=== PATIENT | female | born 1955 | race Caucasian/White ===

== ENCOUNTER 2025-02-11 08:23 | Day surgery (SDC) | payer MEDICARE, SELFPAY ==
[2025-02-11] VITALS (10 sets, daily range): BP systolic 92–125; BP diastolic 65–80; PULSE 65–83; RESP 16; TEMP 36.5–36.8; O2SAT 92–98; BMI 53.8
[2025-02-11] MEDS: Lactated Ringers 1,000 ML 15 ML IV (09:06)
--- NOTE | 2025-02-11 09:07 | PCM.PRE.AN2 ---
ASA Classification* ASA Classification ASA Classification: 3 Assessment & Plan Anesthesia* Anesthesia Assessment Anesthesia Assessment: Discussed sedation and/or anesthesia options, risks, benefits, and alternatives with patient/parents/legal guardian/POA. Questions invited. The patient/parents/legal guardian/POA seems to understand and agrees to proceed with anesthesia plan. Reviewed the physical assessment, medical history, allergy history and patient home medications list prior to surgery/procedure/anesthetic and documented any changes. Performed airway and anesthesia risk assessments. Anesthesia Type Anesthesia Type: MAC History Source History Obtained from:: Patient and Chart Anesthesia Focused Assessment* Temperature: 98 F Pulse Rate: 78 Blood Pressure: 92/65 Respiratory Rate: 16 Pulse Ox: 96 Oxygen Delivery Method: Room Air Airway Assessment Mouth opens: >3 cm Mallampati Score: IV Teeth Condition: Missing (Patient is missing several molars. The rest of the teeth are tight.) Neck Range of motion (ROM): Limited ROM (Slight Decrease) Labs Anesthesia Preop lab: CBC CHEMISTRY COAG Pre-Assessment Diagnosis/Proposed Procedure Planned Operative Procedure(s): Hysteroscopy,D&C Symphion, polypectomy Anesthesia History Anesthesia History - delivery professional: Anesthesia History - delivery professional Hx Hospitalization No 01/31/25 09:27 Any Problems With Anesthesia No 01/31/25 09:27 Cholinesterase deficiency No 01/31/25 09:27 You/Your Family Experience No 01/31/25 09:27 fever (hyperthermia) with Relationship Recent Exposure to Contagious No 02/11/25 08:51 Disease Does patient have nerve No 01/31/25 09:27 stimulator Patient instructed to have device shut off --Does patient have Pacemaker No 02/11/25 08:51 or ICD? When Was Last Pacemaker Check QUESTION #4 FULL TEXT: You/Your Family Experience fever (hyperthermia) with Anesthesia Last Oral Intake Last Oral intake: Last Oral Intake NPO since 23:50 02/11/25 08:51 Meds taken in AM with sips of No 02/11/25 08:51 water? Meds patient instructed to take am of surgery PONV PONV - delivery professional: PONV - delivery professional Female Yes 01/31/25 09:27 HX of Motion Sickness Yes 01/31/25 09:27 HX of N/V After Surgery No 01/31/25 09:27 Non-Smoker Yes 01/31/25 09:27 Duration of Surgery greater No 01/31/25 09:27 than 60 minutes Number of Risk Factors 3 01/31/25 09:27 PONV Score Moderate Risk 01/31/25 09:27 Height & Weight Height & Weight: Anesthesia: Height & Weight Height 5 ft 02/11/25 08:51 Weight: 125 kg 02/11/25 08:51 Body Mass Index (BMI) 53.8 02/11/25 08:51 Respiratory Assessment Respiratory Assessment - delivery professional: Respiratory Tract Infection Hx - delivery professional Hx Respiratory Tract Infection No 01/31/25 09:27 STOP Sleep Apnea STOP Sleep Apnea - delivery professional: STOP Sleep Apnea - delivery professional Hx Hypertension No 01/31/25 09:27 Hx Sleep Apnea No 01/31/25 09:27 CPAP BIPAP Do you snore loudly (louder No 01/31/25 09:27 than talking or can be heard Do you often feel tired/ No 01/31/25 09:27 fatigued/ sleepy during daytime? Has anyone observed you stop No 01/31/25 09:27 breathing during sleep? STOP Results Negative 01/31/25 09:27 QUESTION #5 FULL TEXT : Do you snore loudly (louder than talking or can be heard through closed doors)? 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 Specify any problems Hx of Preganancy in last 3 No 01/31/25 09:27 Months Nurse Filling Out Transfusion VCHRISTIN 01/31/25 09:27 & Questions: Date: 01/31/25 01/31/25 09:27 Time: 09:28 01/31/25 09:27 Patient unable to answer at this time (ie. confused, unrespo /Reproduction History /Reproductive History - delivery professional: /Reproductive Hx- delivery professional Hx Now No 01/31/25 09:27 Gestational Age (in weeks): EDC: Hx Hx Para Hx Section SAB No 01/31/25 09:27 Active Medications Active Medications: Current Medications Generic Name Dose Route Start Last Admin Trade Name Freq PRN Reason Stop Dose Admin Lactated Ringer's 1,000 mls @ 15 mls/hr 02/11/25 08:45 02/11/25 09:06 IV 15 mls/hr .Q48H NIYAH Administration PFSH Medical History Wears glasses Post-menopausal Depression Anxiety Alcohol use Thyroid disease Arthritis Back pain Injury of head and neck History of hiatal hernia Non-smoker Asthma Leg cramps History of pain when walking History of edema History of echocardiogram History of ganglion cyst Home Medications ?Medication ?Instructions ?Recorded ?Last Taken ?Type cetirizine 10 mg tablet 10 mg PO DAILY 01/31/25 Unknown History cholecalciferol (vitamin D3) 25 25 mcg PO DAILY 01/31/25 Unknown History mcg (1,000 unit) capsule (Vitamin D3) fluticasone propionate 50 1 spray intranasal DAILY PRN nasal 01/31/25 Unknown History mcg/actuation nasal congestion spray,suspension (24 Hour Allergy Relief) levothyroxine 50 mcg tablet 50 mcg PO DAILY 01/31/25 Unknown History meloxicam 15 mg tablet 15 mg PO DAILY 01/31/25 Unknown History sertraline 50 mg tablet 50 mg PO DAILY 01/31/25 Unknown History Allergy/AdvReac Type Severity Reaction Status Date / Time amoxicillin Allergy Severe Rash Verified 02/11/25 08:49 Surgical History History of cardiac catheterization History of tonsillectomy and adenoidectomy Hx of tubal ligation History of hysteroscopy Hx of section Social History Smoking Status: Never smoker Review of Systems (Anesthesia) ROS Narrative System reviewed and no additional complaints, except as documented. Physical Exam Resp Resp Narrative: Patient has a slight end expiratory wheeze. We will give her a nebulizer breathing treatment prior to OR.
[2025-02-11] MEDS: Lidocaine 1% (20 ml mdv) 20 ML Vial (09:58)
--- NOTE | 2025-02-11 10:14 | PCM.DC ---
Discharge Instructions DC O2, CPAP, BIPAP needs Home O2 Discharge instructions: No Dressing / Incision Discharge Activity: May Not Drive (for 24 hours after surgery) and May Not Shower (for 24 hours after surgery) May resume sexual activity in: 1 week (nothing in the vagina and no soaking in water) Weight Bearing Status: Weight bearing as tolerated Lifting Restrictions: none Dressing / Incision Call your doctor if you observe: Fever of 101 or Higher, Using more than 1 pad per hour, Shortness of breath, Dizziness, Chest pain, Increased palpitations (irregular heartbeat), Calf discomfort and Uncontrolled pain Follow Up Care Please Follow Up With: Ladonna Yuen DO When: 1 week post op Test Results: Test results from this visit will be discussed in further detail at your follow-up appointment, if applicable. Discharge Plan Admission Primary Reason for Your Visit: surgery Attending Provider: Ladonna Yuen Primary Care Provider: Josie Worthy Instructions Patient Instructions: Dilation and Curettage Print Language: Portuguese Discharge Orders/Prescriptions Prescriptions: Continued cholecalciferol (vitamin D3) [Vitamin D3] 25 mcg (1,000 unit) capsule 25 mcg PO DAILY levothyroxine 50 mcg tablet 50 mcg PO DAILY cetirizine 10 mg tablet 10 mg PO DAILY meloxicam 15 mg tablet 15 mg PO DAILY sertraline 50 mg tablet 50 mg PO DAILY fluticasone propionate [24 Hour Allergy Relief] 50 mcg/actuation spray,suspension 1 spray intranasal DAILY PRN (Reason: nasal congestion) Rx Instructions: administer into each nostril Referrals / Follow Up: Josie Worthy MD [Primary Care Provider] - Disposition Disposition (needs filled in before D/C Order can be placed): Home, Self Care
--- NOTE | 2025-02-11 10:24 | PCM.POSTANE2 ---
Anesthesia Postop Eval I Sum Anesthesia Postop Eval I Summary Anesthesia Postop Eval I Summary: Anesthesia Postop Eval I: Assessment Summary Airway patent Spontaneous unlabored respirations Mental status nausea Vomiting Anesthesia Postop Eval I: Fluid Summary Crystalloid volume administer (ml) Colloids volume administered ( ml) Blood Product volume administered (ml) Total IV fluid infused Anesthesia Postop Eval I: Summary Notes Anesthesia Complication Anesthesia Complication Comment: Post-operative progress note Anesthesia: Postop Eval II Evaluation Mental status: Awake and Calm Pain Level: 0 nausea: No Vomiting: No Complications Anesthesia Complication: No
--- NOTE | 2025-02-11 10:26 | OP.PCM_ITS ---
Problems Associated Problem List Diagnoses (1) PMB (postmenopausal bleeding): Operative Report (Standard) Operative Information Date of Procedure: 02/11/25 Pre-Operative Diagnosis: PMB Post-Operative Diagnosis: PMB Surgery/Procedure Performed: Hysteroscopy, D&C, polypectomy health science instructor: No Type of Anesthesia: MAC RN Documented Start/Stop Times: Operation Date: 02/11/25 10:30 Case Time Into Pre-Op 02/11/25 08:39 Out of Pre-Op 02/11/25 09:23 Anesthesia Start 02/11/25 09:26 Into Room 02/11/25 09:26 Procedure Start 02/11/25 09:42 Procedure End 02/11/25 10:10 Anesthesia End 02/11/25 10:16 Out of Room 02/11/25 10:16 Into Recovery 02/11/25 10:20 Procedure Start Time: 09:42 Procedure Stop Time: 10:10 Select all DRAINS/GRAFTS/IMPLANTS that apply: None Special Medications: None Estimated Blood Loss: < 50 mL Fluids Replaced: 500 mL fluid deficit Specimen collected: Yes Description of specimen(s) removed: Endometrial curettings and polyp Description of surgery: The patient was taken to the operating room where MAC anesthesia was induced. She was prepped and draped in the dorsal lithotomy position using yellow fin stirrups. A weighted speculum was placed in the vagina to expose the cervix. The anterior lip of the cervix was grasped with a single tooth tenaculum. Local was infiltrated into the cervix. The cervix was serially dilated to accommodate the Symphion hysteroscopy. The hysteroscope was advanced into the uterus, and the uterine cavity was distended with normal saline as distention media. Bilateral tubal ostia were visualized. There was a large vascular prolapsing polyp that was arising from the anterior surface of the uterus. The Symphion resection device was used to resect the polyp. A very broad base was noted during resection, which compromised about 50% of the anterior surface of the uterus. The hysteroscope was then removed after resection of the polyp. Sharp curettage was performed for moderate tissue. The polyp and endometrial curettings were sent to pathology for review. Bleeding was scant. All instruments were removed from the vagina. A vaginal sweep was performed. Intermittent and sponge counts were correct. The patient was taken to the recovery in stable condition. Surgical Findings: Uterus sounded to 10 cm. Large polyp over anterior surface of the uterus with a broad base. Complications Complications: No Admit VTE Documentation VTE Present on Admission: No VTE Mechan Device Prophylaxis: SCD's
--- NOTE | 2025-02-11 10:30 | EMB_PTH ---
PATIENT: DEEP NICHOLSON [place] [facility] [facility] [id number] AGE/SX: 69/F ROOM: RE02/11/[address]: Dr. Ladonna Yuen DO : 1955 BED: DIS: 02/11/2025 SPEC #: [id number] RECD: 02/11/25 11:52 STATUS: BONNIE REWest #: [id number] BANDAR: 02/11/25 10:[address]: Ladonna Yuen DEPT: SURGICAL PATHOLOGY RECD BY: Anderson Rasheed ENTERED: 02/11/25 13:52 SP TYPE: ENDOM BX/C OT DR: Dr. Josie Worthy MD Tissues: A - Endometrium, NOS Procedures: Surgery Specimen Level IV HEADER OPERATION: Hysteroscopy, polypectomy PRE-OP DIAGNOSIS: Polyp, post menopausal bleeding TISSUE SUBMITTED: A- Endometrial curettings and polyp MICROSCOPIC DIAGNOSIS A. Endometrium, polyp, post menopausal bleeding, dilation and curettage, polypectomy: - Endometrial hyperplasia with focal atypia most probably originating in endometrial polyp - see Comment. COMMENT Selected slides/images were reviewed in intradepartmental consultation by Dr Alexandria Funk ([facility] pathology division, [facility]). MICROSCOPIC DESCRIPTION Slides are reviewed. GROSS DESCRIPTION Received in formalin labeled with the patient's name and date of . Designated as endometrial curettings and polyp is a is a 3.2 x 2.6 x 0.6 cm aggregate of vaca-pink tissue fragments including a 0.7 x 0.4 x 0.4 cm pink-purple apparent polyp. Entirely submitted in 3 cassettes, to include the possible polyp in cassette A1. CT 02/11/2025 CPT:[id number]
== END 2025-02-11 12:09 | disposition home or self-care (01) ==
LOC: SDC 08:30 → AC 08:33
PROVIDERS: PCP Internal Medicine; Referring Provider Obstetrics & Gynecology; Visit Provider Obstetrics & Gynecology
PROC: 0UB98ZZ Excision of Uterus, Via Natural or Artificial Opening Endoscopic (ICD-10-PCS; CPT 58558; principal; 2025-02-11 10:15)
DX: N95.0 Postmenopausal bleeding (principal); N84.0 Polyp of corpus uteri; Z98.51 Tubal ligation status; E03.9 Hypothyroidism, unspecified; F41.1 Generalized anxiety disorder; E55.9 Vitamin D deficiency, unspecified
CPT/HCPCS: 58558; 00952; 88305; 94640; J2405

== ENCOUNTER 2025-02-13 12:42 | Emergency (ER) | payer MEDICARE, SELFPAY ==
[2025-02-13 12:44] VITALS: BP 168/76; PULSE 78; RESP 16; TEMP 36.6; O2SAT 98; BMI 54.7
--- NOTE | 2025-02-13 13:28 | RAD_ITS ---
PROCEDURE: ACUTE ABDOMEN INC CHEST 02/13/2025 REASON FOR EXAM: PAIN TECHNIQUE: ACUTE ABDOMEN INC CHEST COMPARISON: None. FINDINGS: The heart is normal in size. The lungs are clear. No subdiaphragmatic free air. Nonspecific bowel gas pattern. No evidence of obstruction. No acute osseous abnormalities. RAD/Acute Abdomen Inc Chest IMPRESSION: Nonobstructive bowel gas pattern. No acute cardiopulmonary abnormalities. Reading Location: [id number]
--- OUTSIDE RECORDS SUMMARY | 2025-02-13 13:33 | XMS RPT_ITS | CCD ---
Author Organization [facility] Care Team Providers Care Parts Back Counter Man Name Role Phone Kyra Carson MD Primary Care Provider ALL BARTHOLOMEW Attending Unavailable TALAMPAS, KYRA D Referring Unavailable TALAMPAS, KYRA D Primary Care Unavailable Kyra Carson MD Primary Care Provider Kyra Carson MD Primary Care Provider Soriano COMMERCIAL PAINTER.NAVAL AIRCREWMAN HELICOPTER, Dorota Unavailable Jenn COMMERCIAL PAINTER.SECRETARY BOARD OF COMMISSIONERS, Thanh Unavailable Jenn COMMERCIAL PAINTER.SECRETARY BOARD OF COMMISSIONERS, Thanh Unavailable Jenn COMMERCIAL PAINTER.SECRETARY BOARD OF COMMISSIONERS, Thanh Unavailable Soriano COMMERCIAL PAINTER.NAVAL AIRCREWMAN HELICOPTER, Dorota Unavailable Soriano COMMERCIAL PAINTER.NAVAL AIRCREWMAN HELICOPTER, Dorota Unavailable TALAMPAS, KYRA D Attending Unavailable TALAMPAS, KYRA D Primary Care Unavailable TALAMPAS, KYRA D Primary Care Unavailable TALAMPAS, KYRA D Referring Unavailable TALAMPAS, KYRA D Primary Care Unavailable TALAMPAS, KYRA D Referring Unavailable TALAMPAS, KYRA D Primary Care Unavailable WISWELL, THOMAS Attending Unavailable TALAMPAS, KYRA D Primary Care Unavailable JENN THANH Referring Unavailable TALAMPAS, KYRA D Primary Care Unavailable JENNTHANH Attending Unavailable MAX, LIZETH Referring Unavailable WISWELL, THOMAS Attending Unavailable TALAMPAS, KYRA D Primary Care Unavailable TALAMPAS, KYRA D Primary Care Unavailable JENN THANH Attending Unavailable MAX, LIZETH Referring Unavailable TALAMPAS, KYRA D Primary Care Unavailable TALAMPAS, KYRA D Referring Unavailable MAX, LIZETH Attending Unavailable TALAMPAS, KYRA D Primary Care Unavailable TALAMPAS, KYRA D Primary Care Unavailable THANH BARAJAS Attending Unavailable SELF Referring Unavailable KYRA CARSON Referring Unavailable KYRA CARSON Primary Care Unavailable Dr. Thomas Yuen DO Attending Provider Dr. Thomas Yuen DO Referring Provider Dr. Kyra Carson MD Primary Care Provider Kyra Carson Primary Care Unavailable Thomas Yuen Referring Unavailable Thomas Yuen Attending Unavailable Allergies Allergy Classification Reported Allergen(s) Allergy Type Date of Onset Reaction(s) Facility (20 sources) Amoxicillin; Translations: [AMOXICILLIN] Drug Allergy 03-26-2022 [facility] Work Phone: (1 source) Amoxicillin Drug Allergy 02-11-2025 [facility] Repository Medications Current Medications Medication Drug Class(es) Dates Sig (Normalized) Sig (Original) azithromycin 250 mg oral tablet (1 source) Macrolide Antimicrobial Start: 09-28-2024 End: 10-03-2024 take 2 tablets by mouth once daily, then take 1 tablet by mouth once daily azithromycin (ZITHROMAX) 250 mg tablet Indications: Sinobronchitis Take 2 tablets by mouth once daily for 1 day, THEN 1 tablet once daily for 4 days. 6 tablet 09/28/2024 10/03/2024 Active cetirizine hydrochloride 10 mg oral tablet (20 sources) Histamine-1 Receptor Antagonist Start: 01-31-2025 take 1 tablet by mouth once daily Cetirizine 10 mg tablet Active 10 mg PO DAILY January 31, 2025 12:00am Start: 11-16-2024 End: 11-16-2024 take 1 tablet by mouth once daily cetirizine HCl (ZYRTEC) 10 mg chewable tablet Take 1 tablet by mouth once daily. 90 tablet 1 11/16/2024 Active End: 04-28-2023 take 1 tablet by mouth once daily cetirizine (ZYRTEC) 10 mg tablet Take 10 mg by mouth once daily. 0 04/28/2023 Discontinued Comment on above: Take 10 mg by mouth once daily. cholecalciferol 0.025 mg oral capsule (20 sources) Vitamin D Start: 02-01-20 take 1 capsule by mouth once daily Cholecalciferol (Vitamin D3) (Vitamin D3) 25 mcg (1,000 unit) capsule Active 25 ug PO DAILY January 31, 2025 12:00am Cholecalciferol, Vitamin D3, (VITAMIN D) 25 mcg (1,000 unit) cap Take 1,000 Units by mouth once daily. Active Comment on above: Take 1,000 Units by mouth once daily. fluticasone propionate 0.05 mg/actuat metered dose nasal spray (20 sources) Corticosteroid Start: take 50 ug nasal route once daily as needed Fluticasone Propionate (24 Hour Allergy Relief) 50 mcg/actuation spray,suspension Active 1 NMA INTRANASAL DAILY as needed for nasal congestion January 31, 2025 12:00am administer into each nostril Start: 11-04-2023 take 2 spray(s) by m outh once daily fluticasone (FLONASE) 50 mcg/actuation nasal spray Use 2 Sprays in each nostril once daily. Rinse mouth after use. As directed 1 Each 2 11/04/2023 Active Start: 09-10-2022 End: 11-02-2023 take 2 spray(s) by mouth once daily fluticasone (FLONASE) 50 mcg/actuation nasal spray Use 2 Sprays in each nostril once daily. Rinse mouth after use. As directed 1 Each 2 05/06/2023 11/02/2023 Discontinued Comment on above: Use 2 Sprays in each nostril once daily. Rinse mouth after use. As directed levothyroxine sodium 0.05 mg oral tablet (20 sources) l-Thyroxine Start: take 1 tablet by mouth once daily Levothyroxine 50 mcg tablet Active 50 ug PO DAILY January 31, 2025 12:00am Start: 11-04-2023 End: 09-28-2024 take 1.5 tablets by mouth once daily for thyroid dysfunction levothyroxine (LEVOXYL) 50 mcg tablet Indications: Hypothyroidism, unspecified type Take 1.5 tablets by mouth once daily. Take on empty stomach. For Thyroid 45 tablet 11 09/28/2024 Active Start: 05-14-2023 End: 11-02-2023 take 1.5 tablets by mouth once daily for thyroid dysfunction levothyroxine (LEVOXYL) 50 mcg tablet Indications: Hypothyroidism, unspecified type Take 1.5 tablets by mouth once daily. Take on empty stomach. For Thyroid 45 tablet 5 05/14/2023 11/02/2023 Discontinued Start: 04-09-2023 End: 05-14-2023 take 1 tablet by mouth once daily for thyroid dysfunction levothyroxine (LEVOXYL) 50 mcg tablet Indications: Hypothyroidism, unspecified type Take 1 tablet by mouth once daily. Take on empty stomach. For Thyroid 30 tablet 5 04/09/2023 05/14/2023 Discontinued Start: 01-15-2023 End: 04-09-2023 take 1 tablet by mouth once daily for thyroid dysfunction levothyroxine (SYNTHROID) 25 mcg tablet Indications: Hypothyroidism, unspecified type Take 1 tablet by mouth once daily. Take on empty stomach. For thyroid. 30 tablet 2 01/15/2023 04/09/2023 Discontinued Start: 10-15-2022 End: 01-12-2023 take 1 tablet by mouth once daily for thyroid dysfunction levothyroxine (SYNTHROID) 25 mcg tablet Indications: Hypothyroidism, unspecified type Take 1 tablet by mouth once daily. Take on empty stomach. For thyroid. 30 tablet 2 10/15/2022 01/12/2023 Discontinued Comment on above: Take 1 tablet by shadia th once daily. Take on empty stomach. For thyroid. Take 1 tablet by shadia th once daily. Take on empty stomach. For Thyroid Take 1.5 tablets by mouth once daily. Take on empty stomach. For Thyroid meloxicam 15 mg oral tablet (20 sources) Nonsteroidal Anti-inflammatory Drug Start: 04-06-2024 End: 11-11-2025 take 1 tablet by mouth once daily Meloxicam 15 mg tablet Active 15 mg PO DAILY January 31, 2025 12:00am Start: 11-03-2023 End: 03-02-2024 take 1 tablet by mouth once daily meloxicam (MOBIC) 15 mg tablet Take 1 tablet by mouth once daily. 30 tablet 3 11/03/2023 03/02/2024 Active Start: 06-30-2023 End: 10-28-2023 take 1 tablet by mouth once daily meloxicam (MOBIC) 15 mg tablet Take 1 tablet by mouth once daily. 30 tablet 3 06/30/2023 10/28/2023 Active Start: 02-03-2023 End: 06-02-2023 take 1 tablet by mouth once daily meloxicam (MOBIC) 15 mg tablet Take 1 tablet by mouth once daily. 30 tablet 0 06/02/2023 Active Start: 12-31-2022 End: 02-01-2023 take 1 tablet by mouth once daily meloxicam (MOBIC) 15 mg tablet Take 1 tablet by mouth once daily. 30 tablet 0 12/31/2022 02/01/2023 Discontinued Start: 09-30-2022 End: 11-24-2022 take 1 tablet by mouth once daily meloxicam (MOBIC) 15 mg tablet Take 1 tablet by mouth once daily. 30 tablet 0 11/25/2022 Active Start: 04-08-2022 End: 09-28-2022 take 1 tablet by mouth once daily meloxicam (MOBIC) 15 mg tablet Take 1 tablet by mouth once daily. 30 tablet 0 08/28/2022 09/28/2022 Discontinued Comment on above: Take 1 tablet by shadia th once daily. predniSONE 10 mg oral tablet (3 sources) Start: 09-18-2022 End: 09-30-2022 predniSONE (DELTASONE) 10 mg tablet Indications: Acute left-sided low back pain with sciatica, sciatica laterality unspecified Take 4 tabs daily x 3 days, then 3 tabs x 3 days, 2 tabs x 3 days, then 1 tab x3 days with food. 30 tablet 0 09/18/2022 09/30/2022 Active Comment on above: Take 4 tabs daily x 3 days, then 3 tabs x 3 days, 2 tabs x 3 days, then 1 tab x3 days with food. sertraline 50 mg oral tablet (20 sources) Serotonin Reuptake Inhibitor Start: 01-31-2025 take 1 tablet by mouth once daily Sertraline 50 mg tablet Active 50 mg PO DAILY January 31, 2025 12:00am Start: 09-15-2023 End: 09-28-2024 take 1 tablet by mouth once daily sertraline (ZOLOFT) 50 mg tablet Indications: Moderate recurrent major depression (HCC) , Anxiety Take 1 tablet by mouth once daily. 90 tablet 3 09/28/2024 Active Start: 08-11-2023 take 1 tablet by shadia th once daily, then take 0.5 tablet by mouth once daily, then take 1 tablet by mouth once daily sertraline (ZOLOFT) 50 mg tablet Indications: Anxiety Take 1 tablet by mouth once daily. Start with a half of a pill daily for x1 week then increase to a whole pill daily 30 tablet 2 08/11/2023 Active Comment on above: Take 1 tablet by shadia th once daily. Start with a half of a pill daily for x1 week then increase to a whole pill daily Take 1 tablet by shadia th once daily. Completed/Discontinued Medications Medication Drug Class(es) Dates Sig (Normalized) Sig (Original) benzonatate 100 mg oral capsule (11 sources) Non-narcotic Antitussive Start: 09-28-2024 End: 01-27-2025 take 2 capsules by mouth three times daily as needed for cough benzonatate (TESSALON PERLE) 100 mg capsule Indications: Sinobronchitis Take 2 capsules by mouth three times a day as needed for cough. 90 capsule 09/28/2024 01/27/2025 Discontinued cyclobenzaprine hydrochloride 10 mg oral tablet (20 sources) Muscle Relaxant Start: 09-18-2022 take 1 tablet by mouth three times daily as needed for muscle spasms cyclobenzaprine (FLEXERIL) 10 mg tablet Indications: Acute left-sided low back pain with sciatica, sciatica laterality unspecified Take 1 tablet by mouth three times daily as needed for muscle spasm. 15 tablet 0 09/18/2022 Active Comment on above: Take 1 tablet by shadia th three times daily as needed for muscle spasm. hydrOXYzine hydrochloride 25 mg oral tablet (20 sources) Antihistamine Start: 11-04-2023 End: 11-16-2024 take 1 tablet by mouth every six hours as needed for anxiety hydrOXYzine HCl (ATARAX) 25 mg tablet Indications: Moderate recurrent major depression (HCC) , Anxiety Take 1 tablet by mouth every 6 hours as needed for anxiety (or allergies). 30 tablet 1 11/19/2023 11/16/2024 Discontinued Start: 08-25-2023 End: 11-02-2023 take 1 tablet by mouth every six hours as needed hydrOXYzine HCl (ATARAX) 25 mg tablet Take 1 tablet by mouth every 6 hours as needed for anxiety (or allergies). 30 tablet 1 08/25/2023 11/02/2023 Discontinued Start: 06-30-2023 End: 08-23-2023 take 1 tablet by mouth every six hours as needed hydrOXYzine HCl (ATARAX) 25 mg tablet Take 1 tablet by mouth every 6 hours as needed for anxiety (or allergies). 30 tablet 1 06/30/2023 08/23/2023 Discontinued Start: 09-10-2022 End: 06-28-2023 take 1 tablet by mouth every six hours as needed hydrOXYzine HCl (ATARAX) 25 mg tablet Take 1 tablet by mouth every 6 hours as needed for anxiety (or allergies). 30 tablet 1 04/28/2023 06/28/2023 Discontinued Comment on above: Take 1 tablet by shadia th every 6 hours as needed for anxiety (or allergies). Problems Active Problems Problem Classification Problem Date Documented Date Episodic/Chronic Abdominal pain (3 sources) Pain in female pelvis; Translations: [Pelvic and perineal pain] Onset: 11-09-2024 11-05-2024 Episodic Adjustment disorders (1 source) Adjustment disorder with mixed anxiety and depressed mood; Translations: [Adjustment disorder with mixed anxiety and depressed mood] 04-09-2023 Chronic Anxiety disorders (20 sources) Anxiety; Translations: [Anxiety disorder, unspecified] Onset: 10-15-2022 Chronic Cancer; other and unspecified primary (3 sources) History of gynecological disorder; Translations: [Personal history of other benign neoplasm] 05-25-2024 Episodic Conditions associated with dizziness or vertigo (2 sources) Vertigo; Translations: [Dizziness and giddiness] 05-09-2023 Episodic Disorders of lipid metabolism (5 sources) Hypercholesterolemia; Translations: [Pure hypercholesterolemia, unspecified] Onset: 05-25-2024 04-09-2023 Chronic Fluid and electrolyte disorders (1 source) Hyperkalemia; Translations: [Hyperkalemia] Episodic Menopausal disorders (15 sources) Postmenopausal bleeding; Translations: [Postmenopausal bleeding] Onset: 05-25-2024 05-25-2024 Chronic Mood disorders (20 sources) Recurrent depression; Translations: [Major depressive disorder, recurrent, unspecified] Onset: 09-15-2023 09-15-2023 Chronic Nutritional deficiencies (20 sources) Vitamin D deficiency; Translations: [Vitamin D deficiency, unspecified] Onset: 03-26-2022 Chronic Osteoarthritis (1 source) Osteoarthritis of left knee joint; Translations: [Unilateral primary osteoarthritis, left knee] 04-28-2023 Chronic Other aftercare (1 source) Long-term current use of drug therapy; Translations: [Other intermediate accountant (current) drug therapy] 05-25-2024 Episodic Other aftercare (1 source) Encounter for therapeutic drug level monitoring; Translations: [Encounter for therapeutic drug monitoring] Onset: 01-14-2025 Episodic Other connective tissue disease (1 source) Biceps tendinitis; Translations: [Bicipital tendinitis, right shoulder] 11-19-2023 Episodic Other connective tissue disease (1 source) Deltoid tendinitis; Translations: [Other enthesopathies, not elsewhere classified] 05-25-2024 Episodic Other connective tissue disease (1 source) Pain in right arm; Translations: [Pain in right arm] 05-25-2024 Episodic Other ear and sense organ disorders (1 source) Hearing loss of right ear; Translations: [Unspecified hearing loss, right ear] 05-25-2024 Chronic Other ear and sense organ disorders (1 source) Unspecified hearing loss, right ear; Translations: [Decreased hearing, right] Onset: 05-25-2024 Chronic Other female genital disorders (1 source) Polyp of corpus uteri; Translations: [Polyp of corpus uteri] 01-27-2025 Episodic Other nutritional; endocrine; and metabolic disorders (20 sources) Morbid obesity; Translations: [Morbid (severe) obesity due to excess calories] Onset: 03-26-2022 Chronic Other nutritional; endocrine; and metabolic disorders (1 source) Severe obesity; Translations: [Morbid (severe) obesity due to excess calories] Chronic Other nutritional; endocrine; and metabolic disorders (20 sources) Body mass index 40+ - severely obese; Translations: [Morbid (severe) obesity due to excess calories] Onset: 10-15-2022 Chronic Other nutritional; endocrine; and metabolic disorders (1 source) Morbid (severe) obesity due to excess calories; Translations: [Morbid obesity (HCC)] Onset: 03-26-2022 Chronic Other screening for suspected conditions (not mental disorders or infectious disease) (20 sources) Patient encounter status; Translations: [Encounter for screening for lipoid disorders] Onset: 05-14-2023 Episodic Other upper respiratory infections (1 source) Chronic sinusitis; Translations: [Chronic sinusitis, unspecified] 09-28-2024 Chronic Residual codes; unclassified (2 sources) Pain; Translations: [Pain, unspecified] Episodic Residual codes; unclassified (2 sources) Postmenopausal state; Translations: [Asymptomatic menopausal state] Episodic Spondylosis; intervertebral disc disorders; other back problems (1 source) Acute back pain with sciatica; Translations: [Lumbago with sciatica, unspecified side] Episodic Thyroid disorders (20 sources) Hypothyroidism; Translations: [Hypothyroidism, unspecified] Onset: 10-15-2022 Chronic Unclassified (1 source) Patient encounter status 11-05-2024 Unclassified (1 source) Pre-Op Visit Onset: 01-27-2025 Unclassified (1 source) Obesity, Class III, BMI 40-49.9 (morbid obesity) (HCC); Translations: [Obesity, Class III, BMI 40-49.9 (morbid obesity) (HCC)] Onset: 10-15-2022 Past or Other Problems Problem Classification Problem Date Documented Date Episodic/Chronic Abdominal hernia (20 sources) Umbilical hernia; Translations: [Umbilical hernia without obstruction or gangrene] Onset: 03-26-2022 03-26-2022 Episodic Cancer; other and unspecified primary (1 source) Personal history of other benign neoplasm; Translations: [History of uterine fibroid] Onset: 05-25-2024 Episodic Diabetes mellitus without complication (20 sources) Disorder of glucose metabolism; Translations: [Other abnormal glucose] Onset: 10-15-2022 Episodic Immunizations and screening for infectious disease (3 sources) Vaccination needed; Translations: [Encounter for immunization] Onset: 05-25-2024 Episodic Nonspecific chest pain (2 sources) Finding of region of thorax; Translations: [Other chest pain] Onset: 05-25-2024 05-25-2024 Episodic Other aftercare (1 source) Other fdc (current) drug therapy; Translations: [Encounter for long-term current use of medication] Onset: 05-25-2024 Episodic Other connective tissue disease (1 source) Other enthesopathies, not elsewhere classified; Translations: [Deltoid tendinitis of right shoulder] Onset: 05-25-2024 Episodic Other connective tissue disease (1 source) Pain in right arm; Translations: [Right arm pain] Onset: 05-25-2024 Episodic Other non-traumatic joint disorders (20 sources) Pain in left knee; Translations: [Pain in joint, lower leg] Onset: 03-26-2022 Episodic Unclassified (1 source) Preprocedural examination done 01-14-2025 Results Test Name Value Interpretation Reference Range Facility Discharge Instructionon 01-19 Discharge Instruction [facility] Medical Records Department [address] [place] [address] Instructions for Home/Discharge Instructions 02/11/25 1014 MR#: [id number] Acct: [id number] Name: FRANCA NICHOLSON Rep #: [id number] : 1955 69 From: Thomas Yuen DO PCP: Dr. Kyra Carson MD Status:REG TXC Discharge Instructions DC O2, CPAP, BIPAP needs Home O2 Discharge instructions: No Dressing / Incision Discharge Activity: May Not Drive (for 24 hours after surgery) and May Not Shower (for 24 hours after surgery) May resume sexual activity in: 1 week (nothing in the vagina and no soaking in water) Weight Bearing Status: Weight bearing as tolerated Lifting Restrictions: none Dressing / Incision Call your doctor if you observe: Fever of 101 or Higher, Using more than 1 pad per hour, Shortness of breath, Dizziness, Chest pain, Increased palpitations (irregular heartbeat), Calf discomfort and Uncontrolled pain Follow Up Care Please Follow Up With: Thomas Yuen DO When: 1 week post op Test Results: Test results from this visit will be discussed in further detail at your follow-up appointment, if applicable. Discharge Plan Admission Primary Reason for Your Visit: surgery Attending Provider: Thomas Yuen Primary Care Provider: Kyra Carson Instructions Patient Instructions: Dilation and Curettage Print Language: Georgian Discharge Orders/Prescriptions Prescriptions: Continued cholecalciferol (vitamin D3) [Vitamin D3] 25 mcg (1,000 unit) capsule 25 mcg PO DAILY levothyroxine 50 mcg tablet 50 mcg PO DAILY cetirizine 10 mg tablet 10 mg PO DAILY meloxicam 15 mg tablet 15 mg PO DAILY sertraline 50 mg tablet 50 mg PO DAILY fluticasone propionate [24 Hour Allergy Relief] 50 mcg/actuation spray,suspension 1 spray intranasal DAILY PRN (Reason: nasal congestion) Rx Instructions: administer into each nostril Referrals / Follow Up: Kyra Carson MD [Primary Care Provider] - Disposition Disposition (needs filled in before D/C Order can be placed): Home, Self Care 02/11/25 1015 Thomas Wilfrid DO CC: Dr. Kyra Carson MD Signed [facility] [id number] 02-11-2025 MR/POSTOPAN2 [facility] Medical Records Department [address] [place] [address] Anesthesia Postop Eval II 02/11/25 1024 MR#: [id number] Acct: [id number] Name: FRANCA NICHOLSON Rep #: [id number] : 1955 69 From: Braxton Barber CRNA PCP: Dr. Kyra Carson MD Status:[facility] Y Race: C Location: [place] [address] Anesthesia Postop Eval I Sum Anesthesia Postop Eval I Summary Anesthesia Postop Eval I Summary: Anesthesia Postop Eval I: Assessment Summary Airway patent Spontaneous unlabored respirations Mental status nausea Vomiting Anesthesia Postop Eval I: Fluid Summary Crystalloid volume administer (ml) Colloids volume administered ( ml) Blood Product volume administered (ml) Total IV fluid infused Anesthesia Postop Eval I: Summary Notes Anesthesia Complication Anesthesia Complication Comment: Post-operative progress note Anesthesia: Postop Eval II Evaluation Mental status: Awake and Calm Pain Level: 0 nausea: No Vomiting: No Complications Anesthesia Complication: No 02/11/25 1024 Date Braxton Barber DIE DESIGNER APPRENTICE Cosigner Signature: Date CC: Signed [facility] Operative Reporton Operative Report [facility] Medical Records Department [address] [place] [address] Operative Report 02/11/25 1026 MR#: [id number] Acct: [id number] Name: FRANCA NICHOLSON Rep #: [id number] : 1955 69 From: Thomas Yuen DO PCP: Dr. Kyra Carson MD Status:REG [facility] Location: [place] [address] Problems Associated Problem List Diagnoses (1) PMB (postmenopausal bleeding): Operative Report (Standard) Operative Information Date of Procedure: 02/11/25 Pre-Operative Diagnosis: PMB Post-Operative Diagnosis: PMB Surgery/Procedure Performed: Hysteroscopy, D C, polypectomy ocean biologist: No Type of Anesthesia: MAC RN Documented Start/Stop Times: Operation Date: 02/11/25 10:30 Case Time Into Pre-Op 02/11/25 08:39 Out of Pre-Op 02/11/25 09:23 Anesthesia Start 02/11/25 09:26 Into Room 02/11/25 09:26 Procedure Start 02/11/25 09:42 Procedure End 02/11/25 10:10 Anesthesia End 02/11/25 10:16 Out of Room 02/11/25 10:16 Into Recovery 02/11/25 10:20 Procedure Start Time: 09:42 Procedure Stop Time: 10:10 Select all DRAINS/GRAFTS/IMPLANTS that apply: None Special Medications: None Estimated Blood Loss: < 50 mL Fluids Replaced: 500 mL fluid deficit Specimen collected: Yes Description of specimen(s) removed: Endometrial curettings and polyp Description of surgery: The patient was taken to the operating room where MAC anesthesia was induced. She was prepped and draped in the dorsal lithotomy position using yellow fin stirrups. A weighted speculum was placed in the vagina to expose the cervix. The anterior lip of the cervix was grasped with a single tooth tenaculum. Local was infiltrated into the cervix. The cervix was serially dilated to accommodate the Symphion hysteroscopy. The hysteroscope was advanced into the uterus, and the uterine cavity was distended with normal saline as distention media. Bilateral tubal ostia were visualized. There was a large vascular prolapsing polyp that was arising from the anterior surface of the uterus. The Symphion resection device was used to resect the polyp. A very broad base was noted during resection, which compromised about 50% of the anterior surface of the uterus. The hysteroscope was then removed after resection of the polyp. Sharp curettage was performed for moderate tissue. The polyp and endometrial curettings were sent to pathology for review. Bleeding was scant. All instruments were removed from the vagina. A vaginal sweep was performed. Intermittent and sponge counts were correct. The patient was taken to the recovery in stable condition. Surgical Findings: Uterus sounded to 10 cm. Large polyp over anterior surface of the uterus with a broad base. Complications Complications: No Admit VTE Documentation VTE Present on Admission: No VTE Mechan Device Prophylaxis: SCD's 02/11/25 1048 Cosigner Signature (if applicable): CC: Dr. Kyra Carson MD; Dr. Thomas Yuen DO Signed Normal [facility] CNOVon 01-27-2025 CNOV Office Visit (OBGYWM ) FRANCA NICHOLSON ([id number]) 1955 F Date Time Provider Department 01/27/25 10:20 AM THOMAS YUEN [facility] During your visit today, we recorded the following information about you: Pulse Respiration Blood pressure Weight 75/minute 16/minute 124/69 125.3 kg Height 1.524 m Thomas Yuen MD 01/27/2025 11:00 AM Signed DATE OF SERVICE: January 27, 2025 PROBLEM: polyp, PMB DIAGNOSIS: as above PAST SURGICAL HISTORY: PAST SURGICAL HISTORY Procedure Laterality Date - SECTION MULTI>2 3 C-sections - HYSTEROSCOPY, DIAGNOSTIC (SEPARATE 2014, 2018 for fibroids and bleeding - LIGATE FALLOPIAN TUBE 1990 - PAST SURGICAL HISTORY OF Right 1982 Ganglion cyst excision, wrist - TONSILLECTOMY AND ADENOIDECTOMY 12 years old PAST MEDICAL HISTORY: PAST MEDICAL HISTORY Diagnosis Date - Chronic pain of left knee - Generalized anxiety disorder - Hypothyroidism - Obesity - Umbilical hernia - Vitamin D deficiency SUBJECTIVE: Doing well and offers no complaints. Had pre op clearance with PCP SOCIAL HISTORY: Social History Tobacco Use - Smoking status: Never - Smokeless tobacco: Never Vaping Use - Vaping status: Never Used Substance Use Topics - Alcohol use: Yes Comment: occasionally - Drug use: Never ALLERGIES Allergen Reactions - Amoxicillin Rash Red fine rash Current Outpatient Medications on File Prior to Visit Medication Sig - meloxicam (MOBIC) 15 mg tablet Take 1 tablet by mouth once daily. - cetirizine HCl (ZYRTEC) 10 mg chewable tablet Take 1 tablet by mouth once daily. - levothyroxine (LEVOXYL) 50 mcg tablet Take 1.5 tablets by mouth once daily. Take on empty stomach. For Thyroid - sertraline (ZOLOFT) 50 mg tablet Take 1 tablet by mouth once daily. - fluticasone (FLONASE) 50 mcg/actuation nasal spray Use 2 Sprays in each nostril once daily. Rinse mouth after use. As directed - Cholecalciferol, Vitamin D3, (VITAMIN D) 25 mcg (1,000 unit) cap Take 1,000 Units by mouth once daily. No current facility-administered medications on file prior to visit. OBJECTIVE: VITALS: BP 124/69 Pulse 75 Resp 16 Ht 152.4 cm (5') Wt 125.3 kg (276 lb 3.2 oz) LMP 2014 SpO2 93% BMI 53.94 kg/m? HEENT: Normocephalic, atraumatic, Mucus membranes moist without lesions. NECK: Soft and Supple. SKIN: No lesions. CHEST: Clear to auscultation. No wheezes or rales. Good air exchange. HEART: Regular rate and rhythm No S3 or S4. No gallops or rubs. BACK: Nontender. ABDOMEN: Non-distended, no masses. LOWER EXTREMITIES: There was no pitting edema. ASSESSMENT: pre op, polyp, PMB PLAN: 1) Discussed r/b/a hysteroscopy, DANDC, polypectomy in detail. The rationale for the proposed surgery was discussed in addition to risks, benefits, and alternatives. General pre- and post-operative care was reviewed. Questions were answered. After discussion, the patient indicated a desire to proceed with the planned surgery. Thomas Yuen DO Medical Decision Making: Problems: Moderate: New problem with uncertain prognosis Risk: Moderate: Decision on minor surgery w/ risk factors Medical Decision Making Level: 4 - Moderate Allergies As of Date: 01/27/2025 Noted Allergy Reaction AMOXICILLIN 03/26/2022 2 - Rash Comments: Red fine rash Date Reviewed: 01/27/2025 Reviewed by: Delisa Marin MA - Fully Assessed Reason for Visit: Pre-Op Visit [1235] Primary Visit Diagnosis:Endometrial polyp [N84.0] Other Visit Diagnoses:Visit for pre-operative examination [Z01.818] PMB (postmenopausal bleeding) [N95.0] Prescriptions as of 01/27/2025 - meloxicam (MOBIC) 15 mg tablet Take 1 tablet by mouth once daily. - cetirizine HCl (ZYRTEC) 10 mg chewable tablet Take 1 tablet by mouth once daily. - levothyroxine (LEVOXYL) 50 mcg tablet Take 1.5 tablets by mouth once daily. Take on empty stomach. For Thyroid - sertraline (ZOLOFT) 50 mg tablet Take 1 tablet by mouth once daily. - fluticasone (FLONASE) 50 mcg/actuation nasal spray Use 2 Sprays in each nostril once daily. Rinse mouth after use. As directed - Cholecalciferol, Vitamin D3, (VITAMIN D) 25 mcg (1,000 unit) cap Take 1,000 Units by mouth once daily. Problem List As Of Date 01/27/2025 Noted Resolved Umbilical hernia [K42.9] 03/26/2022 Vitamin D deficiency [E55.9] 03/26/2022 Morbid obesity (HCC) [E66.01] 03/26/2022 Chronic pain of left knee [M25.562, G89.29] 03/26/2022 Obesity, Class III, BMI >= 40 [E66.813] 10/15/2022 Anxiety [F41.9] 10/15/2022 Hypothyroidism [E03.9] 10/15/2022 Impaired glucose regulation [R73.09] 10/15/2022 Special screening for malignant neoplasms, colo*05/14/2023 Depression, recurrent (HCC) [F33.9] 09/15/2023 Moderate recurrent major depression (HCC) [F33.*11/19/2023 Medications Discontinued During This Encounter Prescriptions - benzonatate (TESSALON PERLE) 100 mg ca (more content not included)... Normal [facility] HISTORY PHYSICALon HISTORY PHYSICAL HNO ID: [id number] Author: THOMAS YUEN MD Service: ? Author Type: Physician Type: H&P Filed: 01/27/2025 11:00 Note Text: DATE OF SERVICE: January 27, 2025 PROBLEM: polyp, PMB DIAGNOSIS: as above PAST SURGICAL HISTORY: PAST SURGICAL HISTORY Procedure Laterality Date - SECTION MULTI>2 3 C-sections - HYSTEROSCOPY, DIAGNOSTIC (SEPARATE 2014, 2018 for fibroids and bleeding - LIGATE FALLOPIAN TUBE 1990 - PAST SURGICAL HISTORY OF Right 1982 Ganglion cyst excision, wrist - TONSILLECTOMY AND ADENOIDECTOMY 12 years old PAST MEDICAL HISTORY: PAST MEDICAL HISTORY Diagnosis Date - Chronic pain of left knee - Generalized anxiety disorder - Hypothyroidism - Obesity - Umbilical hernia - Vitamin D deficiency SUBJECTIVE: Doing well and offers no complaints. Had pre op clearance with PCP SOCIAL HISTORY: Social History Tobacco Use - Smoking status: Never - Smokeless tobacco: Never Vaping Use - Vaping status: Never Used Substance Use Topics - Alcohol use: Yes Comment: occasionally - Drug use: Never ALLERGIES Allergen Reactions - Amoxicillin Rash Red fine rash Current Outpatient Medications on File Prior to Visit Medication Sig - meloxicam (MOBIC) 15 mg tablet Take 1 tablet by mouth once daily. - cetirizine HCl (ZYRTEC) 10 mg chewable tablet Take 1 tablet by mouth once daily. - levothyroxine (LEVOXYL) 50 mcg tablet Take 1.5 tablets by mouth once daily. Take on empty stomach. For Thyroid - sertraline (ZOLOFT) 50 mg tablet Take 1 tablet by mouth once daily. - fluticasone (FLONASE) 50 mcg/actuation nasal spray Use 2 Sprays in each nostril once daily. Rinse mouth after use. As directed - Cholecalciferol, Vitamin D3, (VITAMIN D) 25 mcg (1,000 unit) cap Take 1,000 Units by mouth once daily. No current facility-administered medications on file prior to visit. OBJECTIVE: VITALS: BP 124/69 Pulse 75 Resp 16 Ht 152.4 cm (5') Wt 125.3 kg (276 lb 3.2 oz) LMP 2014 SpO2 93% BMI 53.94 kg/m? HEENT: Normocephalic, atraumatic, Mucus membranes moist without lesions. NECK: Soft and Supple. SKIN: No lesions. CHEST: Clear to auscultation. No wheezes or rales. Good air exchange. HEART: Regular rate and rhythm No S3 or S4. No gallops or rubs. BACK: Nontender. ABDOMEN: Non-distended, no masses. LOWER EXTREMITIES: There was no pitting edema. ASSESSMENT: pre op, polyp, PMB PLAN: 1) Discussed r/b/a hysteroscopy, DANDC, polypectomy in detail. The rationale for the proposed surgery was discussed in addition to risks, benefits, and alternatives. General pre- and post-operative care was reviewed. Questions were answered. After discussion, the patient indicated a desire to proceed with the planned surgery. Thomas Yuen, Medical Decision Making: Problems: Moderate: New problem with uncertain prognosis Risk: Moderate: Decision on minor surgery w/ risk factors Medical Decision Making Level: 4 - Moderate Normal [facility] CBC W Auto Differential pane l (Bld)on 01-14-2025 Basophils (Bld) [#/Vol] 0.03 10*3/uL [facility] Basophils/100 WBC (Bld) 0.6 % [facility] Differential cell count method Nom (Bld) Auto [facility] Eosinophils (Bld) [#/Vol] 0.24 10*3/uL [facility] Eosinophils/100 WBC (Bld) 4.8 % [facility] Erythrocyte distribution width (RBC) [Ratio] 12.6 % 11.5 - 15.0 % [facility] Hematocrit (Bld) [Volume fraction] 44.1 % 36.0 - 46.0 % [facility] Hemoglobin (Bld) [Mass/Vol] 14.7 g/dL 11.5 - 15.5 g/dL [facility] Immature granulocytes (Bld) [#/Vol] NINF [facility] Immature granulocytes/100 WBC (Bld) 0.2 % [facility] Lymphocytes (Bld) [#/Vol] 1.24 10*3/uL [facility] Lymphocytes/100 WBC (Bld) 24.7 % [facility] MCH (RBC) [Entitic mass] 30.7 pg 26.0 - 34.0 pg [facility] MCHC (RBC) [Mass/Vol] 33.3 g/dL 30.5 - 36.0 g/dL [facility] MCV (RBC) [Entitic vol] 92.1 fL 80.0 - 100.0 fL [facility] Monocytes (Bld) [#/Vol] 0.5 10*3/uL NINF [facility] Monocytes/100 WBC (Bld) 10 % [facility] Neutrophils (Bld) [#/Vol] 3 10*3/uL [facility] Neutrophils/100 WBC (Bld) 59.7 % [facility] Nucleated RBC (Bld) [#/Vol] NINF [facility] Nucleated RBC/100 WBC (Bld) [Ratio] 0 % /100 WBC [facility] Platelet mean volume (Bld) [Entitic vol] 10.6 fL 9.0 - 12.7 fL [facility] Platelets (Bld) [#/Vol] 261 10*3/uL [facility] RBC (Bld) [#/Vol] 4.79 10*6/uL 3.90 - 5.2 0 m/uL [facility] WBC (Bld) [#/Vol] 5.02 10*3/uL [facility] Basophils (Bld) [#/Vol] 0.03 10*3/uL Normal <0.11 [facility] Comment on above: Order Comment: Speci men Type: BLOOD SPECIMEN Ordering Facility: [facility] Address: [address] [place] [address] Performed By: #### 3 024-7, 3050-0, 3015-3 #### [facility] CLIA [id number] [address] [place] [address] [place] Basophils/100 WBC (Bld) 0.6 % Normal [facility] Comment on above: Order Comment: Speci men Type: BLOOD SPECIMEN Ordering Facility: [facility] Address: [address] [place] [address] Performed By: #### 3 024-7, 305-0, 3016-3 #### [facility] CLIA [id number] [address] [place] [address] [place] Differential cell count method Nom (Bld) Auto Normal [facility] Comment on above: Order Comment: Speci men Type: BLOOD SPECIMEN Ordering Facility: [facility] Address: [address] [place] [address] Performed By: #### 3 024-7, 0, 3 #### [facility] CLIA [id number] [address] [place] [address] [place] Eosinophils (Bld) [#/Vol] 0.24 10*3/uL Normal <0.46 [facility] Comment on above: Order Comment: Speci men Type: BLOOD SPECIMEN Ordering Facility: [facility] Address: [address] [place] [address] Performed By: #### 3 024-7, 0, 3015-09 #### [facility] CLIA [id number] [address] [place] [address] [place] Eosinophils/100 WBC (Bld) 4.8 % Normal [facility] Comment on above: Order Comment: Speci men Type: BLOOD SPECIMEN Ordering Facility: [facility] Address: [address] [place] [address] Performed By: #### 3 024-7, 0, 3015-09 #### [facility] CLIA [id number] [address] [place] [address] [place] Erythrocyte distribution width (RBC) [Ratio] 12.6 % Normal 11.5-15.0 [facility] Comment on above: Order Comment: Speci men Type: BLOOD SPECIMEN Ordering Facility: [facility] Address: [address] [place] [address] Performed By: #### 3 024-7, 0, 3015-09 #### [facility] CLIA [id number] [address] [place] [address] [place] Hematocrit (Bld) [Volume fraction] 44.1 % Normal 36.0-46.0 [facility] Comment on above: Order Comment: Speci men Type: BLOOD SPECIMEN Ordering Facility: [facility] Address: [address] [place] [address] Performed By: #### 3 024-7, 0, 3 #### [facility] CLIA [id number] [address] [place] [address] [place] Hemoglobin (Bld) [Mass/Vol] 14.7 g/dL Normal 11.5-15.5 [facility] Comment on above: Order Comment: Speci men Type: BLOOD SPECIMEN Ordering Facility: [facility] Address: [address] [place] [address] Performed By: #### 3 024-7, 305-0, 3015-3 #### [facility] CLIA [id number] [address] [place] [address] [place] Immature granulocytes (Bld) [#/Vol] 10*3/uL Normal <0.10 [facility] Comment on above: Order Comment: Speci men Type: BLOOD SPECIMEN Ordering Facility: [facility] Address: [address] [place] [address] Performed By: #### 3 024-7, 3050-0, 3015-3 #### [facility] CLIA [id number] [address] [place] [address] [place] Immature granulocytes/100 WBC (Bld) 0.2 % Normal [facility] Comment on above: Order Comment: Speci men Type: BLOOD SPECIMEN Ordering Facility: [facility] Address: [address] [place] [address] Performed By: #### 3 024-7, 0, 3 #### [facility] CLIA [id number] [address] [place] [address] [place] Lymphocytes (Bld) [#/Vol] 1.24 10*3/uL Normal 1.00-4.00 [facility] Comment on above: Order Comment: Speci men Type: BLOOD SPECIMEN Ordering Facility: [facility] Address: [address] [place] [address] Performed By: #### 3 024-7, 305-0, 6-3 #### [facility] CLIA [id number] [address] [place] [address] [place] Lymphocytes/100 WBC (Bld) 24.7 % Normal [facility] Comment on above: Order Comment: Speci men Type: BLOOD SPECIMEN Ordering Facility: [facility] Address: [address] [place] [address] Performed By: #### 3 024-7, 3051-0, 3016-3 #### [facility] CLIA [id number] [address] [place] [address] [place] MCH (RBC) [Entitic mass] 30.7 pg Normal 26.0-34.0 [facility] Comment on above: Order Comment: Speci men Type: BLOOD SPECIMEN Ordering Facility: [facility] Address: [address] [place] [address] Performed By: #### 3 024-7, 3051-0, 3016-3 #### [facility] CLIA [id number] [address] [place] [address] [place] MCHC (RBC) [Mass/Vol] 33.3 g/dL Normal 30.5-36.0 [facility] Comment on above: Order Comment: Speci men Type: BLOOD SPECIMEN Ordering Facility: [facility] Address: [address] [place] [address] Performed By: #### 3 024-7, 3051-0, 3016-3 #### [facility] CLIA [id number] [address] [place] [address] [place] MCV (RBC) [Entitic vol] 92.1 fL Normal 80.0-100.0 [facility] Comment on above: Order Comment: Speci men Type: BLOOD SPECIMEN Ordering Facility: [facility] Address: [address] [place] [address] Performed By: #### 3 024-7, 3051-0, 3016-3 #### [facility] CLIA [id number] [address] [place] [address] [place] Monocytes (Bld) [#/Vol] 0.50 10*3/uL Normal <0.87 [facility] Comment on above: Order Comment: Speci men Type: BLOOD SPECIMEN Ordering Facility: [facility] Address: [address] [place] [address] Performed By: #### 3 024-7, 305-0, 3016-3 #### [facility] CLIA [id number] [address] [place] [address] [place] Monocytes/100 WBC (Bld) 10.0 % Normal [facility] Comment on above: Order Comment: Speci men Type: BLOOD SPECIMEN Ordering Facility: [facility] Address: [address] [place] [address] Performed By: #### 3 024-7, 305-0, 3016-3 #### [facility] CLIA [id number] [address] [place] [address] [place] Neutrophils (Bld) [#/Vol] 3.00 10*3/uL Normal 1.45-7.50 [facility] Comment on above: Order Comment: Speci men Type: BLOOD SPECIMEN Ordering Facility: [facility] Address: [address] [place] [address] Performed By: #### 3 024-7, 305-0, 3016-3 #### [facility] CLIA [id number] [address] [place] [address] [place] Neutrophils/100 WBC (Bld) 59.7 % Normal [facility] Comment on above: Order Comment: Speci men Type: BLOOD SPECIMEN Ordering Facility: [facility] Address: [address] [place] [address] Performed By: #### 3 024-7, 305-0, 3016-3 #### [facility] CLIA [id number] [address] [place] [address] [place] Nucleated RBC (Bld) [#/Vol] 10*3/uL Normal <0.01 [facility] Comment on above: Order Comment: Speci men Type: BLOOD SPECIMEN Ordering Facility: [facility] Address: [address] [place] [address] Performed By: #### 3 024-7, 3050-0, 3 #### [facility] CLIA [id number] [address] [place] [address] [place] Nucleated RBC/100 WBC (Bld) [Ratio] 0.0 /100 WBC Normal [facility] Comment on above: Order Comment: Speci men Type: BLOOD SPECIMEN Ordering Facility: [facility] Address: [address] [place] [address] Performed By: #### 3 024-7, 0, 3 #### [facility] CLIA [id number] [address] [place] [address] [place] Platelet mean volume (Bld) [Entitic vol] 10.6 fL Normal 9.0-12.7 [facility] Comment on above: Order Comment: Speci men Type: BLOOD SPECIMEN Ordering Facility: [facility] Address: [address] [place] [address] Performed By: #### 3 024-7, 0, 3 #### [facility] CLIA [id number] [address] [place] [address] [place] Platelets (Bld) [#/Vol] 261 10*3/uL Normal 150-400 [facility] Comment on above: Order Comment: Speci men Type: BLOOD SPECIMEN Ordering Facility: [facility] Address: [address] [place] [address] Performed By: #### 3 024-7, 3050-0, 3 #### [facility] CLIA [id number] [address] [place] [address] [place] RBC (Bld) [#/Vol] 4.79 10*6/uL Normal 3.90-5.20 [facility] Comment on above: Order Comment: Speci men Type: BLOOD SPECIMEN Ordering Facility: [facility] Address: [address] [place] [address] Performed By: #### 3 024-7, 305-0, 3016-3 #### [facility] CLIA [id number] [address] [place] [address] [place] WBC (Bld) [#/Vol] 5.02 10*3/uL Normal 3.70-11.00 [facility] Comment on above: Order Comment: Speci men Type: BLOOD SPECIMEN Ordering Facility: [facility] Address: [address] [place] [address] Performed By: #### 3 024-7, 305-0, 3016-3 #### [facility] CLIA [id number] [address] [place] [address] OF [facility] CNOVon 01-14-2025 CNOV Office Visit ([facility] ) FRANCA NICHOLSON ([id number]) 1955 F Date Time Provider Department 01/14/25 10:40 AM THANH BARAJAS [facility] During your visit today, we recorded the following information about you: Pulse Respiration Blood pressure Weight 84/minute 20/minute 132/82 124.2 kg Height 1.543 m Thanh Barajas APRN.[employer] 01/14/2025 11:05 AM Signed SUBJECTIVE Franca Nicholson is a 69 year old female here today for a pre-op appointment. Chief Complaint Patient presents with: Pre-Op Exam: Dr. Yuen to complete a DANDC on 02/11/25 HPI Franca Nicholson is an 69 year old female established patient of Kyra Carson MD who presents to the office for pre-op examination. Is scheduled to have hysteroscopy, polypectomy, DANDC done on 02/11/[address] Yuen at [facility] for post-menopausal bleeding, benign polyp on biopsy. History of having anesthesia: Yes. Any reaction from anesthesia in the past: No. Personal history of heart disease: No. Plans for care after surgery: home same day. Chronic diseases controlled: Yes. Currently taking a blood thinner: Yes: meloxicam. Patient denies chest pain, SOB, dizziness, palpitations, one sided weakness, dropping of face or mouth, fever, or recent sickness. No history of CVA or SD. Labs, chest xray, EKG obtained. Medical history is significant for hypothyroidism, IFG, elevated cholesterol, anxiety and depression and obesity. Working on weight loss, down 10 pounds in the last 3 months. Chronic conditions are overall stable and controlled. Most recent TSH was WNL at 3.43, last hgba1c was 5.8%. Her medications were reviewed today and her list is now up to date. Medications Current Outpatient Medications Medication Sig meloxicam (MOBIC) 15 mg tablet Take 1 tablet by mouth once daily. cetirizine HCl (ZYRTEC) 10 mg chewable tablet Take 1 tablet by mouth once daily. levothyroxine (LEVOXYL) 50 mcg tablet Take 1.5 tablets by mouth once daily. Take on empty stomach. For Thyroid sertraline (ZOLOFT) 50 mg tablet Take 1 tablet by mouth once daily. benzonatate (TESSALON PERLE) 100 mg capsule Take 2 capsules by mouth three times a day as needed for cough. fluticasone (FLONASE) 50 mcg/actuation nasal spray Use 2 Sprays in each nostril once daily. Rinse mouth after use. As directed Cholecalciferol, Vitamin D3, (VITAMIN D) 25 mcg (1,000 unit) cap Take 1,000 Units by mouth once daily. No current facility-administered medications for this visit. ALLERGIES Allergen Reactions Amoxicillin Rash Red fine rash ACTIVE PROBLEM LIST Moderate Recurrent Major Depression (Hcc) - 11/19/2023 Depression, Recurrent - 09/15/2023 Special Screening for Malignant Neoplasms, Colon - 05/14/2023 Obesity, Class III, BMI >= 40 - 10/15/2022 Anxiety - 10/15/2022 Hypothyroidism - 10/15/2022 Impaired Glucose Regulation - 10/15/2022 Umbilical Hernia - 03/26/2022 Vitamin D Deficiency - 03/26/2022 Morbid Obesity (Hcc) - 03/26/2022 Chronic Pain of Left Knee - 03/26/2022 Social History Tobacco Use Smoking status: Never Smokeless tobacco: Never Vaping Use Vaping status: Never Used Substance Use Topics Alcohol use: Yes Comment: occasionally Drug use: Never Review of Systems Constitutional: Negative. Eyes: Negative for visual disturbance. Respiratory: Negative for chest tightness and shortness of breath. Cardiovascular: Negative for chest pain, palpitations and leg swelling. Neurological: Negative for seizures, syncope, facial asymmetry and speech difficulty. OBJECTIVE BP 132/82 Pulse 84 Resp 20 Ht 5' .75 (1.54m) Wt 273 lb 13 oz (124.2kg) LMP 2014 BMI 52.17 kg/(m2). Physical Exam Vitals and nursing note reviewed. Constitutional: General: She is awake. She is not in acute distress. Appearance: She is well-developed and well-groomed. She is not ill-appearing, toxic-appearing or diaphoretic. HENT: Head: Normocephalic. Eyes: General: Vision grossly intact. Conjunctiva/sclera: Conjunctivae normal. Pupils: Pupils are equal, round, and reactive to light. Neck: Vascular: No carotid bruit or JVD. Cardiovascular: Rate and Rhythm: Normal rate and regular rhythm. Heart sounds: Normal heart sounds. No murmur heard. Pulmonary: Effort: Pulmonary effort is normal. No accessory muscle usage, prolonged expiration or respiratory distress. Breath sounds: Normal breath sounds. Musculoskeletal: General: Normal range of motion. Cervical back: Normal range of motion and neck supple. Skin: General: Skin is warm and dry. Capillary Refill: Capillary refill takes less than 2 seconds. Neurological: General: No focal deficit present. Mental Status: She is alert and oriented to person, place, and time. Mental status is at baseline. Cranial Nerves: No cranial nerve deficit. Sensory: No sensory deficit. Psychiatric: Attention and Perception: Attention (more content not included)... Normal [facility] Comprehensive metabolic 2000 panelon 01-14-2025 Albumin [Mass/Vol] 4.3 g/dL Normal 3.9-4.9 [facility] Comment on above: Order Comment: Speci men Type: BLOOD SPECIMEN Ordering Facility: [facility] Address: [address] [place] [address] Performed By: #### 3 024-7, 305-0, 3 #### [facility] CLIA [id number] [address] [place] [address] [place] ALP [Catalytic activity/Vol] 59 U/L Normal 34-123 [facility] Comment on above: Order Comment: Speci men Type: BLOOD SPECIMEN Ordering Facility: [facility] Address: [address] [place] [address] Performed By: #### 3 024-7, 305-0, 3 #### [facility] CLIA [id number] [address] [place] [address] [place] ALT [Catalytic activity/Vol] 21 U/L Normal 7-38 [facility] Comment on above: Order Comment: Speci men Type: BLOOD SPECIMEN Ordering Facility: [facility] Address: [address] [place] [address] Performed By: #### 3 024-7, 305-0, 3 #### [facility] CLIA [id number] [address] [place] [address] [place] Anion gap [Moles/Vol] 15 mmol/L Normal 8-15 [facility] Comment on above: Order Comment: Speci men Type: BLOOD SPECIMEN Ordering Facility: [facility] Address: [address] [place] [address] Performed By: #### 3 024-7, 305-0, 3016-3 #### [facility] CLIA [id number] [address] [place] [address] [place] AST [Catalytic activity/Vol] 21 U/L Normal 13-35 [facility] Comment on above: Order Comment: Speci men Type: BLOOD SPECIMEN Ordering Facility: [facility] Address: [address] [place], [place] [id number] Performed By: #### 3 024-7, 305-0, 3 #### [facility] CLIA [id number] [address] [place] [address] [place] Bilirubin [Mass/Vol] 0.4 mg/dL Normal 0.2-1.3 [facility] Comment on above: Order Comment: Speci men Type: BLOOD SPECIMEN Ordering Facility: [facility] Address: [address] [place] [address] Performed By: #### 3 024-7, 305-0, 3 #### [facility] CLIA [id number] [address] [place] [address] [place] Calcium [Mass/Vol] 10.2 mg/dL Normal 8.5-10.2 [facility] Comment on above: Order Comment: Speci men Type: BLOOD SPECIMEN Ordering Facility: [facility] Address: [address] [place] [address] Performed By: #### 3 024-7, 0, 3 #### [facility] CLIA [id number] [address] [place] [address] [place] Chloride [Moles/Vol] 104 mmol/L Normal 98-107 [facility] Comment on above: Order Comment: Speci men Type: BLOOD SPECIMEN Ordering Facility: [facility] Address: [address] [place] [address] Performed By: #### 3 024-7, 305-0, 3 #### [facility] CLIA [id number] [address] [place] [address] [place] CO2 [Moles/Vol] 21 mmol/L Low 22-30 [facility] Comment on above: Order Comment: Speci men Type: BLOOD SPECIMEN Ordering Facility: [facility] Address: [address] [place] [address] Performed By: #### 3 024-7, 305-0, 3015-09 #### [facility] CLIA [id number] [address] [place] [address] [place] Creatinine [Mass/Vol] 0.75 mg/dL Normal 0.58-0.96 [facility] Comment on above: Order Comment: Alyson cordon Type: BLOOD SPECIMEN Ordering Facility: [facility] Address: [address] [place] [address] Performed By: #### 3 024-7, 0, 3015-09 #### [facility] CLIA [id number] [address] [place] [address] [place] Creatinine and Glomerular filtration rate.predicted panel (S/P/Bld) 87 mL/min/1.73m??? Normal >=60 [facility] Comment on above: Order Comment: Alyson cordon Type: BLOOD SPECIMEN Ordering Facility: [facility] Address: [address] [place] [address] Result Comment: Chanell mated Glomerular Filtration Rate (eGFR) is calculated using the 2020 CKD-EPI creatinine equation. This equation utilizes serum creatinine, sex, and age as parameters. The creatinine assay has traceable calibration to isotope dilution-mass spectrometry. Refer to KDIGO guidelines for clinical interpretation. In patients with unstable renal function, e.g. those with acute kidney injury, the eGFR may not accurately reflect actual GFR. Performed By: #### 3 024-7, 0, 3015-09 #### [facility] CLIA [id number] [address] [place] [address] [place] Glucose [Mass/Vol] 94 mg/dL Normal 74-99 [facility] Comment on above: Order Comment: Alyson cordon Type: BLOOD SPECIMEN Ordering Facility: [facility] Address: [address] [place] [address] Result Comment: The [place] Diabetes [employer] (ADA) provides guidance for cutoff values for fasting glucose and random glucose. The ADA defines fasting as no caloric intake for at least 8 hours. Fasting plasma glucose results between 100 to 125 mg/dL indicate increased risk for diabetes (prediabetes). Fasting plasma glucose results greater than or equal to 126 mg/dL meet the criteria for diagnosis of diabetes. In the absence of unequivocal hyperglycemia, results should be confirmed by repeat testing. In a patient with classic symptoms of hyperglycemia or hyperglycemic crisis, random plasma glucose results greater than or equal to 200 mg/dL meet the criteria for diagnosis of diabetes. Reference: Standards of Medical Care in Diabetes 2016, [place] [employer]. Diabetes Care. 2016.39(Suppl 1). Performed By: #### 3 024-7, 305-0, 3 #### [facility] CLIA [id number] [address] [place] [address] [place] Potassium [Moles/Vol] 4.6 mmol/L Normal 3.7-5.1 [facility] Comment on above: Order Comment: Speci men Type: BLOOD SPECIMEN Ordering Facility: [facility] Address: [address] [place] [address] Performed By: #### 3 024-7, 0, 3 #### [facility] CLIA [id number] [address] [place] [address] [place] Protein [Mass/Vol] 7.0 g/dL Normal 6.3-8.0 [facility] Comment on above: Order Comment: Speci men Type: BLOOD SPECIMEN Ordering Facility: [facility] Address: [address] [place] [address] Performed By: #### 3 024-7, 0, 3 #### [facility] CLIA [id number] [address] [place] [address] [place] Sodium [Moles/Vol] 140 mmol/L Normal 136-144 [facility] Comment on above: Order Comment: Speci men Type: BLOOD SPECIMEN Ordering Facility: [facility] Address: [address] [place] [address] Performed By: #### 3 024-7, 3050-0, 3 #### [facility] CLIA [id number] [address] [place] [address] [place] Urea nitrogen [Mass/Vol] 13 mg/dL Normal 7-21 [facility] Comment on above: Order Comment: Speci men Type: BLOOD SPECIMEN Ordering Facility: [facility] Address: [address] [place] [address] Performed By: #### 3 024-7, 3051-0, 3016-3 #### [facility] CLIA [id number] [address] [place] [address] [place] ECG COMPLETEon 01-14-2025 ECG COMPLETE Ventricular Rate : 7 1 BPM Atrial Rate : 71 BPM P-R Interval : 142 ms QRS Duration : 86 ms Q-T Interval : 402 ms QTC Calculation(Bazett) : 436 ms Calculated P [place] : 24 degrees Calculated R [place] : 14 degrees Calculated T [place] : 7 degrees NORMAL SINUS RHYTHM NORMAL ECG Confirmed by MD RAM QARAB ([id number]) on 01/20/2025 3:06:41 PM NAME : FRANCA NICHOLSON PID : [id number] : 1955 Gender : Female Race : ORD : [id number] Procedure Date : Jan 14 2025 10:56:43 Edit Date : Jan 20 2025 15:06:45 Diagnosis: NORMAL SINUS RHYTHM NORMAL ECG Confirmed by MD RAM QARAB ([id number]) on 01/20/2025 3:06:41 PM Test Reason : Z01.818 Pre-op evaluation Location : 185 : [facility] Overread By : MD RAM QARAB Edited By : MD RAM QARAB Referred By : , Acquired by : Shara Bedolla LPN, Normal [facility] Jessica 12-20-2024 CNPN Telephone (OBGYWM) FRANCA NICHOLSON ([id number]) 1955 F Date Time Provider Department 12/20/24 THOMAS YUEN OBW During your visit today, we recorded the following information about you: Catina Ca RN 12/20/2024 3:42 PM Signed Thomas Yuen MD routed this conversation to [facility] Ob-Staffing Assistant Pool 12/20/24 1:25 PM Result Note Notify pt benign polyp on biopsy. Recommend hysteroscopy, polypectomy, DANDC in OR. Schedule visit if patient wants to discuss further thanks SURGICAL PATHOLOGY Catina Ca RN 12/20/2024 3:42 PM Signed Patient notified. She wants to proceed with scheduling surgery- declined visit to discuss first. Surgery sheet to SW to complete. ROSALVA Little Sara, MD 12/20/2024 4:39 PM Signed Completed thanks Catina Ca RN 12/20/2024 4:57 PM Signed Surgery sheet given to Anne. Catina Ca RN Allergies As of Date: 12/20/2024 Noted Allergy Reaction AMOXICILLIN 03/26/2022 2 - Rash Comments: Red fine rash Date Reviewed: 12/16/2024 Reviewed by: Delisa Marin MA - Fully Assessed Reason for Visit: Results [95] Prescriptions as of 12/20/2024 - meloxicam (MOBIC) 15 mg tablet Take 1 tablet by mouth once daily. - cetirizine HCl (ZYRTEC) 10 mg chewable tablet Take 1 tablet by mouth once daily. - levothyroxine (LEVOXYL) 50 mcg tablet Take 1.5 tablets by mouth once daily. Take on empty stomach. For Thyroid - sertraline (ZOLOFT) 50 mg tablet Take 1 tablet by mouth once daily. - benzonatate (TESSALON PERLE) 100 mg capsule Take 2 capsules by mouth three times a day as needed for cough. - fluticasone (FLONASE) 50 mcg/actuation nasal spray Use 2 Sprays in each nostril once daily. Rinse mouth after use. As directed - Cholecalciferol, Vitamin D3, (VITAMIN D) 25 mcg (1,000 unit) cap Take 1,000 Units by mouth once daily. Problem List As Of Date 12/20/2024 Noted Resolved Umbilical hernia [K42.9] 03/26/2022 Vitamin D deficiency [E55.9] 03/26/2022 Morbid obesity (HCC) [E66.01] 03/26/2022 Chronic pain of left knee [M25.562, G89.29] 03/26/2022 Obesity, Class III, BMI >= 40 [E66.813] 10/15/2022 Anxiety [F41.9] 10/15/2022 Hypothyroidism [E03.9] 10/15/2022 Impaired glucose regulation [R73.09] 10/15/2022 Special screening for malignant neoplasms, colo*05/14/2023 Depression, recurrent (HCC) [F33.9] 09/15/2023 Moderate recurrent major depression (HCC) [F33.*11/19/2023 Encounter Status:Closed by CATINA CA on 12/20/24 [facility] CNOVon 12-16-2024 CNOV Office Visit (OBGYWM ) FRANCA NICHOLSON ([id number]) 1955 F Date Time Provider Department 12/16/24 11:10 AM THOMAS YUEN OBPARISH During your visit today, we recorded the following information about you: Blood pressure Weight 138/82 125.7 kg Thomas Yuen MD 12/16/2024 11:40 AM Signed Crepe Maker offered: Patient declinesPhylicia Schulte is a 69 year old who presents today for an endometrial biopsy for post menopausal bleeding. test: n/a UNIVERSAL PROTOCOL / SAFETY CHECKLIST Procedure to be Performed: Endometrial Biopsy Sign In: A Moment of CARE was completed. Appropriate PPE (Personal Protective Equipment) worn by all providers involved with the procedure. Special equipment not required. Patient/Surrogate Stated/Verified: Patient name, Date of , Relevant allergies, and The intended procedure Time Out: Relevant labs, photos, and/or imaging studies have been reviewed. Intended patient and procedure match the source document(s) (e.g. consent, HANDP, associated studies [imaging, pathology]) match the intended patient and procedure. Consent obtained and matches the intended procedure. Yes. Correct side/site is not applicable. Medications required for this procedure are verified. Fire risk assessed and is not applicable. Implants: are not applicable. Sign Out: Specimens are all correctly labeled and sent. All instruments, equipment, possible retained foreign bodies are accounted for. Yes. The post-procedure plan of care has been communicated to the patient or surrogate. PROCEDURE: EXTERNAL GENITALIA: Normal in appearance without lesions VAGINA: Normal in appearance without lesions BIOPSY: Speculum placed into the vagina with excellent visualization of the cervix. Cervix cleaned with betadine. Anterior lip of cervix grasped with single toothed tenaculum. Uterus sounded to 7.5 cm. Pipelle inserted into the uterus without difficulty and endometrial biopsy obtained. Procedure Summary: Patient tolerated procedure well. ASSESSMENT: post menopausal bleeding PLAN: Specimens labeled and sent to Pathology. Will notify patient of results in 1-2 weeks. Post-procedure instructions reviewed and written material given to the patient. DO Tomas Tim Amanda, [place] 12/16/2024 11:15 AM Signed YOUR RECOVERY After your biopsy you may have: Vaginal bleeding (less than a normal menstrual period) Mild cramping Do NOT put anything in the vagina for 1 week after your endometrial biopsy. This includes: tampons douches and refraining from having sexual intercourse If you have any discomfort, you may take an over the counter pain medication (motrin, advil, ibuprofen, tylenol, etc). If this does not relieve your discomfort, contact the office. It is okay to wear a sanitary pad until the discharge and spotting stops. RISKS Although problems seldom occur with endometrial biopsies, there can be some complications. You may feel faint during and shortly after the procedure as well as have some bleeding after the procedure. There is also a risk of infection after the procedure. These complications are rare and can be easily treated. You should contact you doctor is you have any of the following: Heavy bleeding (more than your normal period) Bleeding with clots Severe abdominal pain Fever (more than 100.4F) Foul smelling vaginal discharge RESULTS We will have the results of your biopsy in 1-2 weeks. If you do not hear the results of your biopsy after 2 weeks, please contact the office for the results. If you have any additional questions or concerns please do not hesitate to contact the office. Referring Provider: LIZETH SANTANA [[id number]] Allergies As of Date: 12/16/2024 Noted Allergy Reaction AMOXICILLIN 03/26/2022 2 - Rash Comments: Red fine rash Date Reviewed: 12/16/2024 Reviewed by: Delisa Marin MA - Fully Assessed Reason for Visit: Endometrial Biopsy [7501] Primary Visit Diagnosis:PMB (postmenopausal bleeding) [N95.0] Order(s):ENDOMETRIAL BIOPSY [0073997] Order #: [id number] SURGICAL PATHOLOGY [DMB8810] Order #: [id number] Prescriptions as of 12/16/2024 - meloxicam (MOBIC) 15 mg tablet Take 1 tablet by mouth once daily. - cetirizine HCl (ZYRTEC) 10 mg chewable tablet Take 1 tablet by mouth once daily. - levothyroxine (LEVOXYL) 50 mcg tablet Take 1.5 tablets by mouth once daily. Take on empty stomach. For Thyroid - sertraline (ZOLOFT) 50 mg tablet Take 1 tablet by mouth once daily. - benzonatate (TESSALON PERLE) 100 mg capsule Take 2 capsules by mouth three times a day as needed for cough. - fluticasone (FLONASE) 50 mcg/actuation nasal spray Use 2 Sprays in each nostril once daily. Rinse mouth after use. As directed - Cholecalciferol, Vitamin D3, (VITAMIN D) 25 mcg (1,000 unit) cap Take 1,000 Units by mouth once daily. Problem List As O (more content not included)... Normal [facility] Pathology biopsy report Gordon (Tiss)on 12-16-2024 AP DISCLAIMER Normal [facility] Comment on above: Order Comment: Speci men Type: BLOOD SPECIMEN Ordering Facility: [facility] Address: [address] [place] [address] Result Comment: Arya Myers Test (LDT) Disclaimer: Performance characteristics of immunohistochemical, immunofluorescent, and chromogenic in-situ hybridization tests have been determined by the performing laboratory within [facility]'s [facility] Pathology and Laboratory Medicine Department ([facility], [facility], [facility], [facility], [facility], [facility], or [facility]) in a manner consistent with CLIA requirements. One or more of these tests may not have been cleared or approved by the FDA. [facility] is regulated under CLIA as qualified to perform high-complexity testing. These tests are used for clinical purposes. These should not be regarded as investigational or for research. Positive and negative controls stain appropriately. Performed By: #### 3 024-7, 3051-0, 301-3 #### [facility] CLIA [id number] [address] [place] [address] [place] CASE REPORT Normal [facility] Comment on above: Order Comment: Alyson cordon Type: BLOOD SPECIMEN Ordering Facility: [facility] Address: [address] [place] [address] Result Comment: [facility] Report Case: [id number] Authorizing Provider: Thomas Yuen MD Collected: 12/16/2024 11:43 AM Ordering Location: OB/Gynecology Received: 12/16/2024 04:21 PM Pathologist: Mally Ramirez MD Specimen: Endometrium, Biopsy Performed By: #### 3 024-7, 305-0, 3015-3 #### [facility] CLIA [id number] [address] [place] [address] [place] CLINICAL HISTORY PMB Normal [facility] Comment on above: Order Comment: Alyson cordon Type: BLOOD SPECIMEN Ordering Facility: [facility] Address: [address] [place] [address] Performed By: #### 3 024-7, 305-0, 3015-3 #### [facility] CLIA [id number] [address] [place] [address] [place] FINAL DIAGNOSIS Normal [facility] Comment on above: Order Comment: Alyson cordon Type: BLOOD SPECIMEN Ordering Facility: [facility] Address: [address] [place] [address] Result Comment: A. E ndometrium, biopsy: - Fragments of benign endometrial polyp(s) with infarction/hemorrhagic changes at 0953 EDT Performed By: #### 3 024-7, 305-0, 3015-3 #### [facility] CLIA [id number] [address] [place] [address] OF [facility] FINAL PERFORM[facility] LAB Normal [facility] Comment on above: Order Comment: Speci men Type: BLOOD SPECIMEN Ordering Facility: [facility] Address: [address] [place] [address] Result Comment: Diag nostic interpretation performed at: [facility], [address] [place] [address] CLIA# [id number] Senior Php Web Developer: Carlo Oneal MD Performed By: #### 3 024-7, 3050-0, 3 #### [facility] CLIA [id number] [address] [place] [address] GROSS DESCRIPTION Normal [facility] Comment on above: Order Comment: Speci men Type: BLOOD SPECIMEN Ordering Facility: [facility] Address: [address] [place] [address] Result Comment: A. E ndometrium, Biopsy Received in formalin are multiple vaca to brown, soft feathery segments of tissue admixed with mucinous material and red-brown hemorrhagic material aggregating to 2.8 x 2.6 x 0.1 cm. Totally submitted in one cassette. DB December 16, 2024 9:59 PM Gross examination performed at [facility], [address] [place] [address] Performed By: #### 3 024-7, 305-0, 3015-3 #### [facility] CLIA [id number] [address] [place] [address] OF [place] CNOVon 11-16-2024 CNOV Office Visit (INTMWS ) FRANCA NICHOLSON ([id number]) 1955 F Date Time Provider Department 11/16/24 10:40 AM THANH BARAJAS INTHAMLET During your visit today, we recorded the following information about you: Pulse Blood pressure Weight 75/minute 136/84 125.7 kg Thanh Barajas APRN.[employer] 11/16/2024 10:56 AM Signed SUBJECTIVE Franca Nicholson is a 69 year old female here today for a check up on her medical problems. Chief Complaint Patient presents with: F/U 6 months HPI Franca Nicholson is a 69 year old female. She is an established patient of Kyra Carson MD. She presents today for a routine 6 month follow up. Since last visit she was seen with multimedia technician, planning for a biopsy. She has been having issues with post-menopausal bleeding, prior fibroids. Otherwise she is doing pretty well. Compliant with medications. Mood doing well. Changing diet to work on eating low carb and has noticed some weight loss. Prior labs reviewed, thyroid labs stable. Will be due with next follow up for lipids and hgba1c. Her medications were reviewed today and her list is now up to date. Medications Current Outpatient Medications Medication Sig levothyroxine (LEVOXYL) 50 mcg tablet Take 1.5 tablets by mouth once daily. Take on empty stomach. For Thyroid sertraline (ZOLOFT) 50 mg tablet Take 1 tablet by mouth once daily. benzonatate (TESSALON PERLE) 100 mg capsule Take 2 capsules by mouth three times a day as needed for cough. fluticasone (FLONASE) 50 mcg/actuation nasal spray Use 2 Sprays in each nostril once daily. Rinse mouth after use. As directed Cholecalciferol, Vitamin D3, (VITAMIN D) 25 mcg (1,000 unit) cap Take 1,000 Units by mouth once daily. meloxicam (MOBIC) 15 mg tablet Take 1 tablet by mouth once daily. cetirizine HCl (ZYRTEC) 10 mg chewable tablet Take 1 tablet by mouth once daily. No current facility-administered medications for this visit. ALLERGIES Allergen Reactions Amoxicillin Rash Red fine rash ACTIVE PROBLEM LIST Moderate Recurrent Major Depression (Hcc) - 11/19/2023 Depression, Recurrent - 09/15/2023 Special Screening for Malignant Neoplasms, Colon - 05/14/2023 Obesity, Class III, BMI >= 40 - 10/15/2022 Anxiety - 10/15/2022 Hypothyroidism - 10/15/2022 Impaired Glucose Regulation - 10/15/2022 Umbilical Hernia - 03/26/2022 Vitamin D Deficiency - 03/26/2022 Morbid Obesity (Hcc) - 03/26/2022 Chronic Pain of Left Knee - 03/26/2022 Social History Tobacco Use Smoking status: Never Smokeless tobacco: Never Vaping Use Vaping status: Never Used Substance Use Topics Alcohol use: Yes Comment: occasionally Drug use: Never Review of Systems Constitutional: Negative. Respiratory: Negative. Cardiovascular: Negative. OBJECTIVE BP 136/84 Pulse 75 Wt 277 lb 1.9 oz (125.7kg) SpO2 95% LMP 2014 Physical Exam Vitals and nursing note reviewed. Constitutional: General: She is awake. She is not in acute distress. Appearance: Normal appearance. She is well-developed and well-groomed. She is not ill-appearing, toxic-appearing or diaphoretic. HENT: Head: Normocephalic. Right Ear: External ear normal. Left Ear: External ear normal. Nose: Nose normal. Eyes: General: Vision grossly intact. Conjunctiva/sclera: Conjunctivae normal. Pupils: Pupils are equal, round, and reactive to light. Neck: Vascular: No JVD. Trachea: Trachea normal. Cardiovascular: Rate and Rhythm: Normal rate and regular rhythm. Pulses: Normal pulses. Heart sounds: Normal heart sounds. No murmur heard. Pulmonary: Effort: Pulmonary effort is normal. No accessory muscle usage, prolonged expiration or respiratory distress. Breath sounds: Normal breath sounds. Musculoskeletal: Cervical back: Neck supple. Skin: General: Skin is warm and dry. Capillary Refill: Capillary refill takes less than 2 seconds. Neurological: General: No focal deficit present. Mental Status: She is alert and oriented to person, place, and time. Mental status is at baseline. Psychiatric: Attention and Perception: Attention and perception normal. Mood and Affect: Mood and affect normal. Speech: Speech normal. Behavior: Behavior normal. Behavior is cooperative. Thought Content: Thought content normal. Cognition and Memory: Cognition and memory normal. Judgment: Judgment normal. ASSESSMENT/PLAN: 1. Postmenopausal bleeding - ICD9: 627.1, ICD10: N95.0 (primary diagnosis) Planning for a biopsy with multimedia technician. 2. Morbid obesity (HCC) - ICD9: 278.01, ICD10: E66.01 Weight decreasing - Behavioral intervention 3. Hypercholesteremia - ICD9: 272.0, ICD10: E78.00 Update labs next visit. - LIPID PANEL, FASTING 4. Hypothyroidism, unspecified type - ICD9: 244.9, ICD10: E03.9 - Instructed patient on importance of taking on an empty stomach either first thing in the morning or at bedtime. - continue cur (more content not included)... Normal [facility] Jessica 11-11-2024 RUBINA Telephone (OBGYWM) FRANCA NICHOLSON ([id number]) 1955 F Date Time Provider Department 11/11/24 LIZETH SANTANA OBPARISH During your visit today, we recorded the following information about you: Uyen Ha RN 11/11/2024 1:32 PM Signed Lizeth Santana APRN.MEMO 11/11/24 12:35 PM Please let the pt know that her uterine lining is thicken and there are 2 small fibroids. She will need an EMB. Please schedule with SW,ok per my conversation w/ her. She will do the EMB and discuss options. Order filed. Lizeth Santana APRN.Uyen Sanchez RN 11/11/2024 1:32 PM Signed Would you like Cytotec ordered for this patient? Please advise and will call Pt to schedule. ROSALVA Womack Sara, MD 11/11/2024 5:13 PM Signed Cytotec ordered Leigha Esposito LPN 11/12/2024 10:32 AM Signed Patient notified and scheduled for emb Allergies As of Date: 11/11/2024 Noted Allergy Reaction AMOXICILLIN 03/26/2022 2 - Rash Comments: Red fine rash Date Reviewed: 11/05/2024 Reviewed by: Leigha Esposito LPN - Fully Assessed Order(s):miSOPROStol (CYTOTEC) 200 mcg tabletUse 2 tablets vaginally as directed for [address] 2 tablets vaginally qhs before the procedureDisp: 2 tabletRfl: 0 Prescriptions as of 11/12/2024 - miSOPROStol (CYTOTEC) 200 mcg tablet Use 2 tablets vaginally as directed for [address] 2 tablets vaginally qhs before the procedure - levothyroxine (LEVOXYL) 50 mcg tablet Take 1.5 tablets by mouth once daily. Take on empty stomach. For Thyroid - sertraline (ZOLOFT) 50 mg tablet Take 1 tablet by mouth once daily. - benzonatate (TESSALON PERLE) 100 mg capsule Take 2 capsules by mouth three times a day as needed for cough. - meloxicam (MOBIC) 15 mg tablet Take 1 tablet by mouth once daily. - hydrOXYzine HCl (ATARAX) 25 mg tablet Take 1 tablet by mouth every 6 hours as needed for anxiety (or allergies). - fluticasone (FLONASE) 50 mcg/actuation nasal spray Use 2 Sprays in each nostril once daily. Rinse mouth after use. As directed - Cholecalciferol, Vitamin D3, (VITAMIN D) 25 mcg (1,000 unit) cap Take 1,000 Units by mouth once daily. Problem List As Of Date 11/11/2024 Noted Resolved Umbilical hernia [K42.9] 03/26/2022 Vitamin D deficiency [E55.9] 03/26/2022 Morbid obesity (HCC) [E66.01] 03/26/2022 Chronic pain of left knee [M25.562, G89.29] 03/26/2022 Obesity, Class III, BMI >= 40 [E66.813] 10/15/2022 Anxiety [F41.9] 10/15/2022 Hypothyroidism [E03.9] 10/15/2022 Impaired glucose regulation [R73.09] 10/15/2022 Special screening for malignant neoplasms, colo*05/14/2023 Depression, recurrent (HCC) [F33.9] 09/15/2023 Moderate recurrent major depression (HCC) [F33.*11/19/2023 Prescriptions ordered this encounter Disp Refills Start End MISOPROSTOL 200 MCG TABLET 2 ta* 0 11/11/2024 11/12/2024 Route: VAGINAL Sig: Use 2 tablets vaginally as directed for [address] 2 tablets vaginally qhs before the procedure Encounter Status:Closed by LEIGHA ESPOSITO on 11/12/24 Normal [facility] CNOVon 11-05-2024 CNOV Office Visit (OBGYWM ) FRANCA NICHOLSON ([id number]) 1955 F Date Time Provider Department 11/05/24 7:30 AM LIZETH SANTANA OBGYWM During your visit today, we recorded the following information about you: Blood pressure Weight Height Last Period 128/84 126.6 kg 1.575 m 03/08/14 Lizeth Santana APRN.[employer] 11/05/2024 8:32 AM Signed Franca is a 69 year old who presents for with complaints, left lower quadrant intermittent pain .bright red spotting X 3 weeks. Pt states that she noticing the blood when wiping. This has happened in the past. She had a hysteroscopy and ablation in 2018. HX of multiple fibroids. OB History No obstetric history on file. FAMILY HISTORY Problem Relation Age of Onset Lung Cancer Mother 3 episodes; partial resection first time recurrence other lung treated with radiation; recurrence and placed on Hospice then improved and discharged; from COVID Hypertension Mother Diabetes Mother Type 2 Colon Cancer Father Prostate Cancer Father Leukemia Father Alzheimer's Disease Father Coronary Artery Disease Brother History [place] SOCIAL HISTORY Social History Tobacco Use Smoking status: Never Smokeless tobacco: Never Vaping Use Vaping status: Never Used Substance Use Topics Alcohol use: Yes Comment: occasionally Drug use: Never REVIEW OF SYSTEMS Allergies and current medication updated:Yes SENSITIVE EXAM: The sensitive examination was discussed with the Patient or Patient's Authorized Cook Tortilla. As applicable, any other physician, advance practice provider, medical student, or other health professional student that will be observing or involved in the sensitive examination for educational or training purposes was discussed with the Patient or Authorized Cook Tortilla. The Patient or Authorized Cook Tortilla has agreed to proceed with the sensitive examination. (Sensitive examination includes inspection and/or palpation of the breasts, pelvis, prostate and anorectal regions). EXAM: BP 128/84 Ht 5' 2 (1.58m) Wt 279 lb (126.6kg) LMP 2014 BMI 51.02 kg/(m2). GENERAL: pleasant, female in no apparent distress HEENT: Normocephalic, atraumatic, mucus membranes moist, and no lesions CHEST: Normal inspiratory effort PELVIC: external genitalia normal, normal Bartholin's glands, urethra, Watchtower's glands, no vulvar lesions, physiologic discharge present, normal appearing perineal body and perianal region, *blind pap, unable to visualized cervix due to body habitus BIMANUAL: uterus normal size, shape and consistency, no adnexal masses, and non-tender RECTOVAGINAL: rectovaginal exam negative for any masses or nodularity. NEURO: alert and oriented x3,exam grossly non-focal EXTREMITIES: normal ASSESSMENT/PLAN: 1. Postmenopausal bleeding - ICD9: 627.1, ICD10: N95.0 (primary diagnosis) - PELVIC US I 2. History of uterine fibroid - ICD9: V13.29, ICD10: Z86.018 - PELVIC US WHI 3. Encounter for screening mammogram for breast cancer - ICD9: V76.12, ICD10: Z12.31 - MIKEY SCREENING W KEESHA 4. Encounter for screening for malignant neoplasm of cervix - ICD9: V76.2, ICD10: Z12.4 - PAP TEST 5. Pelvic pain in female - ICD9: 625.9, ICD10: R10.2 - PELVIC US I Will notify patient of test results. Lizeth Santana APRN.[employer]ARY [employer] Medical Decision Making: Problems: Moderate: New problem with uncertain prognosis Data: Unique test(s) ordered: 2 Risk: Low: Low risk from testing/treatment Medical Decision Making Level: 3 - Low Referring Provider: KYRA CARSON [[id number]] Allergies As of Date: 11/05/2024 Noted Allergy Reaction AMOXICILLIN 03/26/2022 2 - Rash Comments: Red fine rash Date Reviewed: 11/05/2024 Reviewed by: Leigha Esposito LPN - Fully Assessed Reason for Visit: Well Woman [1463] Primary Visit Diagnosis:Postmenopausa l bleeding [N95.0] Other Visit Diagnoses:History of uterine fibroid [Z86.018] Encounter for screening mammogram for breast cancer [Z12.31] Encounter for screening for malignant neoplasm of cervix [Z12.4] Pelvic pain in female [R10.2] Order(s):CONSULT TO BENZENE WORKER [9021] Order #: [id number]: 1 MIKEY SCREENING W KEESHA [[id number]] Order #: [id number] FUTURE PAP TEST [MZY2931] Order #: [id number]. #:[id number] PELVIC US WHI [[id number]] Order #: [id number]: 1 FUTURE Prescriptions as of 11/05/2024 - levothyroxine (LEVOXYL) 50 mcg tablet Take 1.5 tablets by mouth once daily. Take on empty stomach. For Thyroid - sertraline (ZOLOFT) 50 mg tablet Take 1 tablet by mouth once daily. - benzonatate (TESSALON PERLE) 100 mg capsule Take 2 capsules by mouth three times a day as needed for cough. - meloxicam (MOBIC) 15 mg tablet Take 1 tablet by mouth once daily. - hydrOXYzine HCl (ATARAX) 25 mg tablet Take 1 tablet by mouth every 6 hours as needed for anxiety (or allergies). - fluticasone (ELIF (more content not included)... Normal [facility] PAP TESTon 11-05-2024 ADEQUACY Normal [facility] Comment on above: Order Comment: Speci men Type: BLOOD SPECIMEN Ordering Facility: [facility] Address: [address] [place] [address] Result Comment: Sati sfactory for interpretation. Transformation zone present Performed By: #### 3 024-7, 3051-0, 6-3 #### [facility] CLIA [id number] [address] [place] [address] [place] CASE REPORT Normal [facility] Comment on above: Order Comment: Speci men Type: BLOOD SPECIMEN Ordering Facility: [facility] Address: [address] [place] [address] Result Comment: Gyne cologic Cytology Report Case: [id number] Authorizing Provider: Lizeth Santana APRN.[employer] Collected: 11/05/2024 08:29 AM Ordering Location: OB/Gynecology Received: 11/05/2024 11:18 AM First Screen: Roosevelt Ramirez, CT, ASCP Pathologist: Melecio Rasheed MD Specimen: Pap Test, ThinPrep, Cervix Performed By: #### 3 024-7, 3051-0, 3015-3 #### [facility] CLIA [id number] [address] [place] [address] [place] CLINICAL HISTORY, CYTOLOGY, CULL GRADER Other (Specify) Normal [facility] Comment on above: Order Comment: Speci men Type: BLOOD SPECIMEN Ordering Facility: [facility] Address: [address] [place] [address] Result Comment: PMB Performed By: #### 3 024-7, 3051-0, 301-3 #### [facility] CLIA [id number] [address] [place] [address] [place] FINAL PERFORMING LAB Normal [facility] Comment on above: Order Comment: Speci men Type: BLOOD SPECIMEN Ordering Facility: [facility] Address: [address] [place] [address] Result Comment: Tech nical component, umbrella tipper machine screening performed at [facility], [address] [place] [address] CLIA# [id number] Diagnostic interpretation performed at [facility], [address] [place] [address] CLIA# [id number] Senior Php Web Developer: Carlo Oneal M.D. Performed By: #### 3 024-7, 3051-0, 301-3 #### [facility] CLIA [id number] [address] [place] [address] [place] INTERPRETATION, CYTOLOGY, CULL GRADER Normal [facility] Comment on above: Order Comment: Speci men Type: BLOOD SPECIMEN Ordering Facility: [facility] Address: [address] [place] [address] Result Comment: Nega tive for intraepithelial lesion or malignancy. at 1742 EDT Performed By: #### 3 024-7, 305-0, 3 #### [facility] CLIA [id number] [address] [place] [address] [place] PAP DISCLAIMER COMMENT The Pap Smear is a screening test for cervical cancer. False negative results occur with all screening tests, emphasizing the need for rescreening at recommended intervals, and clinical correlation. Normal [facility] Comment on above: Order Comment: Speci men Type: BLOOD SPECIMEN Ordering Facility: [facility] Address: [address] [place] [address] Performed By: #### 3 024-7, 305-0, 3 #### [facility] CLIA [id number] [address] [place] [address] [place] PAP BOILER TENDERS SUPERVISOR COMMENT This specimen has be en analyzed by the ThinPrep Imaging System, an automated imaging and review system, which assists the laboratory in evaluating cells on ThinPrep Pap tests. Following automated imaging, selected guy from every slide are reviewed by a umbrella tipper machine. Normal [facility] Comment on above: Order Comment: Speci men Type: BLOOD SPECIMEN Ordering Facility: [facility] Address: [address] [place] [address] Performed By: #### 3 024-7, 305-0, 3 #### [facility] CLIA [id number] [address] [place] [address] [place] CNOVon 09-28-2024 CNOV Office Visit (INTMWS ) FRANCA NICHOLSON ([id number]) 1955 F Date Time Provider Department 09/28/24 3:00 PM THANH BARAJAS INTMWS During your visit today, we recorded the following information about you: Temperature Pulse Blood pressure Weight 98.2 degrees 82/minute 132/80 128.5 kg Thanh Barajas APRN.[employer]CR[employer]ARY [employer] 09/28/2024 3:24 PM Signed SUBJECTIVE Franca Nicholson is a 69 year old female here today for acute concern. Chief Complaint Patient presents with: Cough: moist to try and productive at time with yellow sputum Symptoms on going for about 2 week congestion in chest ear pain off and on no energy HPI Franca Nicholson is a 69 year old female. She is an established patient of Kyra Carson MD. Here today for concerns of a cough. Onset was about 2 weeks ago. It has been constant. Cough is productive for some yellow sputum. She also has yellow nasal discharge and sinus pain. Has had some chills off and on but no fever that she knows of. Needs a refill on synthroid, last labs stable, doing well on this, no issues. Needs Zoloft refilled too, doing good on this, mood stable. Her medications were reviewed today and her list is now up to date. Medications Current Outpatient Medications Medication Sig meloxicam (MOBIC) 15 mg tablet Take 1 tablet by mouth once daily. hydrOXYzine HCl (ATARAX) 25 mg tablet Take 1 tablet by mouth every 6 hours as needed for anxiety (or allergies). fluticasone (FLONASE) 50 mcg/actuation nasal spray Use 2 Sprays in each nostril once daily. Rinse mouth after use. As directed Cholecalciferol, Vitamin D3, (VITAMIN D) 25 mcg (1,000 unit) cap Take 1,000 Units by mouth once daily. levothyroxine (LEVOXYL) 50 mcg tablet Take 1.5 tablets by mouth once daily. Take on empty stomach. For Thyroid sertraline (ZOLOFT) 50 mg tablet Take 1 tablet by mouth once daily. azithromycin (ZITHROMAX) 250 mg tablet Take 2 tablets by mouth once daily for 1 day, THEN 1 tablet once daily for 4 days. benzonatate (TESSALON PERLE) 100 mg capsule Take 2 capsules by mouth three times a day as needed for cough. No current facility-administered medications for this visit. 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 Negative for chest tightness. Cardiovascular: Negative. OBJECTIVE BP 132/80 Pulse 82 Temp (Src) 98.2 (Temporal) Wt 283 lb 4.7 oz (128.5kg) SpO2 94% Physical Exam Vitals and nursing note reviewed. Constitutional: General: She is awake. She is not in acute distress. Appearance: Normal appearance. She is well-developed and well-groomed. She is not ill-appearing, toxic-appearing or diaphoretic. HENT: Head: Normocephalic. Right Ear: External ear normal. Left Ear: External ear normal. Nose: Nose normal. Eyes: General: Vision grossly intact. Conjunctiva/sclera: Conjunctivae normal. Pupils: Pupils are equal, round, and reactive to light. Neck: Vascular: No JVD. Trachea: Trachea normal. Cardiovascular: Rate and Rhythm: Normal rate and regular rhythm. Pulses: Normal pulses. Heart sounds: Normal heart sounds. No murmur heard. Pulmonary: Effort: Pulmonary effort is normal. No accessory muscle usage, prolonged expiration or respiratory distress. Breath sounds: Normal breath sounds. Musculoskeletal: Cervical back: Neck supple. Skin: General: Skin is warm and dry. Capillary Refill: Capillary refill takes less than 2 seconds. Neurological: General: No focal deficit present. Mental Status: She is alert and oriented to person, place, and time. Mental status is at baseline. Psychiatric: Attention and Perception: Attention and perception normal. Mood and Affect: Mood and affect normal. Speech: Speech normal. Behavior: Behavior normal. Behavior is cooperative. Thought Content: Thought content normal. Cognition and Memory: Cognition and memory normal. Judgment: Judgment normal. ASSESSMENT/PLAN: 1. Sinobronchitis - ICD9: 473.9, 490, ICD10: J32.9, J40 (primary diagnosis) - Will begin treatment with as per antibiotic as written, see orders - The patient should also be given OTC cough and cold meds as needed, warm salt (more content not included)... Normal [facility] 25(OH)[facility]3 [facility] 25-hydroxyvitamin D3 [Mass/Vol] 30.4 ng/mL Low 31.0-80.0 [facility] Comment on above: Order Comment: Speci men Type: BLOOD SPECIMEN Ordering Facility: [facility] Address: [address] [place] [address] Result Comment: Clas sification of 25 OH Vitamin D status: Deficiency/Insufficiency: < or = 30 ng/ml. Sufficiency/Optimal Levels: 31-80 ng/mL Toxicity: > 100 ng/mL. Test performed by chemiluminescent immunoassay. Performed By: #### 1 989-3 #### [facility] CLIA [id number] [address] [place], [place] [address] [address] [place] 25-hydroxyvitamin D3 [Mass/V ol]on 05-25-2024 Interpretation and review of laboratory results Abnormal [facility] The reference range interval was based on an analysis of samples from healthy adults and may not pertain to children from 0-[address] [facility] CBC panel Auto (Bld)on 05-25 Erythrocyte distribution width (RBC) [Ratio] 12.6 % 11.5 - 15.0 % [facility] Hematocrit (Bld) [Volume fraction] 46.7 % High 36.0 - 46.0 % [facility] Hemoglobin (Bld) [Mass/Vol] 14.8 g/dL 11.5 - 15.5 g/dL [facility] Interpretation and review of laboratory results Abnormal [facility] MCH (RBC) [Entitic mass] 30.6 pg 26.0 - 34.0 pg [facility] MCHC (RBC) [Mass/Vol] 31.7 g/dL 30.5 - 36.0 g/dL [facility] MCV (RBC) [Entitic vol] 96.7 fL 80.0 - 100.0 fL [facility] Nucleated RBC (Bld) [#/Vol] NINF [facility] Platelet mean volume (Bld) [Entitic vol] 10.4 fL 9.0 - 12.7 fL [facility] Platelets (Bld) [#/Vol] 276 10*3/uL [facility] RBC (Bld) [#/Vol] 4.83 10*6/uL 3.90 - 5.2 0 m/uL [facility] WBC (Bld) [#/Vol] 6.05 10*3/uL [facility] Erythrocyte distribution width (RBC) [Ratio] 12.6 % Normal 11.5-15.0 [facility] Comment on above: Order Comment: Speci men Type: BLOOD SPECIMEN Ordering Facility: [facility] Address: [address] [place] [address] Performed By: #### 3 024-7, 3051-0, 3016-3 #### [facility] CLIA [id number] [address] [place] [address] [place] Hematocrit (Bld) [Volume fraction] 46.7 % High 36.0-46.0 [facility] Comment on above: Order Comment: Speci men Type: BLOOD SPECIMEN Ordering Facility: [facility] Address: [address] [place] [address] Performed By: #### 3 024-7, 3051-0, 3016-3 #### [facility] CLIA [id number] [address] [place] [address] [place] Hemoglobin (Bld) [Mass/Vol] 14.8 g/dL Normal 11.5-15.5 [facility] Comment on above: Order Comment: Speci men Type: BLOOD SPECIMEN Ordering Facility: [facility] Address: [address] [place] [address] Performed By: #### 3 024-7, 3051-0, 3016-3 #### [facility] CLIA [id number] [address] [place] [address] [place] MCH (RBC) [Entitic mass] 30.6 pg Normal 26.0-34.0 [facility] Comment on above: Order Comment: Speci men Type: BLOOD SPECIMEN Ordering Facility: [facility] Address: [address] [place] [address] Performed By: #### 3 024-7, 3051-0, 3016-3 #### [facility] CLIA [id number] [address] [place] [address] [place] MCHC (RBC) [Mass/Vol] 31.7 g/dL Normal 30.5-36.0 [facility] Comment on above: Order Comment: Speci men Type: BLOOD SPECIMEN Ordering Facility: [facility] Address: [address] [place] [address] Performed By: #### 3 024-7, 3051-0, 3016-3 #### [facility] CLIA [id number] [address] [place] [address] [place] MCV (RBC) [Entitic vol] 96.7 fL Normal 80.0-100.0 [facility] Comment on above: Order Comment: Speci men Type: BLOOD SPECIMEN Ordering Facility: [facility] Address: [address] [place] [address] Performed By: #### 3 024-7, 3051-0, 3016-3 #### [facility] CLIA [id number] [address] [place] [address] [place] Nucleated RBC (Bld) [#/Vol] 10*3/uL Normal <0.01 [facility] Comment on above: Order Comment: Speci men Type: BLOOD SPECIMEN Ordering Facility: [facility] Address: [address] [place] [address] Performed By: #### 3 024-7, 3051-0, 3016-3 #### [facility] CLIA [id number] [address] [place] [address] [place] Platelet mean volume (Bld) [Entitic vol] 10.4 fL Normal 9.0-12.7 [facility] Comment on above: Order Comment: Speci men Type: BLOOD SPECIMEN Ordering Facility: [facility] Address: [address] [place] [address] Performed By: #### 3 024-7, 3051-0, 3016-3 #### [facility] CLIA [id number] [address] [place] [address] [place] Platelets (Bld) [#/Vol] 276 10*3/uL Normal 150-400 [facility] Comment on above: Order Comment: Speci men Type: BLOOD SPECIMEN Ordering Facility: [facility] Address: [address] [place] [address] Performed By: #### 3 024-7, 3051-0, 3016-3 #### [facility] CLIA [id number] [address] [place] [address] [place] RBC (Bld) [#/Vol] 4.83 10*6/uL Normal 3.90-5.20 [facility] Comment on above: Order Comment: Speci men Type: BLOOD SPECIMEN Ordering Facility: [facility] Address: [address] [place] [address] Performed By: #### 3 024-7, 3051-0, 3016-3 #### [facility] CLIA [id number] [address] [place] [address] [place] WBC (Bld) [#/Vol] 6.05 10*3/uL Normal 3.70-11.00 [facility] Comment on above: Order Comment: Speci men Type: BLOOD SPECIMEN Ordering Facility: [facility] Address: [address] [place] [address] Performed By: #### 3 024-7, 3051-0, 3016-3 #### [facility] CLIA [id number] [address] [place] [address] [id number] [place] [address] OF [facility] CNOVon 05-25-2024 CNOV Office Visit (INTMWS ) FRANCA NICHOLSON ([id number]) 1955 F Date Time Provider Department 05/25/24 10:20 AM KYRA CARSON INTMWS During your visit today, we recorded the following information about you: Temperature Pulse Respiration Blood pressure 96.5 degrees 74/minute 16/minute 134/82 Weight 125 kg Kyra Carson MD 05/25/2024 8:04 PM Signed This note was created using [employer]. Subjective Franca Patient presents with: F/U 6 months SUBJECTIVE: Franca Nicholson is a 69 year old year old lady here today for 6 month follow up appointment for review of medical conditions. Franca Nicholson is a 69-year-old female with a history of fibroids, presenting for a 6-month follow-up visit. She reports persistent right arm pain, decreased hearing, episodes of chest heaviness, and postmenopausal bleeding. Franca reports persistent right arm pain that has been ongoing since her last visit in November. She describes the pain as originating in the deltoid area and radiating down the arm, resembling a sensation of swelling. The pain is not associated with tenderness upon palpation and is exacerbated by abduction movements. She notes that the pain is severe enough to wake her from sleep, despite sleeping on her left side. She is currently taking meloxicam, which has not provided relief. She denies any history of similar symptoms and has not tried other anti-inflammatory medications. She also reports decreased hearing over the past 6 months, particularly in her right ear, which she uses for phone calls. She denies any otalgia. Additionally, she experiences episodes of chest heaviness that occur randomly, both at rest and during activity. These episodes are alleviated by taking deep breaths and do not limit her activities. She denies any associated dyspnea, arm pain, or nausea during these episodes. Franca has a history of fibroids and underwent a DANDC approximately 10 years ago. She reports postmenopausal bleeding over the past year, with episodes occurring every 2-3 months. In the past 10 days, she has experienced two separate episodes of bleeding, each lasting 2 days. She also reports associated cramping. She does not have a current emergency telecommunications dispatcher. She is actively working on weight management and dietary changes, including reducing carbohydrate intake. She reports a stable weight but is aiming for further weight loss. She is aware of the importance of a balanced diet and is making efforts to incorporate more protein and vegetables into her meals. PAST MEDICAL HISTORY Diagnosis Date Chronic pain of left knee Generalized anxiety disorder Hypothyroidism Obesity Umbilical hernia Vitamin D deficiency Current Outpatient Medications Medication Sig meloxicam (MOBIC) 15 mg tablet Take 1 tablet by mouth once daily. levothyroxine (LEVOXYL) 50 mcg tablet Take 1.5 tablets by mouth once daily. Take on empty stomach. For Thyroid sertraline (ZOLOFT) 50 mg tablet Take 1 tablet by mouth once daily. hydrOXYzine HCl (ATARAX) 25 mg tablet Take 1 tablet by mouth every 6 hours as needed for anxiety (or allergies). fluticasone (FLONASE) 50 mcg/actuation nasal spray Use 2 Sprays in each nostril once daily. Rinse mouth after use. As directed Cholecalciferol, Vitamin D3, (VITAMIN D) 25 mcg (1,000 unit) cap Take 1,000 Units by mouth once daily. No current facility-administered medications for this visit. Review of Systems Objective BP 134/82 Pulse 74 Temp (!) 35.8 ?C (96.5 ?F) Resp 16 Wt 125 kg (275 lb 9.2 oz) LMP (LMP Unknown) SpO2 97% BMI 52.07 kg/m? Last 5 Encounter Wt Readings: Date: Wt: 05/25/2024 125 kg (275 lb 9.2 oz) 11/19/2023 125.6 kg (277 lb) 09/15/2023 124.7 kg (275 lb) 08/11/2023 125.1 kg (275 lb 11.2 oz) 04/28/2023 122.5 kg (270 lb) No waist measurement recorded Estimated body mass index is 52.07 kg/m? as calculated from the following: Height as of 04/28/23: 154.9 cm (5' 1). Weight as of this encounter: 125 kg (275 lb 9.2 oz). Last 5 Encounter BP Readings: Date: BP: 05/25/2024 134/82 11/19/2023 136/90 09/15/2023 128/78 08/11/2023 136/86 05/14/2023 126/78 Physical Exam Constitutional: Appearance: Normal appearance. She is obese. HENT: Head: Normocephalic. Eyes: Conjunctiva/sclera: Conjunctivae normal. Cardiovascular: Rate and Rhythm: Normal rate and regular rhythm. Heart sounds: Normal heart sounds. Pulmonary: Effort: Pulmonary effort is normal. Breath sounds: Normal breath sounds. Musculoskeletal: Right lower leg: No edema. Left lower leg: No edema. Skin: General: Skin is warm and dry. Neurological: General: No focal deficit present. Mental Status: She is alert and oriented to person, place, and time. Psychiatric: Attention and Perception: Attention and perception normal. Mood and Affect: Mood and affect normal. Speech: Speech shavonne (more content not included)... Normal [facility] Comprehensive metabolic 2000 panelon 05-25-2024 Albumin [Mass/Vol] 4.5 g/dL Normal 3.9-4.9 [facility] Comment on above: Order Comment: Speci men Type: BLOOD SPECIMEN Ordering Facility: [facility] Address: [address] [place] [address] Performed By: #### 3 024-7, 3051-0, 3016-3 #### [facility] CLIA [id number] [address] [place] [address] [place] [address] [place] ALP [Catalytic activity/Vol] 68 U/L Normal 34-123 [facility] Comment on above: Order Comment: Speci men Type: BLOOD SPECIMEN Ordering Facility: [facility] Address: [address] [place] [address] Performed By: #### 3 024-7, 3050-0, 3 #### [facility] CLIA [id number] [address] [place] [address] [place] ALT [Catalytic activity/Vol] 23 U/L Normal 7-38 [facility] Comment on above: Order Comment: Speci men Type: BLOOD SPECIMEN Ordering Facility: [facility] Address: [address] [place] [address] Performed By: #### 3 024-7, 0, 3 #### [facility] CLIA [id number] [address] [place] [address] [place] Anion gap [Moles/Vol] 10 mmol/L Normal 8-15 [facility] Comment on above: Order Comment: Speci men Type: BLOOD SPECIMEN Ordering Facility: [facility] Address: [address] [place] [address] Performed By: #### 3 024-7, 0, 3 #### [facility] CLIA [id number] [address] [place] [address] [place] AST [Catalytic activity/Vol] 22 U/L Normal 13-35 [facility] Comment on above: Order Comment: Speci men Type: BLOOD SPECIMEN Ordering Facility: [facility] Address: [address] [place] [address] Performed By: #### 3 024-7, 0, 3 #### [facility] CLIA [id number] [address] [place] [address] [place] Bilirubin [Mass/Vol] 0.3 mg/dL Normal 0.2-1.3 [facility] Comment on above: Order Comment: Speci men Type: BLOOD SPECIMEN Ordering Facility: [facility] Address: [address] [place] [address] Performed By: #### 3 024-7, 3051-0, 3016-3 #### [facility] CLIA [id number] [address] [place] [address] [place] Calcium [Mass/Vol] 10.0 mg/dL Normal 8.5-10.2 [facility] Comment on above: Order Comment: Speci men Type: BLOOD SPECIMEN Ordering Facility: [facility] Address: [address] [place] [address] Performed By: #### 3 024-7, 3051-0, 3016-3 #### [facility] CLIA [id number] [address] [place] [address] [place] Chloride [Moles/Vol] 101 mmol/L Normal 98-107 [facility] Comment on above: Order Comment: Speci men Type: BLOOD SPECIMEN Ordering Facility: [facility] Address: [address] [place] [address] Performed By: #### 3 024-7, 305-0, 3016-3 #### [facility] CLIA [id number] [address] [place] [address] [place] CO2 [Moles/Vol] 28 mmol/L Normal 22-30 [facility] Comment on above: Order Comment: Speci men Type: BLOOD SPECIMEN Ordering Facility: [facility] Address: [address] [place] [address] Performed By: #### 3 024-7, 3051-0, 3016-3 #### [facility] CLIA [id number] [address] [place] [address] [place] Creatinine [Mass/Vol] 0.78 mg/dL Normal 0.58-0.96 [facility] Comment on above: Order Comment: Speci men Type: BLOOD SPECIMEN Ordering Facility: [facility] Address: [address] [place] [address] Performed By: #### 3 024-7, 305-0, 3 #### [facility] CLIA [id number] [address] [place] [address] [place] Creatinine and Glomerular filtration rate.predicted panel (S/P/Bld) 83 mL/min/1.73m??? Normal >=60 [facility] Comment on above: Order Comment: Alyson cordon Type: BLOOD SPECIMEN Ordering Facility: [facility] Address: [address] [place] [address] Result Comment: Chanell mated Glomerular Filtration Rate (eGFR) is calculated using the 2020 CKD-EPI creatinine equation. This equation utilizes serum creatinine, sex, and age as parameters. The creatinine assay has traceable calibration to isotope dilution-mass spectrometry. Refer to KDIGO guidelines for clinical interpretation. In patients with unstable renal function, e.g. those with acute kidney injury, the eGFR may not accurately reflect actual GFR. Performed By: #### 3 024-7, 3050-0, 3 #### [facility] CLIA [id number] [address] [place] [address] [place] Glucose [Mass/Vol] 97 mg/dL Normal 74-99 [facility] Comment on above: Order Comment: Alyson cordon Type: BLOOD SPECIMEN Ordering Facility: [facility] Address: [address] [place] [address] Result Comment: The [place] Diabetes Association (ADA) provides guidance for cutoff values for fasting glucose and random glucose. The ADA defines fasting as no caloric intake for at least 8 hours. Fasting plasma glucose results between 100 to 125 mg/dL indicate increased risk for diabetes (prediabetes). Fasting plasma glucose results greater than or equal to 126 mg/dL meet the criteria for diagnosis of diabetes. In the absence of unequivocal hyperglycemia, results should be confirmed by repeat testing. In a patient with classic symptoms of hyperglycemia or hyperglycemic crisis, random plasma glucose results greater than or equal to 200 mg/dL meet the criteria for diagnosis of diabetes. Reference: Standards of Medical Care in Diabetes 2016, [place] [employer]. Diabetes Care. 2016.39(Suppl 1). Performed By: #### 3 024-7, 0, 3 #### [facility] CLIA [id number] [address] [place] [address] [place] Potassium [Moles/Vol] 5.1 mmol/L Normal 3.7-5.1 [facility] Comment on above: Order Comment: Speci men Type: BLOOD SPECIMEN Ordering Facility: [facility] Address: [address] [place] [address] Performed By: #### 3 024-7, 0, 3015-09 #### [facility] CLIA [id number] [address] [place] [address] [place] Protein [Mass/Vol] 7.4 g/dL Normal 6.3-8.0 [facility] Comment on above: Order Comment: Speci men Type: BLOOD SPECIMEN Ordering Facility: [facility] Address: [address] [place] [address] Performed By: #### 3 024-7, 0, 3015-09 #### [facility] CLIA [id number] [address] [place] [address] [place] Sodium [Moles/Vol] 139 mmol/L Normal 136-144 [facility] Comment on above: Order Comment: Speci men Type: BLOOD SPECIMEN Ordering Facility: [facility] Address: [address] [place] [address] Performed By: #### 3 024-7, 0, 3015-09 #### [facility] CLIA [id number] [address] [place], [place] [id number] [place] Urea nitrogen [Mass/Vol] 12 mg/dL Normal 7-21 [facility] Comment on above: Order Comment: Speci men Type: BLOOD SPECIMEN Ordering Facility: [facility] Address: [address] [place] [address] Performed By: #### 3 024-7, 0, 3 #### [facility] CLIA [id number] [address] [place] [address] [place] Lipid 1996 panelon 4 Cholesterol [Mass/Vol] 272 mg/dL High <200 [facility] Comment on above: Order Comment: Bridgeti men Type: BLOOD SPECIMEN Ordering Facility: [facility] Address: [address] [place] [address] Result Comment: <200 mg/dL, Desirable 200-239 mg/dL, Borderline high >239 mg/dL, High Performed By: #### 3 024-7, 3051-0, 3016-3 #### [facility] CLIA [id number] [address] [place] [address] [place] Cholesterol in HDL [Mass/Vol] 87 mg/dL Normal >39 [facility] Comment on above: Order Comment: Alyson cordon Type: BLOOD SPECIMEN Ordering Facility: [facility] Address: [address] [place] [address] Result Comment: 40-5 9 mg/dL, Acceptable >59 mg/dL, High: Negative risk factor for coronary heart disease <40 mg/dL, Low: Positive risk factor for coronary heart disease Performed By: #### 3 024-7, 3051-0, 3016-3 #### [facility] CLIA [id number] [address] [place] [address] [place] Cholesterol in LDL [Mass/Vol] 160 mg/dL High <100 [facility] Comment on above: Order Comment: Speci men Type: BLOOD SPECIMEN Ordering Facility: [facility] Address: [address] [place] [address] Result Comment: <100 mg/dL, Optimal 100-129 mg/dL, Near optimal/above optimal 130-159 mg/dL, Borderline high 160-189 mg/dL, High >189 mg/dL, Very high Secondary prevention optimal LDL Cholesterol levels are recommended to be < 70 mg/dL Performed By: #### 3 024-7, 3051-0, 3016-3 #### [facility] CLIA [id number] [address] [place] [address] [place] [facility] Cholesterol in LDL/Cholesterol in HDL [Mass ratio] 1.84 {ratio} Normal <2.54 [facility] Comment on above: Order Comment: Alyson cordon Type: BLOOD SPECIMEN Ordering Facility: [facility] Address: [address] [place] [address] Result Comment: Sp kennedy: 1. National Cholesterol Education Program ATP III Guideline At-A-Glance Quick Desk Reference: National Heart, Lung, and Blood [place]. National Institutes of Health. 2001: NIH Publication No. 01-3305. 2. An International Atherosclerosis Society position paper: global recommendations for the management of dyslipidemia: executive summary, Atherosclerosis. 2014: 232(2):410-413. Performed By: #### 3 024-7, 305-0, 3015-3 #### [facility] CLIA [id number] [address] [place] [address] [place] Cholesterol in VLDL [Mass/Vol] 25 mg/dL Normal <30 [facility] Comment on above: Order Comment: Alyson cordon Type: BLOOD SPECIMEN Ordering Facility: [facility] Address: [address] [place] [address] Performed By: #### 3 024-7, 305-0, 3015-3 #### [facility] CLIA [id number] [address] [place] [address] [place] Cholesterol non HDL [Mass/Vol] 185 mg/dL High <130 [facility] Comment on above: Order Comment: Alyson cordon Type: BLOOD SPECIMEN Ordering Facility: [facility] Address: [address] [place] [address] Result Comment: <130 mg/dL, Optimal 130-159 mg/dL, Near optimal/above optimal 160-189 mg/dL, Borderline high 190-219 mg/dL, High >219 mg/dL, Very high Secondary prevention optimal non HDL Cholesterol levels are recommended to be <100 mg/dL Performed By: #### 3 024-7, 305-0, 3016-3 #### [facility] CLIA [id number] [address] [place] [address] [place] Cholesterol.total/Cho lesterol in HDL [Mass ratio] 3.13 {ratio} Normal <5.10 [facility] Comment on above: Order Comment: Speci men Type: BLOOD SPECIMEN Ordering Facility: [facility] Address: [address] [place] [address] Performed By: #### 3 024-7, 3051-0, 3016-3 #### [facility] CLIA [id number] [address] [place] [address] [place] FASTING TIME 12 hrs Normal [facility] Comment on above: Order Comment: Speci men Type: BLOOD SPECIMEN Ordering Facility: [facility] Address: [address] [place] [address] Performed By: #### 3 024-7, 3051-0, 3016-3 #### [facility] CLIA [id number] [address] [place] [address] [place] Triglyceride [Mass/Vol] 127 mg/dL Normal <150 [facility] Comment on above: Order Comment: Speci men Type: BLOOD SPECIMEN Ordering Facility: [facility] Address: [address] [place] [address] Result Comment: <150 mg/dL, Normal 150-199 mg/dL, Borderline high 200-499 mg/dL, High >499 mg/dL, Very high Performed By: #### 3 024-7, 3051-0, 3016-3 #### [facility] CLIA [id number] [address] [place] [address] [place] VITAMIN D 25 HYDROXYon 05-25 25-hydroxyvitamin D3 [Mass/Vol] 30.4 ng/mL Low 31.0 - 80.0 ng/mL [facility] Comment on above: Classification of 25 [place] Vitamin D status: Deficiency/Insufficiency: < or = 30 ng/ml. Sufficiency/Optimal Levels: 31-80 ng/mL Toxicity: > 100 ng/mL. Test performed by chemiluminescent immunoassay. [facility] 04-08-2024 [facility] HNO ID: [id number] Author: COORDINATOR, MAMMOGRAPHY, ? Service: ? Author Type: Physician Type: Letter Filed: 04/08/2024 15:46 Note Text: April 08, 2024 PID: [id number] Franca Nicholson [address] [place] [address] Dear Ms. Nicholson, We are pleased to inform you that the results of your recent breast imaging exam on 04/07/2024 are normal. However, because you and/or your physician described a possible abnormality you should consult your physician or other health care provider for further evaluation if necessary. Breast tissue can be either dense or not dense. Dense tissue makes it harder to find breast cancer on a mammogram and also raises the risk of developing breast cancer. Your breast tissue is not dense. Talk to your healthcare provider about breast density, risks for breast cancer, and your individual situation. Early detection of cancer is very important. We also understand recommendations regarding breast cancer screening are controversial. Please discuss with your primary care provider which strategy is best for you and whether a mammogram is right for you. Your imaging studies and report will be kept on file at [facility] as part of your permanent medical record and are available for your continuing care. Thank you for allowing us to help in meeting your health care needs. Sincerely, Dr. Izaguirre Interpreting Radiologist [facility] (Normal-Clinical Evaluation) Normal [facility] Breast Screeningon 2023 IMPRESSION: NEGATIVE There is no mammographic evidence of malignancy. A 1 year screening mammogram is recommended. Lubna Izaguirre M.D., jr/pengenesis:04/08/2024 15:46:40 Manager Project Management(s): RT Reginaldo(R)(M), [facility] letter sent: Normal clinical eval Mammogram BI-RADS: Category 1: Negative Multiple national specialty organizations have released breast cancer screening guidelines for women at average risk for developing breast cancer - guidelines that are based on both evidence and opinion, yet differ on when to start and how often to screen for breast cancer. With representation from Breast Imaging, Internal Medicine, Women's Health, Family Medicine, and Medical/Surgical Oncology, the [facility] has carefully reviewed the data and reached the following consensus: 1) All women should engage in shared decision-making with their providers to decide when to start and how often to screen; 2) All women should have the opportunity to start screening mammography at age 40; 3) For women ages 45-55, we recommend annual screening mammograms; 4) For women ages 55 and over, we support both the transition from an annual to a biennial interval if this aligns more with patient's values and preferences, or continuation with annual screening; 5) All women should discuss with their providers when to stop screening mammograms. Property Adjuster: Griselda Transcribe Date/Time: Apr 07 2024 9:06A Dictated by: LUBNA IZAGUIRRE MD This examination was interpreted and the report reviewed and electronically signed by: LUBNA IZAGUIRRE MD on Apr 08 2024 3:46PM [facility] DIVISION OF RADIOLOGY * * *Final Report* * * DATE OF EXAM: Apr 07 2024 9:28AM [facility] 0581 - [facility] SCREENING / PROCEDURE REASON: Encounter for screening mammogram for breast cancer * * * * Physician Interpretation * * * * RESULT: #[id number] - MIKEY SCREENING BILATERAL DIGITAL SCREENING MAMMOGRAM WITH CAD: 04/07/2024 HISTORY: Encounter For Screening Mammogram For Breast Cancer /Screening mammogram//Patient reports the following symptoms: occasional random sharp pains /SEE TECH NOTE /priors available for comparison. RESULT: TECHNIQUE: The study was acquired using full field digital technology and interpreted from soft copy. Current study was also evaluated with a Computer Aided Detection (CAD). Comparison is made to exam dated: 05/08/2022 mammogram - [facility]. There are scattered areas of fibroglandular density. No significant masses, calcifications, or other findings are seen in either breast. There has been no significant interval change. DIVISION OF RADIOLOGY Provider, [facility] - 04/08/2024 * * *Final Report* * * DATE OF EXAM: Apr 07 2024 9:28AM [facility] 0581 - [facility] SCREENING / PROCEDURE REASON: Encounter for screening mammogram for breast cancer * * * * Physician Interpretation * * * * RESULT: #[id number] - MIKEY SCREENING BILATERAL DIGITAL SCREENING MAMMOGRAM WITH CAD: 04/07/2024 HISTORY: Encounter For Screening Mammogram For Breast Cancer /Screening mammogram//Patient reports the following symptoms: occasional random sharp pains /SEE TECH NOTE /priors available for comparison. RESULT: TECHNIQUE: The study was acquired using full field digital technology and interpreted from soft copy. Current study was also evaluated with a Computer Aided Detection (CAD). Comparison is made to exam dated: 05/08/2022 mammogram - [facility]. There are scattered areas of fibroglandular density. No significant masses, calcifications, or other findings are seen in either breast. There has been no significant interval change. IMPRESSION IMPRESSION: NEGATIVE There is no mammographic evidence of malignancy. A 1 year screening mammogram is recommended. Lubna Izaguirre M.D., jr/griselda:04/08/2024 15:46:40 Manager Project Management(s): RT Reginaldo(R)(M), [facility] letter sent: Normal clinical eval Mammogram BI-RADS: Category 1: Negative Multiple national specialty organizations have released breast cancer screening guidelines for women at average risk for developing breast cancer - guidelines that are based on both evidence and opinion, yet differ on when to start and how often to screen for breast cancer. With representation from Breast Imaging, Internal Medicine, Women's Health, Family Medicine, and Medical/Surgical Oncology, the [facility] has carefully reviewed the data and reached the following consensus: 1) All women should engage in shared decision-making with their providers to decide when to start and how often to screen; 2) All women should have the opportunity to start screening mammography at age 40; 3) For women ages 45-55, we recommend annual screening mammograms; 4) For women ages 55 and over, we support both the transition from an annual to a biennial interval if this aligns more with patient's values and preferences, or continuation with annual screening; 5) All women should discuss with their providers when to stop screening mammograms. Property Adjuster: Griselda Transcribe Date/Time: Apr 07 2024 9:06A Dictated by: LUBNA IZAGUIRRE MD This examination was interpreted and the report reviewed and electronically signed by: ULBNA IZAGUIRRE MD on Apr 08 2024 3:46PM EST [facility] MG Breast ScreeningOrdered B y: [facility] Provider on 04-08-2024 [facility] MIKEY SCREENINGon 04-07-2024 MIKEY SCREENING * * *Final Report* * * DATE OF EXAM: Apr 07 2024 9:28AM WRW [id number] - MIKEY SCREENING / PROCEDURE REASON: Encounter for screening mammogram for breast cancer * * * * Physician Interpretation * * * * RESULT: #[id number] - MIKEY SCREENING BILATERAL DIGITAL SCREENING MAMMOGRAM WITH CAD: 04/07/2024 HISTORY: Encounter For Screening Mammogram For Breast Cancer /Screening mammogram//Patient reports the following symptoms: occasional random sharp pains /SEE TECH NOTE /priors available for comparison. RESULT: TECHNIQUE: The study was acquired using full field digital technology and interpreted from soft copy. Current study was also evaluated with a Computer Aided Detection (CAD). Comparison is made to exam dated: 05/08/2022 mammogram - [facility]. There are scattered areas of fibroglandular density. No significant masses, calcifications, or other findings are seen in either breast. There has been no significant interval change. IMPRESSION: NEGATIVE There is no mammographic evidence of malignancy. A 1 year screening mammogram is recommended. Lubna Izaguirre M.D., jr/griselda:04/08/2024 15:46:40 Manager Project Management(s): RT Reginaldo(R)(M), [facility] letter sent: Normal clinical eval Mammogram BI-RADS: Category 1: Negative Multiple national specialty organizations have released breast cancer screening guidelines for women at average risk for developing breast cancer - guidelines that are based on both evidence and opinion, yet differ on when to start and how often to screen for breast cancer. With representation from Breast Imaging, Internal Medicine, Women's Health, Family Medicine, and Medical/Surgical Oncology, the [facility] has carefully reviewed the data and reached the following consensus: 1) All women should engage in shared decision-making with their providers to decide when to start and how often to screen; 2) All women should have the opportunity to start screening mammography at age 40; 3) For women ages 45-55, we recommend annual screening mammograms; 4) For women ages 55 and over, we support both the transition from an annual to a biennial interval if this aligns more with patient's values and preferences, or continuation with annual screening; 5) All women should discuss with their providers when to stop screening mammograms. Property Adjuster: Griselda Transcribe Date/Time: Apr 07 2024 9:06A Dictated by: LUBNA IZAGUIRRE MD This examination was interpreted and the report reviewed and electronically signed by: LUBNA IZAGUIRRE MD on Apr 08 2024 3:46PM EST [id number] Normal [facility] MG Breast Screeningon 2023 Radiology Study observation (narrative) [facility] T3Free SerPl-mCncon 03-30-20 24 Free T3 [Mass/Vol] 2.4 pg/mL Normal 2.3-4.1 [facility] Comment on above: Order Comment: Speci men Type: BLOOD SPECIMEN Ordering Facility: [facility] Address: [address] [place] [address] Performed By: #### 3 024-7, 305-0, 3015-3 #### [facility] CLIA [id number] [address] [place] [address] [place] T4 Free SerPl-mCncon 024 Free T4 [Mass/Vol] 1.2 ng/dL Normal 0.9-1.7 [facility] Comment on above: Order Comment: Speci men Type: BLOOD SPECIMEN Ordering Facility: [facility] Address: [address] [place] [address] Performed By: #### 3 024-7, 3050-0, 3 #### [facility] CLIA [id number] [address] [place] [address] [place] TSH SerPl-aCncon 03-30-2024 TSH Qn 3.430 m[IU]/L Normal 0.270-4.200 [facility] Comment on above: Order Comment: Speci men Type: BLOOD SPECIMEN Ordering Facility: [facility] Address: [address] [place] [address] Performed By: #### 3 024-7, 305-0, 3 #### [facility] CLIA [id number] [address] [place] [address] [place] ANES POSTPROC EVALon 023 ANES POSTPROC EVAL HNO ID: [id number] Author: All Bartholomew DO Service: Anesthesiology Author Type: Physician Type: Anesthesia Postprocedure Evaluation Filed: 05/14/2023 12:48 PM Note Text: POST ANESTHESIA EVALUATION NOTE : 1955 Procedure Summary Date: 05/14/23 Room / Location: [facility] Endoscopy Anesthesia Start: 0749 Anesthesia Stop: 0815 Procedure: COLONOSCOPY SCREENING Diagnosis: Special screening for malignant neoplasms, colon (Screening for colorectal malignant neoplasm) Scheduled Providers: Rajinder Zaldivar MD; Rajesh Pacheco APRN.DIE DESIGNER APPRENTICE; All Bartholomew DO Responsible Provider: All Bartholomew DO Anesthesia Type: MAC ASA Status: 3 Anesthesia Type: MAC Last Vitals Vitals Value Taken Time BP 146/82 05/14/23 0845 Temp 36.3 ?C (97.3 ?F) 05/14/23 0814 HR SpO2 77 05/14/23 0814 Resp 39 05/14/23 0852 SpO2 91 % 05/14/23 0852 Vitals shown include unvalidated device data. Post Anesthesia Patient Status Patient Evaluation: PACU. PACU/ICU Patient Condition: stable. Anticipated Disposition: phase 2 then home. Neurological Status: aware and responsive. Pulmonary Status: breathing comfortably on room air Airway Control: returned to baseline unsupported. Cardiovascular Status: stable. Pain Management: clinically adequate Postoperative Hydration: acceptable. Intraoperative Events: no significant anesthesia events Post Operative Nausea/Vomiting Status: no significant post operative nausea or vomiting Recommendation: continue current plan of care and further care per PACU/ICU/floor team. Anesthesia Observations No Documentation SIGNATURE: All Bartholomew DO PATIENT NAME: Franca Nicholson DATE: May 14, 2023 TIME: 12:48 PM CSN: [id number] Normal [facility] ANES PRE-OPon 05-14-2023 ANES PRE-OP HNO ID: [id number] Author: All Bartholomew DO Service: Anesthesiology Author Type: Physician Type: Anesthesia Preprocedure Evaluation Filed: 05/14/2023 7:36 AM Note Text: ANESTHESIOLOGY DAY OF SURGERY NOTE : 1955 Procedure Information Date/Time: 05/14/23 0800 Scheduled providers: Rajinder Zaldivar MD; Rajesh Pacheco APRN.DIE DESIGNER APPRENTICE; All Bartholomew DO Procedure: COLONOSCOPY SCREENING Location: [facility] Endoscopy Estimated body mass index is 51.02 kg/m? as calculated from the following: Height as of 04/28/23: 154.9 cm (5' 1). Weight as of 04/28/23: 122.5 kg (270 lb). Most recent hematocrit and potassium results: Hematocrit 45.5 09/10/2022 Potassium 4.7 05/09/2023 Relevant Problems ENDO (+) Hypothyroidism I - PHYSICAL EVALUATION AIRWAY Patient intubated: No. Tracheostomy tube not present Mallampati: II. TM distance: >3 FB. Neck ROM: full ROM without neurological symptoms. Mouth opening: adequate. Short neck: no. Thick neck: no DENTAL Dental findings: teeth intact. II - ANESTHESIA PLAN ASA Score: 3 Anesthetic Plan: MAC NPO Status: adequate Beta Daniela Monitoring Plan Monitoring plan: standard ASA. Post Procedure Analgesic Plan Postoperative analgesic plan: parenteral or oral opioids. Informed Consent Anesthetic risks, benefits, alternatives, personnel and consent discussed: yes. Patient / Responsible Green Party agrees to proceed: yes Patient / Surrogate agrees to blood products: Yes DNR status not reviewed with patient and/or family prior to surgery. Significant changes in the patient condition since the History and Physical, not otherwise documented in primary service progress note: no. Potential Anesthesia issues that may suggest increased risk of complications or contraindication to planned procedure: none. Vitals Value Taken Time BP 153/85 05/14/23 0707 Pulse Resp 20 05/14/23 0707 Temp 36.1 ?C (97 ?F) 05/14/23 0707 SpO2 100 % 05/14/23 0707 Outpatient Medications as of 05/14/2023 Medication Sig - fluticasone (FLONASE) 50 mcg/actuation nasal spray Use 2 Sprays in each nostril once daily. Rinse mouth after use. As directed - meloxicam (MOBIC) 15 mg tablet Take 1 tablet by mouth once daily. - hydrOXYzine HCl (ATARAX) 25 mg tablet Take 1 tablet by mouth every 6 hours as needed for anxiety (or allergies). - levothyroxine (LEVOXYL) 50 mcg tablet Take 1 tablet by mouth once daily. Take on empty stomach. For Thyroid - Cholecalciferol, Vitamin D3, (VITAMIN D) 25 mcg (1,000 unit) cap Take 1,000 Units by mouth once daily. - cyclobenzaprine (FLEXERIL) 10 mg tablet Take 1 tablet by mouth three times daily as needed for muscle spasm. Facility-Administered Medications as of 05/14/2023 Medication Dose Route Frequency - lactated ringers iv infusion 30 mL/hr INTRAVENOUS CONTINUOUS I have interviewed and examined the patient. I have reviewed the medical record and/or the pre-anesthesia evaluation, pertinent labs, and test results. This contains updated information obtained within 48 hours of Surgery/Procedure. SIGNATURE: All Bartholomew DO PATIENT NAME: Franca Nicholson DATE: May 14, 2023 TIME: 7:35 AM CSN: [id number] Normal [facility] COLONOSCOPY SCREENINGon 04-21 [facility] Colonoscopyon 05-14-2023 Colonoscopy [facility] Gastrointestinal Endoscopy Patient Name: Franca Nicholson Procedure Date: 05/14/2023 7:42 AM Date of : 1955 Admit Type: Outpatient Age: 68 Room: [facility] Gender: Female Note Status: Finalized Attending MD: Rajinder Zaldivar MD Procedure: Colonoscopy Indications: Screening for colorectal malignant neoplasm Providers: Rajinder Zaldivar MD Patient Profile: This is a 68 year old female. Refer to note in patient chart for documentation of history and physical. Last Colonoscopy: several years ago. Referring Physician: Kyra Carson (Referring MD) Medicines: See the Anesthesia note for documentation of the administered medications Complications: No immediate complications. Estimated blood loss: None. Requesting Provider: Procedure: Pre-Anesthesia Assessment: - Prior to the procedure, a History and Physical was performed, and patient medications and allergies were reviewed. The patient's tolerance of previous anesthesia was also reviewed. The risks and benefits of the procedure and the sedation options and risks were discussed with the patient. All questions were answered, and informed consent was obtained. Prior Anticoagulants: The patient has taken no anticoagulant or antiplatelet agents. ASA Grade Assessment: III - A patient with severe systemic disease. After reviewing the risks and benefits, the patient was deemed in satisfactory condition to undergo the procedure. After I obtained informed consent, the scope was passed under direct vision. Throughout the procedure, the patient's blood pressure, pulse, and oxygen saturations were monitored continuously. The Colonoscope was introduced through the anus and advanced to the cecum, identified by appendiceal orifice and ileocecal valve. The colonoscopy was performed without difficulty. The patient tolerated the procedure well. The quality of the bowel preparation was adequate to identify polyps 6 mm and larger in size. The ileocecal valve, appendiceal orifice, and rectum were photographed. Scope Withdrawal Time: 0 hours 6 minutes 35 seconds Moderate Sedation: Moderate (conscious) sedation was personally administered by an anesthesia professional. The following parameters were monitored: oxygen saturation, heart rate, blood pressure, respiratory rate, EKG, adequacy of pulmonary ventilation, and response to care. MAC anesthesia was administered by the anesthesia team. Total Procedure Duration: 0 hours 11 minutes 20 seconds Findings: The perianal and digital rectal examinations were normal. Multiple small-mouthed diverticula were found in the sigmoid colon. The exam was otherwise without abnormality on direct and retroflexion views. Impression: - Diverticulosis in the sigmoid colon. - The examination was otherwise normal on direct and retroflexion views. - No specimens collected. Recommendation: - Patient has a contact number available for emergencies. The signs and symptoms of potential delayed complications were discussed with the patient. Return to normal activities tomorrow. Written discharge instructions were provided to the patient. - Resume previous diet. - Continue present medications. - Repeat colonoscopy in 10 years for screening purposes. - Return to primary care physician PRN. Procedure Code(s): --- Professional --- 17654, Colonoscopy, flexible; diagnostic, including collection of specimen(s) by brushing or washing, when performed (separate procedure) Diagnosis Code(s): --- Professional --- Z12.11, Encounter for screening for malignant neoplasm of colon K57.30, Diverticulosis of large intestine without perforation or abscess without bleeding CPT copyright 2020 [employer]. All rights reserved. The codes documented in this report are preliminary and upon machine fitter review may be revised to meet current compliance requirements. Attending Participation: I personally performed the entire procedure. Scope In: 7:56:54 AM Scope Out: 8:08:14 AM MD Rajinder Rolle MD 05/14/2023 8:10:50 AM This report has been signed electronically by Rajinder Zaldivar MD Number of Addenda: 0 Note Initiated On: 05/14/2023 7:42 AM Estimated Blood Loss: Estimated blood loss: none. Normal [facility] HISTORY PHYSICALon HISTORY PHYSICAL HNO ID: [id number] Author: Rajinder Zaldivar MD Service: General Surgery Author Type: Physician Type: HANDP Filed: 05/14/2023 7:49 AM Note Text: Franca Nicholson is a 68 year old female. HISTORY Franca Nicholson is a 68 year old lad here for yearly follow up appointment. Anxiety and depression symptoms noted. concerned. Grandson Carlos 18 born 11/04[birth year] 12/06 Got to spend time with him.Supportive family. Gets bad days. Episode of vertigo a couple days after baby was born but got better after 3 days. Treated at urgent care. See assessment and plan for other issues addressed. PAST MEDICAL HISTORY PAST MEDICAL HISTORY Diagnosis Date Umbilical hernia CURRENT MEDICATIONS Current Outpatient Medications Medication Sig meloxicam (MOBIC) 15 mg tablet Take 1 tablet by mouth once daily. hydrOXYzine HCl (ATARAX) 25 mg tablet Take 1 tablet by mouth every 6 hours as needed for anxiety (or allergies). levothyroxine (SYNTHROID) 25 mcg tablet Take 1 tablet by mouth once daily. Take on empty stomach. For thyroid. Cholecalciferol, Vitamin D3, (VITAMIN D) 25 mcg (1,000 unit) cap Take 1,000 Units by mouth once daily. cyclobenzaprine (FLEXERIL) 10 mg tablet Take 1 tablet by mouth three times daily as needed for muscle spasm. cetirizine (ZYRTEC) 10 mg tablet Take 10 mg by mouth once daily. fluticasone (FLONASE) 50 mcg/actuation nasal spray Use 2 Sprays in each nostril once daily. Rinse mouth after use. As directed No current facility-administered medications for this visit. ALLERGIES ALLERGIES Allergen Reactions Amoxicillin Rash Red fine rash FAMILY HISTORY FAMILY HISTORY Problem Relation Age of Onset Lung Cancer Mother 3 episodes; partial resection first time recurrence other lung treated with radiation; recurrence and placed on Hospice then improved and discharged; from COVID Hypertension Mother Diabetes Mother Type 2 Colon Cancer Father Prostate Cancer Father Leukemia Father Alzheimer's Disease Father Coronary Artery Disease Brother History SD SOCIAL HISTORY Social History Tobacco Use Smoking status: Never Smokeless tobacco: Never Vaping Use Vaping Use: Never used Substance Use Topics Alcohol use: Yes Comment: occasionally Drug use: Never Review of Systems Objective BP 126/90 Pulse 78 Resp 16 Wt 121.1 kg (267 lb) LMP (LMP Unknown) SpO2 98% BMI 48.83 kg/m? Last 5 Encounter Wt Readings: Date: Wt: 04/09/2023 121.1 kg (267 lb) 10/15/2022 122.5 kg (270 lb) 09/18/2022 122 kg (269 lb) 09/10/2022 122.9 kg (271 lb) 03/26/2022 116.1 kg (256 lb) No waist measurement recorded Estimated body mass index is 48.83 kg/m? as calculated from the following: Height as of 03/26/22: 157.5 cm (5' 2). Weight as of this encounter: 121.1 kg (267 lb). Last 5 Encounter BP Readings: Date: BP: 04/09/2023 126/90 10/15/2022 126/80 09/18/2022 128/82 09/10/2022 136/84 03/26/2022 122/82 Physical Exam Constitutional: Appearance: Normal appearance. HENT: Head: Normocephalic. Eyes: Conjunctiva/sclera: Conjunctivae normal. Cardiovascular: Rate and Rhythm: Normal rate and regular rhythm. Heart sounds: Normal heart sounds. Pulmonary: Effort: Pulmonary effort is normal. Breath sounds: Normal breath sounds. Skin: General: Skin is warm and dry. Neurological: General: No focal deficit present. Mental Status: She is alert and oriented to person, place, and time. Psychiatric: Mood and Affect: Mood normal. Behavior: Behavior normal. Thought Content: Thought content normal. Judgment: Judgment normal. Component Latest Ref Rng AND Units 04/05/2022 05/08/2022 09/10/2022 03/21/2023 Protein, Total 6.3 - 8.0 g/dL 7.2 6.8 Albumin 3.9 - 4.9 g/dL 4.2 4.1 Calcium 8.5 - 10.2 mg/dL 10.4 (H) 10.0 9.2 Bilirubin, Total 0.2 - 1.3 mg/dL 0.4 0.3 Alkaline Phosphatase 34 - 123 U/L 61 60 AST 13 - 35 U/L 23 26 ALT 7 - 38 U/L 24 32 Glucose 74 - 99 mg/dL 103 (H) 100 (H) 107 (H) BUN 7 - 21 mg/dL 13 17 12 Creatinine 0.58 - 0.96 mg/dL 0.82 0.82 0.80 Sodium 136 - 144 mmol/L 139 141 140 Potassium 3.7 - 5.1 mmol/L 5.5 (H) 5.7 (H) 4.8 Chloride 97 - 105 mmol/L 103 103 103 CO2 22 - 30 mmol/L 28 29 27 Anion Gap 9 - 18 mmol/L 8 (L) 9 10 eGFR >=60 mL/min/1.73mA? 79 79 82 WBC 3.70 - 11.00 k/uL 5.05 5.02 RBC 3.90 - 5.20 m/uL 5.02 4.90 Hemoglobin 11.5 - 15.5 g/dL 15.6 (H) 15.0 Hematocrit 36.0 - 46.0 % 48.2 (H) 45.5 MCV 80.0 - 100.0 fL 96.0 92.9 MCH 26.0 - 34.0 pg 31.1 30.6 MCHC 30.5 - 36.0 g/dL 32.4 33.0 RDW-CV 11.5 - 15.0 % 12.3 12.4 Platelet Count 150 - 400 k/uL 293 282 MPV 9.0 - 12.7 fL 10.4 10.0 Absolute nRBC <0.01 k/uL <0.01 <0.01 Cholesterol, Total <200 mg/dL 272 (H) Triglyceride <150 mg/dL 133 HDL Cholesterol >39 mg/dL 71 Non HDL Cholesterol <130 mg/dL 201 (H) Fasting Time hrs 12 VLDL Cholesterol <30 mg/dL 27 TC:HDL Ratio <5.10 3.83 LDL Cholesterol <100 mg/dL 174 (H) LDL:HDL Ratio <2.54 2.45 Hemo (more content not included)... Normal [facility] Basic metabolic 2000 panelon 05-09-2023 Anion gap [Moles/Vol] 10 mmol/L 9 - 18 mmol/L [facility] Calcium [Mass/Vol] 9.6 mg/dL 8.5 - 10. 2 mg/dL [facility] Chloride [Moles/Vol] 103 mmol/L 97 - 10 5 mmol/L [facility] CO2 [Moles/Vol] 25 mmol/L 22 - 30 mmol/L [facility] Creatinine [Mass/Vol] 0.78 mg/dL 0.58 - 0.96 mg/dL [facility] Estimated Glomerular Filtration Rate 84 mL/min/1.73m >=60 mL/min/1.73m [facility] Glucose [Mass/Vol] 101 mg/dL High 74 - 99 mg/dL [facility] Potassium [Moles/Vol] 4.7 mmol/L 3.7 - 5.1 mmol/L [facility] Sodium [Moles/Vol] 138 mmol/L 136 - 144 mmol/L [facility] Urea nitrogen [Mass/Vol] 15 mg/dL 7 - 21 mg/dL [facility] T3 FREE [facility] 05-09-2023 Free T3 [Mass/Vol] 2.9 pg/mL 2.3 - 4.1 pg/mL [facility] T4 FREE/FREE THYROXon 2022 Free T4 [Mass/Vol] 1.2 ng/dL 0.9 - 1.7 ng/dL [facility] TSH [facility] 05-09-2023 TSH Qn 5.120 m[IU]/L High 0.270 - 4.200 mIU/L [facility] XR KNEE GENERAL 4V AP BOTH/P A BOTH/LAT/MERC LEFTon 03-31-2023 [facility] T3 FREE Don 09-11-2022 Free T3 [Mass/Vol] 3.1 pg/mL 2.3 - 4.1 pg/mL [facility] T4 FREE/FREE THYROXon 2022 Free T4 [Mass/Vol] 1.0 ng/dL 0.9 - 1.7 ng/dL [facility] TSH Don 09-11-2022 TSH Qn 6.520 m[IU]/L High 0.270 - 4.200 mIU/L [facility] VITAMIN D 25 HYDROXYon 09-11 25-hydroxyvitamin D3 [Mass/Vol] 31.2 ng/mL 31.0 - 80.0 ng/mL [facility] CBC panel Auto (Bld)on 09-10 Erythrocyte distribution width (RBC) [Ratio] 12.4 % 11.5 - 15.0 % [facility] Hematocrit (Bld) [Volume fraction] 45.5 % 36.0 - 46.0 % [facility] Hemoglobin (Bld) [Mass/Vol] 15.0 g/dL 11.5 - 15.5 g/dL [facility] MCH (RBC) [Entitic mass] 30.6 pg 26.0 - 34.0 pg [facility] MCHC (RBC) [Mass/Vol] 33.0 g/dL 30.5 - 36.0 g/dL [facility] MCV (RBC) [Entitic vol] 92.9 fL 80.0 - 100.0 fL [facility] Nucleated RBC (Bld) [#/Vol] <0.01 k/uL [facility] Platelet mean volume (Bld) [Entitic vol] 10.0 fL 9.0 - 12.7 fL [facility] Platelets (Bld) [#/Vol] 282 10*3/uL 150 - 400 k/uL [facility] RBC (Bld) [#/Vol] 4.90 10*6/uL 3.90 - 5.2 0 m/uL [facility] WBC (Bld) [#/Vol] 5.02 10*3/uL 3.70 - 11. 00 k/uL [facility] Comprehensive metabolic 2000 panelon 09-10-2022 Albumin [Mass/Vol] 4.1 g/dL 3.9 - 4.9 g/dL [facility] ALP [Catalytic activity/Vol] 60 U/L 34 - 123 U/L [facility] ALT [Catalytic activity/Vol] 32 U/L 7 - 38 U/L [facility] Anion gap [Moles/Vol] 10 mmol/L 9 - 18 mmol/L [facility] AST [Catalytic activity/Vol] 26 U/L 13 - 35 U/L [facility] Bilirubin [Mass/Vol] 0.3 mg/dL 0.2 - 1 .3 mg/dL [facility] Calcium [Mass/Vol] 9.2 mg/dL 8.5 - 10. 2 mg/dL [facility] Chloride [Moles/Vol] 103 mmol/L 97 - 10 5 mmol/L [facility] CO2 [Moles/Vol] 27 mmol/L 22 - 30 mmol/L [facility] Creatinine [Mass/Vol] 0.80 mg/dL 0.58 - 0.96 mg/dL [facility] Estimated Glomerular Filtration Rate 82 mL/min/1.73m >=60 mL/min/1.73m [facility] Glucose [Mass/Vol] 107 mg/dL High 74 - 99 mg/dL [facility] Potassium [Moles/Vol] 4.8 mmol/L 3.7 - 5.1 mmol/L [facility] Protein [Mass/Vol] 6.8 g/dL 6.3 - 8.0 g/dL [facility] Sodium [Moles/Vol] 140 mmol/L 136 - 144 mmol/L [facility] Urea nitrogen [Mass/Vol] 12 mg/dL 7 - 21 mg/dL [facility] DXA-AXIAL SKELETONon [facility] MIKEY SCREENINGon 05-08-2022 [facility] XR KNEE GENERAL 4V AP BOTH/P A BOTH/LAT/MERC LEFTon 04-08-2022 [facility] Vital Signs Date Time Vital Sign Value Performing Clinician Facility 02-11-2025 11:10-0400 Body temperature 98.2 [degF] Dr. Thomas Yuen DO Work Phone: [phone] [place] [address] 02-11-2025 11:10-0400 Diastolic blood pressure 78 mm[Hg] Dr. Thomas Yuen DO Work Phone: [phone] [place] [address] 02-11-2025 11:10-0400 Heart rate 65 /min Dr. Thomas Yuen DO Work Phone: [phone] [place] [address] 02-11-2025 11:10-0400 Respiratory rate 16 /min Dr. Thomas Yuen DO Work Phone: [phone] [place] [address] 02-11-2025 11:10-0400 SaO2% (BldA) [Mass fraction] 95 % Dr. Thomas Yuen DO Work Phone: [facility] 02-11-2025 11:10-0400 Systolic blood pressure 118 mm[Hg] Dr. Thomas Yuen DO Work Phone: [facility] 02-11-2025 08:51-0400 Body height 152.[address] Thomas Yuen DO Work Phone: [phone] [place] [address] 02-11-2025 08:51-0400 Body mass index (BMI) [Ratio] 53.8 kg/m2 Dr. Thomas Yuen DO Work Phone: [facility] 02-11-2025 08:51-0400 Body weight [address] Thomas Yuen DO Work Phone: [facility] 01-27-2025 10:09-0400 Body height 152.4 cm Thomas Yuen MD Work Phone: [facility] 01-27-2025 10:09-0400 Body mass index (BMI) [Ratio] 53.94 kg/m2 Thomas Yuen MD Work Phone: [facility] 01-27-2025 10:09-0400 Body weight 125.28 kg Thomas Yuen MD Work Phone: [facility] 01-27-2025 10:09-0400 Diastolic blood pressure 69 mm[Hg] Thomas Yuen MD Work Phone: [facility] 01-27-2025 10:09-0400 Heart rate 75 /min Thomas Yuen MD Work Phone: [facility] 01-27-2025 10:09-0400 Respiratory rate 16 /min Thomas Yuen MD Work Phone: [facility] 01-27-2025 10:09-0400 SaO2% (BldA) [Mass fraction] 93 % Thomas Yuen MD Work Phone: [facility] 01-27-2025 10:09-0400 Systolic blood pressure 124 mm[Hg] Thomas Yuen MD Work Phone: [facility] 01-14-2025 10:31-0400 Diastolic blood pressure 82 mm[Hg] Thanh Jenn COMMERCIAL PAINTER.[employer]ARY [employer] Work Phone: [facility] 01-14-2025 10:31-0400 Systolic blood pressure 132 mm[Hg] Thanh Jenn COMMERCIAL PAINTER.[employer]ARY [employer] Work Phone: [facility] 01-14-2025 10:30-0400 Body height 154.3 cm Thanh Jenn COMMERCIAL PAINTER.[employer] Work Phone: [facility] 01-14-2025 10:30-0400 Body mass index (BMI) [Ratio] 52.16 kg/m2 Thanh Jenn COMMERCIAL PAINTER.[employer]ARY [employer] Work Phone: [facility] 01-14-2025 10:30-0400 Body weight 124.2 kg Thanh Jenn COMMERCIAL PAINTER.[employer] Work Phone: [facility] 01-14-2025 10:30-0400 Heart rate 84 /min Thanh Jenn COMMERCIAL PAINTER.[employer]ARY [employer] Work Phone: [facility] 01-14-2025 10:30-0400 Respiratory rate 20 /min Thanh Jenn COMMERCIAL PAINTER.[employer] Work Phone: [facility] 12-16-2024 11:16-0400 Body mass index (BMI) [Ratio] 50.7 kg/m2 Thomas Yuen MD Work Phone: [facility] 12-16-2024 11:16-0400 Body weight 125.74 kg Thomas Yuen MD Work Phone: [facility] 12-16-2024 11:16-0400 Diastolic blood pressure 82 mm[Hg] Thomas Yuen MD Work Phone: [facility] 12-16-2024 11:16-0400 Systolic blood pressure 138 mm[Hg] Thomas Yuen MD Work Phone: [facility] 11-16-2024 10:29-0400 Diastolic blood pressure 84 mm[Hg] Thanh Jenn COMMERCIAL PAINTER.[employer]ARY [employer] Work Phone: [facility] 11-16-2024 10:29-0400 Systolic blood pressure 136 mm[Hg] Thanh Jenn COMMERCIAL PAINTER.[employer]ARY [employer] Work Phone: [facility] 11-16-2024 10:21-0400 Body mass index (BMI) [Ratio] 50.69 kg/m2 Thanh Jenn COMMERCIAL PAINTER.[employer]ARY [employer] Work Phone: [facility] 11-16-2024 10:21-0400 Body weight 125.7 kg Thanh Jenn COMMERCIAL PAINTER.[employer] Work Phone: [facility] 11-16-2024 10:21-0400 Heart rate 75 /min Thanh Jenn COMMERCIAL PAINTER.[employer]ARY [employer] Work Phone: [facility] 11-16-2024 10:21-0400 SaO2% (BldA) [Mass fraction] 95 % Thanh Jenn COMMERCIAL PAINTER.[employer]ARY [employer] Work Phone: [facility] 11-05-2024 07:34-0400 Body height 157.5 cm Lizeth Max COMMERCIAL PAINTER.SE[employer]ARY [employer] Work Phone: [facility] 11-05-2024 07:34-0400 Body mass index (BMI) [Ratio] 51.03 kg/m2 Lizeth Ringsted COMMERCIAL PAINTER.SECR[employer]ARY [employer] Work Phone: [facility] 11-05-2024 07:34-0400 Body weight 126.55 kg Lizeth Ringsted COMMERCIAL PAINTER.[employer]ARY [employer] Work Phone: [facility] 11-05-2024 07:34-0400 Diastolic blood pressure 84 mm[Hg] Lizeth Ringsted COMMERCIAL PAINTER.SECR[employer]ARY [employer] Work Phone: [facility] 11-05-2024 07:34-0400 Systolic blood pressure 128 mm[Hg] Lizeth Max COMMERCIAL PAINTER.[employer]ARY [employer] Work Phone: [facility] 09-28-2024 14:57-0400 Diastolic blood pressure 80 mm[Hg] Thanh Jenn COMMERCIAL PAINTER.[employer]ARY [employer] Work Phone: [facility] 09-28-2024 14:57-0400 Systolic blood pressure 132 mm[Hg] Thanh Jenn COMMERCIAL PAINTER.[employer]ARY [employer] Work Phone: [facility] 09-28-2024 14:54-0400 Body mass index (BMI) [Ratio] 53.53 kg/m2 Thanh Jenn COMMERCIAL PAINTER.[employer]ARY [employer] Work Phone: [facility] 09-28-2024 14:54-0400 Body temperature 98.2 [degF] Thanh Jenn COMMERCIAL PAINTER.[employer]ARY [employer] Work Phone: [facility] 09-28-2024 14:54-0400 Body weight 128.5 kg Thanh Jenn COMMERCIAL PAINTER.[employer] Work Phone: [facility] 09-28-2024 14:54-0400 Heart rate 82 /min Thanh Jenn COMMERCIAL PAINTER.[employer]ARY [employer] Work Phone: [facility] 09-28-2024 14:54-0400 SaO2% (BldA) [Mass fraction] 94 % Thanh Jenn COMMERCIAL PAINTER.[employer]ARY [employer] Work Phone: [facility] 05-25-2024 10:58-0500 Body mass index (BMI) [Ratio] 52.07 kg/m2 Kyra Carson MD Work Phone: [facility] 05-25-2024 10:58-0500 Body temperature 96.49 [degF] Kyra Carson MD Work Phone: [facility] 05-25-2024 10:58-0500 Body weight 125 kg Kyra aCrson MD Work Phone: [facility] 05-25-2024 10:58-0500 Diastolic blood pressure 82 mm[Hg] Kyra Carson MD Work Phone: [facility] 05-25-2024 10:58-0500 Heart rate 74 /min Kyra Carson MD Work Phone: [facility] 05-25-2024 10:58-0500 Respiratory rate 16 /min Kyra Carson MD Work Phone: [facility] 05-25-2024 10:58-0500 SaO2% (BldA) [Mass fraction] 97 % Kyra Carson MD Work Phone: [facility] 05-25-2024 10:58-0500 Systolic blood pressure 134 mm[Hg] Kyra Carson MD Work Phone: [facility] 11-19-2023 09:14-0400 Diastolic blood pressure 90 mm[Hg] Thanh Jenn COMMERCIAL PAINTER.[employer]ARY [employer] Work Phone: [facility] 11-19-2023 09:14-0400 Systolic blood pressure 136 mm[Hg] Thanh Jenn COMMERCIAL PAINTER.[employer]ARY [employer] Work Phone: [facility] 11-19-2023 09:12-0400 Body mass index (BMI) [Ratio] 52.34 kg/m2 Thanh Jenn COMMERCIAL PAINTER.[employer]ARY [employer] Work Phone: [facility] 11-19-2023 09:12-0400 Body weight 125.65 kg Thanh Jenn COMMERCIAL PAINTER.[employer]ARY [employer] Work Phone: [facility] 11-19-2023 09:12-0400 Heart rate 76 /min Thanh Jenn COMMERCIAL PAINTER.[employer]ARY [employer] Work Phone: [facility] 11-19-2023 09:12-0400 SaO2% (BldA) [Mass fraction] 94 % Thanh Jenn COMMERCIAL PAINTER.[employer]ARY [employer] Work Phone: [facility] 05-14-2023 08:30-0400 Diastolic blood pressure 84 mm[Hg] Rajinder Zaldivar MD Work Phone: [facility] 05-14-2023 08:30-0400 Heart rate 75 /min Rajinder Zaldivar MD Work Phone: [facility] 05-14-2023 08:30-0400 Respiratory rate 9 /min Rajinder Zaldivar MD Work Phone: [facility] 05-14-2023 08:30-0400 SaO2% (BldA) [Mass fraction] 97 % Rajinder Zaldivar MD Work Phone: [facility] 05-14-2023 08:30-0400 Systolic blood pressure 140 mm[Hg] Rajinder Zaldivar MD Work Phone: [facility] 05-14-2023 08:14-0400 Body temperature 97.3 [degF] Rajinder Zaldivar MD Work Phone: [facility] 04-09-2023 08:22-0400 Body weight 121.11 kg Kyra Carson MD Work Phone: [facility] 04-09-2023 08:22-0400 Diastolic blood pressure 90 mm[Hg] Kyra Carson MD Work Phone: [facility] 04-09-2023 08:22-0400 Heart rate 78 /min Kyra Carson MD Work Phone: [facility] 04-09-2023 08:22-0400 Respiratory rate 16 /min Kyra Carson MD Work Phone: [facility] 04-09-2023 08:22-0400 SaO2% (BldA) [Mass fraction] 98 % Kyra Carson MD Work Phone: [facility] 04-09-2023 08:22-0400 Systolic blood pressure 126 mm[Hg] Kyra Carson MD Work Phone: [facility] 10-15-2022 09:19-0400 Body weight 122.47 kg Thanh Jenn COMMERCIAL PAINTER.[employer]ARY [employer] Work Phone: [facility] 10-15-2022 09:19-0400 Diastolic blood pressure 80 mm[Hg] Thanh Jenn COMMERCIAL PAINTER.[employer]ARY [employer] Work Phone: [facility] 10-15-2022 09:19-0400 Heart rate 85 /min Thanh Jenn COMMERCIAL PAINTER.[employer]ARY [employer] Work Phone: [facility] 10-15-2022 09:19-0400 SaO2% (BldA) [Mass fraction] 97 % Thanh Jenn COMMERCIAL PAINTER.SECR[employer]ARY [employer] Work Phone: [facility] 10-15-2022 09:19-0400 Systolic blood pressure 126 mm[Hg] Thanh Jenn COMMERCIAL PAINTER.[employer]ARY [employer] Work Phone: [facility] 09-18-2022 12:11-0500 Body temperature 98.2 [degF] Criss Frazier COMMERCIAL PAINTER.SECRETARY [employer] Work Phone: [facility] 09-18-2022 12:11-0500 Body weight 122.02 kg Criss Frazier COMMERCIAL PAINTER.[employer]ARY [employer] Work Phone: [facility] 09-18-2022 12:11-0500 Diastolic blood pressure 82 mm[Hg] Criss Frazier COMMERCIAL PAINTER.[employer]ARY [employer] Work Phone: [facility] 09-18-2022 12:11-0500 Heart rate 86 /min Criss Frazier COMMERCIAL PAINTER.[employer]ARY [employer] Work Phone: [facility] 09-18-2022 12:11-0500 Respiratory rate 16 /min Criss Freddie COMMERCIAL PAINTER.SECR[employer]ARY [employer] Work Phone: [facility] 09-18-2022 12:11-0500 SaO2% (BldA) [Mass fraction] 97 % Criss King COMMERCIAL PAINTER.SECRETARY [employer] Work Phone: [facility] 09-18-2022 12:11-0500 Systolic blood pressure 128 mm[Hg] Criss Freddie COMMERCIAL PAINTER.[employer]ARY [employer] Work Phone: [facility] 09-10-2022 09:42-0500 Body temperature 97.11 [degF] Kyra Carson MD Work Phone: [facility] 09-10-2022 09:42-0500 Body weight 122.92 kg Kyra Carson MD Work Phone: [facility] 09-10-2022 09:42-0500 Diastolic blood pressure 84 mm[Hg] Kyra Carson MD Work Phone: [facility] 09-10-2022 09:42-0500 Heart rate 80 /min Kyra Carson MD Work Phone: [facility] 09-10-2022 09:42-0500 Respiratory rate 18 /min Kyra Carson MD Work Phone: [facility] 09-10-2022 09:42-0500 SaO2% (BldA) [Mass fraction] 96 % Kyra Carson MD Work Phone: [facility] 09-10-2022 09:42-0500 Systolic blood pressure 136 mm[Hg] Kyra Carson MD Work Phone: [facility] 03-26-2022 08:47-0400 Body height 157.5 cm Kyra Carson MD Work Phone: [facility] 03-26-2022 08:47-0400 Body weight 116.12 kg Kyra Carson MD Work Phone: [facility] 03-26-2022 08:47-0400 Diastolic blood pressure 82 mm[Hg] Kyra Carson MD Work Phone: [facility] 03-26-2022 08:47-0400 Heart rate 82 /min Kyra Carson MD Work Phone: [facility] 03-26-2022 08:47-0400 SaO2% (BldA) [Mass fraction] 95 % Kyra Carson MD Work Phone: [facility] 03-26-2022 08:47-0400 Systolic blood pressure 122 mm[Hg] Kyra Carson MD Work Phone: [facility] Encounters Encounter Date Encounter Type Care Provider Facility Start: 02-11-2025 End: 02-11-2025 Admission to same day surgery center Dr. Thomas Yuen DO -[facility] Start: 02-11-2025 End: 02-11-[address] Thomas Yuen DO Work Phone: [facility] Start: 01-27-2025 End: 01-27-2025 Patient encounter procedure Thomas Yuen MD Work Phone: OB/Gynecology Comment on above: Endometrial polyp (P rimary Dx); Visit for pre-operative examination; PMB (postmenopausal bleeding) Start: 01-27-2025 End: 01-27-2025 Preprocedural examination done Thomas Yuen MD Work Phone: [facility] Start: 01-27-2025 End: 01-27-2025 ambulatory KYRA CARSON Facility:[facility] Start: 01-14-2025 Encounter for other preprocedural examination KYRA CARSON [facility] Start: 01-14-2025 End: 01-14-2025 Patient encounter procedure Thanh Barajas APRN.CNP Work Phone: [facility] [place] Comment on above: Postmenopausal bleed ing (Primary Dx); Pre-op evaluation; Hypothyroidism, unspecified type; Impaired glucose regulation; Anxiety; Moderate recurrent major depression (HCC); Obesity, Class III, BMI >= 40; Hypercholesteremia; Encounter for therapeutic drug monitoring Start: 01-14-2025 End: 01-14-2025 Preprocedural examination done Thanh Barajas APRN.[employer]CR[employer]ARY [employer] Work Phone: [facility] Start: 01-14-2025 End: 01-14-2025 ambulatory KYRA CARSON Facility:[facility] Start: 12-20-2024 End: 12-20-2024 Telephone encounter Thomas Yuen MD Work Phone: OB/Gynecology Comment on above: Results Start: 12-16-2024 End: 12-16-2024 Patient encounter procedure Thomas Yuen MD Work Phone: OB/Gynecology Comment on above: PMB (postmenopausal bleeding) (Primary Dx) Start: 12-16-2024 End: 12-16-2024 ambulatory LIZETH SANTANA Facility:[facility] Start: 12-06-2024 End: 12-06-2024 ambulatory Kyra Carson MD [facility] [place] Start: 12-06-2024 End: 12-06-2024 Patient encounter procedure Kyra Carson MD Work Phone: [facility] [place] Comment on above: Population Health Na vigation Outreach (Ronald Sutton ) Start: 11-16-2024 End: 11-16-2024 Coordination of care plan Emerald Tesfaye RN Work Phone: [employer] Comment on above: Care Coordination Start: 11-16-2024 End: 11-16-2024 Patient encounter procedure Thanh Barajas APRN.CNP Work Phone: [facility] [place] Comment on above: Postmenopausal bleed ing (Primary Dx); Morbid obesity (HCC); Hypercholesteremia; Hypothyroidism, unspecified type; Impaired glucose regulation; Moderate recurrent major depression (HCC); Anxiety; Vitamin D deficiency; Encounter for therapeutic drug monitoring Start: 11-16-2024 End: 11-16-2024 ambulatory Emerald Tesfaye RN Work Phone: [employer] Start: 11-11-2024 End: 01-11-2025 Follow-up encounter Lizeth Santana APRN.CNP Work Phone: OB/Gynecology Comment on above: Results Start: 11-09-2024 End: 11-09-2024 ambulatory LIZETH SANTANA Facility:[facility] Start: 11-05-2024 End: 11-05-2024 Patient encounter procedure Lizeth Santana TATE Work Phone: OB/Gynecology Comment on above: Postmenopausal bleed ing (Primary Dx); History of uterine fibroid; Encounter for screening mammogram for breast cancer; Encounter for screening for malignant neoplasm of cervix; Pelvic pain in female Start: 11-05-2024 End: 11-05-2024 ambulatory [facility] Facility:[facility] Start: 10-12-2024 End: 10-12-2024 ambulatory Tyree Bruner MA [facility] [place] Start: 10-12-2024 End: 10-12-2024 Patient encounter procedure Tyree Bruner MA [facility] [place] Comment on above: Population Health Na vigation Outreach ([employer]- HIGH RISK- ATTEMPT 2) Start: 09-28-2024 End: 09-28-2024 [facility] Start: 09-28-2024 End: 09-28-2024 Patient encounter procedure Thanh Barajas APRN.CNP Work Phone: [facility] [place] Comment on above: Sinobronchitis (Prim misty Dx); Hypothyroidism, unspecified type; Moderate recurrent major depression (HCC); Anxiety Start: 09-08-2024 End: 09-08-2024 ambulatory Jeanette Tena [facility] [place] Start: 09-08-2024 End: 09-08-2024 Patient encounter procedure Jeanette Tena MA [facility] [place] Comment on above: Population Health Na vigation Outreach ([employer] High Risk - Attempt 1 ) Start: 08-02-2024 End: 08-02-2024 Refill Thanh Barajas APRN.CNP Work Phone: [facility] [place] Comment on above: Refill Request Start: 05-25-2024 End: 05-25-2024 ambulatory [facility] Facility:[facility] Start: 05-25-2024 End: 05-25-2024 Office outpatient visit 25 minutes Kyra Carson MD Work Phone: [facility] [place] Comment on above: Acquired hypothyroid ism (Primary Dx); Postmenopausal bleeding; Hypercholesteremia; Morbid obesity (HCC); Vitamin D deficiency; Deltoid tendinitis of right shoulder; Right arm pain; Decreased hearing, right; Chest heaviness; Encounter for immunization; Encounter for long-term current use of medication; History of uterine fibroid Start: 05-25-2024 End: 05-25-2024 ambulatory KYRA CARSON Facility:[facility] Start: 05-03-2024 End: 05-03-2024 Refill Thanh Barajas COMMERCIAL PAINTER.[employer] Work Phone: [facility] [place] Comment on above: Refill Request Start: 04-08-2024 End: 04-09-2024 Documentation procedure Mammography Coordinator [facility] Start: 04-08-2024 End: 04-09-2024 Letter encounter Mammography Coordinator [facility] Start: 04-07-2024 End: 04-07-2024 ambulatory KYRA CARSON Facility:[facility] Start: 04-07-2024 End: 04-07-2024 Subsequent hospital visit by physician Screen Mammo [facility] Comment on above: Encounter for screen ing mammogram for breast cancer [Z12.31] Start: 04-06-2024 End: 04-06-2024 Refill Kyra Crason MD Work Phone: [facility] [place] Comment on above: Refill Request Start: 03-30-2024 End: 03-30-2024 ambulatory KYRA CARSON Facility:[facility] Start: 11-19-2023 End: 11-19-2023 Patient encounter procedure Thanh Barajas COMMERCIAL PAINTER.[employer] Work Phone: [facility] [place] Comment on above: Moderate recurrent m ajor depression (HCC) (Primary Dx); Anxiety; Biceps tendonitis on right; Hypothyroidism, unspecified type Start: 11-12-2023 Refill Thanh Ambriz PRN.[employer] Work Phone: [facility] [place] Comment on above: Refill Request Start: 11-02-2023 Refill Lena Vetovit z PA-C Work Phone: Orthopaedics Comment on above: Refill Request Start: 10-03-2023 End: 10-03-2023 Refill Thanh Barajas COMMERCIAL PAINTER.[employer] Work Phone: [facility] Comment on above: Refill Request Dizziness (Primary D x) Start: 08-23-2023 Refill Dorota Soriano A PRN.[employer] Work Phone: [facility] [place] Comment on above: Refill Request Start: 06-28-2023 Refill Dorota Soriano A PRN.[employer] Work Phone: [facility] [place] Comment on above: Refill Request Start: 06-18-2023 ambulatory Kyra leavitt MD Work Phone: [facility] [place] Start: 06-02-2023 Refill Lena Vetovit z PA-C Work Phone: Orthopaedics Comment on above: Refill Request Start: 05-14-2023 ambulatory Thanh Ambriz PRN.[employer] Work Phone: [facility] [place] Comment on above: Results Start: 05-14-2023 E-mail encounter fro m caregiver Thanh Barajas COMMERCIAL PAINTER.[employer] Work Phone: [facility] [place] Start: 05-14-2023 End: 05-14-2023 Subsequent hospital visit by physician Rajinder Zaldivar MD Work Phone: [facility] Comment on above: Special screening fo r malignant neoplasms, colon [Z12.11] Start: 05-06-2023 Refill Lena Vetovit z PA-C Work Phone: Orthopaedics Comment on above: Refill Request Start: 04-27-2023 Refill Kyra leavitt MD Work Phone: [facility] [place] Comment on above: Refill Request Start: 04-09-2023 End: 04-09-2023 Office outpatient visit 25 minutes Kyra Carson MD Work Phone: [facility] [place] Comment on above: Hypothyroidism, unsp ecified type (Primary Dx); Adjustment reaction with anxiety and depression; Vitamin D deficiency; Vertigo; Impaired glucose regulation; Hypercholesteremia; Morbid obesity (HCC); Encounter for long-term current use of medication Start: 03-31-2023 End: 03-31-2023 Refill Lena Vetovitz PA-C Work Phone: Orthopaedics Comment on above: Refill Request Chronic pain of left knee (Primary Dx); Primary osteoarthritis of left knee Left knee pain, unsp ecified chronicity [M25.562] Start: 03-27-2023 Orders Only Mat Vance MD Work Phone: Orthopaedics Comment on above: Left knee pain, unsp ecified chronicity (Primary Dx) Start: 02-25-2023 Refill Lena Vetovit z PA-C Work Phone: Orthopaedics Comment on above: Refill Request Start: 02-01-2023 Refill Lena Vetovit z PA-C Work Phone: Orthopaedics Comment on above: Refill Request Start: 01-12-2023 Refill Thanh Ambriz PRN.CNP Work Phone: [facility] [place] Comment on above: Refill Request Start: 11-26-2022 End: 11-26-2022 ambulatory Thanh Barajas APRN.CNP Work Phone: [facility] [place] Comment on above: Anxiety (Primary Dx) ; Hypothyroidism, unspecified type Start: 11-26-2022 End: 11-26-2022 Telemedicine consultation with patient Thanh Barajas APRN.MEMO Work Phone: [facility] Start: 11-24-2022 Refill Lena Vetovit z PA-C Work Phone: Orthopaedics Comment on above: Refill Request Start: 10-21-2022 Refill Lena Vetovit z PA-C Work Phone: Orthopaedics Comment on above: Refill Request Start: 10-15-2022 End: 10-15-2022 Patient encounter procedure Thanh Barajas APRN.[employer] Work Phone: [facility] [place] Comment on above: Anxiety (Primary Dx) ; Hypothyroidism, unspecified type; Impaired glucose regulation; Obesity, Class III, BMI >= 40 Start: 09-28-2022 Refill Lena Vetovit z PA-C Work Phone: Orthopaedics Comment on above: Refill Request Start: 09-27-2022 Refill Kyra leavitt MD Work Phone: [facility] [place] Comment on above: Refill Request Start: 09-18-2022 End: 09-18-2022 Patient encounter procedure Criss Frazier APRN.[employer] Work Phone: [facility] Comment on above: Acute left-sided low back pain with sciatica, sciatica laterality unspecified (Primary Dx) Start: 09-10-2022 End: 09-10-2022 Office outpatient visit 40 minutes Kyra Carson MD Work Phone: [facility] [place] Comment on above: Anxiety (Primary Dx) ; Vitamin D deficiency; Class 3 severe obesity due to excess calories with body mass index (BMI) of 45.0 to 49.9 in adult, unspecified whether serious comorbidity present (HCC); Special screening for malignant neoplasms, colon Start: 08-28-2022 Refill Lena Vetovit z PA-C Work Phone: Orthopaedics Comment on above: Refill Request Start: 07-29-2022 Refill Lena Vetovit z PA-C Work Phone: Orthopaedics Comment on above: Refill Request Start: 05-23-2022 Orders Only Kyra leavitt MD Work Phone: [facility] [place] Comment on above: Hyperkalemia (Primar y Dx) Start: 05-08-2022 Documentation procedure Mammog carlene Coordinator [facility] Start: 05-08-2022 Letter encounter Mammography Coordinator [facility] Start: 05-08-2022 End: 05-08-2022 Refill Mat Vance MD Work Phone: Orthopaedics Comment on above: Refill Request Asymptomatic postmen opausal status [Z78.0] Breast cancer screen ing by mammogram [Z12.31] Start: 04-14-2022 ambulatory Kyra leavitt MD Work Phone: [facility] [place] Comment on above: Lab results Start: 04-08-2022 End: 04-08-2022 Subsequent hospital visit by physician Altagracia [facility] [place] [facility] Work Phone: Radiology Comment on above: Pain [R52] Start: 04-05-2022 Telephone encounter Mat begum MD Work Phone: Orthopaedics Comment on above: FYI-No Action Needed Start: 03-26-2022 Orders Only Mat Vance MD Work Phone: [facility] [place] Comment on above: Pain (Primary Dx) Start: 03-26-2022 End: 03-26-2022 Office outpatient new 45 minutes Kyra Carson MD Work Phone: [facility] [place] Comment on above: Umbilical hernia wit hout obstruction and without gangrene (Primary Dx); Vitamin D deficiency; Morbid obesity (HCC); Screening, lipid; Breast cancer screening by mammogram; Need for vaccination; Asymptomatic postmenopausal status; Chronic pain of left knee Procedures Date Procedure Procedure Detail Performing Clinician Start: 02-11-[address] Thomas chaudhari DO Work Phone: Start: 01-14-2025 Ecg routine ecg w/le ast 12 lds i&r only Thanh Barajas COMMERCIAL PAINTER.[employer] Work Phone: Start: 05-25-2024 Lipid 1995 panel - S maisha or Plasma Thanh Barajas COMMERCIAL PAINTER.[employer] Work Phone: Start: 04-07-2024 Screening mammograph y bi 2-view breast inc cad Bulk Order Provider Start: 08-04-2023 Lipid 1996 panel - S maisha or Plasma Dorota Soriano COMMERCIAL PAINTER.[employer] Work Phone: Start: 05-14-2023 Colonoscopy flx dx w /collj spec when pfrmd Kyra Carson MD Work Phone: Start: 05-14-2023 Colonoscopy Thanh Cleav er COMMERCIAL PAINTER.[employer] Work Phone: Start: 03-31-2023 Radiologic exam knee complete 4/more views Mat Vance MD Work Phone: Start: 05-08-2022 Dxa bone density misa dy 1/> sites axial skel Kyra Carson MD Work Phone: Start: 05-08-2022 End: 05-08-2022 Mammography Kyra Carson MD Work Phone: Start: 04-08-2022 Radiologic exam knee complete 4/more views Mat Vance MD Work Phone: Start: 04-05-2022 Lipid 1996 panel - S maisha or Plasma Mat Vance MD Work Phone: Start: 03-26-2022 INFLUENZA SEASONAL QUADRIVALENT HIGH DOSE AGE 65+ Kyra Carson MD Work Phone: Start: 03-26-2022 Adult depression scr eening assessment Mat Vance MD Work Phone: Start: 10-27-2017 Colonoscopy Mat begum MD Work Phone: Plan of Treatment Date Care Activity Detail Author Start: 05-25-2029 Lipid panel Lipid Screening [facility] Start: 08-04-2028 Lipid panel Lipid Screening [facility] Start: 05-14-2028 Colonoscopy Colonoscopy [facility] Start: 05-14-2028 Colorectal Cancer Screening Colorectal Cancer Screening [facility] Start: 05-14-2028 Screening for malignant neoplasm of colon [facility] Start: 01-15-2028 Diabetes Screening Diabetes Screening [facility] Start: 05-25-2027 Diabetes Screening Diabetes Screening [facility] Start: 04-05-2027 Lipid 1996 panel - Serum or Plasma Lipid Screening [facility] Start: 04-05-2027 LIPID SCREEN LIPID SCREEN [facility] Start: 08-04-2026 Diabetes Screening Diabetes Screening [facility] Start: 05-09-2026 Diabetes Screening Diabetes Screening [facility] Start: 03-21-2026 DIABETES SCREEN DIABETES SCREEN [facility] Start: 03-21-2026 Diabetes Screening Diabetes Screening [facility] Start: 01-14-2026 Annual PCP Team Chronic Disease Visit Annual PCP Team Chronic Disease Visit [facility] Start: 11-16-2025 Annual PCP Team Chronic Disease Visit Annual PCP Team Chronic Disease Visit [facility] Start: 11-10-2025 End: 11-10-2025 Patient encounter procedure 11/10/2025 9:00 AM EDT Office Visit OB/Gynecology [address] [place] [address] Lizeth Santana APRN.[employer] [address] [place] [address] Annual OB/Gynecology Comment on above: Annual Start: 09-28-2025 Annual PCP Team Chronic Disease Visit Annual PCP Team Chronic Disease Visit [facility] Start: 09-10-2025 DIABETES SCREEN DIABETES SCREEN [facility] Start: 06-22-2025 End: 06-22-2025 Patient encounter procedure 06/22/2025 9:40 AM EST Office Visit [facility] [address] [place] [address] Kyra Carson MD [address] [place] [address] 6 month follow up [facility] Comment on above: 6 month follow up Start: 05-25-2025 Annual PCP Team Chronic Disease Visit Annual PCP Team Chronic Disease Visit [facility] Start: 05-25-2025 Covid-19 Vaccine ( season) Covid-19 Vaccine () [facility] Comment on above: Postponed from 03/21/2024 (Declined at t his time) Start: 05-18-2025 End: 08-17-2025 25-hydroxyvitamin D3 [Mass/volume] in Serum or Plasma VITAMIN D 25 HYDROXY Lab Routine Vitamin D deficiency Expected: 05/18/2025, Expires: 08/17/2025 [facility] Comment on above: Expected: 05/18/2025, Expires: Start: 05-18-2025 End: 08-17-2025 CBC W Auto Differential panel - Blood COMPLETE BLOOD COUNT AND DIFFERENTIAL Lab Routine Encounter for therapeutic drug monitoring Expected: 05/18/2025, Expires: 08/17/2025 [facility] Work Phone: Comment on above: Expected: 05/18/2025, Expires: Start: 05-18-2025 End: 08-17-2025 Comprehensive metabolic 2000 panel - Serum or Plasma COMPREHENSIVE METABOLIC PANEL Lab Routine Encounter for therapeutic drug monitoring Expected: 05/18/2025, Expires: 08/17/2025 [facility] Comment on above: Expected: 05/18/2025, Expires: Start: 05-18-2025 End: 08-17-2025 Hemoglobin A1c in Blood HEMOGLOBIN A1C Lab Routine Impaired glucose regulation Expected: 05/18/2025, Expires: 08/17/2025 [facility] Comment on above: Expected: 05/18/2025, Expires: Start: 05-18-2025 End: 08-17-2025 Lipid 1996 panel - Serum or Plasma LIPID PANEL, FASTING Lab Routine Hypercholesteremia Expected: 05/18/2025, Expires: 08/17/2025 [facility] Comment on above: Expected: 05/18/2025, Expires: Start: 05-18-2025 End: 08-17-2025 Thyrotropin [Units/volume] in Serum or Plasma THYROID STIMULATING HORMONE Lab Routine Hypothyroidism, unspecified type Expected: 05/18/2025, Expires: 08/17/2025 [facility] Comment on above: Expected: 05/18/2025, Expires: Start: 05-18-2025 End: 08-17-2025 Thyroxine (T4) free [Mass/volume] in Serum or Plasma T4 FREE/FREE THYROXINE Lab Routine Hypothyroidism, unspecified type Expected: 05/18/2025, Expires: 08/17/2025 [facility] Comment on above: Expected: 05/18/2025, Expires: Start: 05-18-2025 End: 08-17-2025 Triiodothyronine (T3) Free [Mass/volume] in Serum or Plasma T3, FREE Lab Routine Hypothyroidism, unspecified type Expected: 05/18/2025, Expires: 08/17/2025 [facility] Comment on above: Expected: 05/18/2025, Expires: Start: 05-18-2025 End: 05-18-2025 ambulatory 05/18/2025 9:00 AM EDT Results Only [facility] [address] [place] [address] [facility] Start: 05-08-2025 DIABETES SCREEN DIABETES SCREEN [facility] Start: 04-08-2025 End: 04-08-2025 Patient encounter procedure 04/08/2025 9:10 AM EDT Appointment Mammogram [address] [place] [address] : Encounter for screening mammogram for breast cancer [Z12.31] Mammogram Comment on above: : Encounter for screening mammogram for breast cancer [Z12.31] Start: 04-07-2025 Screening for malignant neoplasm of breast Mammogram Screening [facility] Start: 04-05-2025 DIABETES SCREEN DIABETES SCREEN [facility] Start: 03-21-2025 Influenza vaccination Influenza Vaccine (#1) [facility] Start: 02-18-2025 End: 02-18-2025 Patient encounter procedure 02/18/2025 9:20 AM EDT Office Visit OB/Gynecology [address] [place] [address] Thomas Yuen MD [address] [place] [address] 1 week post-op OB/Gynecology Comment on above: 1 week post-op Start: 02-11-2025 Ambulation without limitation [facility] Start: 02-11-2025 Medical regimen orders management [facility] Start: 02-11-2025 Medication education [facility] Start: 02-11-2025 Procedure discontinued [facility] Start: 02-11-2025 Taking patient vital signs [facility] Start: 02-11-2025 Vital signs measurements [facility] Start: 02-11-2025 [facility] Start: 02-11-2025 End: 02-11-2025 Patient discharge [facility] Start: 01-28-2025 End: 01-28-2025 Patient encounter procedure 01/28/2025 1:10 PM EDT Office Visit OB/Gynecology [address] [place] [address] Thomas Yuen MD [address] [place] [address] surgeryy 02/11 OB/Gynecology Comment on above: surgeryy 02/11 Start: 01-14-2025 End: 04-15-2025 Comprehensive metabolic 2000 panel - Serum or Plasma [facility] Work Phone: Comment on above: Expected: 01/14/2025, Expires: Start: 01-14-2025 End: 01-14-2025 Patient encounter procedure 01/14/2025 10:40 AM EDT Office Visit [facility] [address] [place] [address] Thanh Barajas APRN.[employer] [address] [place] [address] pre op clearanace D&C on 02/11/[address] Yuen [facility] Comment on above: pre op clearanace D&C on 02/11/2025 per Susan Yuen Start: 12-16-2024 End: 12-16-2024 Patient encounter procedure 12/16/2024 11:10 AM EDT Office Visit OB/Gynecology [address] [place] [address] Thomas Yuen MD [address] [place] [address] emb OB/Gynecology Comment on above: emb Start: 11-23-2024 End: 11-23-2024 Patient encounter procedure [facility] Comment on above: 6 month follow up Start: 11-18-2024 Annual PCP Team Chronic Disease Visit Annual PCP Team Chronic Disease Visit [facility] Start: 11-16-2024 End: 11-16-2024 Patient encounter procedure 11/16/2024 10:40 AM EDT Office Visit [facility] [address] [place] [address] Thanh Barajas APRN.[employer] [address] [place] [address] 6 month follow up [facility] Comment on above: 6 month follow up Start: 11-09-2024 End: 11-09-2024 Manual pelvic examination 11/09/2024 2:00 PM EDT Procedure OB/Gynecology [address] [place] [address] Remote, Pulmonary Specialist [facility] [employer] [facility] [address] [place] [address] History of uterine fibroid [Z86.018]; Postmenopausal bleeding [N95.0]; Pelvic pain in female [R10.2] OB/Gynecology Comment on above: History of uterine fibroid [Z86.018]; Po stmenopausal bleeding [N95.0]; Pelvic pain in female [R10.2] Start: 11-05-2024 End: 11-05-2025 US Pelvis PELVIC US [facility] Routine History of uterine fibroid Postmenopausal bleeding Pelvic pain in female Expected: 11/05/2024, Expires: 11/05/2025 [facility] Comment on above: Expected: 11/05/2024, Expires: Start: 11-05-2024 End: 11-05-2024 Patient encounter procedure 11/05/2024 7:30 AM EDT Office Visit OB/Gynecology [address] [place] [address] Lizeth Santana APRN.[employer] [address] [place] [address] Est Care/Annual OB/Gynecology Comment on above: Est Care/Annual Start: 09-20-2024 End: 09-20-2024 Patient encounter procedure 09/20/2024 2:00 PM EST Office Visit OB/Gynecology [address] [place] [address] Lizeth Santana APRN.[employer] [address] [place] [address] Est Care/Annual OB/Gynecology Comment on above: Est Care/Annual Start: 09-15-2024 Annual PCP Team Chronic Disease Visit Annual PCP Team Chronic Disease Visit [facility] Start: 08-26-2024 End: 08-26-2024 Patient encounter procedure 08/26/2024 7:30 AM EST Office Visit OB/Gynecology [address] [place] [address] Lizeth Santana APRN.[employer] [address] [place] [address] Est Care/Annual OB/Gynecology Comment on above: Est Care/Annual Start: 08-11-2024 Annual PCP Team Chronic Disease Visit Annual PCP Team Chronic Disease Visit [facility] Start: 08-11-2024 Covid-19 Vaccine (#1) Covid-19 Vaccine (#1) [facility] Comment on above: Postponed from 1957 (Declined at t his time) Start: 08-11-2024 Covid-19 Vaccine ( season) Covid-19 Vaccine ( - season) [facility] Comment on above: Postponed from 03/21/2023 (Declined at t his time) Start: 08-11-2024 RSV Vaccine (1 - 1-dose 60+ series) RSV Vaccine (1 - 1-dose 60+ series) [facility] Comment on above: Postponed from 2017 (Insurance Cov erage) Start: 08-11-2024 RSV Vaccine (1 - Risk 60-74 years 1-dose series) RSV Vaccine (1 - Risk 60-74 years 1-dose series) [facility] Comment on above: Postponed from 2017 (Insurance Cov erage) Start: 07-21-2024 Advance Directive Discussion Advance Directive Discussion [facility] Start: 07-21-2024 Medicare Advantage Annual Wellness Visit Medicare Advantage Annual Wellness Visit [facility] Start: 07-05-2024 End: 07-05-2024 Patient encounter procedure 07/05/2024 1:30 PM EST Office Visit OB/Gynecology [address] [place] [address] Lizeth Santana APRN.[employer] [address] [place] [address] Est Care/Annual OB/Gynecology Comment on above: Est Care/Annual Start: 05-25-2024 End: 08-24-2024 Comprehensive metabolic 2000 panel - Serum or Plasma [facility] Work Phone: Comment on above: Expected: 05/25/2024, Expires: Start: 05-25-2024 End: 08-24-2024 Lipid 1996 panel - Serum or Plasma [facility] Comment on above: Expected: 05/25/2024, Expires: Start: 05-25-2024 End: 05-25-2024 Patient encounter procedure 05/25/2024 10:20 AM EST Office Visit [facility] [address] [place] [address] Kyra Carson MD [address] [place] [address] 6 month follow up [facility] Comment on above: 6 month follow up Start: 04-09-2024 Annual PCP Team Chronic Disease Visit Annual PCP Team Chronic Disease Visit [facility] Start: 04-07-2024 End: 04-07-2024 Patient encounter procedure 04/07/2024 9:10 AM EDT Appointment Mammogram [address] [place] [address] screening Mammogram Comment on above: screening Start: 03-21-2024 Covid-19 Vaccine ( season) Covid-19 Vaccine ( season) [facility] Start: 03-21-2024 Covid-19 Vaccine ( season) Covid-19 Vaccine ( season) [facility] Start: 03-21-2024 Influenza vaccination Influenza Vaccine (#[facility]) [facility] Start: 11-27-2023 ANNUAL PCP TEAM CHRONIC DISEASE VISIT ANNUAL PCP TEAM CHRONIC DISEASE VISIT [facility] Start: 11-19-2023 End: 11-19-2023 Patient encounter procedure 11/19/2023 9:00 AM EDT Office Visit [facility] [address] [facility] [place] [address] Thanh Barajas APRN.[employer] [address] [place] [address] november f/ [facility] [place] Comment on above: november/u Start: 10-16-2023 ANNUAL PCP TEAM CHRONIC DISEASE VISIT ANNUAL PCP TEAM CHRONIC DISEASE VISIT [facility] Start: 08-09-2023 End: 10-09-2023 25-hydroxyvitamin D3 [Mass/volume] in Serum or Plasma VITAMIN D 25 HYDROXY Lab Routine Encounter for long-term current use of medication Vitamin D deficiency Expected: 08/09/2023 (Approximate), Expires: 10/09/2023 [facility] Work Phone: Comment on above: Expected: 08/09/2023 (Approximate), Expi res: 10/09/2023 Start: 08-09-2023 End: 10-09-2023 CBC panel - Blood by Automated count CBC Lab Routine Encounter for long-term current use of medication Hypercholesteremia Expected: 08/09/2023 (Approximate), Expires: 10/09/2023 [facility] Work Phone: Comment on above: Expected: 08/09/2023 (Approximate), Expi res: 10/09/2023 Start: 08-09-2023 End: 10-09-2023 Comprehensive metabolic 2000 panel - Serum or Plasma COMP METABOLIC PANEL Lab Routine Encounter for long-term current use of medication Impaired glucose regulation Expected: 08/09/2023 (Approximate), Expires: 10/09/2023 [facility] Work Phone: Comment on above: Expected: 08/09/2023 (Approximate), Expi res: 10/09/2023 Start: 08-09-2023 End: 10-09-2023 Hemoglobin A1c in Blood HGB A1C Lab Routine Encounter for long-term current use of medication Impaired glucose regulation Expected: 08/09/2023 (Approximate), Expires: 10/09/2023 [facility] Work Phone: Comment on above: Expected: 08/09/2023 (Approximate), Expi res: 10/09/2023 Start: 08-09-2023 End: 10-09-2023 Lipid 1996 panel - Serum or Plasma LIPID PANEL BASIC Lab Routine Encounter for long-term current use of medication Expected: 08/09/2023 (Approximate), Expires: 10/09/2023 [facility] Work Phone: Comment on above: Expected: 08/09/2023 (Approximate), Expi res: 10/09/2023 Start: 08-09-2023 End: 10-09-2023 Thyrotropin [Units/volume] in Serum or Plasma TSH BLD Lab Routine Hypothyroidism, unspecified type Encounter for long-term current use of medication Expected: 08/09/2023 (Approximate), Expires: 10/09/2023 [facility] Work Phone: Comment on above: Expected: 08/09/2023 (Approximate), Expi res: 10/09/2023 Start: 08-09-2023 End: 10-09-2023 Thyroxine (T4) free [Mass/volume] in Serum or Plasma T4 FREE/FREE THYROX Lab Routine Hypothyroidism, unspecified type Encounter for long-term current use of medication Expected: 08/09/2023 (Approximate), Expires: 10/09/2023 [facility] Work Phone: Comment on above: Expected: 08/09/2023 (Approximate), Expi res: 10/09/2023 Start: 08-09-2023 End: 10-09-2023 Triiodothyronine (T3) Free [Mass/volume] in Serum or Plasma T3 FREE BLD Lab Routine Hypothyroidism, unspecified type Encounter for long-term current use of medication Expected: 08/09/2023 (Approximate), Expires: 10/09/2023 [facility] Work Phone: Comment on above: Expected: 08/09/2023 (Approximate), Expi res: 10/09/2023 Start: 07-21-2023 Advance Directive Discussion Advance Directive Discussion [facility] Start: 06-25-2023 End: 09-24-2023 Thyrotropin [Units/volume] in Serum or Plasma TSH BLD Lab Routine Hypothyroidism, unspecified type Expected: 06/25/2023, Expires: 09/24/2023 [facility] Work Phone: Comment on above: Expected: 06/25/2023, Expires: 4 Start: 06-25-2023 End: 09-24-2023 Thyroxine (T4) free [Mass/volume] in Serum or Plasma T4 FREE/FREE THYROX Lab Routine Hypothyroidism, unspecified type Expected: 06/25/2023, Expires: 09/24/2023 [facility] Work Phone: Comment on above: Expected: 06/25/2023, Expires: Start: 06-25-2023 End: 09-24-2023 Triiodothyronine (T3) Free [Mass/volume] in Serum or Plasma T3 FREE BLD Lab Routine Hypothyroidism, unspecified type Expected: 06/25/2023, Expires: 09/24/2023 [facility] Work Phone: Comment on above: Expected: 06/25/2023, Expires: Start: 05-08-2023 Mammography [facility] Start: 05-08-2023 Screening for malignant neoplasm of breast Mammogram Screening [facility] Start: 03-26-2023 Adult depression screening assessment DEPRESSION SCREENING [facility] Start: 03-26-2023 SHINGRIX VACCINE (1 of 2) SHINGRIX VACCINE (1 of 2) [facility] Comment on above: Postponed from 2007 (Declined at t his time) Start: 03-26-2023 Urine microalbumin profile DTAP,TDAP,TD (1 - Tdap) [facility] Comment on above: Postponed from 1976 (Declined at t his time) Start: 03-21-2023 Influenza vaccination [facility] Start: 11-26-2022 End: 01-26-2023 Hemoglobin A1c in Blood HGB A1C Lab Routine Impaired glucose regulation Expected: 11/26/2022, Expires: 01/26/2023 [facility] Work Phone: Comment on above: Expected: 11/26/2022, Expires: 3 Start: 11-26-2022 End: 01-26-2023 Thyrotropin [Units/volume] in Serum or Plasma TSH BLD Lab Routine Hypothyroidism, unspecified type Expected: 11/26/2022, Expires: 01/26/2023 [facility] Work Phone: Comment on above: Expected: 11/26/2022, Expires: 3 Start: 11-26-2022 End: 01-26-2023 Thyroxine (T4) free [Mass/volume] in Serum or Plasma T4 FREE/FREE THYROX Lab Routine Hypothyroidism, unspecified type Expected: 11/26/2022, Expires: 01/26/2023 [facility] Work Phone: Comment on above: Expected: 11/26/2022, Expires: 3 Start: 11-26-2022 End: 01-26-2023 Triiodothyronine (T3) Free [Mass/volume] in Serum or Plasma T3 FREE BLD Lab Routine Hypothyroidism, unspecified type Expected: 11/26/2022, Expires: 01/26/2023 [facility] Work Phone: Comment on above: Expected: 11/26/2022, Expires: 3 Start: 10-27-2022 Colonoscopy COLONOSCOPY [facility] Start: 10-27-2022 COLORECTAL CANCER SCREENING COLORECTAL CANCER SCREENING [facility] Start: 07-21-2022 ADVANCE DIRECTIVE DISCUSSION ADVANCE DIRECTIVE DISCUSSION [facility] Start: 07-21-2022 DEPRESSION ASSESSMENT DEPRESSION ASSESSMENT [facility] Start: 05-23-2022 End: 07-23-2022 Basic metabolic 2000 panel - Serum or Plasma BASIC METABOLIC PNL Lab Routine Hyperkalemia Expected: 05/23/2022, Expires: 07/23/2022 [facility] Work Phone: Comment on above: Expected: 05/23/2022, Expires: 3 Start: 03-26-2022 End: 05-26-2022 25-hydroxyvitamin D3 [Mass/volume] in Serum or Plasma VITAMIN D 25 HYDROXY Lab Routine Vitamin D deficiency Expected: 03/26/2022, Expires: 05/26/2022 [facility] Work Phone: Comment on above: Expected: 03/26/2022, Expires: 2 Start: 03-26-2022 End: 05-26-2022 CBC panel - Blood by Automated count CBC Lab Routine Morbid obesity (HCC) Expected: 03/26/2022, Expires: 05/26/2022 [facility] Work Phone: Comment on above: Expected: 03/26/2022, Expires: 2 Start: 03-26-2022 End: 05-26-2022 Comprehensive metabolic 2000 panel - Serum or Plasma COMP METABOLIC PANEL Lab Routine Vitamin D deficiency Morbid obesity (HCC) Expected: 03/26/2022, Expires: 05/26/2022 [facility] Work Phone: Comment on above: Expected: 03/26/2022, Expires: 2 Start: 03-26-2022 End: 05-26-2022 Lipid 1996 panel - Serum or Plasma LIPID PANEL BASIC Lab Routine Screening, lipid Morbid obesity (HCC) Expected: 03/26/2022, Expires: 05/26/2022 [facility] Work Phone: Comment on above: Expected: 03/26/2022, Expires: 2 Start: 2022 BONE DENSITY BONE DENSITY [facility] Start: 07-21-2021 DEPRESSION ASSESSMENT DEPRESSION ASSESSMENT [facility] Start: 2017 RSV Vaccine (1 - 1-dose 60+ series) RSV Vaccine (1 - 1-dose 60+ series) [facility] Start: 2017 RSV Vaccine (1 - Risk 60-74 years 1-dose series) RSV Vaccine (1 - Risk 60-74 years 1-dose series) [facility] Start: 2007 SHINGRIX VACCINE (1 of 2) SHINGRIX VACCINE (1 of 2) [facility] Start: 2002 COLOGUARD (FIT-DNA) COLOGUARD (FIT-DNA) [facility] Start: [address] COLONOGRAPHY [facility] Start: 2002 DIABETES SCREEN DIABETES SCREEN [facility] Start: 2002 FECAL OCCULT BLOOD FECAL OCCULT BLOOD [facility] Start: 2002 LIPID SCREEN LIPID SCREEN [facility] Start: 2002 Screening for malignant neoplasm of colon [facility] Start: 2002 SIGMOIDOSCOPY SIGMOIDOSCOPY [facility] Start: 1997 Mammography MAMMOGRAM [facility] Start: 1976 Urine microalbumin profile [facility] Start: 1957 COVID-19 VACCINE (#1) COVID-19 VACCINE (#1) [facility] End: 12-05-2025 DBT Breast - bilateral screening MIKEY SCREENING W [facility] Radiology Routine Encounter for screening mammogram for breast cancer 1 Occurrences starting 11/05/2024 until 12/05/2025 [facility] Work Phone: Comment on above: 1 Occurrences starting 11/05/2024 until 12/05/2025 End: 04-25-2023 Dxa bone density study 1/> sites axial skel DXA-AXIAL [place] Radiology Routine Asymptomatic postmenopausal status 1 Occurrences starting 03/26/2022 until 04/25/2023 [facility] Work Phone: Comment on above: 1 Occurrences starting 03/26/2022 until 04/25/2023 ECG COMPLETE ECG COMPLETE ECG Routine Pre-op evaluation 01/14/2025 10:56 AM EDT [facility] Endometrial bx w/wo endocervix bx w/o dilat spx ENDOMETRIAL BIOPSY Procedures Routine PMB (postmenopausal bleeding) Ordered: 12/16/2024 [facility] Work Phone: Comment on above: Ordered: 12/16/2024 Endometrial bx w/wo endocervix bx w/o dilat spx ENDOMETRIAL BIOPSY Procedures Routine PMB (postmenopausal bleeding) Ordered: 11/11/2024 [facility] Work Phone: Comment on above: Ordered: 11/11/2024 End: 07-17-2024 MIKEY SCREENING MIKEY SCREENING Radiology Routine Encounter for screening mammogram for breast cancer 1 Occurrences starting 06/18/2023 until 07/17/2024 [facility] Work Phone: Comment on above: 1 Occurrences starting 06/18/2023 until 07/17/2024 PAP TEST PAP TEST Lab [facility] Encounter for screening for malignant neoplasm of cervix 11/05/2024 8:29 AM EDT [facility] Patient Education Dilation and Curettage [facility] Work Phone: End: 09-10-2023 Screening colonoscopy COLONOSCOPY SCREENING Endoscopy Routine Special screening for malignant neoplasms, colon 1 Occurrences starting 09/10/2022 until 09/10/2023 [facility] Work Phone: Comment on above: 1 Occurrences starting 09/10/2022 until 09/10/2023 End: 04-25-2023 Screening mammography bi 2-view breast inc cad MIKEY SCREENING Radiology Routine Breast cancer screening by mammogram 1 Occurrences starting 03/26/2022 until 04/25/2023 [facility] Work Phone: Comment on above: 1 Occurrences starting 03/26/2022 until 04/25/2023 End: 04-08-2024 Thyrotropin [Units/volume] in Serum or Plasma TSH BLD Lab Routine Hypothyroidism, unspecified type Every 6 weeks for 10 Occurrences starting 04/09/2023 until 04/08/2024, 1 completed [facility] Work Phone: Comment on above: Every 6 weeks for 10 Occurrences startin g 04/09/2023 until 04/08/2024, 1 completed End: 04-08-2024 Thyroxine (T4) free [Mass/volume] in Serum or Plasma T4 FREE/FREE THYROX Lab Routine Hypothyroidism, unspecified type Every 6 weeks for 10 Occurrences starting 04/09/2023 until 04/08/2024, 1 completed [facility] Work Phone: Comment on above: Every 6 weeks for 10 Occurrences startin g 04/09/2023 until 04/08/2024, 1 completed Tissue Pathology bio psy report SURGICAL PATHOLOGY Lab Routine PMB (postmenopausal bleeding) 12/16/2024 11:43 AM EDT [facility] End: 04-08-2024 Triiodothyronine (T3) Free [Mass/volume] in Serum or Plasma T3 FREE BLD Lab Routine Hypothyroidism, unspecified type Every 6 weeks for 10 Occurrences starting 04/09/2023 until 04/08/2024, 1 completed [facility] Work Phone: Comment on above: Every 6 weeks for 10 Occurrences startin g 04/09/2023 until 04/08/2024, 1 completed End: 04-25-2023 XR KNEE GENERAL 4V AP BOTH/PA BOTH/LAT/MERC LEFT XR KNEE GENERAL 4V AP BOTH/PA BOTH/LAT/MERC LEFT Radiology Routine Pain 1 Occurrences starting 03/26/2022 until 04/25/2023 [facility] Work Phone: Comment on above: 1 Occurrences starting 03/26/2022 until 04/25/2023 End: 04-25-2024 XR KNEE GENERAL 4V AP BOTH/PA BOTH/LAT/MERC LEFT XR KNEE GENERAL 4V AP BOTH/PA BOTH/LAT/MERC LEFT Radiology Routine Left knee pain, unspecified chronicity 1 Occurrences starting 03/27/2023 until 04/25/2024 [facility] Work Phone: Comment on above: 1 Occurrences starting 03/27/2023 until 04/25/2024 [facility] Immunizations Immunization Date Immunization Notes Care Provider [facility] 05-25-2024 influenza, high dose seasonal, preservative-free Kyra Carson MD Work Phone: [facility] 05-25-2024 influenza virus vaccine, unspecified formulation Thomas Yuen MD Work Phone: [facility] 08-11-2023 influenza (HD-IIV4) vaccine, age 65+ yr, high dose, quadrivalent, PF (FLUZONE HIGH-DOSE) Dorota Soriano APRN.[employer] Work Phone: [facility] 08-11-2023 influenza virus vaccine, unspecified formulation Kyra Carson MD Work Phone: [facility] 03-26-2022 influenza, high-dose , quadrivalent vaccine (FLUZONE HIGH DOSE QUADRIVALENT) Mat Vance MD Work Phone: [facility] 03-26-2022 pneumococcal (PCV20) vaccine, 20 valent (PREVNAR 20) Mat Vance MD Work Phone: [facility] 03-26-2022 pneumococcal Conjuga te, unspecified formulation Kyra Carson MD Work Phone: [facility] Work Phone: 03-26-2022 influenza virus vaccine, unspecified formulation Mat Vance MD Work Phone: [facility] Payers Date Payer Category Payer Self-pay 2022 Medicare [employer]NA MEDICARE HU[employer]NA GOLD PLUS [id number] 2022-Present [phone] [place] [address] [id number] 2022 Medicare (Managed Care) HUMANA G OLD PLUS [id number] 2022 Private Health Insurance [id number] Unknown [id number] Social History Date Type Detail Facility [facility] unknown [facility] Start: 03-25-2022 End: 09-04-2022 History SDOH Alcohol Frequency 3 [facility] Start: 03-25-2022 End: 09-04-2022 History SDOH Alcohol Std Drinks 2 [facility] Start: 03-25-2022 History SDOH Social Connections Phone 4 [facility] Start: 03-25-2022 End: 09-04-2022 History SDOH Social Connections Meetings 1 [facility] Start: 1955 Sex Assigned At Not on file C [facility] Start: 03-16-2022 End: 04-08-2022 Exposure to SARS-CoV-2 (event) Not sure [facility] Start: 04-08-2022 End: 01-31-2025 Tobacco smoking status NHIS Never smoked tobacco [facility] Start: 04-08-2022 Tobacco use and exposure Smokeless tobacco non-user [facility] Start: 04-08-2022 End: 01-27-2025 Alcohol intake Current drinker of alcohol (finding) [facility] Start: 04-08-2022 History SDOH Alcohol Comment occasionally [facility] Start: 09-04-2022 History SDOH Social Connections Phone 5 [facility] Start: 09-04-2022 History SDOH Social Connections Cheondoism 98 [facility] Start: 09-04-2022 End: 11-26-2022 History of Social function [facility] Start: 09-04-2022 End: 11-26-2022 Social connection and isolation panel [facility] How often do you att end congregation or druze services? Patient refused [facility] Do you belong to any clubs or organizations such as congregation groups, unions, fraternal or athletic groups, or school groups? No [facility] Are you now , , , , never or living with a partner? [facility] How often to you hav e a drink containing alcohol? Monthly or less [facility] How many standard drinks containing alcohol do you have on a typical day? 3 or 4 [facility] How often do you hav e 6 or more drinks on 1 occasion? Less than monthly [facility] Do you feel stress - tense, restless, nervous, or anxious, or unable to sleep at night because your mind is troubled all the time - these days [OSQ] To some extent [facility] (I/We) worried evens er (my/our) food would run out before (I/we) got money to buy more. Never true [facility] Start: 02-26-2022 Sexual orientation Heterosexual (jose j esteves) [facility] Do you feel stress - tense, restless, nervous, or anxious, or unable to sleep at night because your mind is troubled all the time - these days [OSQ] Not at all [facility] How often to you hav e a drink containing alcohol? 2-4 times a month [facility] How hard is it for y ou to pay for the very basics like food, housing, medical care, and heating Not very hard [facility] Start: 1955 Sex Assigned At Female W [facility] NEGATED: Highlighted row Not [facility] Goals Date Patient Goal Desired Activity /State Mental Status Date Assessment Result Facility 02-11-2025 Cognitive function Voice/Name [facility] Work Phone: Clinical Notes 03-26-2022 to 02-11-2025 Note Date & Type Note Facility 02-11-2025 Consult note [facility] 02-11-2025 Consult note Note Date/Time February 11, 2025 9:16am [facility] Medical Records Department [address] [place] [address] Pre-Anesthesia Evaluation 02/11/25906 MR#: [id number] Acct: [id number] Name: FRANCA NICHOLSON Rep #:[id number] : 1955 69 From: Terrance Adair MD PCP: Dr. Kyra Carson MD Status:RE [facility] Y Race: C Location: [place] [address]- ASA Classification* ASA Classification ASA Classification: 3 Assessment & Plan Anesthesia* Anesthesia Assessment Anesthesia Assessment: Discussed sedation and/or anesthesia options, risks, benefits, and alternatives with patient/parents/legal guardian/POA. Questions invited. The patient/parents/legal guardian/POA seems to understand and agrees to proceedwith anesthesia plan. Reviewed the physical assessment, medical history, allergy history and patient home medications list prior to surgery/procedure/anesthetic and documented any changes. Performed airway and anesthesia risk assessments. Anesthesia Type Anesthesia Type: MAC History Source History Obtained from:: Patient and Chart Anesthesia Focused Assessment* Temperature: 98 F Pulse Rate: 78 Blood Pressure: 92/65 Respiratory Rate: 16 Pulse Ox: 96 Oxygen Delivery Method: Room Air Airway Assessment Mouth opens: >3 cm Mallampati Score: IV Teeth Condition: Missing (Patient is missing several molars. 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 When Was Last Pacemaker Check QUESTION #4 FULL TEXT: You/Your Family Experience fever (hyperthermia) with Anesthesia Last Oral Intake Last Oral intake: Last Oral Intake NPO since 23:50 02/11/25 08:51 Meds taken in AM with sips of No 02/11/25 08:51 water? Meds patient instructed to take am of surgery PONV PONV - power electronics engineer: PONV - power electronics engineer Female Yes 01/31/25 09:27 HX of Motion Sickness Yes 01/31/25 09:27 HX of N/V After Surgery No 01/31/25 09:27 Non-Smoker Yes 01/31/25 09:27 Duration of Surgery greater No 01/31/25 09:27 than 60 minutes Number of Risk Factors 3 01/31/25 09:27 PONV Score Moderate Risk 01/31/25 09:27 Height & Weight Height & Weight: Anesthesia: Height & Weight Height 5 ft 02/11/25 08:51 Weight: 125 kg 02/11/25 08:51 Body Mass Index (BMI) 53.8 02/11/25 08:51 Respiratory Assessment Respiratory Assessment - power electronics engineer: Respiratory Tract Infection Hx - power electronics engineer Hx Respiratory Tract Infection No 01/31/25 09:27 STOP Sleep Apnea STOP Sleep Apnea - power electronics engineer: STOP Sleep Apnea - power electronics engineer Hx Hypertension No 01/31/25 09:27 Hx Sleep Apnea No 01/31/25 09:27 CPAP BIPAP Do you snore loudly (louder No 01/31/25 09:27 than talking or can be heard Do you often feel tired/ No 01/31/25 09:27 fatigued/ sleepy during daytime? Has anyone observed you stop No 01/31/25 09:27 breathing during sleep? STOP Results Negative 01/31/25 09:27 QUESTION #5 FULL TEXT : Do you snore loudly (louder than talking or can be heard through closed doors)? Tobacco Use History Tobacco Use History - power electronics engineer: Tobacco Use History - power electronics engineer Tobacco Use Smoking Status Never smoker 01/31/25 09:27 Hx Tobacco Use No 01/31/25 09:27 Years Smoking Packs Smoked per Day Smoking Cessation Date was within the last 15 years Hx Smoking Cessation Date Hx Smoking Cessation Counseling Hematologic Medial History Hematologic Hx - power electronics engineer: Hematologic Medical Hx - design eng Hx of Blood Transfusion No 01/31/25 09:27 Hx of Transfusion in last 3 No 01/31/25 09:27 Months Date of Last Transfusion (if within last 3 months) Ever experience any problems No 01/31/25 09:27 with transfusion(s)? Specify any problems Hx of Preganancy in last 3 No 01/31/25 09:27 Months Nurse Filling Out Transfusion VCHRISTIN 01/31/25 09:27 & Questions: Date: 01/31/25 01/31/25 09:27 Time: 09:28 01/31/25 09:27 Patient unable to answer at this time (ie. confused, unrespo /Reproduction History /Reproductive History - power electronics engineer: /Reproductive Hx- power electronics engineer Hx Now No 01/31/25 09:27 Gestational Age (in weeks): EDC: Hx Hx Para Hx Section SAB No 01/31/25 09:27 Active Medications Active Medications: Current Medications Generic Name Dose Route Start Last Admin Trade Name Freq PRN Reason Stop Dose Admin Lactated Ringer's 1,000 mls @ 15 mls/hr 02/11/25 08:45 02/11/25 09:06 IV 15 mls/hr .Q48H NIYAH Administration PFSH Medical History Wears glasses Post-menopausal Depression Anxiety Alcohol use Thyroid disease Arthritis Back pain Injury of head and neck History of hiatal hernia Non-smoker Asthma Leg cramps History of pain when walking History of edema History of echocardiogram History of ganglion cyst Home Medications ?Medication ?Instructions ?Recorded ?Last Taken ?Type cetirizine 10 mg tablet 10 mg PO DAILY 01/31/25 Unkn own History cholecalciferol (vitamin D3) 25 25 mcg PO DAILY Unknown History mcg (1,000 unit) capsule (Vitamin D3) fluticasone propionate 50 1 spray intranasal DAILY PRN nasal 01/31/25 Unknown History mcg/actuation nasal congestion spray,suspension (24 Hour Allergy Relief) levothyroxine 50 mcg tablet 50 mcg PO DAILY 01/31/25 U nknown History meloxicam 15 mg tablet 15 mg PO DAILY 01/31/25 Unkn own History sertraline 50 mg tablet 50 mg PO DAILY 01/31/25 Unkn own History Allergy/AdvReac Type Severity Reaction Status Date / Time amoxicillin Allergy Severe Rash Verified 02/11/25 08:49 Surgical History History of cardiac catheterization History of tonsillectomy and adenoidectomy Hx of tubal ligation History of hysteroscopy Hx of section Social History Smoking Status: Never smoker Review of Systems (Anesthesia) ROS Narrative System reviewed and no additional complaints, except as documented. Physical Exam Resp Resp Narrative: Patient has a slight end expiratory wheeze. We will give her a nebulizer breathing treatment prior to OR. 02/11/25 0916 <Electronically signed by Terrance rapp MD> Date _ Terrance Adair MD Cosigner Signature: Date CC: ~ Signed [facility] Work Phone: 1(703) 740-135607-25-2025 Procedure note [facility] Medical Records Department [address] [place] [address] Operative Report 02/11/25 1026 MR#: [id number] Acct: [id number] Name: FRANCA NICHOLSON Rep #:[id number] : 1955 69 From: Thomas Yuen DO PCP: Dr. Kyra Carson MD Status:[facility] Location: [place] [address] Problems Associated Problem List Diagnoses (1) PMB (postmenopausal bleeding): Operative Report (Standard) Operative Information Date of Procedure: 02/11/25 Pre-Operative Diagnosis: PMB Post-Operative Diagnosis: PMB Surgery/Procedure Performed: Hysteroscopy, D&C, polypectomy ocean biologist: No Type of Anesthesia: MAC RN Documented Start/Stop Times: Operation Date: 02/11/25 10:30 Case Time Into Pre-Op 02/11/25 08:39 Out of Pre-Op 02/11/25 09:23 Anesthesia Start 02/11/25 09:26 Into Room 02/11/25 09:26 Procedure Start 02/11/25 09:42 Procedure End 02/11/25 10:10 Anesthesia End 02/11/25 10:16 Out of Room 02/11/25 10:16 Into Recovery 02/11/25 10:20 Procedure Start Time: 09:42 Procedure Stop Time: 10:10 Select all DRAINS/GRAFTS/IMPLANTS that apply: None Special Medications: None Estimated Blood Loss: < 50 mL Fluids Replaced: 500 mL fluid deficit Specimen collected: Yes Description of specimen(s) removed: Endometrial curettings and polyp Description of surgery: The patient was taken to the operating room where MAC anesthesia was induced. She was prepped and draped in the dorsal lithotomy position using yellow fin stirrups. A weighted speculum was placed in the vagina to expose the cervix. Theanterior lip of the cervix was grasped with a single tooth tenaculum. Local was infiltrated into the cervix. The cervix was serially dilated to accommodate theSymphion hysteroscopy. The hysteroscope was advanced into the uterus, and the uterine cavity was distended with normal saline as distention media. Bilateral tubal ostia were visualized. There was a large vascular prolapsing polyp that was arising from the anterior surface of the uterus. The Symphion resection device was used to resect the polyp. A very broad base was noted during resection, which compromised about 50% of the anterior surface of the uterus. The hysteroscope was then removed after resection of the polyp. Sharp curettagewas performed for moderate tissue. The polyp and endometrial curettings were sent to pathology for review. Bleeding was scant. All instruments were removedfrom the vagina. A vaginal sweep was performed. Intermittent and sponge countswere correct. The patient was taken to the recovery in stable condition. Surgical Findings: Uterus sounded to 10 cm. Large polyp over anterior surface of the uterus with a broad base. Complications Complications: No Admit VTE Documentation VTE Present on Admission: No VTE Mechan Device Prophylaxis: SCD's 02/11/25 1048 Cosigner Signature (if applicable): CC: Dr. Kyra Carson MD; Dr. Thomas Yuen DO~ Signed [facility]07-25-2025 Evaluation note* Diagnosis Onset Date Resolution Status Admit Date PMB (postmenopausal bleeding) acute February 11, 2025 8:23am [facility] Work Phone: [phone]) 746-457307-25-2025 Discharge summary [facility] Medical Records Department [address] [place] [address] Instructions for Home/Discharge Instructions 02/11/25 1014 MR#: [id number] Acct: [id number] Name: FRANCA NICHOLSON Rep #:[id number] : 1955 69 From: Thomas Yuen DO PCP: Dr. Kyra Carson MD Status:RE G SDC Discharge Instructions DC O2, CPAP, BIPAP needs Home O2 Discharge instructions: No Dressing / Incision Discharge Activity: May Not Drive (for 24 hours after surgery) and May Not Shower (for 24 hours after surgery) May resume sexual activity in: 1 week (nothing in the vagina and no soaking in water) Weight Bearing Status: Weight bearing as tolerated Lifting Restrictions: none Dressing / Incision Call your doctor if you observe: Fever of 101 or Higher, Using more than 1 pad per hour, Shortness of breath, Dizziness, Chest pain, Increased palpitations (irregular heartbeat), Calf discomfort and Uncontrolled pain Follow Up Care Please Follow Up With: Thomas Yuen DO When: 1 week post op Test Results: Test results from this visit will be discussed in further detail at your follow- up appointment, if applicable. Discharge Plan Admission Primary Reason for Your Visit: surgery Attending Provider: Thomas Yuen Primary Care Provider: Kyra Carson Instructions Patient Instructions: Dilation and Curettage Print Language: Georgian Discharge Orders/Prescriptions Prescriptions: Continued cholecalciferol (vitamin D3) [Vitamin D3] 25 mcg (1,000 unit) capsule 25 mcg PO DAILY levothyroxine 50 mcg tablet 50 mcg PO DAILY cetirizine 10 mg tablet 10 mg PO DAILY meloxicam 15 mg tablet 15 mg PO DAILY sertraline 50 mg tablet 50 mg PO DAILY fluticasone propionate [24 Hour Allergy Relief] 50 mcg/actuation spray,suspension 1 spray intranasal DAILY PRN (Reason: nasal congestion) Rx Instructions: administer into each nostril Referrals / Follow Up: Kyra Carson MD [Primary Care Provider] - Disposition Disposition (needs filled in before D/C Order can be placed): Home, Self Care 02/11/25 1015Sara Wilfrid BERNARDO CC: Dr. Kyra Carson MD ~ Signed [facility]07-25-2025 Consult note [facility] Medical Records Department [address] [place] [address] Pre-Anesthesia Evaluation 02/11/25 0907 MR#: [id number] Acct: [id number] Name: FRANCA NICHOLSON Rep #:[id number] : 1955 69 From: Terrance Adair MD PCP: Dr. Kyra Carson MD Status: [facility] Y Race: C Location: [facility] ASA Classification* ASA Classification ASA Classification: 3 Assessment & Plan Anesthesia* Anesthesia Assessment Anesthesia Assessment: Discussed sedation and/or anesthesia options, risks, benefits, and alternatives with patient/parents/legal guardian/POA. Questions invited. The patient/parents/legal guardian/POA seems to understand and agrees to proceedwith anesthesia plan. Reviewed the physical assessment, medical history, allergy history and patient home medications list prior to surgery/procedure/anesthetic and documented any changes. Performed airway and anesthesia risk assessments. Anesthesia Type Anesthesia Type: MAC History Source History Obtained from:: Patient and Chart Anesthesia Focused Assessment* Temperature: 98 F Pulse Rate: 78 Blood Pressure: 92/65 Respiratory Rate: 16 Pulse Ox: 96 Oxygen Delivery Method: Room Air Airway Assessment Mouth opens: >3 cm Mallampati Score: IV Teeth Condition: Missing (Patient is missing several molars. 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 When Was Last Pacemaker Check QUESTION #4 FULL TEXT: You/Your Family Experience fever (hyperthermia) with Anesthesia Last Oral Intake Last Oral intake: Last Oral Intake NPO since 23:50 02/11/25 08:51 Meds taken in AM with sips of No 02/11/25 08:51 water? Meds patient instructed to take am of surgery PONV PONV - power electronics engineer: PONV - power electronics engineer Female Yes 01/31/25 09:27 HX of Motion Sickness Yes 01/31/25 09:27 HX of N/V After Surgery No 01/31/25 09:27 Non-Smoker Yes 01/31/25 09:27 Duration of Surgery greater No 01/31/25 09:27 than 60 minutes Number of Risk Factors 3 01/31/25 09:27 PONV Score Moderate Risk 01/31/25 09:27 Height & Weight Height & Weight: Anesthesia: Height & Weight Height 5 ft 02/11/25 08:51 Weight: 125 kg 02/11/25 08:51 Body Mass Index (BMI) 53.8 02/11/25 08:51 Respiratory Assessment Respiratory Assessment - power electronics engineer: Respiratory Tract Infection Hx - power electronics engineer Hx Respiratory Tract Infection No 01/31/25 09:27 STOP Sleep Apnea STOP Sleep Apnea - power electronics engineer: STOP Sleep Apnea - power electronics engineer Hx Hypertension No 01/31/25 09:27 Hx Sleep Apnea No 01/31/25 09:27 CPAP BIPAP Do you snore loudly (louder No 01/31/25 09:27 than talking or can be heard Do you often feel tired/ No 01/31/25 09:27 fatigued/ sleepy during daytime? Has anyone observed you stop No 01/31/25 09:27 breathing during sleep? STOP Results Negative 01/31/25 09:27 QUESTION #5 FULL TEXT : Do you snore loudly (louder than talking or can be heard through closeddoors)? Tobacco Use History Tobacco Use History - power electronics engineer: Tobacco Use History - power electronics engineer Tobacco Use Smoking Status Never smoker 01/31/25 09:27 Hx Tobacco Use No 01/31/25 09:27 Years Smoking Packs Smoked per Day Smoking Cessation Date was within the last 15 years Hx Smoking Cessation Date Hx Smoking Cessation Counseling Hematologic Medial History Hematologic Hx - power electronics engineer: Hematologic Medical Hx - design eng Hx of Blood Transfusion No 01/31/25 09:27 Hx of Transfusion in last 3 No 01/31/25 09:27 Months Date of Last Transfusion (if within last 3 months) Ever experience any problems No 01/31/25 09:27 with transfusion(s)? Specify any problems Hx of Preganancy in last 3 No 01/31/25 09:27 Months Nurse Filling Out Transfusion VCHRISTIN 01/31/25 09:27 & Questions: Date: 01/31/25 01/31/25 09:27 Time: 09:28 01/31/25 09:27 Patient unable to answer at this time (ie. confused, unrespo /Reproduction History /Reproductive History - power electronics engineer: /Reproductive Hx- power electronics engineer Hx Now No 01/31/25 09:27 Gestational Age (in weeks): EDC: Hx Hx Para Hx Section SAB No 01/31/25 09:27 Active Medications Active Medications: Current Medications Generic Name Dose Route Start Last Admin Trade Name Freq PRN Reason Stop Dose Admin Lactated Ringer's 1,000 mls @ 15 mls/hr 02/11/25 08:45 02/11/25 09:06 IV 15 mls/hr .Q48H NIYAH Administration PFSH Medical History Wears glasses Post-menopausal Depression Anxiety Alcohol use Thyroid disease Arthritis Back pain Injury of head and neck History of hiatal hernia Non-smoker Asthma Leg cramps History of pain when walking History of edema History of echocardiogram History of ganglion cyst Home Medications ?Medication ?Instructions ?Recorded ?Last Taken ?Type cetirizine 10 mg tablet 10 mg PO DAILY 01/31/25 Unkn own History cholecalciferol (vitamin D3) 25 25 mcg PO DAILY Unknown History mcg (1,000 unit) capsule (Vitamin D3) fluticasone propionate 50 1 spray intranasal DAILY PRN nasal 01/31/25 Unknown History mcg/actuation nasal congestion spray,suspension (24 Hour Allergy Relief) levothyroxine 50 mcg tablet 50 mcg PO DAILY 01/31/25 U nknown History meloxicam 15 mg tablet 15 mg PO DAILY 01/31/25 Unkn own History sertraline 50 mg tablet 50 mg PO DAILY 01/31/25 Unkn own History Allergy/AdvReac Type Severity Reaction Status Date / Time amoxicillin Allergy Severe Rash Verified 02/11/25 08:49 Surgical History History of cardiac catheterization History of tonsillectomy and adenoidectomy Hx of tubal ligation History of hysteroscopy Hx of section Social History Smoking Status: Never smoker Review of Systems (Anesthesia) ROS Narrative System reviewed and no additional complaints, except as documented. Physical Exam Resp Resp Narrative: Patient has a slight end expiratory wheeze. We will give her a nebulizer breathing treatment prior to OR. 02/11/25 0916 tamela NGUYEN> Date _ Terrance Adair MD Cosigner Signature: Date CC: ~ Signed [facility]07-10-2025 History and physical note* Thomas Yuen MD - 01/27/2025 10:57 AM EDT DATE OF SERVICE: January 27, 2025 PROBLEM: polyp, PMB DIAGNOSIS: as above PAST SURGICAL HISTORY: PAST SURGICAL HISTORY Procedure Laterality Date SECTION MULTI>2 3 C-sections HYSTEROSCOPY, DIAGNOSTIC (SEPARATE 2014, 2017 for fibroids and bleeding LIGATE FALLOPIAN TUBE 1990 PAST SURGICAL HISTORY OF Right 1982 Ganglion cyst excision, wrist TONSILLECTOMY & ADENOIDECTOMY 12 years old PAST MEDICAL HISTORY: PAST MEDICAL HISTORY Diagnosis Date Chronic pain of left knee Generalized anxiety disorder Hypothyroidism Obesity Umbilical hernia Vitamin D deficiency SUBJECTIVE: Doing well and offers no complaints. Had pre op clearance with PCP SOCIAL HISTORY: Social History Tobacco Use Smoking status: Never Smokeless tobacco: Never Vaping Use Vaping status: Never Used Substance Use Topics Alcohol use: Yes Comment: occasionally Drug use: Never ALLERGIES Allergen Reactions Amoxicillin Rash Red fine rash Current Outpatient Medications on File Prior to Visit Medication Sig meloxicam (MOBIC) 15 mg tablet Take 1 tablet by mouth once daily. cetirizine HCl (ZYRTEC) 10 mg chewable tablet Take 1 tablet by mouth once daily. levothyroxine (LEVOXYL) 50 mcg tablet Take 1.5 tablets by mouth once daily. Take on empty stomach. For Thyroid sertraline (ZOLOFT) 50 mg tablet Take 1 tablet by mouth once daily. fluticasone (FLONASE) 50 mcg/actuation nasal spray Use 2 Sprays in each nostril once daily. Rinse mouth after use. As directed Cholecalciferol, Vitamin D3, (VITAMIN D) 25 mcg (1,000 unit) cap Take 1,000 Units by mouth once daily. No current facility-administered medications on file prior to visit. OBJECTIVE: VITALS: BP 124/69 Pulse 75 Resp 16 Ht 152.4 cm (5') Wt 125.3 kg (276 lb 3.2 oz) LMP 2014 SpO2 93% BMI 53.94 kg/m HEENT: Normocephalic, atraumatic, Mucus membranes moist without lesions. NECK: Soft and Supple. SKIN: No lesions. CHEST: Clear to auscultation. No wheezes or rales. Good air exchange. HEART: Regular rate and rhythm No S3 or S4. No gallops or rubs. BACK: Nontender. ABDOMEN: Non-distended, no masses. LOWER EXTREMITIES: There was no pitting edema. ASSESSMENT: pre op, polyp, PMB PLAN: 1) Discussed r/b/a hysteroscopy, D&C, polypectomy in detail. The rationale for the proposed surgery was discussed in addition to risks, benefits, and alternatives. General pre- and post-operative care was reviewed. Questions were answered. After discussion, the patient indicated a desire to proceed with the planned surgery. Thomas Yuen DO Medical Decision Making: Problems: Moderate: New problem with uncertain prognosis Risk: Moderate: Decision on minor surgery w/ risk factors Medical Decision Making Level: 4 - Moderate [facility]07-10-2025 History and physical note* Thomas Yuen MD - 01/27/2025 10:57 AM EDT DATE OF SERVICE: January 27, 2025 PROBLEM: polyp, PMB DIAGNOSIS: as above PAST SURGICAL HISTORY: PAST SURGICAL HISTORY Procedure Laterality Date SECTION MULTI>2 3 C-sections HYSTEROSCOPY, DIAGNOSTIC (SEPARATE 2014, 2017 for fibroids and bleeding LIGATE FALLOPIAN TUBE 1990 PAST SURGICAL HISTORY OF Right 1982 Ganglion cyst excision, wrist TONSILLECTOMY & ADENOIDECTOMY <AGE [age] years old PAST MEDICAL HISTORY: PAST MEDICAL HISTORY Diagnosis Date Chronic pain of left knee Generalized anxiety disorder Hypothyroidism Obesity Umbilical hernia Vitamin D deficiency SUBJECTIVE: Doing well and offers no complaints. Had pre op clearance with PCP SOCIAL HISTORY: Social History Tobacco Use Smoking status: Never Smokeless tobacco: Never Vaping Use Vaping status: Never Used Substance Use Topics Alcohol use: Yes Comment: occasionally Drug use: Never ALLERGIES Allergen Reactions Amoxicillin Rash Red fine rash Current Outpatient Medications on File Prior to Visit Medication Sig meloxicam (MOBIC) 15 mg tablet Take 1 tablet by mouth once daily. cetirizine HCl (ZYRTEC) 10 mg chewable tablet Take 1 tablet by mouth once daily. levothyroxine (LEVOXYL) 50 mcg tablet Take 1.5 tablets by mouth once daily. Take on empty stomach. For Thyroid sertraline (ZOLOFT) 50 mg tablet Take 1 tablet by mouth once daily. fluticasone (FLONASE) 50 mcg/actuation nasal spray Use 2 Sprays in each nostril once daily. Rinse mouth after use. As directed Cholecalciferol, Vitamin D3, (VITAMIN D) 25 mcg (1,000 unit) cap Take 1,000 Units by mouth once daily. No current facility-administered medications on file prior to visit. OBJECTIVE: VITALS: BP 124/69 Pulse 75 Resp 16 Ht 152.4 cm (5') Wt 125.3 kg (276 lb 3.2 oz) LMP 2014 SpO2 93% BMI 53.94 kg/m HEENT: Normocephalic, atraumatic, Mucus membranes moist without lesions. NECK: Soft and Supple. SKIN: No lesions. CHEST: Clear to auscultation. No wheezes or rales. Good air exchange. HEART: Regular rate and rhythm No S3 or S4. No gallops or rubs. BACK: Nontender. ABDOMEN: Non-distended, no masses. LOWER EXTREMITIES: There was no pitting edema. ASSESSMENT: pre op, polyp, PMB PLAN: 1) Discussed r/b/a hysteroscopy, D&C, polypectomy in detail. The rationale for the proposed surgery was discussed in addition to risks, benefits, and alternatives. General pre- and post-operative care was reviewed. Questions were answered. After discussion, the patient indicated a desire to proceed with the planned surgery. Thomas Yuen DO Medical Decision Making: Problems: Moderate: New problem with uncertain prognosis Risk: Moderate: Decision on minor surgery w/ risk factors Medical Decision Making Level: 4 - Moderate [facility] History of Present illness Narrative* Thanh Barajas APRN.[employer] - 01/14/2025 10:40 AM EDT JUDD Nicholson is a 69 year old female here today for a pre-op appointment. Chief Complaint Patient presents with: Pre-Op Exam: Dr. Yuen to complete a D&C on 02/11/25 HPI Franca Nicholson is an 69 year old female established patient of Kyra Carson MD who presents to the office for pre-op examination. Is scheduled to have hysteroscopy, polypectomy, D&C done on 02/11/[address] Yuen at [facility] for post-menopausal bleeding, benign polyp on biopsy. History of having anesthesia: Yes. Any reaction from anesthesia in the past: No. Personal history of heart disease:No. Plans for care after surgery: home same day. Chronic diseases controlled: Yes. Currently takinga blood thinner: Yes: meloxicam. Patient denies chest pain, SOB, dizziness, palpitations, one sidedweakness, dropping of face or mouth, fever, or recent sickness. No history of CVA or SD. Labs, chest xray, EKG obtained. Medical history is significant for hypothyroidism, IFG, elevated cholesterol, anxiety and depression and obesity. Working on weight loss, down 10 pounds in the last 3 months. Chronic conditions are overall stable and controlled. Most recent TSH was WNL at 3.43, last hgba1c was 5.8%. Her medications were reviewed today and her list is now up to date. Medications Current Outpatient Medications Medication Sig meloxicam (MOBIC) 15 mg tablet Take 1 tablet by mouth once daily. cetirizine HCl (ZYRTEC) 10 mg chewable tablet Take 1 tablet by mouth once daily. levothyroxine (LEVOXYL) 50 mcg tablet Take 1.5 tablets by mouth once daily. Take on empty stomach. For Thyroid sertraline (ZOLOFT) 50 mg tablet Take 1 tablet by mouth once daily. benzonatate (TESSALON PERLE) 100 mg capsule Take 2 capsules by mouth three times a day as needed for cough. fluticasone (FLONASE) 50 mcg/actuation nasal spray Use 2 Sprays in each nostril once daily. Rinse mouth after use. As directed Cholecalciferol, Vitamin D3, (VITAMIN D) 25 mcg (1,000 unit) cap Take 1,000 Units by mouth once daily. No current facility-administered medications for this visit. ALLERGIES Allergen Reactions Amoxicillin Rash Red fine rash ACTIVE PROBLEM LIST Moderate Recurrent Major Depression (Hcc) - 11/19/2023 Depression, Recurrent - 09/15/2023 Special Screening for Malignant Neoplasms, Colon - 05/14/2023 Obesity, Class III, BMI >= 40 - 10/15/2022 Anxiety - 10/15/2022 Hypothyroidism - 10/15/2022 Impaired Glucose Regulation - 10/15/2022 Umbilical Hernia - 03/26/2022 Vitamin D Deficiency - 03/26/2022 Morbid Obesity (Hcc) - 03/26/2022 Chronic Pain of Left Knee - 03/26/2022 Social History Tobacco Use Smoking status: Never Smokeless tobacco: Never Vaping Use Vaping status: Never Used Substance Use Topics Alcohol use: Yes Comment: occasionally Drug use: Never Review of Systems Constitutional: Negative. Eyes: Negative for visual disturbance. Respiratory: Negative for chest tightness and shortness of breath. Cardiovascular: Negative for chest pain, palpitations and leg swelling. Neurological: Negative for seizures, syncope, facial asymmetry and speech difficulty. OBJECTIVE BP 132/82 Pulse 84 Resp 20 Ht 5' .75 (1.54m) Wt 273 lb 13 oz (124.2kg) LMP 2014 BMI 52.17 kg/(m^2). Physical Exam Vitals and nursing note reviewed. Constitutional: General: She is awake. She is not in acute distress. Appearance: She is well-developed and well-groomed. She is not ill-appearing, toxic-appearing or diaphoretic. HENT: Head: Normocephalic. Eyes: General: Vision grossly intact. Conjunctiva/sclera: Conjunctivae normal. Pupils: Pupils are equal, round, and reactive to light. Neck: Vascular: No carotid bruit or JVD. Cardiovascular: Rate and Rhythm: Normal rate and regular rhythm. Heart sounds: Normal heart sounds. No murmur heard. Pulmonary: Effort: Pulmonary effort is normal. No accessory muscle usage, prolonged expiration or respiratory distress. Breath sounds: Normal breath sounds. Musculoskeletal: General: Normal range of motion. Cervical back: Normal range of motion and neck supple. Skin: General: Skin is warm and dry. Capillary Refill: Capillary refill takes less than 2 seconds. Neurological: General: No focal deficit present. Mental Status: She is alert and oriented to person, place, and time. Mental status is at baseline. Cranial Nerves: No cranial nerve deficit. Sensory: No sensory deficit. Psychiatric: Attention and Perception: Attention and perception normal. Mood and Affect: Mood normal. Speech: Speech normal. Behavior: Behavior normal. Behavior is cooperative. Thought Content: Thought content normal. Judgment: Judgment normal. ASSESSMENT/PLAN: 1. Postmenopausal bleeding - ICD9: 627.1, ICD10: N95.0 (primary diagnosis) Scheduled to have hysteroscopy, polypectomy, D&C done on 02/11/[address] Yuen at [facility] for post-menopausal bleeding, benign polyp on biopsy. 2. Pre-op evaluation - ICD9: V72.84, ICD10: Z01.818 Based on physical exam done at today's visit, negative review of systems, negative history for heart disease, CVD, and stable EKG showing sinus rhythm with no ectopy, arrhythmia or signs of ischemia the patient is cleared for surgery from a primary care standpoint pending that labs drawn today are stable. If labs are stable then okay to proceed with planned procedure at the discretion of the performing provider. - COMPLETE BLOOD COUNT AND DIFFERENTIAL - COMPREHENSIVE METABOLIC PANEL - ECG COMPLETE 3. Hypothyroidism, unspecified type - ICD9: 244.9, ICD10: E03.9 - Instructed patient on importance of taking on an empty stomach either first thing in the morning or at bedtime. Continue current medication. 4. Impaired glucose regulation - ICD9: 790.29, ICD10: R73.09 Stable. 5. Anxiety - ICD9: 300.00, ICD10: F41.9 Stable. 6. Moderate recurrent major depression (HCC) - ICD9: 296.32, ICD10: F33.1 Stable. 7. Obesity, Class III, BMI >= 40 - ICD9: 278.01, ICD10: E66.813 Weight decreasing - Behavioral intervention 8. Hypercholesteremia - ICD9: 272.0, ICD10: E78.00 Due for labs. 9. Encounter for therapeutic drug monitoring - ICD9: V58.83, ICD10: Z51.81 - COMPLETE BLOOD COUNT AND DIFFERENTIAL - COMPREHENSIVE METABOLIC PANEL Portions of this note have been entered by ancillary staff. I have reviewed and when necessary edited, so that they are an adequate record of my encounter with this patient Please note that parts of this document were created using voice recognition software and therefore may contain grammatical errors. Patient verbalizes understanding of instructions from today's visit and in agreement with treatmentplan. Questions answered. Agrees to call the office if questions, concerns of issues with acute symptoms not improving or if they worsen. See diagnoses and orders for additional plan(s). Allergies and medications were reviewed, list was updated, and refills given if needed. Past medical, surgical, social, and family history reviewed and updated as appropriate. Encouraged proper diet & exercise as well as compliance with taking medications. Age- appropriate health preventative measures were discussed. Return if symptoms worsen or fail to improve, for Keep next scheduled appointment.. LOWELL Howell documented in this encounter[facility] NoteHNO ID: [id number] Author: THANH BARAJAS APRN.CNP Service: ? Author Type: Nurse Practitioner Type: Progress Notes Filed: 01/14/2025 11:05 Note Text: SUBJECTIVE Franca Nicholson is a 69 year old female here today for a pre-op appointment. Chief Complaint Patient presents with: Pre-Op Exam: Dr. Yuen to complete a DANDC on 02/11/25 JIM Nicholson is an 69 year old female established patient of Kyra Carson MD who presents to the office for pre-op examination. Is scheduled to have hysteroscopy, polypectomy, DANDC done on 02/11/[address] Yuen at [facility] for post-menopausal bleeding, benign polyp on biopsy. History of having anesthesia: Yes. Any reaction from anesthesia in the past: No. Personal history of heart disease: No. Plans for care after surgery: home same day. Chronic diseases controlled: Yes. Currently taking a blood thinner: Yes: meloxicam. Patient denies chest pain, SOB, dizziness, palpitations, one sided weakness, dropping of face or mouth, fever, or recent sickness. No history of CVA or SD. Labs, chest xray, EKG obtained. Medical history is significant for hypothyroidism, IFG, elevated cholesterol, anxiety and depression and obesity. Working on weight loss, down 10 pounds in the last 3 months. Chronic conditions are overall stable and controlled. Most recent TSH was WNL at 3.43, last hgba1c was 5.8%. Her medications were reviewed today and her list is now up to date. Medications Current Outpatient Medications Medication Sig meloxicam (MOBIC) 15 mg tablet Take 1 tablet by mouth once daily. cetirizine HCl (ZYRTEC) 10 mg chewable tablet Take 1 tablet by mouth once daily. levothyroxine (LEVOXYL) 50 mcg tablet Take 1.5 tablets by mouth once daily. Take on empty stomach. For Thyroid sertraline (ZOLOFT) 50 mg tablet Take 1 tablet by mouth once daily. benzonatate (TESSALON PERLE) 100 mg capsule Take 2 capsules by mouth three times a day as needed for cough. fluticasone (FLONASE) 50 mcg/actuation nasal spray Use 2 Sprays in each nostril once daily. Rinse mouth after use. As directed Cholecalciferol, Vitamin D3, (VITAMIN D) 25 mcg (1,000 unit) cap Take 1,000 Units by mouth once daily. No current facility-administered medications for this visit. ALLERGIES Allergen Reactions Amoxicillin Rash Red fine rash ACTIVE PROBLEM LIST Moderate Recurrent Major Depression (Hcc) - 11/19/2023 Depression, Recurrent - 09/15/2023 Special Screening for Malignant Neoplasms, Colon - 05/14/2023 Obesity, Class III, BMI >= 40 - 10/15/2022 Anxiety - 10/15/2022 Hypothyroidism - 10/15/2022 Impaired Glucose Regulation - 10/15/2022 Umbilical Hernia - 03/26/2022 Vitamin D Deficiency - 03/26/2022 Morbid Obesity (Hcc) - 03/26/2022 Chronic Pain of Left Knee - 03/26/2022 Social History Tobacco Use Smoking status: Never Smokeless tobacco: Never Vaping Use Vaping status: Never Used Substance Use Topics Alcohol use: Yes Comment: occasionally Drug use: Never Review of Systems Constitutional: Negative. Eyes: Negative for visual disturbance. Respiratory: Negative for chest tightness and shortness of breath. Cardiovascular: Negative for chest pain, palpitations and leg swelling. Neurological: Negative for seizures, syncope, facial asymmetry and speech difficulty. OBJECTIVE BP 132/82 Pulse 84 Resp 20 Ht 5' .75 (1.54m) Wt 273 lb 13 oz (124.2kg) LMP 2014 BMI 52.17 kg/(m2). Physical Exam Vitals and nursing note reviewed. Constitutional: General: She is awake. She is not in acute distress. Appearance: She is well-developed and well-groomed. She is not ill-appearing, toxic-appearing or diaphoretic. HENT: Head: Normocephalic. Eyes: General: Vision grossly intact. Conjunctiva/sclera: Conjunctivae normal. Pupils: Pupils are equal, round, and reactive to light. Neck: Vascular: No carotid bruit or JVD. Cardiovascular: Rate and Rhythm: Normal rate and regular rhythm. Heart sounds: Normal heart sounds. No murmur heard. Pulmonary: Effort: Pulmonary effort is normal. No accessory muscle usage, prolonged expiration or respiratory distress. Breath sounds: Normal breath sounds. Musculoskeletal: General: Normal range of motion. Cervical back: Normal range of motion and neck supple. Skin: General: Skin is warm and dry. Capillary Refill: Capillary refill takes less than 2 seconds. Neurological: General: No focal deficit present. Mental Status: She is alert and oriented to person, place, and time. Mental status is at baseline. Cranial Nerves: No cranial nerve deficit. Sensory: No sensory deficit. Psychiatric: Attention and Perception: Attention and perception normal. Mood and Affect: Mood normal. Speech: Speech normal. Behavior: Behavior normal. Behavior is cooperative. Thought Content: Thought content normal. Judgment: Judgment normal. ASSESSMENT/PLAN: 1. Postmenopausal bleeding - ICD9: 627.1, ICD10: N95. (more content not included)...[facility]06-02-2025 Telephone encounter Note* Telephone Encounter - Catina Ca RN - 12/20/2024 4:57 PM EDT Surgery sheet given to Anne. Catina Ca RN [facility]06-02-2025 Miscellaneous Notes* Telephone Encounter - Catina Ca RN - 12/20/2024 4:57 PM EDT Surgery sheet given to Anne. Catina Ca RN * Telephone Encounter - Thomas Yuen MD - 12/20/2024 4:39 PM EDT Completed thanks * Telephone Encounter - Catina Ca RN - 12/20/2024 3:41 PM EDT Patient notified. She wants to proceed with scheduling surgery- declined visit to discuss first. Surgery sheet to to complete. Catina Ca RN * Telephone Encounter - Catina Ca RN - 12/20/2024 3:40 PM EDT Thomas Yuen MD routed this conversation to [facility] Ob-Staffing Assistant Pool 12/20/24 1:25 PM Result Note Notify pt benign polyp on biopsy. Recommend hysteroscopy, polypectomy, D&C in OR. Schedule visit if patient wants to discuss further thanks SURGICAL PATHOLOGY documented in this encounterA[facility]06-[facility] Telephone encounter Note * Telephone Encounter - Thomas Yuen MD - 12/20/2024 4:39 PM EDT Completed thanks [facility] Work Phone: 1(203) 730-444206-02-2025 Telephone encounter Note* Telephone Encounter - Catina Ca RN - 12/20/2024 3:41 PM EDT Patient notified. She wants to proceed with scheduling surgery- declined visit to discuss first. Surgery sheet to to complete. Catina Ca RN [facility]06-02-[facility] Telephone encounter Note* Telephone Encounter - Catina Ca RN - 12/20/2024 3:40 PM EDT Thomas Yuen MD routed this conversation to [facility] Ob-Staffing Assistant Pool 12/20/24 1:25 PM Result Note Notify pt benign polyp on biopsy. Recommend hysteroscopy, polypectomy, D&C in OR. Schedule visit if patient wants to discuss further thanks SURGICAL PATHOLOGY [facility]05-29-[facility] Instructions* Patient Instructions* Delisa Marin MA - 12/16/2024 11:15 AM EDT YOUR RECOVERY After your biopsy you may have: Vaginal bleeding (less than a normal menstrual period) Mild cramping Do NOT put anything in the vagina for 1 week after your endometrial biopsy. This includes: tampons douches and refraining from having sexual intercourse If you have any discomfort, you may take an over the counter pain medication (motrin, advil, ibuprofen, tylenol, etc). If this does not relieve your discomfort, contact the office. It is okay to wear a sanitary pad until the discharge and spotting stops. RISKS Although problems seldom occur with endometrial biopsies, there can be some complications. You may feel faint during and shortly after the procedure as well as have some bleeding after the procedure.There is also a risk of infection after the procedure. These complications are rare and can be easily treated. You should contact you doctor is you have any of the following: Heavy bleeding (more than your normal period) Bleeding with clots Severe abdominal pain Fever (more than 100.4F) Foul smelling vaginal discharge RESULTS We will have the results of your biopsy in 1-2 weeks. If you do not hear the results of your biopsyafter 2 weeks, please contact the office for the results. If you have any additional questions or concerns please do not hesitate to contact the office. documented in this encounterAultman Hospital05-29-2025 NoteHNO ID: [id number] Author: THOMAS YUEN MD Service: ? Author Type: Physician Type: Progress Notes Filed: 12/16/2024 11:40 Note Text: Crepe Maker offered: Patient declines. Franca is a 69 year old who presents today for an endometrial biopsy for post menopausal bleeding. test: n/a UNIVERSAL PROTOCOL / SAFETY CHECKLIST Procedure to be Performed: Endometrial Biopsy Sign In: A Moment of CARE was completed. Appropriate PPE (Personal Protective Equipment) worn by all providers involved with the procedure. Special equipment not required. Patient/Surrogate Stated/Verified: Patient name, Date of , Relevant allergies, and The intended procedure Time Out: Relevant labs, photos, and/or imaging studies have been reviewed. Intended patient and procedure match the source document(s) (e.g. consent, HANDP, associated studies [imaging, pathology]) match the intended patient and procedure. Consent obtained and matches the intended procedure. Yes. Correct side/site is not applicable. Medications required for this procedure are verified. Fire risk assessed and is not applicable. Implants: are not applicable. Sign Out: Specimens are all correctly labeled and sent. All instruments, equipment, possible retained foreign bodies are accounted for. Yes. The post-procedure plan of care has been communicated to the patient or surrogate. PROCEDURE: EXTERNAL GENITALIA: Normal in appearance without lesions VAGINA: Normal in appearance without lesions BIOPSY: Speculum placed into the vagina with excellent visualization of the cervix. Cervix cleaned with betadine. Anterior lip of cervix grasped with single toothed tenaculum. Uterus sounded to 7.5 cm. Pipelle inserted into the uterus without difficulty and endometrial biopsy obtained. Procedure Summary: Patient tolerated procedure well. ASSESSMENT: post menopausal bleeding PLAN: Specimens labeled and sent to Pathology. Will notify patient of results in 1-2 weeks. Post-procedure instructions reviewed and written material given to the patient. [facility] History of Present illness Narrative* Thomas Yuen MD - 12/16/2024 11:14 AM EDT Crepe Maker offered: Patient declines. Franca is a 69 year old who presents today for an endometrial biopsy for post menopausal bleeding. test: n/a UNIVERSAL PROTOCOL / SAFETY CHECKLIST Procedure to be Performed: Endometrial Biopsy Sign In: A Moment of CARE was completed. Appropriate PPE (Personal Protective Equipment) worn by all providers involved with the procedure. Special equipment not required. Patient/Surrogate Stated/Verified: Patient name, Date of , Relevant allergies, and The intended procedure Time Out: Relevant labs, photos, and/or imaging studies have been reviewed. Intended patient and procedure match the source document(s) (e.g. consent, H&P, associated studies [imaging, pathology]) match the intended patient and procedure. Consent obtained and matches the intended procedure. Yes. Correct side/site is not applicable. Medications required for this procedure are verified. Fire risk assessed and is not applicable. Implants: are not applicable. Sign Out: Specimens are all correctly labeled and sent. All instruments, equipment, possible retained foreign bodies are accounted for. Yes. The post-procedure plan of care has been communicated to the patient or surrogate. PROCEDURE: EXTERNAL GENITALIA: Normal in appearance without lesions VAGINA: Normal in appearance without lesions BIOPSY: Speculum placed into the vagina with excellent visualization of the cervix. Cervix cleaned with betadine. Anterior lip of cervix grasped with single toothed tenaculum. Uterus sounded to 7.5 cm. Pipelle inserted into the uterus without difficulty and endometrial biopsy obtained. Procedure Summary: Patient tolerated procedure well. ASSESSMENT: post menopausal bleeding PLAN: Specimens labeled and sent to Pathology. Will notify patient of results in 1-2 weeks. Post-procedure instructions reviewed and written material given to the patient. Thomas Yuen DO documented in this encounterAult[facility]05-19-[facility]25 NoteHNO ID: [id number] Author: ?, ?, ? Service: ? Author Type: ? Type: Progress Notes Filed: 12/06/2024 12:03 Note Text: POPULATION HEALTH NAVIGATION OUTREACH Action/FYI Patient outreach for hcc gaps; AWV. LVM and sent mychart to close gaps. Updated appointment notes. Reason for Outreach Care Gap/HCC or Scheduling Wellness Visits Care Gaps due: Medicare Annual Wellness Visit Patient Contacted: Unable or unnecessary to reach patient: Left message MyChart message sent Updated appointment notes Navigation Signature: Cristela Srivastava December 06, 2024 11:54 [facility]05-19-2025 History of Present illness Narrative* Cristela Hurst - 12/06/2024 11:54 AM EDT POPULATION HEALTH NAVIGATION OUTREACH Action/FYI Patient outreach for hcc gaps; AWV. LVM and sent mychart to close gaps. Updated appointment notes. Reason for Outreach Care Gap/HCC or Scheduling Wellness Visits Care Gaps due: Medicare Annual Wellness Visit Patient Contacted: Unable or unnecessary to reach patient: Left message MyChart message sent Updated appointment notes Navigation Signature: Cristela Srivastava December 06, 2024 11:54 AM documented in this encounterAultman Hospital05-19-2025 NotePatient Outreach (NETNAV) FRANCA NICHOLSON ([id number]) 1955 F Date Time Provider Department 12/06/24 KYRA CARSON NETNAV During your visit today, we recorded the following information about you: Cristela Hurst 12/06/2024 12:03 PM Signed POPULATION HEALTH NAVIGATION OUTREACH Action/FYI Patient outreach for hcc gaps; AWV. LVM and sent mychart to close gaps. Updated appointment notes. Reason for Outreach Care Gap/HCC or Scheduling Wellness Visits Care Gaps due: Medicare Annual Wellness Visit Patient Contacted: Unable or unnecessary to reach patient: Left message MyChart message sent Updated appointment notes Navigation Signature: Cristela Srivastava December 06, 2024 11:54 AM Allergies As of Date: 12/06/2024 Noted Allergy Reaction AMOXICILLIN 03/26/2022 2 - Rash Comments: Red fine rash Date Reviewed: 11/16/2024 Reviewed by: Thanh Barajas APRN.SECRETARY [employer] - Fully Assessed Reason for Visit: Population Health Navigation Outreach [3910] Cmt: Ronald Sutton Prescriptions as of 12/06/2024 - meloxicam (MOBIC) 15 mg tablet Take 1 tablet by mouth once daily. - cetirizine HCl (ZYRTEC) 10 mg chewable tablet Take 1 tablet by mouth once daily. - levothyroxine (LEVOXYL) 50 mcg tablet Take 1.5 tablets by mouth once daily. Take on empty stomach. For Thyroid - sertraline (ZOLOFT) 50 mg tablet Take 1 tablet by mouth once daily. - benzonatate (TESSALON PERLE) 100 mg capsule Take 2 capsules by mouth three times a day as needed for cough. - fluticasone (FLONASE) 50 mcg/actuation nasal spray Use 2 Sprays in each nostril once daily. Rinse mouth after use. As directed - Cholecalciferol, Vitamin D3, (VITAMIN D) 25 mcg (1,000 unit) cap Take 1,000 Units by mouth once daily. Problem List As Of Date 12/06/2024 Noted Resolved Umbilical hernia [K42.9] 03/26/2022 Vitamin D deficiency [E55.9] 03/26/2022 Morbid obesity (HCC) [E66.01] 03/26/2022 Chronic pain of left knee [M25.562, G89.29] 03/26/2022 Obesity, Class III, BMI >= 40 [E66.813] 10/15/2022 Anxiety [F41.9] 10/15/2022 Hypothyroidism [E03.9] 10/15/2022 Impaired glucose regulation [R73.09] 10/15/2022 Special screening for malignant neoplasms, colo*05/14/2023 Depression, recurrent (HCC) [F33.9] 09/15/2023 Moderate recurrent major depression (HCC) [F33.*11/19/2023 Encounter Status:Closed by CRISTELA HURST on 12/06/24[facility]04-29-2025 NoteHNO ID: [id number] Author: THANH BARAJAS APRN.SECR[employer]ARY [employer] Service: ? Author Type: Nurse Practitioner Type: Progress Notes Filed: 11/16/2024 10:56 Note Text: SUBJECTIVE Franca Nicholson is a 69 year old female here today for a check up on her medical problems. Chief Complaint Patient presents with: F/U 6 months HPI Franca Nicholson is a 69 year old female. She is an established patient of Kyra Carson MD. She presents today for a routine 6 month follow up. Since last visit she was seen with multimedia technician, planning for a biopsy. She has been having issues with post-menopausal bleeding, prior fibroids. Otherwise she is doing pretty well. Compliant with medications. Mood doing well. Changing diet to work on eating low carb and has noticed some weight loss. Prior labs reviewed, thyroid labs stable. Will be due with next follow up for lipids and hgba1c. Her medications were reviewed today and her list is now up to date. Medications Current Outpatient Medications Medication Sig levothyroxine (LEVOXYL) 50 mcg tablet Take 1.5 tablets by mouth once daily. Take on empty stomach. For Thyroid sertraline (ZOLOFT) 50 mg tablet Take 1 tablet by mouth once daily. benzonatate (TESSALON PERLE) 100 mg capsule Take 2 capsules by mouth three times a day as needed for cough. fluticasone (FLONASE) 50 mcg/actuation nasal spray Use 2 Sprays in each nostril once daily. Rinse mouth after use. As directed Cholecalciferol, Vitamin D3, (VITAMIN D) 25 mcg (1,000 unit) cap Take 1,000 Units by mouth once daily. meloxicam (MOBIC) 15 mg tablet Take 1 tablet by mouth once daily. cetirizine HCl (ZYRTEC) 10 mg chewable tablet Take 1 tablet by mouth once daily. No current facility-administered medications for this visit. ALLERGIES Allergen Reactions Amoxicillin Rash Red fine rash ACTIVE PROBLEM LIST Moderate Recurrent Major Depression (Hcc) - 11/19/2023 Depression, Recurrent - 09/15/2023 Special Screening for Malignant Neoplasms, Colon - 05/14/2023 Obesity, Class III, BMI >= 40 - 10/15/2022 Anxiety - 10/15/2022 Hypothyroidism - 10/15/2022 Impaired Glucose Regulation - 10/15/2022 Umbilical Hernia - 03/26/2022 Vitamin D Deficiency - 03/26/2022 Morbid Obesity (Hcc) - 03/26/2022 Chronic Pain of Left Knee - 03/26/2022 Social History Tobacco Use Smoking status: Never Smokeless tobacco: Never Vaping Use Vaping status: Never Used Substance Use Topics Alcohol use: Yes Comment: occasionally Drug use: Never Review of Systems Constitutional: Negative. Respiratory: Negative. Cardiovascular: Negative. OBJECTIVE BP 136/84 Pulse 75 Wt 277 lb 1.9 oz (125.7kg) SpO2 95% LMP 2014 Physical Exam Vitals and nursing note reviewed. Constitutional: General: She is awake. She is not in acute distress. Appearance: Normal appearance. She is well-developed and well-groomed. She is not ill-appearing, toxic-appearing or diaphoretic. HENT: Head: Normocephalic. Right Ear: External ear normal. Left Ear: External ear normal. Nose: Nose normal. Eyes: General: Vision grossly intact. Conjunctiva/sclera: Conjunctivae normal. Pupils: Pupils are equal, round, and reactive to light. Neck: Vascular: No JVD. Trachea: Trachea normal. Cardiovascular: Rate and Rhythm: Normal rate and regular rhythm. Pulses: Normal pulses. Heart sounds: Normal heart sounds. No murmur heard. Pulmonary: Effort: Pulmonary effort is normal. No accessory muscle usage, prolonged expiration or respiratory distress. Breath sounds: Normal breath sounds. Musculoskeletal: Cervical back: Neck supple. Skin: General: Skin is warm and dry. Capillary Refill: Capillary refill takes less than 2 seconds. Neurological: General: No focal deficit present. Mental Status: She is alert and oriented to person, place, and time. Mental status is at baseline. Psychiatric: Attention and Perception: Attention and perception normal. Mood and Affect: Mood and affect normal. Speech: Speech normal. Behavior: Behavior normal. Behavior is cooperative. Thought Content: Thought content normal. Cognition and Memory: Cognition and memory normal. Judgment: Judgment normal. ASSESSMENT/PLAN: 1. Postmenopausal bleeding - ICD9: 627.1, ICD10: N95.0 (primary diagnosis) Planning for a biopsy with multimedia technician. 2. Morbid obesity (HCC) - ICD9: 278.01, ICD10: E66.01 Weight decreasing - Behavioral intervention 3. Hypercholesteremia - ICD9: 272.0, ICD10: E78.00 Update labs next visit. - LIPID PANEL, FASTING 4. Hypothyroidism, unspecified type - ICD9: 244.9, ICD10: E03.9 - Instructed patient on importance of taking on an empty stomach either first thing in the morning or at bedtime. - continue current dose of Synthroid - THYROID STIMULATING HORMONE - T3, FREE - T4 FREE/FREE THYROXINE 5. Impaired glucose regulation - ICD9: 790.29, ICD10: R73.09 Update labs. - HEMOGLOBIN A1C 6. Moderate recurrent major depression (HCC) - (more content not included)... [facility]04-29-2025 History of Present illness Narrative* Thanh Barajas APRN.MEMO - 11/16/2024 10:33 AM EDT SUBJECTIVE Franca Nicholosn is a 69 year old female here today for a check up on her medical problems. Chief Complaint Patient presents with: F/U 6 months HPI Franca Nicholson is a 69 year old female. She is an established patient of Kyra Carson MD. She presents today for a routine 6 month follow up. Since last visit she was seen with multimedia technician, planning for abiopsy. She has been having issues with post-menopausal bleeding, prior fibroids. Otherwise she is doing pretty well. Compliant with medications. Mood doing well. Changing diet to work on eating low carb and has noticed some weight loss. Prior labs reviewed, thyroid labs stable. Will be due with next follow up for lipids and hgba1c. Her medications were reviewed today and her list is now up to date. Medications Current Outpatient Medications Medication Sig levothyroxine (LEVOXYL) 50 mcg tablet Take 1.5 tablets by mouth once daily. Take on empty stomach. For Thyroid sertraline (ZOLOFT) 50 mg tablet Take 1 tablet by mouth once daily. benzonatate (TESSALON PERLE) 100 mg capsule Take 2 capsules by mouth three times a day as needed for cough. fluticasone (FLONASE) 50 mcg/actuation nasal spray Use 2 Sprays in each nostril once daily. Rinse mouth after use. As directed Cholecalciferol, Vitamin D3, (VITAMIN D) 25 mcg (1,000 unit) cap Take 1,000 Units by mouth once daily. meloxicam (MOBIC) 15 mg tablet Take 1 tablet by mouth once daily. cetirizine HCl (ZYRTEC) 10 mg chewable tablet Take 1 tablet by mouth once daily. No current facility-administered medications for this visit. ALLERGIES Allergen Reactions Amoxicillin Rash Red fine rash ACTIVE PROBLEM LIST Moderate Recurrent Major Depression (Hcc) - 11/19/2023 Depression, Recurrent - 09/15/2023 Special Screening for Malignant Neoplasms, Colon - 05/14/2023 Obesity, Class III, BMI >= 40 - 10/15/2022 Anxiety - 10/15/2022 Hypothyroidism - 10/15/2022 Impaired Glucose Regulation - 10/15/2022 Umbilical Hernia - 03/26/2022 Vitamin D Deficiency - 03/26/2022 Morbid Obesity (Hcc) - 03/26/2022 Chronic Pain of Left Knee - 03/26/2022 Social History Tobacco Use Smoking status: Never Smokeless tobacco: Never Vaping Use Vaping status: Never Used Substance Use Topics Alcohol use: Yes Comment: occasionally Drug use: Never Review of Systems Constitutional: Negative. Respiratory: Negative. Cardiovascular: Negative. OBJECTIVE BP 136/84 Pulse 75 Wt 277 lb 1.9 oz (125.7kg) SpO2 95% LMP 2014 Physical Exam Vitals and nursing note reviewed. Constitutional: General: She is awake. She is not in acute distress. Appearance: Normal appearance. She is well-developed and well-groomed. She is not ill-appearing, toxic-appearing or diaphoretic. HENT: Head: Normocephalic. Right Ear: External ear normal. Left Ear: External ear normal. Nose: Nose normal. Eyes: General: Vision grossly intact. Conjunctiva/sclera: Conjunctivae normal. Pupils: Pupils are equal, round, and reactive to light. Neck: Vascular: No JVD. Trachea: Trachea normal. Cardiovascular: Rate and Rhythm: Normal rate and regular rhythm. Pulses: Normal pulses. Heart sounds: Normal heart sounds. No murmur heard. Pulmonary: Effort: Pulmonary effort is normal. No accessory muscle usage, prolonged expiration or respiratory distress. Breath sounds: Normal breath sounds. Musculoskeletal: Cervical back: Neck supple. Skin: General: Skin is warm and dry. Capillary Refill: Capillary refill takes less than 2 seconds. Neurological: General: No focal deficit present. Mental Status: She is alert and oriented to person, place, and time. Mental status is at baseline. Psychiatric: Attention and Perception: Attention and perception normal. Mood and Affect: Mood and affect normal. Speech: Speech normal. Behavior: Behavior normal. Behavior is cooperative. Thought Content: Thought content normal. Cognition and Memory: Cognition and memory normal. Judgment: Judgment normal. ASSESSMENT/PLAN: 1. Postmenopausal bleeding - ICD9: 627.1, ICD10: N95.0 (primary diagnosis) Planning for a biopsy with multimedia technician. 2. Morbid obesity (HCC) - ICD9: 278.01, ICD10: E66.01 Weight decreasing - Behavioral intervention 3. Hypercholesteremia - ICD9: 272.0, ICD10: E78.00 Update labs next visit. - LIPID PANEL, FASTING 4. Hypothyroidism, unspecified type - ICD9: 244.9, ICD10: E03.9 - Instructed patient on importance of taking on an empty stomach either first thing in the morning or at bedtime. - continue current dose of Synthroid - THYROID STIMULATING HORMONE - T3, FREE - T4 FREE/FREE THYROXINE 5. Impaired glucose regulation - ICD9: 790.29, ICD10: R73.09 Update labs. - HEMOGLOBIN A1C 6. Moderate recurrent major depression (HCC) - ICD9: 296.32, ICD10: F33.1 Stable, continue current medication. 7. Anxiety - ICD9: 300.00, ICD10: F41.9 See above. 8. Vitamin D deficiency - ICD9: 268.9, ICD10: E55.9 - VITAMIN D 25 HYDROXY 9. Encounter for therapeutic drug monitoring - ICD9: V58.83, ICD10: Z51.81 - COMPLETE BLOOD COUNT AND DIFFERENTIAL - COMPREHENSIVE METABOLIC PANEL Portions of this note have been entered by ancillary staff. I have reviewed and when necessary edited, so that they are an adequate record of my encounter with this patient Please note that parts of this document were created using voice recognition software and therefore may contain grammatical errors. Patient verbalizes understanding of instructions from today's visit and in agreement with treatmentplan. Questions answered. Agrees to call the office if questions, concerns of issues with acute symptoms not improving or if they worsen. See diagnoses and orders for additional plan(s). Allergies and medications were reviewed, list was updated, and refills given if needed. Past medical, surgical, social, and family history reviewed and updated as appropriate. Encouraged proper diet & exercise as well as compliance with taking medications. Age- appropriate health preventative measures were discussed. Return if symptoms worsen or fail to improve, for Keep next scheduled appointment.. Thanh Barajas APRN-MEMO documented in this encounterAultman Hospital04-29-2025 NoteHNO ID: [id number] Author: EMERALD TESFAYE RN Service: ? Author Type: Registered Nurse Type: Progress Notes Filed: 11/16/2024 10:18 Note Text: Value Based Care Coordination Chart Review Provider Action / FYI: Deferred, No CDM DX DONG 09/28/24 PCP 06/22/25 PCP Upon review of patient chart, the patient is excluded from Chronic Disease Management Patient is not a candidate for CDM at this time and placed in the following status: Deferred Action taken: No action needed . Emerald Tesfaye RN November 16, 2024 10:15 [facility]04-29-2025 History of Present illness Narrative* Emerald Tesfaye RN - 11/16/2024 10:15 AM EDT Value Based Care Coordination Chart Review Provider Action / FYI: Deferred, No CDM DX DONG 09/28/24 PCP 06/22/25 PCP Upon review of patient chart, the patient is excluded from Chronic Disease Management Patient is not a candidate for CDM at this time and placed in the following status: Deferred Action taken: No action needed . Emerald Tesfaye RN November 16, 2024 10:15 AM documented in this encounterAultman Hospital04-29-2025 NotePatient Outreach (AMBCMG) FRANCA NICHOLSON ([id number]) 1955 F Date Time Provider Department 11/16/24 EMERALD TESFAYE During your visit today, we recorded the following information about you: Emerald Tesfaye RN 11/16/2024 10:18 AM Signed Value Based Care Coordination Chart Review Provider Action / FYI: Deferred, No CDM DX DONG 09/28/24 PCP 06/22/25 PCP Upon review of patient chart, the patient is excluded from Chronic Disease Management Patient is not a candidate for CDM at this time and placed in the following status: Deferred Action taken: No action needed . Emerald Tesfaye RN November 16, 2024 10:15 AM Allergies As of Date: 11/16/2024 Noted Allergy Reaction AMOXICILLIN 03/26/2022 2 - Rash Comments: Red fine rash Date Reviewed: 11/05/2024 Reviewed by: Leigha Esposito LPN - Fully Assessed Reason for Visit: Care Coordination [3491] Prescriptions as of 11/16/2024 - levothyroxine (LEVOXYL) 50 mcg tablet Take 1.5 tablets by mouth once daily. Take on empty stomach. For Thyroid - sertraline (ZOLOFT) 50 mg tablet Take 1 tablet by mouth once daily. - benzonatate (TESSALON PERLE) 100 mg capsule Take 2 capsules by mouth three times a day as needed for cough. - meloxicam (MOBIC) 15 mg tablet Take 1 tablet by mouth once daily. - hydrOXYzine HCl (ATARAX) 25 mg tablet Take 1 tablet by mouth every 6 hours as needed for anxiety (or allergies). - fluticasone (FLONASE) 50 mcg/actuation nasal spray Use 2 Sprays in each nostril once daily. Rinse mouth after use. As directed - Cholecalciferol, Vitamin D3, (VITAMIN D) 25 mcg (1,000 unit) cap Take 1,000 Units by mouth once daily. Problem List As Of Date 11/16/2024 Noted Resolved Umbilical hernia [K42.9] 03/26/2022 Vitamin D deficiency [E55.9] 03/26/2022 Morbid obesity (HCC) [E66.01] 03/26/2022 Chronic pain of left knee [M25.562, G89.29] 03/26/2022 Obesity, Class III, BMI >= 40 [E66.813] 10/15/2022 Anxiety [F41.9] 10/15/2022 Hypothyroidism [E03.9] 10/15/2022 Impaired glucose regulation [R73.09] 10/15/2022 Special screening for malignant neoplasms, colo*05/14/2023 Depression, recurrent (HCC) [F33.9] 09/15/2023 Moderate recurrent major depression (HCC) [F33.*11/19/2023 Encounter Status:Closed by EMERALD TESFAYE on 11/16/24[facility]04-24-2025 Telephone encounter Note* Telephone Encounter - Lizeth Santana APRN.CNP - 11/11/2024 12:31 PM EDT Please let the pt know that her uterine lining is thicken and there are 2 small fibroids. She will need an EMB. Please schedule with SW,ok per my conversation w/ her. She will do the EMB and discuss options. Order filed. Lizeth Santana APRN.CNP [facility]04-24-2025 Miscellaneous Notes* Telephone Encounter - Lizeth Santana APRN.CNP - 11/11/2024 12:31 PM EDT Please let the pt know that her uterine lining is thicken and there are 2 small fibroids. She will need an EMB. Please schedule with SW,ok per my conversation w/ her. She will do the EMB and discuss options. Order filed. Lizeth Santana APRN.MEMO documented in this encounterAultman Hospital04-24-2025 NoteHNO ID: [id number] Author: DENISHA DOE MD Service: ? Author Type: Physician Type: Progress Notes Filed: 11/11/2024 08:35 Note Text: Franca Nicholson is a 69 year old female who presented for multimedia technician ultrasound today. Encounter Diagnosis ICD-10-CM 1. History of uterine fibroid Z86.018 2. Postmenopausal bleeding N95.0 3. Pelvic pain in female R10.2 Please see report under imaging tab. Denisha Doe MD November 11, 2024 8:32 [facility]04-18-2025 NoteHNO ID: [id number] Author: MAX, LIZETH, COMMERCIAL PAINTER.SECRETARY [employer] Service: ? Author Type: Nurse Practitioner Type: Progress Notes Filed: 11/05/2024 08:32 Note Text: Franca is a 69 year old who presents for with complaints, left lower quadrant intermittent pain .bright red spotting X 3 weeks. Pt states that she noticing the blood when wiping. This has happened in the past. She had a hysteroscopy and ablation in 2018. HX of multiple fibroids. OB History No obstetric history on file. FAMILY HISTORY Problem Relation Age of Onset Lung Cancer Mother 3 episodes; partial resection first time recurrence other lung treated with radiation; recurrence and placed on Hospice then improved and discharged; from COVID Hypertension Mother Diabetes Mother Type 2 Colon Cancer Father Prostate Cancer Father Leukemia Father Alzheimer's Disease Father Coronary Artery Disease Brother History SD SOCIAL HISTORY Social History Tobacco Use Smoking status: Never Smokeless tobacco: Never Vaping Use Vaping status: Never Used Substance Use Topics Alcohol use: Yes Comment: occasionally Drug use: Never REVIEW OF SYSTEMS Allergies and current medication updated:Yes SENSITIVE EXAM: The sensitive examination was discussed with the Patient or Patient's Authorized Cook Tortilla. As applicable, any other physician, advance practice provider, medical student, or other health professional student that will be observing or involved in the sensitive examination for educational or training purposes was discussed with the Patient or Authorized Cook Tortilla. The Patient or Authorized Cook Tortilla has agreed to proceed with the sensitive examination. (Sensitive examination includes inspection and/or palpation of the breasts, pelvis, prostate and anorectal regions). EXAM: BP 128/84 Ht 5' 2 (1.58m) Wt 279 lb (126.6kg) LMP 2014 BMI 51.02 kg/(m2). GENERAL: pleasant, female in no apparent distress HEENT: Normocephalic, atraumatic, mucus membranes moist, and no lesions CHEST: Normal inspiratory effort PELVIC: external genitalia normal, normal Bartholin's glands, urethra, Watchtower's glands, no vulvar lesions, physiologic discharge present, normal appearing perineal body and perianal region, *blind pap, unable to visualized cervix due to body habitus BIMANUAL: uterus normal size, shape and consistency, no adnexal masses, and non-tender RECTOVAGINAL: rectovaginal exam negative for any masses or nodularity. NEURO: alert and oriented x3,exam grossly non-focal EXTREMITIES: normal ASSESSMENT/PLAN: 1. Postmenopausal bleeding - ICD9: 627.1, ICD10: N95.0 (primary diagnosis) - PELVIC US WHI 2. History of uterine fibroid - ICD9: V13.29, ICD10: Z86.018 - PELVIC US WHI 3. Encounter for screening mammogram for breast cancer - ICD9: V76.12, ICD10: Z12.31 - MIKEY SCREENING W KEESHA 4. Encounter for screening for malignant neoplasm of cervix - ICD9: V76.2, ICD10: Z12.4 - PAP TEST 5. Pelvic pain in female - ICD9: 625.9, ICD10: R10.2 - PELVIC US WHI Will notify patient of test results. Lizeth Santana APRN.CNP Medical Decision Making: Problems: Moderate: New problem with uncertain prognosis Data: Unique test(s) ordered: 2 Risk: Low: Low risk from testing/treatment Medical Decision Making Level: 3 - Low[facility] History of Present illness Narrative* Lizeth Santana APRN.[employer]ARY [employer] - 11/05/2024 7:23 AM EDT Franca is a 69 year old who presents for with complaints, left lower quadrant intermittent pain .bright red spotting X 3 weeks. Pt states that she noticing the blood when wiping. This has happened in the past. She had a hysteroscopy and ablation in 2018. HX of multiple fibroids. OB History No obstetric history on file. FAMILY HISTORY Problem Relation Age of Onset Lung Cancer Mother 3 episodes; partial resection first time recurrence other lung treated with radiation; recurrence and placed on Hospice then improved and discharged; from COVID Hypertension Mother Diabetes Mother Type 2 Colon Cancer Father Prostate Cancer Father Leukemia Father Alzheimer's Disease Father Coronary Artery Disease Brother History SD SOCIAL HISTORY Social History Tobacco Use Smoking status: Never Smokeless tobacco: Never Vaping Use Vaping status: Never Used Substance Use Topics Alcohol use: Yes Comment: occasionally Drug use: Never REVIEW OF SYSTEMS Allergies and current medication updated:Yes SENSITIVE EXAM: The sensitive examination was discussed with the Patient or Patient's Authorized Cook Tortilla. As applicable, any other physician, advance practice provider, medical student, or other health professional student that will be observing or involved in the sensitive examination for educational or training purposes was discussed with the Patient or Authorized Cook Tortilla. The Patient or Authorized Cook Tortilla has agreed to proceed with the sensitive examination. (Sensitive examination includes inspection and/or palpation of the breasts, pelvis, prostate and anorectal regions). EXAM: BP 128/84 Ht 5' 2 (1.58m) Wt 279 lb (126.6kg) LMP 2014 BMI 51.02 kg/(m^2). GENERAL: pleasant, female in no apparent distress HEENT: Normocephalic, atraumatic, mucus membranes moist, and no lesions CHEST: Normal inspiratory effort PELVIC: external genitalia normal, normal Bartholin's glands, urethra, Watchtower's glands, no vulvar lesions, physiologic discharge present, normal appearing perineal body and perianal region, *blind pap, unable to visualized cervix due to body habitus BIMANUAL: uterus normal size, shape and consistency, no adnexal masses, and non-tender RECTOVAGINAL: rectovaginal exam negative for any masses or nodularity. NEURO: alert and oriented x3,exam grossly non-focal EXTREMITIES: normal ASSESSMENT/PLAN: 1. Postmenopausal bleeding - ICD9: 627.1, ICD10: N95.0 (primary diagnosis) - PELVIC US I 2. History of uterine fibroid - ICD9: V13.29, ICD10: Z86.018 - PELVIC US WHI 3. Encounter for screening mammogram for breast cancer - ICD9: V76.12, ICD10: Z12.31 - MIKEY SCREENING W KEESHA 4. Encounter for screening for malignant neoplasm of cervix - ICD9: V76.2, ICD10: Z12.4 - PAP TEST 5. Pelvic pain in female - ICD9: 625.9, ICD10: R10.2 - PELVIC US WHI Will notify patient of test results. Lizeth Santana APRN.CNP Medical Decision Making: Problems: Moderate: New problem with uncertain prognosis Data: Unique test(s) ordered: 2 Risk: Low: Low risk from testing/treatment Medical Decision Making Level: 3 - Low documented in this encounterA[facility]03-[facility]25 NoteHNO ID: [id number] Author: TYREE BRUNER MA Service: ? Author Type: Blank Driller Type: Progress Notes Filed: 10/12/2024 09:31 Note Text: POPULATION HEALTH NAVIGATION OUTREACH Action/October 12, 2024 HUMANA- HIGH RISK- ATTEMPT 2 Reason for Outreach Care Gap/HCC or Scheduling Wellness Visits Care Gaps due: Breast Cancer Screening Patient Contacted: Unable or unnecessary to reach patient: Left message MyChart message sent Navigation Signature: Tyree Bruner MA October 12, 2024 9:30 [facility]03-25-2025 History of Present illness Narrative* Tyree Bruner MA - 10/12/2024 9:28 AM EDT POPULATION HEALTH NAVIGATION OUTREACH Action/October 12, 2024 HUMANA- HIGH RISK- ATTEMPT 2 Reason for Outreach Care Gap/HCC or Scheduling Wellness Visits Care Gaps due: Breast Cancer Screening Patient Contacted: Unable or unnecessary to reach patient: Left message [employer] message sent Navigation Signature: Tyree Bruner MA October 12, 2024 9:30 AM documented in this encounterAultman Hospital03-25-2025 NotePatient Outreach (NETNAV) FRACNA NICHOLSON ([id number]) 1955 F Date Time Provider Department 10/12/24 TYREE BRUNER NETNAV During your visit today, we recorded the following information about you: Tyree Bruner MA 10/12/2024 9:31 AM Signed POPULATION HEALTH NAVIGATION OUTREACH Action/October 12, 2024 HUMANA- HIGH RISK- ATTEMPT 2 Reason for Outreach Care Gap/HCC or Scheduling Wellness Visits Care Gaps due: Breast Cancer Screening Patient Contacted: Unable or unnecessary to reach patient: Left message [employer] message sent Navigation Signature: Tyree Bruner MA October 12, 2024 9:30 AM Allergies As of Date: 10/12/2024 Noted Allergy Reaction AMOXICILLIN 03/26/2022 2 - Rash Comments: Red fine rash Date Reviewed: 09/28/2024 Reviewed by: Thanh Barajas APRN.[employer] - Fully Assessed Reason for Visit: Population Health Navigation Outreach [3910] Cmt: RONALD- HIGH RISK- ATTEMPT 2 Prescriptions as of 10/12/2024 - levothyroxine (LEVOXYL) 50 mcg tablet Take 1.5 tablets by mouth once daily. Take on empty stomach. For Thyroid - sertraline (ZOLOFT) 50 mg tablet Take 1 tablet by mouth once daily. - benzonatate (TESSALON PERLE) 100 mg capsule Take 2 capsules by mouth three times a day as needed for cough. - meloxicam (MOBIC) 15 mg tablet Take 1 tablet by mouth once daily. - hydrOXYzine HCl (ATARAX) 25 mg tablet Take 1 tablet by mouth every 6 hours as needed for anxiety (or allergies). - fluticasone (FLONASE) 50 mcg/actuation nasal spray Use 2 Sprays in each nostril once daily. Rinse mouth after use. As directed - Cholecalciferol, Vitamin D3, (VITAMIN D) 25 mcg (1,000 unit) cap Take 1,000 Units by mouth once daily. Problem List As Of Date 10/12/2024 Noted Resolved Umbilical hernia [K42.9] 03/26/2022 Vitamin D deficiency [E55.9] 03/26/2022 Morbid obesity (HCC) [E66.01] 03/26/2022 Chronic pain of left knee [M25.562, G89.29] 03/26/2022 Obesity, Class III, BMI >= 40 [E66.01] 10/15/2022 Anxiety [F41.9] 10/15/2022 Hypothyroidism [E03.9] 10/15/2022 Impaired glucose regulation [R73.09] 10/15/2022 Special screening for malignant neoplasms, colo*05/14/2023 Depression, recurrent (HCC) [F33.9] 09/15/2023 Moderate recurrent major depression (HCC) [F33.*11/19/2023 Encounter Status:Closed by TYREE BRNUER on 10/12/24[facility] 09-28-2024 NoteHNO ID: [id number] Author: THANH BARAJAS APRN.[facility] Service: ? Author Type: Nurse Practitioner Type: Progress Notes Filed: 09/28/2024 15:24 Note Text: SUBJECTIVE Franca Nicholson is a 69 year old female here today for acute concern. Chief Complaint Patient presents with: Cough: moist to try and productive at time with yellow sputum Symptoms on going for about 2 week congestion in chest ear pain off and on no energy HPI Franca Nicholson is a 69 year old female. She is an established patient of Kyra Carson MD. Here today for concerns of a cough. Onset was about 2 weeks ago. It has been constant. Cough is productive for some yellow sputum. She also has yellow nasal discharge and sinus pain. Has had some chills off and on but no fever that she knows of. Needs a refill on synthroid, last labs stable, doing well on this, no issues. Needs Zoloft refilled too, doing good on this, mood stable. Her medications were reviewed today and her list is now up to date. Medications Current Outpatient Medications Medication Sig meloxicam (MOBIC) 15 mg tablet Take 1 tablet by mouth once daily. hydrOXYzine HCl (ATARAX) 25 mg tablet Take 1 tablet by mouth every 6 hours as needed for anxiety (or allergies). fluticasone (FLONASE) 50 mcg/actuation nasal spray Use 2 Sprays in each nostril once daily. Rinse mouth after use. As directed Cholecalciferol, Vitamin D3, (VITAMIN D) 25 mcg (1,000 unit) cap Take 1,000 Units by mouth once daily. levothyroxine (LEVOXYL) 50 mcg tablet Take 1.5 tablets by mouth once daily. Take on empty stomach. For Thyroid sertraline (ZOLOFT) 50 mg tablet Take 1 tablet by mouth once daily. azithromycin (ZITHROMAX) 250 mg tablet Take 2 tablets by mouth once daily for 1 day, THEN 1 tablet once daily for 4 days. benzonatate (TESSALON PERLE) 100 mg capsule Take 2 capsules by mouth three times a day as needed for cough. No current facility-administered medications for this visit. 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 Negative for chest tightness. Cardiovascular: Negative. OBJECTIVE BP 132/80 Pulse 82 Temp (Src) 98.2 (Temporal) Wt 283 lb 4.7 oz (128.5kg) SpO2 94% Physical Exam Vitals and nursing note reviewed. Constitutional: General: She is awake. She is not in acute distress. Appearance: Normal appearance. She is well-developed and well-groomed. She is not ill-appearing, toxic-appearing or diaphoretic. HENT: Head: Normocephalic. Right Ear: External ear normal. Left Ear: External ear normal. Nose: Nose normal. Eyes: General: Vision grossly intact. Conjunctiva/sclera: Conjunctivae normal. Pupils: Pupils are equal, round, and reactive to light. Neck: Vascular: No JVD. Trachea: Trachea normal. Cardiovascular: Rate and Rhythm: Normal rate and regular rhythm. Pulses: Normal pulses. Heart sounds: Normal heart sounds. No murmur heard. Pulmonary: Effort: Pulmonary effort is normal. No accessory muscle usage, prolonged expiration or respiratory distress. Breath sounds: Normal breath sounds. Musculoskeletal: Cervical back: Neck supple. Skin: General: Skin is warm and dry. Capillary Refill: Capillary refill takes less than 2 seconds. Neurological: General: No focal deficit present. Mental Status: She is alert and oriented to person, place, and time. Mental status is at baseline. Psychiatric: Attention and Perception: Attention and perception normal. Mood and Affect: Mood and affect normal. Speech: Speech normal. Behavior: Behavior normal. Behavior is cooperative. Thought Content: Thought content normal. Cognition and Memory: Cognition and memory normal. Judgment: Judgment normal. ASSESSMENT/PLAN: 1. Sinobronchitis - ICD9: 473.9, 490, ICD10: J32.9, J40 (primary diagnosis) - Will begin treatment with as per antibiotic as written, see orders - The patient should also be given OTC cough and cold meds as needed, warm salt water gargles, throat lozenges and/or OTC throat spray as needed, and nasal saline gtts and suction prn for the first 5-7 days of treatment. - Supportive care with plenty of fluids, rest, and analgesia prn. - Follow up if symptoms persist or worsen. - [place] (more content not included)...[facility]03-11-2025 History of Present illness Narrative* Thanh Barajas APRN.[employer] - 09/28/2024 3:01 PM EDT SUBJECTIVE Franca Nicholson is a 69 year old female here today for acute concern. Chief Complaint Patient presents with: Cough: moist to try and productive at time with yellow sputum Symptoms on going for about 2 week congestion in chest ear pain off and on no energy HPI Franca Nicholson is a 69 year old female. She is an established patient of Kyra Carson MD. Here today for concerns of a cough. Onset was about 2 weeks ago. It has been constant. Cough is productivefor some yellow sputum. She also has yellow nasal discharge and sinus pain. Has had some chills offand on but no fever that she knows of. Needs a refill on synthroid, last labs stable, doing well on this, no issues. Needs Zoloft refilled too, doing good on this, mood stable. Her medications were reviewed today and her list is now up to date. Medications Current Outpatient Medications Medication Sig meloxicam (MOBIC) 15 mg tablet Take 1 tablet by mouth once daily. hydrOXYzine HCl (ATARAX) 25 mg tablet Take 1 tablet by mouth every 6 hours as needed for anxiety (or allergies). fluticasone (FLONASE) 50 mcg/actuation nasal spray Use 2 Sprays in each nostril once daily. Rinse mouth after use. As directed Cholecalciferol, Vitamin D3, (VITAMIN D) 25 mcg (1,000 unit) cap Take 1,000 Units by mouth once daily. levothyroxine (LEVOXYL) 50 mcg tablet Take 1.5 tablets by mouth once daily. Take on empty stomach. For Thyroid sertraline (ZOLOFT) 50 mg tablet Take 1 tablet by mouth once daily. azithromycin (ZITHROMAX) 250 mg tablet Take 2 tablets by mouth once daily for 1 day, THEN 1 tablet once daily for 4 days. benzonatate (TESSALON PERLE) 100 mg capsule Take 2 capsules by mouth three times a day as needed for cough. No current facility-administered medications for this visit. 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 Negative for chest tightness. Cardiovascular: Negative. OBJECTIVE BP 132/80 Pulse 82 Temp (Src) 98.2 (Temporal) Wt 283 lb 4.7 oz (128.5kg) SpO2 94% Physical Exam Vitals and nursing note reviewed. Constitutional: General: She is awake. She is not in acute distress. Appearance: Normal appearance. She is well-developed and well-groomed. She is not ill-appearing, toxic-appearing or diaphoretic. HENT: Head: Normocephalic. Right Ear: External ear normal. Left Ear: External ear normal. Nose: Nose normal. Eyes: General: Vision grossly intact. Conjunctiva/sclera: Conjunctivae normal. Pupils: Pupils are equal, round, and reactive to light. Neck: Vascular: No JVD. Trachea: Trachea normal. Cardiovascular: Rate and Rhythm: Normal rate and regular rhythm. Pulses: Normal pulses. Heart sounds: Normal heart sounds. No murmur heard. Pulmonary: Effort: Pulmonary effort is normal. No accessory muscle usage, prolonged expiration or respiratory distress. Breath sounds: Normal breath sounds. Musculoskeletal: Cervical back: Neck supple. Skin: General: Skin is warm and dry. Capillary Refill: Capillary refill takes less than 2 seconds. Neurological: General: No focal deficit present. Mental Status: She is alert and oriented to person, place, and time. Mental status is at baseline. Psychiatric: Attention and Perception: Attention and perception normal. Mood and Affect: Mood and affect normal. Speech: Speech normal. Behavior: Behavior normal. Behavior is cooperative. Thought Content: Thought content normal. Cognition and Memory: Cognition and memory normal. Judgment: Judgment normal. ASSESSMENT/PLAN: 1. Sinobronchitis - ICD9: 473.9, 490, ICD10: J32.9, J40 (primary diagnosis) - Will begin treatment with as per antibiotic as written, see orders - The patient should also be given OTC cough and cold meds as needed, warm salt water gargles, throat lozenges and/or OTC throat spray as needed, and nasal saline gtts and suction prn for the first 5-7 days of treatment. - Supportive care with plenty of fluids, rest, and analgesia prn. - Follow up if symptoms persist or worsen. - AZITHROMYCIN 250 MG TABLET - BENZONATATE 100 MG CAPSULE 2. Hypothyroidism, unspecified type - ICD9: 244.9, ICD10: E03.9 - Instructed patient on importance of taking on an empty stomach either first thing in the morning or at bedtime. - continue current dose of Synthroid - LEVOTHYROXINE 50 MCG TABLET 3. Moderate recurrent major depression (HCC) - ICD9: 296.32, ICD10: F33.1 Stable, continue on current medication dose. - SERTRALINE 50 MG TABLET 4. Anxiety - ICD9: 300.00, ICD10: F41.9 Stable, continue current medication. - SERTRALINE 50 MG TABLET Portions of this note have been entered by ancillary staff. I have reviewed and when necessary edited, so that they are an adequate record of my encounter with this patient Please note that parts of this document were created using voice recognition software and therefore may contain grammatical errors. Patient verbalizes understanding of instructions from today's visit and in agreement with treatmentplan. Questions answered. Agrees to call the office if questions, concerns of issues with acute symptoms not improving or if they worsen. See diagnoses and orders for additional plan(s). Allergies and medications were reviewed, list was updated, and refills given if needed. Past medical, surgical, social, and family history reviewed and updated as appropriate. Encouraged proper diet & exercise as well as compliance with taking medications. Age- appropriate health preventative measures were discussed. Return if symptoms worsen or fail to improve, for Keep next scheduled appointment.. LOWELL Howell documented in this encounterAultman Hospital02-19-2025 NoteHNO ID: [id number] Author: JEANETTE HUDSON MA Service: ? Author Type: Blank Driller Type: Progress Notes Filed: 09/08/2024 16:32 Note Text: POPULATION HEALTH NAVIGATION OUTREACH Action/I Last Wellness exam: n/a Last OV: 11. Next two Follow up appointments noted - 5.6.2024 and 12.3.2024 Mammogram due 9..2024 or after Reason for Outreach Care Gap/HCC or Scheduling Wellness Visits Care Gaps due: Medicare Annual Wellness Visit Breast Cancer Screening Patient Contacted: Unable or unnecessary to reach patient: Left message [employer] message sent Navigation Signature: Jeanette Tena MA September 08, 2024 4:20 [facility] History of Present illness Narrative* Jeanette Hudson MA - 09/08/2024 4:20 PM EST POPULATION HEALTH NAVIGATION OUTREACH Action/FYI Last Wellness exam: n/a Last OV: 11..2023 Next two Follow up appointments noted - 5.6.2024 and 12.3.2024 Mammogram due 9.18.2024 or after Reason for Outreach Care Gap/HCC or Scheduling Wellness Visits Care Gaps due: Medicare Annual Wellness Visit Breast Cancer Screening Patient Contacted: Unable or unnecessary to reach patient: Left message [employer] message sent Navigation Signature: Jeanette Tena MA September 08, 2024 4:20 PM documented in this encounterAultman Hospital02-19-2025 NotePatient Outreach (NETNAV) FRANCA NICHOLSON ([id number]) 1955 F Date Time Provider Department 09/08/24 JEANETTE HUDSON NETNAV During your visit today, we recorded the following information about you: Jeanette Hudson MA 09/08/2024 4:32 PM Signed POPULATION HEALTH NAVIGATION OUTREACH Action/ Last Wellness exam: n/a Last OV: 11 Next two Follow up appointments noted - 5.6.2024 and 12.3.2024 Mammogram due 9..2024 or after Reason for Outreach Care Gap/HCC or Scheduling Wellness Visits Care Gaps due: Medicare Annual Wellness Visit Breast Cancer Screening Patient Contacted: Unable or unnecessary to reach patient: Left message [employer] message sent Navigation Signature: Jeanette Tena MA September 08, 2024 4:20 PM Allergies As of Date: 09/08/2024 Noted Allergy Reaction AMOXICILLIN 03/26/2022 2 - Rash Comments: Red fine rash Date Reviewed: 05/25/2024 Reviewed by: Drea Beaver LPN - Fully Assessed Reason for Visit: Population Health Navigation Outreach [3910] Cmt: Ronald High Risk - Attempt 1 Prescriptions as of 09/08/2024 - meloxicam (MOBIC) 15 mg tablet Take 1 tablet by mouth once daily. - levothyroxine (LEVOXYL) 50 mcg tablet Take 1.5 tablets by mouth once daily. Take on empty stomach. For Thyroid - sertraline (ZOLOFT) 50 mg tablet Take 1 tablet by mouth once daily. - hydrOXYzine HCl (ATARAX) 25 mg tablet Take 1 tablet by mouth every 6 hours as needed for anxiety (or allergies). - fluticasone (FLONASE) 50 mcg/actuation nasal spray Use 2 Sprays in each nostril once daily. Rinse mouth after use. As directed - Cholecalciferol, Vitamin D3, (VITAMIN D) 25 mcg (1,000 unit) cap Take 1,000 Units by mouth once daily. Problem List As Of Date 09/08/2024 Noted Resolved Umbilical hernia [K42.9] 03/26/2022 Vitamin D deficiency [E55.9] 03/26/2022 Morbid obesity (HCC) [E66.01] 03/26/2022 Chronic pain of left knee [M25.562, G89.29] 03/26/2022 Obesity, Class III, BMI >= 40 [E66.01] 10/15/2022 Anxiety [F41.9] 10/15/2022 Hypothyroidism [E03.9] 10/15/2022 Impaired glucose regulation [R73.09] 10/15/2022 Special screening for malignant neoplasms, colo*05/14/2023 Depression, recurrent (HCC) [F33.9] 09/15/2023 Moderate recurrent major depression (HCC) [F33.*11/19/2023 Encounter Status:Closed by JEANETTE HUDSON on 09/08/24[facility]01-13-2025 Telephone encounter Note* Telephone Encounter - Shara Bedolla LPN - 08/02/2024 1:58 PM EST Prescription Refill Information The patient has been identified by name and date of : Yes Caregiver verified no other encounters exist for this prescription request: Yes Caregiver confirmed with patient/requestor that no other refills are due, in the near future, with this provider at this time: Yes The last office visit in the department: 05/25/24 Does the patient have a future office visit with this provider/department: Yes 11/23/24 Requested Prescriptions Pending Prescriptions Disp Refills meloxicam (MOBIC) 15 mg tablet 30 tablet 3 Sig: Take 1 tablet by mouth once daily. Shara Bedolla LPN August 02, 2024 1:59 PM [facility]01-13-[facility] Miscellaneous Notes* Telephone Encounter - Shara Bedolla LPN - 08/02/2024 1:58 PM EST Prescription Refill Information The patient has been identified by name and date of : Yes Caregiver verified no other encounters exist for this prescription request: Yes Caregiver confirmed with patient/requestor that no other refills are due, in the near future, with this provider at this time: Yes The last office visit in the department: 05/25/24 Does the patient have a future office visit with this provider/department: Yes 11/23/24 Requested Prescriptions Pending Prescriptions Disp Refills meloxicam (MOBIC) 15 mg tablet 30 tablet 3 Sig: Take 1 tablet by mouth once daily. Shara Bedolla LPN August 02, 2024 1:59 PM documented in this encounterAultman Hospital11-05-2024 Instructions* Patient Instructions* Kyra Carson MD - 05/25/2024 12:06 PM EST - Continue taking Meloxicam as prescribed. - Add Tylenol 1000 mg up to 3-4 times a day for additional pain relief. - Use Biofreeze or other topical treatments for shoulder pain. - Pay attention to body mechanics and posture; avoid activities that strain the shoulder. - Try different pillows to keep your spine aligned while sleeping. - Schedule an appointment with a emergency telecommunications dispatcher at [facility] for post-menopausal bleeding evaluation. - Complete fasting lab tests today, including CBC, metabolic panel, and cholesterol. - Practice deep breathing exercises daily to improve lung function and reduce chest heaviness. - Follow a low-carb diet for three days, focusing on protein and vegetables to reset carb cravings. - Monitor your weight and make gradual, sustainable changes to your diet and exercise routine. documented in this encounterAultman Hospital11-05-2024 NoteHNO ID: [id number] Author: KYRA CARSON MD Service: ? Author Type: Physician Type: Progress Notes Filed: 05/25/2024 20:04 Note Text: This note was created using NoteWriter. Subjective Franca Patient presents with: F/U 6 months SUBJECTIVE: Franca Nicholson is a 69 year old year old lady here today for 6 month follow up appointment for review of medical conditions. Franca Nicholson is a 69-year-old female with a history of fibroids, presenting for a 6-month follow-up visit. She reports persistent right arm pain, decreased hearing, episodes of chest heaviness, and postmenopausal bleeding. Franca reports persistent right arm pain that has been ongoing since her last visit in November. She describes the pain as originating in the deltoid area and radiating down the arm, resembling a sensation of swelling. The pain is not associated with tenderness upon palpation and is exacerbated by abduction movements. She notes that the pain is severe enough to wake her from sleep, despite sleeping on her left side. She is currently taking meloxicam, which has not provided relief. She denies any history of similar symptoms and has not tried other anti-inflammatory medications. She also reports decreased hearing over the past 6 months, particularly in her right ear, which she uses for phone calls. She denies any otalgia. Additionally, she experiences episodes of chest heaviness that occur randomly, both at rest and during activity. These episodes are alleviated by taking deep breaths and do not limit her activities. She denies any associated dyspnea, arm pain, or nausea during these episodes. Franca has a history of fibroids and underwent a DANDC approximately 10 years ago. She reports postmenopausal bleeding over the past year, with episodes occurring every 2-3 months. In the past 10 days, she has experienced two separate episodes of bleeding, each lasting 2 days. She also reports associated cramping. She does not have a current emergency telecommunications dispatcher. She is actively working on weight management and dietary changes, including reducing carbohydrate intake. She reports a stable weight but is aiming for further weight loss. She is aware of the importance of a balanced diet and is making efforts to incorporate more protein and vegetables into her meals. PAST MEDICAL HISTORY Diagnosis Date Chronic pain of left knee Generalized anxiety disorder Hypothyroidism Obesity Umbilical hernia Vitamin D deficiency Current Outpatient Medications Medication Sig meloxicam (MOBIC) 15 mg tablet Take 1 tablet by mouth once daily. levothyroxine (LEVOXYL) 50 mcg tablet Take 1.5 tablets by mouth once daily. Take on empty stomach. For Thyroid sertraline (ZOLOFT) 50 mg tablet Take 1 tablet by mouth once daily. hydrOXYzine HCl (ATARAX) 25 mg tablet Take 1 tablet by mouth every 6 hours as needed for anxiety (or allergies). fluticasone (FLONASE) 50 mcg/actuation nasal spray Use 2 Sprays in each nostril once daily. Rinse mouth after use. As directed Cholecalciferol, Vitamin D3, (VITAMIN D) 25 mcg (1,000 unit) cap Take 1,000 Units by mouth once daily. No current facility-administered medications for this visit. Review of Systems Objective BP 134/82 Pulse 74 Temp (!) 35.8 ?C (96.5 ?F) Resp 16 Wt 125 kg (275 lb 9.2 oz) LMP (LMP Unknown) SpO2 97% BMI 52.07 kg/m? Last 5 Encounter Wt Readings: Date: Wt: 05/25/2024 125 kg (275 lb 9.2 oz) 11/19/2023 125.6 kg (277 lb) 09/15/2023 124.7 kg (275 lb) 08/11/2023 125.1 kg (275 lb 11.2 oz) 04/28/2023 122.5 kg (270 lb) No waist measurement recorded Estimated body mass index is 52.07 kg/m? as calculated from the following: Height as of 04/28/23: 154.9 cm (5' 1). Weight as of this encounter: 125 kg (275 lb 9.2 oz). Last 5 Encounter BP Readings: Date: BP: 05/25/2024 134/82 11/19/2023 136/90 09/15/2023 128/78 08/11/2023 136/86 05/14/2023 126/78 Physical Exam Constitutional: Appearance: Normal appearance. She is obese. HENT: Head: Normocephalic. Eyes: Conjunctiva/sclera: Conjunctivae normal. Cardiovascular: Rate and Rhythm: Normal rate and regular rhythm. Heart sounds: Normal heart sounds. Pulmonary: Effort: Pulmonary effort is normal. Breath sounds: Normal breath sounds. Musculoskeletal: Right lower leg: No edema. Left lower leg: No edema. Skin: General: Skin is warm and dry. Neurological: General: No focal deficit present. Mental Status: She is alert and oriented to person, place, and time. Psychiatric: Attention and Perception: Attention and perception normal. Mood and Affect: Mood and affect normal. Speech: Speech normal. Behavior: Behavior normal. Thought Content: Thought content normal. Judgment: Judgment normal. Latest Ref Rng 05/09/2023 08/04/2023 09/10/2023 03/30/2024 Protein, Total 6.3 - 8.0 g/dL 6.9 Albumin 3.9 - 4.9 g/dL 4.1 Calcium 8.5 - 10.2 mg/dL 9.6 9.6 Bilirubin, Total 0.2 - 1.3 mg/dL 0.3 (more content not included)...[facility]11-05-2024 History of Present illness Narrative* Kyra Carson MD - 05/25/2024 10:00 AM EST This note was created using [employer]. Subjective Franca Patient presents with: F/U 6 months SUBJECTIVE: Franca Nicholson is a 69 year old year old lady here today for 6 month follow up appointment for review of medical conditions. Franca Nicholson is a 69-year-old female with a history of fibroids, presenting for a 6-month follow-up visit. She reports persistent right arm pain, decreased hearing, episodes of chest heaviness, and postmenopausal bleeding. Franca reports persistent right arm pain that has been ongoing since her last visit in November. She describes the pain as originating in the deltoid area and radiating down the arm, resembling a sensation of swelling. The pain is not associated with tenderness upon palpation andis exacerbated by abduction movements. She notes that the pain is severe enough to wake her from sleep, despite sleeping on her left side. She is currently taking meloxicam, which has not provided rel ief. She denies any history of similar symptoms and has not tried other anti- inflammatory medications. She also reports decreased hearing over the past 6 months, particularly in her right ear, which sheuses for phone calls. She denies any otalgia. Additionally, she experiences episodes of chest heaviness that occur randomly, both at rest and during activity. These episodes are alleviated by taking deep breaths and do not limit her activities. She denies any associated dyspnea, arm pain, or nausea during these episodes. Franca has a history of fibroids and underwent a D&C approximately 10 years ago. She reports postmenopausal bleeding over the past year, with episodes occurring every 2-3 months. In the past 10 days, she has experienced two separate episodes of bleeding, each lasting 2 days. She also reports associated cramping. She does not have a current emergency telecommunications dispatcher. She is actively working on weight management and dietary changes, including reducing carbohydrate intake. She reports a stable weight but is aiming for further weight loss. She is aware of the importance of a balanced diet and is making efforts to incorporate more protein and vegetables into her meals. PAST MEDICAL HISTORY Diagnosis Date Chronic pain of left knee Generalized anxiety disorder Hypothyroidism Obesity Umbilical hernia Vitamin D deficiency Current Outpatient Medications Medication Sig meloxicam (MOBIC) 15 mg tablet Take 1 tablet by mouth once daily. levothyroxine (LEVOXYL) 50 mcg tablet Take 1.5 tablets by mouth once daily. Take on empty stomach. For Thyroid sertraline (ZOLOFT) 50 mg tablet Take 1 tablet by mouth once daily. hydrOXYzine HCl (ATARAX) 25 mg tablet Take 1 tablet by mouth every 6 hours as needed for anxiety (or allergies). fluticasone (FLONASE) 50 mcg/actuation nasal spray Use 2 Sprays in each nostril once daily. Rinse mouth after use. As directed Cholecalciferol, Vitamin D3, (VITAMIN D) 25 mcg (1,000 unit) cap Take 1,000 Units by mouth once daily. No current facility-administered medications for this visit. Review of Systems Objective BP 134/82 Pulse 74 Temp (!) 35.8 C (96.5 F) Resp 16 Wt 125 kg (275 lb 9.2 oz) LMP (LMP Unknown) SpO2 97% BMI 52.07 kg/m Last 5 Encounter Wt Readings: Date: Wt: 05/25/2024 125 kg (275 lb 9.2 oz) 11/19/2023 125.6 kg (277 lb) 09/15/2023 124.7 kg (275 lb) 08/11/2023 125.1 kg (275 lb 11.2 oz) 04/28/2023 122.5 kg (270 lb) No waist measurement recorded Estimated body mass index is 52.07 kg/m as calculated from the following: Height as of 04/28/23: 154.9 cm (5' 1). Weight as of this encounter: 125 kg (275 lb 9.2 oz). Last 5 Encounter BP Readings: Date: BP: 05/25/2024 134/82 11/19/2023 136/90 09/15/2023 128/78 08/11/2023 136/86 05/14/2023 126/78 Physical Exam Constitutional: Appearance: Normal appearance. She is obese. HENT: Head: Normocephalic. Eyes: Conjunctiva/sclera: Conjunctivae normal. Cardiovascular: Rate and Rhythm: Normal rate and regular rhythm. Heart sounds: Normal heart sounds. Pulmonary: Effort: Pulmonary effort is normal. Breath sounds: Normal breath sounds. Musculoskeletal: Right lower leg: No edema. Left lower leg: No edema. Skin: General: Skin is warm and dry. Neurological: General: No focal deficit present. Mental Status: She is alert and oriented to person, place, and time. Psychiatric: Attention and Perception: Attention and perception normal. Mood and Affect: Mood and affect normal. Speech: Speech normal. Behavior: Behavior normal. Thought Content: Thought content normal. Judgment: Judgment normal. Latest Ref Rn 05/09/2023 08/04/2023 09/10/2023 03/30/2024 Protein, Total 6.3 - 8.0 g/dL 6.9 Albumin 3.9 - 4.9 g/dL 4.1 Calcium 8.5 - 10.2 mg/dL 9.6 9.6 Bilirubin, Total 0.2 - 1.3 mg/dL 0.3 Alkaline Phosphatase 34 - 123 U/L 58 AST 13 - 35 U/L 23 ALT 7 - 38 U/L 28 Glucose 74 - 99 mg/dL 101 (H) 101 (H) BUN 7 - 21 mg/dL 15 14 Creatinine 0.58 - 0.96 mg/dL 0.78 0.85 Sodium 136 - 144 mmol/L 138 140 Potassium 3.7 - 5.1 mmol/L 4.7 4.2 Chloride 97 - 105 mmol/L 103 103 CO2 22 - 30 mmol/L 25 26 Anion Gap 9 - 18 mmol/L 10 11 eGFR >=60 mL/min/1.73m 84 76 WBC 3.70 - 11.00 k/uL 5.59 RBC 3.90 - 5.20 m/uL 4.91 Hemoglobin 11.5 - 15.5 g/dL 14.9 Hematocrit 36.0 - 46.0 % 45.9 MCV 80.0 - 100.0 fL 93.5 MCH 26.0 - 34.0 pg 30.3 MCHC 30.5 - 36.0 g/dL 32.5 RDW-CV 11.5 - 15.0 % 12.3 Platelet Count 150 - 400 k/uL 260 MPV 9.0 - 12.7 fL 10.2 Absolute nRBC <0.01 k/uL <0.01 Cholesterol, Total <200 mg/dL 259 (H) Triglyceride <150 mg/dL 140 HDL Cholesterol >39 mg/dL 75 Non HDL Cholesterol <130 mg/dL 184 (H) Fasting Time hrs 12 VLDL Cholesterol <30 mg/dL 28 TC:HDL Ratio <5.10 3.45 LDL Cholesterol <100 mg/dL 156 (H) LDL:HDL Ratio <2.54 2.08 Hemoglobin A1C 4.3 - 5.6 % 5.8 (H) Estimated Average Glucose mg/dL 120 TSH 0.270 - 4.200 mIU/L 5.120 (H) 3.060 3.030 3.430 Free T4 0.9 - 1.7 ng/dL 1.2 1.4 1.3 1.2 Free T3 2.3 - 4.1 pg/mL 2.9 2.8 2.5 2.4 Vitamin D 25 Hydroxy 31.0 - 80.0 ng/mL 25.5 (L) Legend: (H) High (L) Low Assessment and Plan # Acquired hypothyroidism (E03.9) - Stable on current management. - Recent TSH level in March was 3.43 mIU/L; T4 and T3 levels were within normal limits. - Continue current thyroid medication regimen. # Postmenopausal bleeding (N95.0) # History of uterine fibroid (Z86.018) - Experiencing intermittent spotting and cramping for the past year, with recent episodes in the last 10 days. - History of uterine fibroids and endometrial ablation. - Referred to [facility] for [facility]. - Ordered CBC to assess for anemia due to ongoing bleeding. # Hypercholesteremia (E78.00) - Previous cholesterol levels were stable. - Ordered fasting lipid panel to reassess cholesterol levels. - Discussed dietary modifications to reduce carbohydrate intake and increase protein and vegetable consumption. # Morbid obesity (HCC) (E66.01) - Weight has gradually increased by 20 lbs over several years. - Discussed dietary changes, including a three-day carbohydrate fast to reset cravings. - Encouraged regular physical activity, such as stretching, carmenza chi, and yoga. - Emphasized the importance of making sustainable lifestyle changes. # Vitamin D deficiency (E55.9) - Continue current vitamin D supplementation. # Deltoid tendinitis of right shoulder (M77.8) # Right arm pain (M79.601) - Pain localized to the deltoid muscle with tenderness at the insertion point. - Suspected deltoid tendinitis; differential includes bursitis and nerve impingement. - Continue meloxicam; add Tylenol 1000 mg up to four times daily as needed. - Recommended topical analgesics such as Biofreeze. - Advised on ergonomic adjustments and body mechanics to reduce strain. - Consider physical therapy if symptoms persist. # Decreased hearing, right (H91.91) - Noted decreased hearing in the right ear. - No pain reported. - Cerumen impaction observed on otoscopic examination. - Scheduled for ear irrigation to remove cerumen. # Chest heaviness (R07.89) - Intermittent sensation of heaviness in the chest, relieved by deep breathing. - Discussed the importance of regular deep breathing exercises to expand lung capacity. - Educated on recognizing signs of cardiac issues, such as persistent chest pressure, shortness of breath, and radiating pain. - Advised to seek immediate medical attention if symptoms worsen or become persistent. # Encounter for immunization (Z23) - Administered influenza vaccine. # Encounter for long-term current use of medication (Z79.899) Kyra Carson MD [facility]* Letter - Coordinator, Mammography - 04/08/2024 3:46 PM EDT April 08, 2024 PID: [id number] Franca Nicholson [address] [place] [address] Dear Ms. Nicholson, We are pleased to inform you that the results of your recent breast imaging exam on 04/07/2024 are normal. However, because you and/or your physician described a possible abnormality you should consult your physician or other health care provider for further evaluation if necessary. Breast tissue can be either dense or not dense. Dense tissue makes it harder to find breast cancer on a mammogram and also raises the risk of developing breast cancer. Your breast tissue is not dense. Talk to your healthcare provider about breast density, risks for breast cancer, and your individual situation. Early detection of cancer is very important. We also understand recommendations regarding breast cancer screening are controversial. Please discuss with your primary care provider which strategy is best for you and whether a mammogram is right for you. Your imaging studies and report will be kept on [facility] as part of your permanent medical record and are available for your continuing care. Thank you for allowing us to help in meeting your health care needs. Sincerely, Dr. Izaguirre Interpreting Radiologist [facility] (Normal-Clinical Evaluation) [facility]09-19-[facility]24 Miscellaneous Notes* Letter - Coordinator, Mammography - 04/08/2024 3:46 PM EDT April 08, 2024 PID: [id number] Franca Nicholson [address] [place] [address] Dear Ms. Nicholson, We are pleased to inform you that the results of your recent breast imaging exam on 04/07/2024 are normal. However, because you and/or your physician described a possible abnormality you should consult your physician or other health care provider for further evaluation if necessary. Breast tissue can be either dense or not dense. Dense tissue makes it harder to find breast cancer on a mammogram and also raises the risk of developing breast cancer. Your breast tissue is not dense. Talk to your healthcare provider about breast density, risks for breast cancer, and your individual situation. Early detection of cancer is very important. We also understand recommendations regarding breast cancer screening are controversial. Please discuss with your primary care provider which strategy is best for you and whether a mammogram is right for you. Your imaging studies and report will be [facility] as part of your permanent medical record and are available for your continuing care. Thank you for allowing us to help in meeting your health care needs. Sincerely, Dr. Izaguirre Interpreting Radiologist [facility] (Normal-Clinical Evaluation) documented in this encounterA[facility]09-[facility] History of Present illness Narrative* Donna Berger Mammo Tech - 04/07/2024 9:10 AM EDT Radiology Service Progress Note PATIENT NAME: Franca Nicholson DATE OF SERVICE: April 07, 2024 TIME: 9:27 AM PATIENT IDENTITY VERIFICATION COMPLETED USING TWO (2) IDENTIFIERS: Name and Date of confirmedby patient verbally. FALL SCREENING: Has the patient had 2 falls in the last year or 1 fall with injury or currently using an Ambulatory Assistive Device (Walker, Cane, Wheelchair, Crutches, etc.)? No PATIENT GENDER DATA: Female. status: : No status: NO. PATIENT RELEVANT IMPLANT DATA REVIEWED: Not Applicable PATIENT PRESENTS WITH AN IMPLANTABLE OR ATTACHED FLOUR INSPECTOR: No RADIOLOGY DEPARTMENT: Mammography PERIPHERAL IV DATA: Not applicable SIGNED BY: Aric Hair April 07, 2024 9:27 AM documented in this encounterA[facility]09-18-2024 NoteHNO ID: [id number] Author: DONNA BERGER Mammo Tech Service: ? Author Type: Technologist Type: Progress Notes Filed: 04/07/2024 09:28 Note Text: Radiology Service Progress Note PATIENT NAME: Franca Nicholson DATE OF SERVICE: April 07, 2024 TIME: 9:27 AM PATIENT IDENTITY VERIFICATION COMPLETED USING TWO (2) IDENTIFIERS: Name and Date of confirmed by patient verbally. FALL SCREENING: Has the patient had 2 falls in the last year or 1 fall with injury or currently using an Ambulatory Assistive Device (Walker, Cane, Wheelchair, Crutches, etc.)? No PATIENT GENDER DATA: Female. status: : No status: NO. PATIENT RELEVANT IMPLANT DATA REVIEWED: Not Applicable PATIENT PRESENTS WITH AN IMPLANTABLE OR ATTACHED FLOUR INSPECTOR: No RADIOLOGY DEPARTMENT: Mammography PERIPHERAL IV DATA: Not applicable SIGNED BY: Aric Hair April 07, 2024 9:27 [facility]09-17-2024 Telephone encounter Note* Telephone Encounter - Shivani Mccoy RN - 04/06/2024 9:31 AM EDT The patient has been identified by name and date of : Yes Caregiver verified no other encounters exist for this prescription request: Yes Caregiver confirmed with patient/requestor that no other refills are due, in the near future, with this provider at this time: Yes The last office visit in the department: 11/19/2023 Does the patient have a future office visit with this provider/department: Yes 05/25/2024 Requested Prescriptions Pending Prescriptions Disp Refills meloxicam (MOBIC) 15 mg tablet 30 tablet 3 Sig: Take 1 tablet by mouth once daily. levothyroxine (LEVOXYL) 50 mcg tablet 45 tablet 5 Sig: Take 1.5 tablets by mouth once daily. Take on empty stomach. For Thyroid sertraline (ZOLOFT) 50 mg tablet 90 tablet 1 Sig: Take 1 tablet by mouth once daily. Shivani Mccoy RN April 06, 2024 9:33 AM [facility]09-17-2024 Miscellaneous Notes* Telephone Encounter - Shivani Mccoy RN - 04/06/2024 9:31 AM EDT The patient has been identified by name and date of : Yes Caregiver verified no other encounters exist for this prescription request: Yes Caregiver confirmed with patient/requestor that no other refills are due, in the near future, with this provider at this time: Yes The last office visit in the department: 11/19/2023 Does the patient have a future office visit with this provider/department: Yes 05/25/2024 Requested Prescriptions Pending Prescriptions Disp Refills meloxicam (MOBIC) 15 mg tablet 30 tablet 3 Sig: Take 1 tablet by mouth once daily. levothyroxine (LEVOXYL) 50 mcg tablet 45 tablet 5 Sig: Take 1.5 tablets by mouth once daily. Take on empty stomach. For Thyroid sertraline (ZOLOFT) 50 mg tablet 90 tablet 1 Sig: Take 1 tablet by mouth once daily. Shivani Mccoy RN April 06, 2024 9:33 AM documented in this encounterA[facility]05-[facility] History of Present illness Narrative* Thanh Barajas APRN.[employer]ARY [employer] - 11/19/2023 9:09 AM EDT Images from the original note were not included. SUBJECTIVE Franca Nicholson is a 68 year old female here today for a check up on her medical problems. Chief Complaint Patient presents with: Follow Up HPI Franca Nicholson is a 68 year old female. She is an established patient of Kyra Carson MD. She ishere today for a recheck on mood. Mood is doing okay, overall stable and much improved from previously. Still sad about her grandson's , coming up on the anniversary of the . She is compliant with her medications. Thyroid seems to be well controlled. At times some right arm pain. No recent injury that she knows of . Played softball for many years. Sore to the middle of the arm. No shoulder issues. Tylenol on occasion for this. Her medications were reviewed today and her list is now up to date. Medications Current Outpatient Medications Medication Sig fluticasone (FLONASE) 50 mcg/actuation nasal spray Use 2 Sprays in each nostril once daily. Rinse mouth after use. As directed levothyroxine (LEVOXYL) 50 mcg tablet Take 1.5 tablets by mouth once daily. Take on empty stomach. For Thyroid meloxicam (MOBIC) 15 mg tablet Take 1 tablet by mouth once daily. Cholecalciferol, Vitamin D3, (VITAMIN D) 25 mcg (1,000 unit) cap Take 1,000 Units by mouth once daily. sertraline (ZOLOFT) 50 mg tablet Take 1 tablet by mouth once daily. hydrOXYzine HCl (ATARAX) 25 mg tablet Take 1 tablet by mouth every 6 hours as needed for anxiety (or allergies). No current facility-administered medications for this visit. ALLERGIES Allergen Reactions Amoxicillin Rash Red fine rash ACTIVE PROBLEM LIST Moderate Recurrent Major Depression (Hcc) - 11/19/2023 Depression, Recurrent (Hcc) - 09/15/2023 Special Screening for Malignant Neoplasms, Colon - 05/14/2023 Obesity, Class III, BMI >= 40 - 10/15/2022 Anxiety - 10/15/2022 Hypothyroidism - 10/15/2022 Impaired Glucose Regulation - 10/15/2022 Umbilical Hernia - 03/26/2022 Vitamin D Deficiency - 03/26/2022 Morbid Obesity (Hcc) - 03/26/2022 Chronic Pain of Left Knee - 03/26/2022 Social History Tobacco Use Smoking status: Never Smokeless tobacco: Never Vaping Use Vaping Use: Never used Substance Use Topics Alcohol use: Yes Comment: occasionally Drug use: Never Review of Systems Respiratory: Negative. Cardiovascular: Negative. OBJECTIVE BP 136/90 Pulse 76 Wt 277 lb (125.6kg) SpO2 94% Physical Exam Vitals and nursing note reviewed. Constitutional: General: She is awake. She is not in acute distress. Appearance: Normal appearance. She is well-developed and well-groomed. She is not ill-appearing, toxic-appearing or diaphoretic. HENT: Head: Normocephalic. Right Ear: External ear normal. Left Ear: External ear normal. Nose: Nose normal. Eyes: General: Vision grossly intact. Conjunctiva/sclera: Conjunctivae normal. Pupils: Pupils are equal, round, and reactive to light. Neck: Vascular: No JVD. Trachea: Trachea normal. Cardiovascular: Rate and Rhythm: Normal rate and regular rhythm. Pulses: Normal pulses. Heart sounds: Normal heart sounds. No murmur heard. Pulmonary: Effort: Pulmonary effort is normal. No accessory muscle usage, prolonged expiration or respiratory distress. Breath sounds: Normal breath sounds. Musculoskeletal: Arms: Cervical back: Neck supple. Comments: Pain localized to the bicep tendon insertion site Skin: General: Skin is warm and dry. Capillary Refill: Capillary refill takes less than 2 seconds. Neurological: General: No focal deficit present. Mental Status: She is alert and oriented to person, place, and time. Mental status is at baseline. Psychiatric: Attention and Perception: Attention and perception normal. Mood and Affect: Mood and affect normal. Speech: Speech normal. Behavior: Behavior normal. Behavior is cooperative. Thought Content: Thought content normal. Cognition and Memory: Cognition and memory normal. Judgment: Judgment normal. ASSESSMENT/PLAN: 1. Moderate recurrent major depression (HCC) - ICD9: 296.32, ICD10: F33.1 (primary diagnosis) Continue current medications, overall stable. - SERTRALINE 50 MG TABLET - HYDROXYZINE HCL 25 MG TABLET 2. Anxiety - ICD9: 300.00, ICD10: F41.9 - SERTRALINE 50 MG TABLET - HYDROXYZINE HCL 25 MG TABLET 3. Biceps tendonitis on right - ICD9: 726.12, ICD10: M75.21 Discussed ice, topical treatments to try, could consider PT if persistent. 4. Hypothyroidism, unspecified type - ICD9: 244.9, ICD10: E03.9 - Instructed patient on importance of taking on an empty stomach either first thing in the morning or at bedtime. Portions of this note have been entered by ancillary staff. I have reviewed and when necessary edited, so that they are an adequate record of my encounter with this patient Please note that parts of this document were created using voice recognition software and therefore may contain grammatical errors. Patient verbalizes understanding of instructions from today's visit and in agreement with treatmentplan. Questions answered. Agrees to call the office if questions, concerns of issues with acute symptoms not improving or if they worsen. See diagnoses and orders for additional plan(s). Allergies and medications were reviewed, list was updated, and refills given if needed. Past medical, surgical, social, and family history reviewed and updated as appropriate. Encouraged proper diet & exercise as well as compliance with taking medications. Age- appropriate health preventative measures were discussed. Return in about 6 months (around 05/21/2024) for Follow up on chronic conditions and medications.. Thanh Barajas APRN-SECRETARY BOARD OF COMMISSIONERS documented in this encounterAult[facility]04-24-[facility]24 Telephone encounter Note * Telephone Encounter - Nancy Wallace LPN - 11/12/2023 9:57 AM EDT TC to Patient, Sertraline (Zoloft) 50mg was written 09/15/2023 for 90 tablets, 1 refill. Patient will call Mathieu/Herman for refill,. Next appt w/Thanh Barajas [employer]ER, 11/19/2023. Nancy Wallace LPN [facility]04-24-[facility]24 Miscellaneous Notes* Telephone Encounter - Nancy Wallace LPN - 11/12/2023 9:57 AM EDT TC to Patient, Sertraline (Zoloft) 50mg was written 09/15/2023 for 90 tablets, 1 refill. Patient will call Mathieu/[facility] for refill,. Next appt w/Thanh Barajas [employer]ER, 11/19/2023. Nancy Wallace LPN documented in this encounterAultman [facility]04-16-2024 Miscellaneous Notes* Telephone Encounter - Nancy Wallace LPN - 11/04/2023 11:51 AM EDT Patient has been identified by name and date of : Yes Patient phones for refill(s): Requested Prescriptions Pending Prescriptions Disp Refills fluticasone (FLONASE) 50 mcg/actuation nasal spray 1 Each 2 Sig: Use 2 Sprays in each nostril once daily. Rinse mouth after use. As directed hydrOXYzine HCl (ATARAX) 25 mg tablet 30 tablet 1 Sig: Take 1 tablet by mouth every 6 hours as needed for anxiety (or allergies). Date of last office visit in primary care: 09/15/2023 Date of next office visit in primary care: 11/02/2023 Please advise. Thank you. Nancy Wallace LPN. documented in this encounterA[facility]04-16-2024 Miscellaneous Notes* Telephone Encounter - Nancy Wlalace LPN - 11/04/2023 11:50 AM EDT Patient has been identified by name and date of : Yes Patient phones for refill(s): Requested Prescriptions Pending Prescriptions Disp Refills levothyroxine (LEVOXYL) 50 mcg tablet 45 tablet 5 Sig: Take 1.5 tablets by mouth once daily. Take on empty stomach. For Thyroid Date of last office visit in primary care: 09/15/2023 Date of next office visit in primary care: 11/19/2023 Please advise. Thank you. Nancy Wallace LPN. documented in this encounterAultman Hospital03-15-2024 History of Present illness Narrative* Dar Fowler PA - 10/03/2023 2:19 PM EDT 68-year-old female presents for dizziness. Patient states dizziness started 2 days ago. It is worsewith change of position. She does state that when she got up today she felt very off balance. She states that she had dizziness like this 1 other time about 1 year ago. She states she had a workup atthat time which was negative. She was given meclizine and Zofran which helped. Patient states she has been taking meclizine, but is still dizzy. She is walking holding onto the wall due to feeling off balance and dizzy. No appointments at her PCP office available today. At this time, due to feelingoff balance and dizziness despite taking her meclizine, recommended evaluation in the emergency room. Her significant other will take her now. documented in this encounterA[facility]02-05-2024 Miscellaneous Notes* Telephone Encounter - SABI Mandel Kim E - 08/25/2023 12:17 PM EST Patient has been identified by name and date of : No Patient phones for refill(s): Requested Prescriptions Pending Prescriptions Disp Refills hydrOXYzine HCl (ATARAX) 25 mg tablet 30 tablet 1 Sig: Take 1 tablet by mouth every 6 hours as needed for anxiety (or allergies). Date of last office visit in primary care: 08/11/2023 Date of next office visit in primary care: 09/15/2023 Please advise. Thank you. Tia Mandel LPN. documented in this encounterAultman Hospital12-11-2023 Miscellaneous Notes* Telephone Encounter - Irais Teresa OCCA - 06/30/2023 8:30 AM EST Patient has been identified by name and date of : Yes Patient phones for refill(s): Requested Prescriptions Pending Prescriptions Disp Refills hydrOXYzine HCl (ATARAX) 25 mg tablet 30 tablet 1 Sig: Take 1 tablet by mouth every 6 hours as needed for anxiety (or allergies). Date of last office visit in primary care: 04/09/2023 Date of next office visit in primary care: 08/11/2023 Last 2 Encounter Wt Readings: Date: Wt: 04/28/2023 122.5 kg (270 lb) 04/09/2023 121.1 kg (267 lb) Please advise. Thank you. SPEEDY Stephenson. documented in this encounterAultman Hospital10-25-2023 History and physical note * Rajinder Zaldivar MD - 05/14/2023 8:00 AM EDT Images from the original note were not included. Franca Nicholson is a 68 year old female. HISTORY Franca Nicholson is a 68 year old lad here for yearly follow up appointment. Anxiety and depression symptoms noted. concerned. Grandson Carlos 18 born [birth year]04[birth year] 12/06 Got to spend time with him.Supportive family. Gets bad days. Episode of vertigo a couple days after baby was born but got better after 3 days. Treated at urgentcare. See assessment and plan for other issues addressed. PAST MEDICAL HISTORY PAST MEDICAL HISTORY Diagnosis Date Umbilical hernia CURRENT MEDICATIONS Current Outpatient Medications Medication Sig meloxicam (MOBIC) 15 mg tablet Take 1 tablet by mouth once daily. hydrOXYzine HCl (ATARAX) 25 mg tablet Take 1 tablet by mouth every 6 hours as needed for anxiety (or allergies). levothyroxine (SYNTHROID) 25 mcg tablet Take 1 tablet by mouth once daily. Take on empty stomach. For thyroid. Cholecalciferol, Vitamin D3, (VITAMIN D) 25 mcg (1,000 unit) cap Take 1,000 Units by mouth once daily. cyclobenzaprine (FLEXERIL) 10 mg tablet Take 1 tablet by mouth three times daily as needed for muscle spasm. cetirizine (ZYRTEC) 10 mg tablet Take 10 mg by mouth once daily. fluticasone (FLONASE) 50 mcg/actuation nasal spray Use 2 Sprays in each nostril once daily. Rinse mouth after use. As directed No current facility-administered medications for this visit. ALLERGIES ALLERGIES Allergen Reactions Amoxicillin Rash Red fine rash FAMILY HISTORY FAMILY HISTORY Problem Relation Age of Onset Lung Cancer Mother 3 episodes; partial resection first time recurrence other lung treated with radiation; recurrence and placed on Hospice then improved and discharged; from COVID Hypertension Mother Diabetes Mother Type 2 Colon Cancer Father Prostate Cancer Father Leukemia Father Alzheimer's Disease Father Coronary Artery Disease Brother History [place] SOCIAL HISTORY Social History Tobacco Use Smoking status: Never Smokeless tobacco: Never Vaping Use Vaping Use: Never used Substance Use Topics Alcohol use: Yes Comment: occasionally Drug use: Never Review of Systems Objective BP 126/90 Pulse 78 Resp 16 Wt 121.1 kg (267 lb) LMP (LMP Unknown) SpO2 98% BMI 48.83 kg/m Last 5 Encounter Wt Readings: Date: Wt: 04/09/2023 121.1 kg (267 lb) 10/15/2022 122.5 kg (270 lb) 09/18/2022 122 kg (269 lb) 09/10/2022 122.9 kg (271 lb) 03/26/2022 116.1 kg (256 lb) No waist measurement recorded Estimated body mass index is 48.83 kg/m as calculated from the following: Height as of 03/26/22: 157.5 cm (5' 2). Weight as of this encounter: 121.1 kg (267 lb). Last 5 Encounter BP Readings: Date: BP: 04/09/2023 126/90 10/15/2022 126/80 09/18/2022 128/82 09/10/2022 136/84 03/26/2022 122/82 Physical Exam Constitutional: Appearance: Normal appearance. HENT: Head: Normocephalic. Eyes: Conjunctiva/sclera: Conjunctivae normal. Cardiovascular: Rate and Rhythm: Normal rate and regular rhythm. Heart sounds: Normal heart sounds. Pulmonary: Effort: Pulmonary effort is normal. Breath sounds: Normal breath sounds. Skin: General: Skin is warm and dry. Neurological: General: No focal deficit present. Mental Status: She is alert and oriented to person, place, and time. Psychiatric: Mood and Affect: Mood normal. Behavior: Behavior normal. Thought Content: Thought content normal. Judgment: Judgment normal. Component Latest Ref Rng & Units 04/05/2022 05/08/2022 09/10/2022 03/21/2023 Protein, Total 6.3 - 8.0 g/dL 7.2 6.8 Albumin 3.9 - 4.9 g/dL 4.2 4.1 Calcium 8.5 - 10.2 mg/dL 10.4 (H) 10.0 9.2 Bilirubin, Total 0.2 - 1.3 mg/dL 0.4 0.3 Alkaline Phosphatase 34 - 123 U/L 61 60 AST 13 - 35 U/L 23 26 ALT 7 - 38 U/L 24 32 Glucose 74 - 99 mg/dL 103 (H) 100 (H) 107 (H) BUN 7 - 21 mg/dL 13 17 12 Creatinine 0.58 - 0.96 mg/dL 0.82 0.82 0.80 Sodium 136 - 144 mmol/L 139 141 140 Potassium 3.7 - 5.1 mmol/L 5.5 (H) 5.7 (H) 4.8 Chloride 97 - 105 mmol/L 103 103 103 CO2 22 - 30 mmol/L 28 29 27 Anion Gap 9 - 18 mmol/L 8 (L) 9 10 eGFR >=60 mL/min/1.73m 79 79 82 WBC 3.70 - 11.00 k/uL 5.05 5.02 RBC 3.90 - 5.20 m/uL 5.02 4.90 Hemoglobin 11.5 - 15.5 g/dL 15.6 (H) 15.0 Hematocrit 36.0 - 46.0 % 48.2 (H) 45.5 MCV 80.0 - 100.0 fL 96.0 92.9 MCH 26.0 - 34.0 pg 31.1 30.6 MCHC 30.5 - 36.0 g/dL 32.4 33.0 RDW-CV 11.5 - 15.0 % 12.3 12.4 Platelet Count 150 - 400 k/uL 293 282 MPV 9.0 - 12.7 fL 10.4 10.0 Absolute nRBC <0.01 k/uL <0.01 <0.01 Cholesterol, Total <200 mg/dL 272 (H) Triglyceride <150 mg/dL 133 HDL Cholesterol >39 mg/dL 71 Non HDL Cholesterol <130 mg/dL 201 (H) Fasting Time hrs 12 VLDL Cholesterol <30 mg/dL 27 TC:HDL Ratio <5.10 3.83 LDL Cholesterol <100 mg/dL 174 (H) LDL:HDL Ratio <2.54 2.45 Hemoglobin A1C 4.3 - 5.6 % 5.9 (H) Estimated Average Glucose mg/dL 123 Vitamin D 25 Hydroxy 31.0 - 80.0 ng/mL 32.7 31.2 PTH, Intact 15 - 65 pg/mL 58 TSH 0.270 - 4.200 mIU/L 6.520 (H) 5.830 (H) Free T4 0.9 - 1.7 ng/dL 1.0 1.0 Free T3 2.3 - 4.1 pg/mL 3.1 T3 79 - 165 ng/dL 110 Assessment and Plan Encounter Diagnosis ICD-10-CM 1. Hypothyroidism, unspecified type E03.9 levothyroxine (LEVOXYL) 50 mcg tablet TSH BLD T4 FREE/FREE THYROX T3 FREE BLD TSH BLD T4 FREE/FREE THYROX T3 FREE BLD 2. 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 3. Vitamin D deficiency E55.9 VITAMIN D 25 HYDROXY 4. Vertigo R42 Noted episode after grandson was born; betterr after 3 days as noted in HPI. Monitor for recurrences and treat accordingly. 5. Impaired glucose regulation R73.09 COMP METABOLIC PANEL HGB A1C 6. Hypercholesteremia E78.00 CBC 7. Morbid obesity (HCC) E66.01 Weight up 10 pounds from baseline and plateaued. Work on focusing on healthier diet and staying active as able--portion control and better choices. 8. Encounter for long-term current use of medication Z79.899 BASIC METABOLIC PNL COMP METABOLIC PANEL LIPID PANEL BASIC CBC HGB A1C VITAMIN D 25 HYDROXY TSH BLD T4 FREE/FREE THYROX T3 FREE BLD Patient here for yearly exam and follow up. Above issues addressed with patient. Patient involved in shared decision making for management of medical issues. History and medications reviewed. Epic updated as needed Refills taken care of and meds adjusted as indicated after reviewed history, exam and labs. Health Maintenance reviewed. Updated record and/or ordered tests as recorded. Encouraged on efforts at healthy diet and regular exercise and adequate sleep. Needs to keep working on diet and exercise with lifestyle changes for effective weight loss as well as prevention of DM,and control of BP and lipids. Noted stressful time with reactive depression and anxiety. Emotional support given. Hold off on meds for now. Will let me know if we need to pursue further evaluation and treatment. Adjust meds for thyroid as needed, Atarax for allergies could be tried for anxiety. Kyra Carson MD UPDATED HISTORY AND PHYSICAL EXAMINATION SERVICE DATE: 05/14/2023 SERVICE TIME: 7:49 AM PHYSICAL EXAM MUST BE COMPLETED ON ADMISSION The History and Physical (completed in the past 30 days) has been reviewed and the patient has beenexamined. The contents accurately reflect the patient's condition with the following additions or revisions since the H&P was completed. Examination indicates no changes. This H&P can be found in the attached. SIGNATURE: Rajinder Zaldivar III, MD PATIENT NAME: Franca Nicholson DATE: May 14, 2023 TIME: 7:34 AM documented in this encounterAult[facility] Hospital10-17-2023 Miscellaneous Notes* Telephone Encounter - Hortencia Santos LPN - 05/06/2023 10:36 AM EDT Patient has been identified by name and date of : Yes, Provider Dr. Carson Date 05/06/23 Time 10:36 am Patient phones for refill(s): Requested Prescriptions Pending Prescriptions Disp Refills fluticasone (FLONASE) 50 mcg/actuation nasal spray 1 Each 2 Sig: Use 2 Sprays in each nostril once daily. Rinse mouth after use. As directed Date of last office visit in primary care: 04/09/2023 Date of next office visit in primary care: 08/11/2023 Last 2 Encounter Wt Readings: Date: Wt: 04/28/2023 122.5 kg (270 lb) 04/09/2023 121.1 kg (267 lb) Previous labs/tests for medication: Not applicable Thank you. Hortencia Santos LPN. documented in this encounterA[facility]10-09-2023 Miscellaneous Notes* Telephone Encounter - Nancy Wallace LPN - 04/28/2023 11:05 AM EDT Patient has been identified by name and date of : Yes, Patient phones for refill(s): Requested Prescriptions Pending Prescriptions Disp Refills hydrOXYzine HCl (ATARAX) 25 mg tablet 30 tablet 1 Sig: Take 1 tablet by mouth every 6 hours as needed for anxiety (or allergies). Date of last office visit in primary care: 04/09/2023 Appt: 08/11/2023 Last 2 Encounter Wt Readings: Date: Wt: 04/28/2023 122.5 kg (270 lb) 04/09/2023 121.1 kg (267 lb) Previous labs/tests for medication: Not applicable Please advise. Thank you. Nancy Wallace LPN documented in this encounterAultman Hospital09-20-2023 History of Present illness Narrative* Kyra Carson MD - 04/09/2023 9:06 AM EDT This note was created using NoteWriter. Subjective Franca Nicholson is a 68 year old female. HISTORY Franca Nicholson is a 68 year old lad here for yearly follow up appointment. Anxiety and depression symptoms noted. concerned. Grandson Carlos 18 born [birth year]04[birth year] 12/06 Got to spend time with him.Supportive family. Gets bad days. Episode of vertigo a couple days after baby was born but got better after 3 days. Treated at [facility]. See assessment and plan for other issues addressed. PAST MEDICAL HISTORY Diagnosis Date Umbilical hernia Current Outpatient Medications Medication Sig meloxicam (MOBIC) 15 mg tablet Take 1 tablet by mouth once daily. hydrOXYzine HCl (ATARAX) 25 mg tablet Take 1 tablet by mouth every 6 hours as needed for anxiety (or allergies). levothyroxine (SYNTHROID) 25 mcg tablet Take 1 tablet by mouth once daily. Take on empty stomach. For thyroid. Cholecalciferol, Vitamin D3, (VITAMIN D) 25 mcg (1,000 unit) cap Take 1,000 Units by mouth once daily. cyclobenzaprine (FLEXERIL) 10 mg tablet Take 1 tablet by mouth three times daily as needed for muscle spasm. cetirizine (ZYRTEC) 10 mg tablet Take 10 mg by mouth once daily. fluticasone (FLONASE) 50 mcg/actuation nasal spray Use 2 Sprays in each nostril once daily. Rinse mouth after use. As directed No current facility-administered medications for this visit. ALLERGIES Allergen Reactions Amoxicillin Rash Red fine rash FAMILY HISTORY Problem Relation Age of Onset Lung Cancer Mother 3 episodes; partial resection first time recurrence other lung treated with radiation; recurrence and placed on Hospice then improved and discharged; from COVID Hypertension Mother Diabetes Mother Type 2 Colon Cancer Father Prostate Cancer Father Leukemia Father Alzheimer's Disease Father Coronary Artery Disease Brother History SD Social History Tobacco Use Smoking status: Never Smokeless tobacco: Never Vaping Use Vaping Use: Never used Substance Use Topics Alcohol use: Yes Comment: occasionally Drug use: Never Review of Systems Objective BP 126/90 Pulse 78 Resp 16 Wt 121.1 kg (267 lb) LMP (LMP Unknown) SpO2 98% BMI 48.83 kg/m Last 5 Encounter Wt Readings: Date: Wt: 04/09/2023 121.1 kg (267 lb) 10/15/2022 122.5 kg (270 lb) 09/18/2022 122 kg (269 lb) 09/10/2022 122.9 kg (271 lb) 03/26/2022 116.1 kg (256 lb) No waist measurement recorded Estimated body mass index is 48.83 kg/m as calculated from the following: Height as of 03/26/22: 157.5 cm (5' 2). Weight as of this encounter: 121.1 kg (267 lb). Last 5 Encounter BP Readings: Date: BP: 04/09/2023 126/90 10/15/2022 126/80 09/18/2022 128/82 09/10/2022 136/84 03/26/2022 122/82 Physical Exam Constitutional: Appearance: Normal appearance. HENT: Head: Normocephalic. Eyes: Conjunctiva/sclera: Conjunctivae normal. Cardiovascular: Rate and Rhythm: Normal rate and regular rhythm. Heart sounds: Normal heart sounds. Pulmonary: Effort: Pulmonary effort is normal. Breath sounds: Normal breath sounds. Skin: General: Skin is warm and dry. Neurological: General: No focal deficit present. Mental Status: She is alert and oriented to person, place, and time. Psychiatric: Mood and Affect: Mood normal. Behavior: Behavior normal. Thought Content: Thought content normal. Judgment: Judgment normal. Component Latest Ref Rng & Units 04/05/2022 05/08/2022 09/10/2022 03/21/2023 Protein, Total 6.3 - 8.0 g/dL 7.2 6.8 Albumin 3.9 - 4.9 g/dL 4.2 4.1 Calcium 8.5 - 10.2 mg/dL 10.4 (H) 10.0 9.2 Bilirubin, Total 0.2 - 1.3 mg/dL 0.4 0.3 Alkaline Phosphatase 34 - 123 U/L 61 60 AST 13 - 35 U/L 23 26 ALT 7 - 38 U/L 24 32 Glucose 74 - 99 mg/dL 103 (H) 100 (H) 107 (H) BUN 7 - 21 mg/dL 13 17 12 Creatinine 0.58 - 0.96 mg/dL 0.82 0.82 0.80 Sodium 136 - 144 mmol/L 139 141 140 Potassium 3.7 - 5.1 mmol/L 5.5 (H) 5.7 (H) 4.8 Chloride 97 - 105 mmol/L 103 103 103 CO2 22 - 30 mmol/L 28 29 27 Anion Gap 9 - 18 mmol/L 8 (L) 9 10 eGFR >=60 mL/min/1.73m 79 79 82 WBC 3.70 - 11.00 k/uL 5.05 5.02 RBC 3.90 - 5.20 m/uL 5.02 4.90 Hemoglobin 11.5 - 15.5 g/dL 15.6 (H) 15.0 Hematocrit 36.0 - 46.0 % 48.2 (H) 45.5 MCV 80.0 - 100.0 fL 96.0 92.9 MCH 26.0 - 34.0 pg 31.1 30.6 MCHC 30.5 - 36.0 g/dL 32.4 33.0 RDW-CV 11.5 - 15.0 % 12.3 12.4 Platelet Count 150 - 400 k/uL 293 282 MPV 9.0 - 12.7 fL 10.4 10.0 Absolute nRBC <0.01 k/uL <0.01 <0.01 Cholesterol, Total <200 mg/dL 272 (H) Triglyceride <150 mg/dL 133 HDL Cholesterol >39 mg/dL 71 Non HDL Cholesterol <130 mg/dL 201 (H) Fasting Time hrs 12 VLDL Cholesterol <30 mg/dL 27 TC:HDL Ratio <5.10 3.83 LDL Cholesterol <100 mg/dL 174 (H) LDL:HDL Ratio <2.54 2.45 Hemoglobin A1C 4.3 - 5.6 % 5.9 (H) Estimated Average Glucose mg/dL 123 Vitamin D 25 Hydroxy 31.0 - 80.0 ng/mL 32.7 31.2 PTH, Intact 15 - 65 pg/mL 58 TSH 0.270 - 4.200 mIU/L 6.520 (H) 5.830 (H) Free T4 0.9 - 1.7 ng/dL 1.0 1.0 Free T3 2.3 - 4.1 pg/mL 3.1 T3 79 - 165 ng/dL 110 Assessment and Plan Encounter Diagnosis ICD-10-CM 1. Hypothyroidism, unspecified type E03.9 levothyroxine (LEVOXYL) 50 mcg tablet TSH BLD T4 FREE/FREE THYROX T3 FREE BLD TSH BLD T4 FREE/FREE THYROX T3 FREE BLD 2. 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 3. Vitamin D deficiency E55.9 VITAMIN D 25 HYDROXY 4. Vertigo R42 Noted episode after grandson was born; betterr after 3 days as noted in HPI. Monitor for recurrences and treat accordingly. 5. Impaired glucose regulation R73.09 COMP METABOLIC PANEL HGB A1C 6. Hypercholesteremia E78.00 CBC 7. Morbid obesity (HCC) E66.01 Weight up 10 pounds from baseline and plateaued. Work on focusing on healthier diet and staying active as able--portion control and better choices. 8. Encounter for long-term current use of medication Z79.899 BASIC METABOLIC PNL COMP METABOLIC PANEL LIPID PANEL BASIC CBC HGB A1C VITAMIN D 25 HYDROXY TSH BLD T4 FREE/FREE THYROX T3 FREE BLD Patient here for yearly exam and follow up. Above issues addressed with patient. Patient involved in shared decision making for management of medical issues. History and medications reviewed. Epic updated as needed Refills taken care of and meds adjusted as indicated after reviewed history, exam and labs. Health Maintenance reviewed. Updated record and/or ordered tests as recorded. Encouraged on efforts at healthy diet and regular exercise and adequate sleep. Needs to keep working on diet and exercise with lifestyle changes for effective weight loss as well as prevention of DM,and control of BP and lipids. Noted stressful time with reactive depression and anxiety. Emotional support given. Hold off on meds for now. Will let me know if we need to pursue further evaluation and treatment. Adjust meds for thyroid as needed, Atarax for allergies could be tried for anxiety. Kyra Carson MD documented in this encounterAultman [facility]09-11-2023 History of Present illness Narrative* Mat Vance MD - 03/31/2023 10:50 AM EDT Mat Vance MD Department of Orthopaedics Orthopaedics [address] [facility] [address] Dept: [phone] Dept Mar 31, 2023 CHIEF COMPLAINT: Established Patient of the Left Knee (1 year post visit OA Let Knee/Xray done 03/31/2023) HPI Patient presents with: Left Knee - Established Patient: 1 year post visit OA Let Knee Xray done 03/31/2023 Patient states her left knee is feeling much better. Denies any pain. ASSESSMENT: M25.562, G89.29 Chronic pain of left knee (primary encounter diagnosis) M17.12 Primary osteoarthritis of left knee PLAN: She is doing very well all considering. She is just checking in. She will follow-up as needed. Ms. Franca Nicholson was advised as to contrast therapies and/or to take analgesics/anti-inflammatories as needed and all contraindications were reviewed. OBJECTIVE: Ms. Franca Nicholson is a pleasant 68 year old in no apparent distress. Gen:There were no vitals taken for this visit. nl development, morbidly obese , no deformities ENT: Normocephalic, normal hearing, moist mucosa CV: Pulses:DP/PT= 2+ and symmetric, capillary refill < 2 secs, no peripheral edema/varicosities Skin: no rash, bruising or lesions. Good turgor. Psych: cooperative and appropriate, alert and oriented x 3, good mood and affect. Musculoskeletal: Walking with only mild antalgia to the left. Mild clinical varus. Mild medial joint line tenderness. No significant swelling or effusion. Imaging: IMPRESSION: Mild medial compartment osteoarthritis. Property Adjuster: FELIBERTO Transcribe Date/Time: Apr 02 2023 8:58P Dictated by : CRISS OLIVIA MD This examination was interpreted and the report reviewed and electronically signed by: CRISS OLIVIA MD on Apr 02 2023 8:59PM EST Results-Findings * * *Final Report* * * DATE OF EXAM: Mar 31 2023 10:16AM WRX [id number] - XR KNEE 4V AP/PA BOTH+LAT/CHELE LT / PROCEDURE REASON: Left knee pain, unspecified chronicity * * * * Physician Interpretation * * * * EXAMINATION / TECHNIQUE: XR KNEE 4V AP/PA BOTH+LAT/CHELE LT HISTORY: PT STATES ANNUAL FOLLOW UP LEFT KNEE Left knee pain, unspecified chronicity COMPARISON: 04/08/2022. RESULT: Mild left knee medial compartment osteoarthritis. No acute fracture or malalignment. No joint effusion. Supporting Subjective Information Below: Past Surgical History: PAST SURGICAL HISTORY Procedure Laterality Date SECTION MULTI>2 3 C-sections HYSTEROSCOPY, DIAGNOSTIC (SEPARATE 2014, 2017 for fibroids and bleeding LIGATE FALLOPIAN TUBE 1990 PAST SURGICAL HISTORY OF Right 1982 Ganglion cyst excision, wrist TONSILLECTOMY & ADENOIDECTOMY <AGE [age] years old Medications: Current Outpatient Medications Medication Sig hydrOXYzine HCl (ATARAX) 25 mg tablet Take 1 tablet by mouth every 6 hours as needed for anxiety (or allergies). Cholecalciferol, Vitamin D3, (VITAMIN D) 25 mcg (1,000 unit) cap Take 1,000 Units by mouth once daily. cyclobenzaprine (FLEXERIL) 10 mg tablet Take 1 tablet by mouth three times daily as needed for muscle spasm. fluticasone (FLONASE) 50 mcg/actuation nasal spray Use 2 Sprays in each nostril once daily. Rinse mouth after use. As directed levothyroxine (LEVOXYL) 50 mcg tablet Take 1 tablet by mouth once daily. Take on empty stomach. ForThyroid meloxicam (MOBIC) 15 mg tablet Take 1 tablet by mouth once daily. No current facility-administered medications for this visit. Allergies: Amoxicillin ROS: General (negative for fatigue, malaise, weight loss/gain) HEENT (negative for headache, earache, recent vision changes, sinus pain, sore throat) Respiratory (no recent shortness of breath, hemoptysis) CV (negative for chest tightness, palpitations) Musculoskeletal (see HPI) Psych (no depression, anxiety) Mat Vance MD documented in this encounterAultman Hospital09-11-2023 History of Present illness Narrative* Tiffani Edge RT(R) - 03/31/2023 9:20 AM EDT Radiology Service Progress Note PATIENT NAME: Franca Nicholson DATE OF SERVICE: March 31, 2023 TIME: 3:12 PM PATIENT IDENTITY VERIFICATION COMPLETED USING TWO (2) IDENTIFIERS: Name and Date of confirmedby patient verbally. FALL SCREENING: Has the patient had 2 falls in the last year or 1 fall with injury or currently using an Ambulatory Assistive Device (Walker, Cane, Wheelchair, Crutches, etc.)? No PATIENT GENDER DATA: Female. status: : No status: NO. PATIENT RELEVANT IMPLANT DATA REVIEWED: Not Applicable RADIOLOGY DEPARTMENT: General X-ray: Exam(s) Completed: Lower Extremity X- Ray(s): Knee, AP / Lat / Tunne / Merchant Left and Wt. Bearing PERIPHERAL IV DATA: Not applicable SIGNED BY: RT Elvis(R) March 31, 2023 3:12 PM documented in this encounterAultman Hospital08-09-2023 Miscellaneous Notes* Telephone Encounter - Kyra Carson MD - 02/26/2023 1:58 AM EDT Okayed * Telephone Encounter - Nancy Wallace LPN - 02/25/2023 10:45 AM EDT Patient has been identified by name and date of : Yes, Patient phones for refill(s): Requested Prescriptions Pending Prescriptions Disp Refills hydrOXYzine HCl (ATARAX) 25 mg tablet 30 tablet 1 Sig: Take 1 tablet by mouth every 6 hours as needed for anxiety (or allergies). Date of last office visit in primary care: 11/26/2022 Yearly: 04/09/2023 Last 2 Encounter Wt Readings: Date: Wt: 10/15/2022 122.5 kg (270 lb) 09/18/2022 122 kg (269 lb) Previous labs/tests for medication: Not applicable Please advise. Thank you. Nancy Wallace LPN documented in this encounterAultman Hospital06-28-2023 Miscellaneous Notes* Telephone Encounter - Hortencia Santos LPN - 01/15/2023 7:53 AM EDT Sent [employer] message asking pt to stop in and get lab work done and schedule a follow up apt. Patient has been identified by name and date of : Yes, Provider Dr. Carson Date 01/15/23 Time7:57 am Patient phones for refill(s): Requested Prescriptions Pending Prescriptions Disp Refills levothyroxine (SYNTHROID) 25 mcg tablet 30 tablet 2 Sig: Take 1 tablet by mouth once daily. Take on empty stomach. For thyroid. Date of last office visit in primary care: 10/15/22 Last 2 Encounter Wt Readings: Date: Wt: 10/15/2022 122.5 kg (270 lb) 09/18/2022 122 kg (269 lb) Previous labs/tests for medication: Thyroid: TSH (mIU/L) Date Value 09/10/2022 6.520 Please advise. Thank you. Hortencia Santos LPN documented in this encounterAultman Hospital05-09-2023 History of Present illness Narrative* Thanh Barajas APRN.SECRETARY BOARD OF COMMISSIONERS - 11/26/2022 3:11 PM EDT VIRTUAL VISIT PROGRESS NOTE This is an encounter initiated for an established patient, parent or guardian not originating from a related Evaluation & Management service provided within the previous 7 days nor leading to an Evaluation & Management service or procedure within the next 24 hours or soonest available appointment. This is a virtual visit. It required patient-provider interaction for the medical decision making as documented below. Patient has consented to this encounter. Persons Present: patient Data Reviewed: most recent notes in chart Patient has consented to patient-provider interaction via telephone/virtual visit for the medical decision making documented in this telephone/virtual visit encounter. Total Time Spent: 20 minutes I have communicated my name and active licensure. The patient's identity and physical location wereverified at the time of this visit. Either the patient or their legal graphic art sales representative has been informed of the risks and benefits of -- and alternatives to -- treatment through a remote evaluation andconsents to proceed with the evaluation remotely. SUBJECTIVE Franca Nicholson is a 67 year old female here today for a check up on her medical problems. Chief Complaint Patient presents with: Anxiety JIM Schulte presents today for a follow up visit via virtual visit with my chart on the [employer] platform. Follow up on anxiety. At last visit we discussed concerns of increased stress/anxiety with her daughter's upcoming delivery of baby with health concerns. Her daughter had the baby on 11/05, at home on hospice. We had also started her on synthroid. She was not able to do the blood work before leaving because of plans changing unexpectedly. Overall she is feeling well. Taking hydroxyzine 1 or 2 a day. Her medications were reviewed today and her list is now up to date. Medications Current Outpatient Medications Medication Sig hydrOXYzine HCl (ATARAX) 25 mg tablet Take 1 tablet by mouth every 6 hours as needed for anxiety (or allergies). meloxicam (MOBIC) 15 mg tablet Take 1 tablet by mouth once daily. Cholecalciferol, Vitamin D3, (VITAMIN D) 25 mcg (1,000 unit) cap Take 1,000 Units by mouth once daily. levothyroxine (SYNTHROID) 25 mcg tablet Take 1 tablet by mouth once daily. Take on empty stomach. For thyroid. cyclobenzaprine (FLEXERIL) 10 mg tablet Take 1 tablet by mouth three times daily as needed for muscle spasm. cetirizine (ZYRTEC) 10 mg tablet Take 10 mg by mouth once daily. fluticasone (FLONASE) 50 mcg/actuation nasal spray Use 2 Sprays in each nostril once daily. Rinse mouth after use. As directed No current facility-administered medications for this visit. ALLERGIES Allergen Reactions Amoxicillin Rash Red fine rash ACTIVE PROBLEM LIST Obesity, Class III, BMI >= 40 - 10/15/2022 Anxiety - 10/15/2022 Hypothyroidism - 10/15/2022 Impaired Glucose Regulation - 10/15/2022 Umbilical Hernia - 03/26/2022 Vitamin D Deficiency - 03/26/2022 Morbid Obesity (Hcc) - 03/26/2022 Chronic Pain of Left Knee - 03/26/2022 Social History Tobacco Use Smoking status: Never Smokeless tobacco: Never Vaping Use Vaping Use: Never used Substance Use Topics Alcohol use: Yes Comment: occasionally Drug use: Never Review of Systems Psychiatric/Behavioral: The patient is nervous/anxious. OBJECTIVE There were no vitals taken for this visit. Physical Exam Constitutional: General: She is awake. Comments: During the virtual visit she is alert, oriented, breathing is quiet and not labored, speaks in full sentences, no apparent distress. Neurological: Mental Status: She is alert. Psychiatric: Behavior: Behavior is cooperative. ASSESSMENT/PLAN: 1. Anxiety - ICD9: 300.00, ICD10: F41.9 (primary diagnosis) Stable, hydroxyzine as needed. 2. Hypothyroidism, unspecified type - ICD9: 244.9, ICD10: E03.9 - Instructed patient on importance of taking on an empty stomach either first thing in the morning or at bedtime. Check labs when home. Patient verbalizes understanding of instructions from today's visit and in agreement with treatmentplan. Questions answered. Agrees to call the office if symptoms do not improve or if they worsen. Return if symptoms worsen or fail to improve, for Keep next scheduled appointment.. Patient has consented to patient-provider interaction via telephone/virtual visit for the medical decision making documented in this telephone/virtual visit encounter. Total Time Spent: 20 minutes documented in this encounterAultman Hospital05-08-2023 Miscellaneous Notes* Telephone Encounter - Shara Bedolla LPN - 11/25/2022 12:26 PM EDT Last office visit: 10/15/22 Next appointment scheduled: 11/26/22 Last labs: 09/10/22 Patient phones requesting refills as follows: Requested Prescriptions Pending Prescriptions Disp Refills hydrOXYzine HCl (ATARAX) 25 mg tablet 30 tablet 1 Sig: Take 1 tablet by mouth every 6 hours as needed for anxiety (or allergies). Please review and advise. Shara Bedolla LPN documented in this encounterAultman Hospital04-04-2023 Miscellaneous Notes* Telephone Encounter - Nancy Wallace LPN - 10/22/2022 8:50 AM EDT Patient has been identified by name and date of : Yes, Patient phones for refill(s): Requested Prescriptions Pending Prescriptions Disp Refills hydrOXYzine HCl (ATARAX) 25 mg tablet 30 tablet 1 Sig: Take 1 tablet by mouth every 6 hours as needed for anxiety (or allergies). Date of last office visit in primary care: 10/15/2022 VV: 11/26/2022 Last 2 Encounter Wt Readings: Date: Wt: 10/15/2022 122.5 kg (270 lb) 09/18/2022 122 kg (269 lb) Previous labs/tests for medication: Not applicable Please advise. Thank you. Nancy Wallace LPN documented in this encounterAultman Hospital04-03-2023 Miscellaneous Notes* Telephone Encounter - Halley Dinh MA - 10/21/2022 7:59 AM EDT Last OV 04/08/2022 Next OV none scheduled meloxicam (MOBIC) 15 mg tablet [Lena Leone] Patient Comment: Leaving for [place] on 10/28 for 3 weeks. Will run out in 10 days. Patient electronically sent a request for the following prescription(s) Requested Prescriptions Pending Prescriptions Disp Refills meloxicam (MOBIC) 15 mg tablet 30 tablet 0 Sig: Take 1 tablet by mouth once daily. Patient aware RX will be sent to pharmacy. No need to notify patient. Please review. Halley Dinh MA documented in this encounterAultman Hospital03-28-2023 History of Present illness Narrative* Thanh Barajas APRN.SECRETARY BOARD [employer] COMMISSIONERS - 10/15/2022 9:22 AM EDT SUBJECTIVE Franca Nicholson is a 67 year old female here today for a check up on her medical problems. Chief Complaint Patient presents with: Recheck HPI Franca Nicholson is a 67 year old female established patient of Dr. Carson who presents today for a 4-6 week follow up. She was seen 09/10/[address] Carson for concerns of anxiety. She had labs checked and was started on hydroxyzine. Trouble sleeping, not sleeping any better, worries at times.Feels like not as edgy. Has taken the hydroxyzine once per day. Still some anxiety, a lot of life stress still with her husbands back pain and issues there and also stress with her daughter who is and baby has trisomy 18. Labs showed a slight elevating in glucose, also elevated TSH. On synthroid in the past. Hypothyroid with menopause. Her medications were reviewed today and her list is now up to date. Medications Current Outpatient Medications Medication Sig Cholecalciferol, Vitamin D3, (VITAMIN D) 25 mcg (1,000 unit) cap Take 1,000 Units by mouth once daily. meloxicam (MOBIC) 15 mg tablet Take 1 tablet by mouth once daily. cyclobenzaprine (FLEXERIL) 10 mg tablet Take 1 tablet by mouth three times daily as needed for muscle spasm. cetirizine (ZYRTEC) 10 mg tablet Take 10 mg by mouth once daily. fluticasone (FLONASE) 50 mcg/actuation nasal spray Use 2 Sprays in each nostril once daily. Rinse mouth after use. As directed hydrOXYzine HCl (ATARAX) 25 mg tablet Take 1 tablet by mouth every 6 hours as needed for anxiety (or allergies). levothyroxine (SYNTHROID) 25 mcg tablet Take 1 tablet by mouth once daily. Take on empty stomach. For thyroid. No current facility-administered medications for this visit. ALLERGIES Allergen Reactions Amoxicillin Rash Red fine rash ACTIVE PROBLEM LIST Obesity, Class III, BMI >= 40 - 10/15/2022 Anxiety - 10/15/2022 Hypothyroidism - 10/15/2022 Impaired Glucose Regulation - 10/15/2022 Umbilical Hernia - 03/26/2022 Vitamin D Deficiency - 03/26/2022 Morbid Obesity (Hcc) - 03/26/2022 Chronic Pain of Left Knee - 03/26/2022 Social History Tobacco Use Smoking status: Never Smokeless tobacco: Never Vaping Use Vaping Use: Never used Substance Use Topics Alcohol use: Yes Comment: occasionally Drug use: Never Review of Systems Respiratory: Negative. Cardiovascular: Negative. Psychiatric/Behavioral: Positive for dysphoric mood and sleep disturbance. Negative for self-injuryand suicidal ideas. The patient is nervous/anxious. OBJECTIVE BP 126/80 Pulse 85 Wt 270 lb (122.5kg) SpO2 97% Physical Exam Vitals and nursing note reviewed. Constitutional: General: She is awake. She is not in acute distress. Appearance: Normal appearance. She is well-developed and well-groomed. She is not ill-appearing, toxic-appearing or diaphoretic. HENT: Head: Normocephalic. Right Ear: External ear normal. Left Ear: External ear normal. Nose: Nose normal. Eyes: General: Vision grossly intact. Conjunctiva/sclera: Conjunctivae normal. Pupils: Pupils are equal, round, and reactive to light. Neck: Vascular: No JVD. Trachea: Trachea normal. Cardiovascular: Rate and Rhythm: Normal rate and regular rhythm. Pulses: Normal pulses. Heart sounds: Normal heart sounds. No murmur heard. Pulmonary: Effort: Pulmonary effort is normal. No accessory muscle usage, prolonged expiration or respiratory distress. Breath sounds: Normal breath sounds. Musculoskeletal: Cervical back: Neck supple. Skin: General: Skin is warm and dry. Capillary Refill: Capillary refill takes less than 2 seconds. Neurological: General: No focal deficit present. Mental Status: She is alert and oriented to person, place, and time. Mental status is at baseline. Psychiatric: Attention and Perception: Attention and perception normal. Mood and Affect: Mood and affect normal. Speech: Speech normal. Behavior: Behavior normal. Behavior is cooperative. Thought Content: Thought content normal. Cognition and Memory: Cognition and memory normal. Judgment: Judgment normal. ASSESSMENT/PLAN: 1. Anxiety - ICD9: 300.00, ICD10: F41.9 (primary diagnosis) Stable. Discussed to trial an increase in hydroxyzine to taking this twice daily with 1 of the doses at bedtime to help with sleep. 2. Hypothyroidism, unspecified type - ICD9: 244.9, ICD10: E03.9 Reviewed prior T3, T4 and TSH with patient. - Instructed patient on importance of taking on an empty stomach either first thing in the morning or at bedtime. - check TSH, free T4, and Free T3 in 6 weeks - TSH BLD - T3 FREE BLD - T4 FREE/FREE THYROX - LEVOTHYROXINE 25 MCG TABLET 3. Impaired glucose regulation - ICD9: 790.29, ICD10: R73.09 Reviewed recent CMP, check hgba1c next labs. - HGB A1C 4. Obesity, Class III, BMI >= 40 - ICD9: 278.01, ICD10: E66.01 Portions of this note have been entered by ancillary staff. I have reviewed and when necessary edited, so that they are an adequate record of my encounter with this patient Please note that parts of this document were created using voice recognition software and therefore may contain grammatical errors. Patient verbalizes understanding of instructions from today's visit and in agreement with treatmentplan. Questions answered. Agrees to call the office if questions, concerns of issues with acute symptoms not improving or if they worsen. See diagnoses and orders for additional plan(s). Allergies and medications were reviewed, list was updated, and refills given if needed. Past medical, surgical, social, and family history reviewed and updated as appropriate. Encouraged proper diet & exercise as well as compliance with taking medications. Age- appropriate health preventative measures were discussed. Medical Decision Making: Problems: Moderate: 2+ stable chronic illnesses Data: Unique test result(s) reviewed: 3+ Unique test(s) ordered: 3+ Medical Decision Making Level: 4 - Moderate . Return in about 6 weeks (around 11/26/2022) for recheck on new medication.. Thanh Barajas APRN-MEMO documented in this encounterAultman Hospital03-04-2023 History of Present illness Narrative* Rosalva Gomez - 09/21/2022 1:32 PM EST Patient is scheduled to have her colonoscopy at [facility] 11-11-[address] Kassie Gomez * Kyra Carson MD - 09/10/2022 9:20 AM EST This note was created using [employer]. Subjective Franca Nicholson is a 67 year old female. Patient presents with: Established Patient: Discuss allergies, Colonoscopy, shingles vaccine and anxiety SUBJECTIVE: Franca Nicholson is a 67 year old year old lady here today for follow up appointment for review of medical conditions: as noted above. Mucinex helps with cough. Everything was clear. Allergies--effective treatment with cetirizine. Still some sinus congestion. Noted that had COVID 2 times. First time lasted 3 to 4 weeks June 2021. Second time was 2 months later. Not as bad as first time. Did get Moderna first and second doses in [place] in early 2020. Lost her card. Did try nasal steroid in the past but not here. Due for colon[facility] dad had colon cancer; polyp on colonoscopy last time) Discussed Shingrix covered through Medicare now. Anxiety related to weight gain and diagnosed with spinal stenosis. Trial with spinal stimulator was effective; implanted stimulator was not as effective. Daughter with trisomy 18 baby and and 29 weeks now. Trouble sleeping. Worries. Broken sleep. Stress eating. Past 2 week doing better. Already moving better. Meloxicam helping. from Dr. Vance. Question Answer Over the last 2 weeks, how often have you been bothered by little interest or pleasure in doing things? 0 - Not at all Over the last 2 weeks, how often have you been bothered by feeling down, depressed, or hopeless? 0 - Not at all Based on score and interview, patient is: Not at risk for depression (score 0-2) Screening tool discussed with patient, and I recommend: No further intervention Depression screening tool completed and reviewed. Based on score and interview, patient is not at risk for depression. Screening tool discussed with patient, and I recommended no further interventionat this time. PAST MEDICAL HISTORY Diagnosis Date Umbilical hernia Current Outpatient Medications Medication Sig meloxicam (MOBIC) 15 mg tablet Take 1 tablet by mouth once daily. No current facility-administered medications for this visit. Review of Systems Objective BP 136/84 Pulse 80 Temp 36.2 C (97.1 F) Resp 18 Wt 122.9 kg (271 lb) SpO2 96% BMI 49.57kg/m Last 5 Encounter Wt Readings: Date: Wt: 09/10/2022 122.9 kg (271 lb) 03/26/2022 116.1 kg (256 lb) No waist measurement recorded Estimated body mass index is 49.57 kg/m as calculated from the following: Height as of 03/26/22: 157.5 cm (5' 2). Weight as of this encounter: 122.9 kg (271 lb). Last 5 Encounter BP Readings: Date: BP: 09/10/2022 136/84 03/26/2022 122/82 Physical Exam Constitutional: Appearance: Normal appearance. She is obese. HENT: Head: Normocephalic. Eyes: Conjunctiva/sclera: Conjunctivae normal. Cardiovascular: Rate and Rhythm: Normal rate and regular rhythm. Heart sounds: Normal heart sounds. Pulmonary: Effort: Pulmonary effort is normal. Breath sounds: Normal breath sounds. Skin: General: Skin is warm and dry. Neurological: General: No focal deficit present. Mental Status: She is alert and oriented to person, place, and time. Psychiatric: Mood and Affect: Mood normal. Behavior: Behavior normal. Thought Content: Thought content normal. Judgment: Judgment normal. Assessment and Plan Encounter Diagnosis ICD-10-CM 1. Anxiety F41.9 COMP METABOLIC PANEL CBC VITAMIN D 25 HYDROXY TSH BLD T4 FREE/FREE THYROX T3 FREE BLD 2. Vitamin D deficiency E55.9 VITAMIN D 25 HYDROXY 3. Class 3 severe obesity due to excess calories with body mass index (BMI) of 45.0 to 49.9 in adult, unspecified whether serious comorbidity present (HCC) E66.01 COMP METABOLIC PANEL Z68.42 CBC VITAMIN D 25 HYDROXY TSH BLD T4 FREE/FREE THYROX T3 FREE BLD 4. Special screening for malignant neoplasms, colon Z12.11 COLONOSCOPY SCREENING Above issues addressed with patient. Patient involved in shared decision making for management of medical issues. History and medications reviewed. Epic updated as needed Refills and/or prescriptions taken care of and meds adjusted as indicated after reviewed history, exam and labs. Health Maintenance reviewed. Updated record and/or ordered tests as recorded. Encouraged on efforts at healthy diet and regular exercise and adequate sleep. Needs to keep working on diet and exercise with lifestyle changes for effective weight loss as wellas prevention of DM, and control of BP and lipids. Noted weight gain. Anxiety discussed--emotional support given. Further evaluation and treatment as indicated. I spent a total of 44 minutes on the date of the service which included [id number] patient care, completing clinical documentation, performing a medically appropriate examination, counseling and educating the patient/family/caregiver, and ordering medications, tests, or procedures. Kyra Casron MD [facility] OPEN ACCESS QUESTIONNAIRE 1. Are you currently having any new or unusual stomach/gastrointestinal issues at this time such asconstipation, diarrhea, abdominal pain, rectal bleeding etc?No 2. Do you have any difficulty swallowing? No 3. Do you have any implanted devices such as a defibrillator, pacemaker, cardiac stents or deep brain stimulator? No 4. Do you take any Blood thinners such as Coumadin, Plavix, Xarelto, Eliquis, Brilinta or any otherblood thinner? No 5. Do you have any new or past cardiac (heart) or pulmonary (lung) issues? No 6. Do you currently use any oxygen? No 7. Have you been hospitalized in the past 6 weeks? No 8. Have you had difficulty with anesthesia previously re: Difficult intubation? No Other difficulty or allergic reaction to anesthesia other than post op N/V? No 9. Are you on dialysis? No 10. Do you have any bleeding disorders such as hemophilia or Factor 5? No 11. Are you an Insulin Dependent Diabetic? No IF ANY OF THE TOP ELEVEN QUESTIONS ARE ANSWERED YES PLEASE SCHEDULE THE PATIENT FOR A CONSULT. N/A 12. Is the patient's BMI 40 or greater? Yes :Body mass index is 49.57 kg/m .. 13. Do you take any narcotics or anti-Anxiety medications? No 14. Do you use any illegal or recreational drugs including marijuana? No 15. Any alcohol use: YES: What type of alcohol, how much and how often do you drink? : 2 or 3 beersbut not any more than every 2 or 3 months 16. Have you been diagnosed with chronic liver disease such as hepatitis or cirrhosis? No 17. Do you have a seizure disorder? No 18. Do you have ulcerative colitis or Crohn's disease? No 19. Are you or could you be ? No 20. Any other important health information we should be made aware of prior to your colonoscopy? No To be completed by LIP: Did patient have MAC anesthesia with a previous endoscopy procedure? No Patient appropriate for Open Access Colonoscopy: Yes: appropriate for Open Access Procedure Checklist: Prior to closing the encounter: Complete questionnaire: Yes Confirm Prep order has been Ordered/Pended: Yes. Patient's procedure could be delayed if not given the script for the prep. Please ensure the prep is escripted to pharmacy or printed. Instructions for the prep will print upon filing or pending thissmartset. Please send all open access questionnaires to [facility] Pool #[id number] documented in this encounterAultman Hospital03-01-2023 History of Present illness Narrative* Criss Frazier APRN.SECRETARY [employer] COMMISSIONERS - 09/18/2022 12:39 PM EST Subjective HPI HPI Franca Nicholson is a 67 year old female who presents today for CC of left low back pain with radiation and tingling to left leg. This started 3 days ago. Has tried otc medication without relief. Symptoms are worsened by rom of back. Risk factors hx of back pain, on/off many years. .Patient presents with: Back Pain: low back into left leg x 3 days, tingling in both leg yesterday PAST MEDICAL HISTORY Diagnosis Date Umbilical hernia PAST SURGICAL HISTORY Procedure Laterality Date SECTION MULTI>2 3 C-sections HYSTEROSCOPY, DIAGNOSTIC (SEPARATE 2014, 2017 for fibroids and bleeding LIGATE FALLOPIAN TUBE 1990 PAST SURGICAL HISTORY OF Right 1982 Ganglion cyst excision, wrist TONSILLECTOMY & ADENOIDECTOMY <AGE [age] years old ALLERGIES Amoxicillin MEDICATIONS cetirizine (ZYRTEC) 10 mg tablet Take 10 mg by mouth once daily. fluticasone (FLONASE) 50 mcg/actuation nasal spray Use 2 Sprays in each nostril once daily. Rinse mouth after use. As directed hydrOXYzine HCl (ATARAX) 25 mg tablet Take 1 tablet by mouth every 6 hours as needed for anxiety (or allergies). meloxicam (MOBIC) 15 mg tablet Take 1 tablet by mouth once daily. predniSONE (DELTASONE) 10 mg tablet Take 4 tabs daily x 3 days, then 3 tabs x 3 days, 2 tabs x 3 days, then 1 tab x3 days with food. cyclobenzaprine (FLEXERIL) 10 mg tablet Take 1 tablet by mouth three times daily as needed for muscle spasm. FAMILY HISTORY Problem Relation Age of Onset Lung Cancer Mother 3 episodes; partial resection first time recurrence other lung treated with radiation; recurrence and placed on Hospice then improved and discharged; from COVID Hypertension Mother Diabetes Mother Type 2 Colon Cancer Father Prostate Cancer Father Leukemia Father Alzheimer's Disease Father Coronary Artery Disease Brother History [place] Social History Tobacco Use Smoking status: Never Smokeless tobacco: Never Vaping Use Vaping Use: Never used Substance Use Topics Alcohol use: Yes Comment: occasionally Drug use: Never Review of Systems Constitutional: Negative for chills, fever and weight loss. Cardiovascular: Negative for leg swelling. Gastrointestinal: Negative for abdominal pain, constipation, diarrhea, nausea and vomiting. Genitourinary: Negative for dysuria, flank pain, frequency, hematuria and urgency. Musculoskeletal: Positive for back pain. Skin: Negative for rash. Neurological: Negative for sensory change and focal weakness. Objective Blood pressure 128/82, pulse 86, temperature 36.8 C (98.2 F), resp. rate 16, weight 122 kg (269 lb), SpO2 97 %. Physical Exam Constitutional: General: She is not in acute distress. Appearance: Normal appearance. She is not diaphoretic. Cardiovascular: Pulses: Dorsalis pedis pulses are 1+ on the right side and 1+ on the left side. Posterior tibial pulses are 1+ on the right side and 1+ on the left side. Abdominal: General: Bowel sounds are normal. Palpations: Abdomen is soft. Tenderness: There is no abdominal tenderness. Musculoskeletal: Lumbar back: Spasms present. Decreased range of motion. Comments: Lumbar paraspinal muscles tender with palpation. No rash present. Neurological: Mental Status: She is alert and oriented to person, place, and time. Gait: Gait is intact. Gait normal. Deep Tendon Reflexes: Reflex Scores: Patellar reflexes are 1+ on the right side and 1+ on the left side. ASSESSMENT/PLAN: 1. Acute left-sided low back pain with sciatica, sciatica laterality unspecified - ICD9: 724.2, 724.3, ICD10: M54.40 Steroids/flexeril ordered Home pt provided F/u with pcp if s/s persist/worsen/change Urgent f/u for red flag symptoms - PREDNISONE 10 MG TABLET - CYCLOBENZAPRINE 10 MG TABLET Criss Frazier APRN.CNP Additional Medical Conditions Last edited 09/18/22 12:37 EST by Criss Frazier APRN.MEMO documented [facility] this [facility]23 Instructions* Patient Instructions* Criss Frazier APRN.MEMO - 09/18/2022 12:39 PM EST EMERGENCY DEPARTMENT LOW BACK PAIN GENERAL INFORMATION: Low back pain is located in the small of the back. The pain may be related to sprained muscles or ligaments, to muscle spasms, or to herniation of a spinal disc. There are many possible causes of back pain, but the most common causes are gradual wear and tear, physical and emotional stress, and weak or tense muscles from lack of proper exercise. The pain can develop quickly or overnight and may be caused by unusual exertion such as moving furniture or heavy lifting. Low back pain can be severe, and sometimes you may be unable to move without pain. INSTRUCTIONS: 1. During the first 24 hours, apply ice packs to your back for 10-20 minutes 3 to 4 times a day. Put the ice in a plastic bag and place a towel between the bag of ice and your skin. After 24 hours, apply heat to your back with a heating pad set on low or a warm water bottle for 30 minutes every 3 to 4 hours. A gentle massage and warm showers may also be helpful. 2. Stay in bed for 1 to 2 days. Then begin normal activities as you can tolerate without causing pain. 3. Bend at the hips and knees; never bend from the waist only. Lift with your legs, not your back. 4. Sleep on a firm mattress or put a to 1 inch piece of plywood between the mattress and box springs. Do not use a waterbed because it does not support your back correctly. Sleep with a pillow under your knees or sleep on your side with your knees bent. 5. Wear low-heeled shoes. 6. If you are overweight, losing weight will help prevent another attack. 7. Begin a program of back exercises to prevent future episodes of pain. Walking, swimming, and bicycling are good exercise. Avoid exercises that put stress on the back, such as rowing and jogging. CONTACT YOUR DOCTOR OR RETURN TO THE ED IF: 1. You have shooting pains into your buttocks, groin, or legs. 2. You have difficulty urinating or lose control of bowel or bladder function. 3. You have numbness or weakness in your legs or feet. documented in this encounterA[facility]02-21-2023 Instructions* Patient Instructions* Kyra Carson MD - 09/10/2022 10:03 AM EST Images from the original note were not included. Nasal saline can help with congestion. Miralax/Dulcolax Bowel Prep For this bowel preparation, you will need to purchase the following medications at any pharmacy: Over the counter Miralax (generic name is polyethylene glycol) 8.3 oz or 238 grams Four (4) Dulcolax (generic name is Bisacodyl) tablets 3 days prior to your procedure, you need to be on a low fiber diet (Such as popcorn, beans, seeds, nuts, salad and raw vegetables, corn, fresh and dried fruit and multi-grain bread) YOU MUST BE ON CLEAR LIQUIDS FOR 2 FULL DAYS PRIOR TO YOUR COLONOSCOPY Day one which would be two days before your colonoscopy, you will need to be on clear liquids all day. You may have coffee or tea-black only (no cream), clear broths (beef, chicken or vegetable), apple juice, white grape juice, pop, Gatorade, Powerade, lemonade, Jello, popsicles, Adan-aid, and water-But nothing red or dark purple in color and no dairy products, tomato or orange juices. Day two which would be the day before your colonoscopy continue clear liquids all day as above. And follow the instructions below: 8:00 AM - Mix the Miralax with 64 oz of Gatorade or another clear liquid of choice and place in refrigerator. Most people say the drink is better cold. 4:00 PM - Take 2 of the Dulcolax tablets with 8 oz of water. 6:00 PM - Start to drink the Miralax mixture. You must finish it by midnight. 8:00 PM - Take the other 2 Dulcolax tablets with 8 oz of water. You may continue to drink clear liquids while you are taking your prep and after you finish it as long as it is before midnight. Drink lots of fluids so you don t become dehydrated. Nothing to drink after midnight the night before the procedure unless you are instructed differently by the physician or nurses. Please remember to take your normal medications the morning of the procedure with a small sip of water especially your blood pressure medications. If you are diabetic, you need to contact your physician about how to take your diabetic medications and/or insulin during the prepping period and the day of your procedure. Any questions please call: Dr. Soto or Dr. Fernando [phone] Velvet Payne [phone] Dr. Nova [phone] [facility] nurses [phone] documented in this encounterAultman Hospital11-03-2022 History of Present illness Narrative* Kyra Carson MD - 05/23/2022 3:23 AM EDT Follow up on elevated potassium documented in this encounterAultman Hospital10-19-2022 Miscellaneous Notes* Letter - Mammography Coordinator - 05/08/2022 11:15 AM EDT May 08, 2022 PID: [id number] Franca Nicholson [address] [place] [address] Dear Ms. Nicholson, We are pleased to inform you that the results of your recent breast imaging exam on 05/08/2022 are normal. Early detection of cancer is very important. We also understand recommendations regarding breast cancer screening are controversial. Please discuss with your primary care provider which strategy is best for you and whether a mammogram is right for you. Your imaging studies and report will be [facility] as part of your permanent medical record and are available for your continuing care. Thank you for allowing us to help in meeting your health care needs. Sincerely, Dr. Interiano Interpreting Radiologist [facility] (Normal over 40) documented in this encounterAultman Hospital10-19-2022 History of Present illness Narrative* RT Fernando(R) - 05/08/2022 10:30 AM EDT Radiology Service Progress Note PATIENT NAME: Franca Nicholson DATE OF SERVICE: May 08, 2022 TIME: 10:22 AM PATIENT IDENTITY VERIFICATION COMPLETED USING TWO (2) IDENTIFIERS: Name and Date of confirmedby patient verbally. FALL SCREENING: Has the patient had 2 falls in the last year or 1 fall with injury or currently using an Ambulatory Assistive Device (Walker, Cane, Wheelchair, Crutches, etc.)? No PATIENT GENDER DATA: Female. status: : No status: NO. PATIENT RELEVANT IMPLANT DATA REVIEWED: Not Applicable RADIOLOGY DEPARTMENT: Mammography PERIPHERAL IV DATA: Not applicable SIGNED BY: RT Fernando(R) May 08, 2022 10:22 AM documented in this encounterAultman Hospital10-19-2022 History of Present illness Narrative* RT Donnell(R) - 05/08/2022 10:00 AM EDT Radiology Service Progress Note PATIENT NAME: Franca Nicholson DATE OF SERVICE: May 08, 2022 TIME: 9:06 AM PATIENT IDENTITY VERIFICATION COMPLETED USING TWO (2) IDENTIFIERS: Name and Date of confirmedby patient verbally. FALL SCREENING: Has the patient had 2 falls in the last year or 1 fall with injury or currently using an Ambulatory Assistive Device (Walker, Cane, Wheelchair, Crutches, etc.)? No PATIENT GENDER DATA: Female. status: : No status: NO. PATIENT RELEVANT IMPLANT DATA REVIEWED: Not Applicable RADIOLOGY DEPARTMENT: Bone Density PERIPHERAL IV DATA: Not applicable SIGNED BY: RT Donnell(R) May 08, 2022 9:06 AM documented in this encounterAultman Hospital09-16-2022 Miscellaneous Notes* Telephone Encounter - Belgica Franklin LPN - 04/05/2022 9:30 AM EDT Patient called. Verified name and date of . Patient states she was called by office to come inearly for x-rays on Friday but she already knows and it is set up. Belgica Franklin LPN documented in this encounterAultman Hospital09-06-2022 Instructions* Patient Instructions* Kyra Carson MD - 03/26/2022 9:59 AM EDT BONE MINERAL DENSITY PATIENT INSTRUCTIONS Bone mineral density testing measures the amount of calcium in certain parts of your bones. This information determines how strong your bones are. The test is used to detect osteoporosis, a disease in which the bone's mineral content and density are low, increasing a person's risk of fractures. Thelumbar spine (lower back) and the hip are the skeletal sites usually examined. For the test, remember that: 1. You cannot take this test if you are . 2. Eat a normal diet on the day of the test. 3. Take your medications as you normally would. 4. DO NOT take calcium supplements (such as Tums) for 24 hours before the test. 5. On the day of the test, leave valuables (jewelry or credit cards) at home. 6. The test should be performed prior to oral, rectal or IV contrast studies, or at least 7 days after any of these studies. For the test, you may be asked to wear a hospital gown. You will lie on your back, on a padded table, in a comfortable position. Generally, you can resume your usual activities immediately. documented in this encounterAultman Hospital09-06-2022 History of Present illness Narrative* Kyra Carson MD - 03/26/2022 8:40 AM EDT This note was created using NoteWriter. Subjective Franca Nicholson is a 67 year old female. HISTORY Franca Nicholson is a 67 year old lady here to be formally established with me. No prior appointments within [facility] system. Reviewed how [place] Daughter is a nurse. Moved to [place] last May. Got own place now. Evaluated by surgeon for umbilical hernia. Was given recommendations if/when to go to ER for incarcerated hernia. Has not had any problems with it. Last time saw doctor was 2018. Not on any meds. Had to take iron in the past when had anemia due to fibroids. Had hysteroscopy and thinks ablation to stop bleeding. Done twice. Declined hysterectomy that was recommended if had recurrent bleeding. None since left [place] 2018. Occasionally mild cramps noted. Vitamin D needed for low levels before. Has had knee pain issues. Getting worse. Went from occasionally breaking rubberband thing to any rotation causing pain or being bent back too far causes pain. Hard to do stairs. has to lead with right leg to prevent left from giving out. Aware of Silver Sneakers so plans to check into that. Used to swim and walk when in [place]. Also had routine with eating. What worked for weight control: Portion control Reduced carbs Reduce dairy Avoid fried foods. Limited beef Did have COVID July 2020. Has had COVID vaccine and 1 booster. PAST MEDICAL HISTORY Diagnosis Date Umbilical hernia No current outpatient medications on file. No current facility-administered medications for this visit. ALLERGIES Allergen Reactions Amoxicillin Rash Red fine rash PAST SURGICAL HISTORY Procedure Laterality Date SECTION MULTI>2 3 C-sections HYSTEROSCOPY, DIAGNOSTIC (SEPARATE 2014, 2017 for fibroids and bleeding LIGATE FALLOPIAN TUBE 1990 PAST SURGICAL HISTORY OF Right 1982 Ganglion cyst excision, wrist TONSILLECTOMY & ADENOIDECTOMY <AGE [age] years old FAMILY HISTORY Problem Relation Age of Onset Lung Cancer Mother 3 episodes; partial resection first time recurrence other lung treated with radiation; recurrence and placed on Hospice then improved and discharged; from COVID Hypertension Mother Diabetes Mother Type 2 Colon Cancer Father Prostate Cancer Father Leukemia Father Alzheimer's Disease Father Coronary Artery Disease Brother History SD Review of Systems Objective BP 122/82 Pulse 82 Ht 157.5 cm (5' 2) Wt 116.1 kg (256 lb) SpO2 95% BMI 46.82 kg/m Physical Exam Vitals reviewed. Constitutional: Appearance: Normal appearance. She is well-developed. She is obese. HENT: Head: Normocephalic and atraumatic. Right Ear: External ear normal. Left Ear: External ear normal. Nose: Nose normal. Eyes: Conjunctiva/sclera: Conjunctivae normal. Neck: Thyroid: No thyromegaly. Cardiovascular: Rate and Rhythm: Normal rate and regular rhythm. Pulses: Normal pulses. Heart sounds: Normal heart sounds. No murmur heard. No friction rub. No gallop. Pulmonary: Effort: Pulmonary effort is normal. Breath sounds: Normal breath sounds. Abdominal: General: Bowel sounds are normal. There is no distension. Palpations: Abdomen is soft. There is no mass. Tenderness: There is no abdominal tenderness. Hernia: A hernia is present. Hernia is present in the umbilical area (easily reducible, nontender). Musculoskeletal: General: No deformity. Normal range of motion. Lymphadenopathy: Cervical: No cervical adenopathy. Skin: General: Skin is warm and dry. Coloration: Skin is not jaundiced or pale. Findings: No rash. Neurological: General: No focal deficit present. Mental Status: She is alert and oriented to person, place, and time. Cranial Nerves: No cranial nerve deficit. Sensory: No sensory deficit. Motor: No abnormal muscle tone. Coordination: Coordination normal. Deep Tendon Reflexes: Reflexes normal. Psychiatric: Attention and Perception: Attention and perception normal. Mood and Affect: Mood and affect normal. Speech: Speech normal. Behavior: Behavior normal. Thought Content: Thought content normal. Cognition and Memory: Cognition and memory normal. Judgment: Judgment normal. Assessment and Plan ASSESSMENT/PLAN: Encounter Diagnosis ICD-10-CM 1. Umbilical hernia without obstruction and without gangrene K42.9 2. Vitamin D deficiency E55.9 VITAMIN D 25 HYDROXY COMP METABOLIC PANEL 3. Morbid obesity (HCC) E66.01 COMP METABOLIC PANEL CBC LIPID PANEL BASIC 4. Screening, lipid Z13.220 LIPID PANEL BASIC 5. Breast cancer screening by mammogram Z12.31 MIKEY SCREENING 6. Need for vaccination Z23 INFLUENZA SEASONAL QUADRIVALENT HIGH DOSE AGE 65+ PNEUMOCOCCAL VACCINE (PREVNAR 20) 7. Asymptomatic postmenopausal status Z78.0 DXA-AXIAL SKELETON 8. Chronic pain of left knee M25.562 CONSULT TO ORTHOPAEDICS G89.29 CANCELED: XR KNEE GENERAL 4V AP BOTH/PA BOTH/LAT/MERC LEFT 1. Umbilical hernia without obstruction and without gangrene - ICD9: 553.1, ICD10: K42.9 (primary diagnosis) Monitor for now. Discussed red flag symptoms. Noted had seen surgeon when was living in [place] who discussed red flag symptoms for going to ER. We discussed need to lose weight if wanted/needed to pursue repair on a more elective surgery time frame to reduce risk of failed repair and need for another surgery. 2. Vitamin D deficiency - ICD9: 268.9, ICD10: E55.9 Update labs. Start replacement as needed - VITAMIN D 25 HYDROXY - COMP METABOLIC PANEL 3. Morbid obesity (HCC) - ICD9: 278.01, ICD10: E66.01 Will get back on track with healthy diet and regular exercise. - COMP METABOLIC PANEL - CBC - LIPID PANEL BASIC 4. Screening, lipid - ICD9: V77.91, ICD10: Z13.220 - LIPID PANEL BASIC 8. Knee pain--has interfered with activity so will get Xray and refer to ortho. Not a surgical candidate from the medical standpoint with need to get BMI under 40 before should consider surgery,but might benefit from knee injections and PT while working on weight loss efforts which she is motivatedto work on now. 67 year old lady here to be formally established with me. History and medications reviewed. Epic updated as needed Above issues addressed with patient. Patient involved in shared decision making for management of medical issues. Refills taken care of and meds adjusted as indicated after reviewed history, exam and labs. Health Maintenance reviewed. Updated record and/or ordered tests as recorded. Encouraged on efforts at healthy diet and regular exercise and adequate sleep. Needs to keep working on diet and exercise with lifestyle changes for effective weight loss as well as prevention of DM,and control of BP and lipids. Kyra Carson MD documented in this encounterPomerene Hospital note Author Braxton Barber [facility] Note Date/Time February 11, 2025 12:0 9pm [facility] Medical Records Department [address] [place] [address] Anesthesia Postop Eval II 02/11/25 1024 MR#: [id number] Acct: [id number] Name: FRANCA NICHOLSON Rep #:[id number] : 1955 69 From: Braxton SALCEDO PCP: Dr. Kyra Carson MD Status:RE G SDC Y Race: C Location: [place] [address] Anesthesia Postop Eval I Sum Anesthesia Postop Eval I Summary Anesthesia Postop Eval I Summary: Anesthesia Postop Eval I: Assessment Summary Airway patent Spontaneous unlabored respirations Mental status nausea Vomiting Anesthesia Postop Eval I: Fluid Summary Crystalloid volume administer (ml) Colloids volume administered ( ml) Blood Product volume administered (ml) Total IV fluid infused Anesthesia Postop Eval I: Summary Notes Anesthesia Complication Anesthesia Complication Comment: Post-operative progress note Anesthesia: Postop Eval II Evaluation Mental status: Awake and Calm Pain Level: 0 nausea: No Vomiting: No Complications Anesthesia Complication: No 02/11/25 1024 <Electronically signed by Braxton Barber CRNA> Date _ Braxton Barber CRNA Cosigner Signature: Date CC: ~ Signed [facility] Work Phone: Discharge summary Author Thomas Yuen [facility] Note Date/Time February 11, 2025 10:1 5am [facility] Medical Records Department [address] [place] [address] Instructions for Home/Discharge Instructions 02/11/25 1014 MR#: [id number] Acct: [id number] Name: FRANCA NICHOLSON Rep #:[id number] : 1955 69 From: Thomas Yuen DO PCP: Dr. Kyra Carson MD Status:RE G TXC Discharge Instructions DC O2, CPAP, BIPAP needs Home O2 Discharge instructions: No Dressing / Incision Discharge Activity: May Not Drive (for 24 hours after surgery) and May Not Shower (for 24 hours after surgery) May resume sexual activity in: 1 week (nothing in the vagina and no soaking in water) Weight Bearing Status: Weight bearing as tolerated Lifting Restrictions: none Dressing / Incision Call your doctor if you observe: Fever of 101 or Higher, Using more than 1 pad per hour, Shortness of breath, Dizziness, Chest pain, Increased palpitations (irregular heartbeat), Calf discomfort and Uncontrolled pain Follow Up Care Please Follow Up With: Thomas Yuen DO When: 1 week post op Test Results: Test results from this visit will be discussed in further detail at your follow- up appointment, if applicable. Discharge Plan Admission Primary Reason for Your Visit: surgery Attending Provider: Thomas Yuen Primary Care Provider: Kyra Carson Instructions Patient Instructions: Dilation and Curettage Print Language: Georgian Discharge Orders/Prescriptions Prescriptions: Continued cholecalciferol (vitamin D3) [Vitamin D3] 25 mcg (1,000 unit) capsule 25 mcg PO DAILY levothyroxine 50 mcg tablet 50 mcg PO DAILY cetirizine 10 mg tablet 10 mg PO DAILY meloxicam 15 mg tablet 15 mg PO DAILY sertraline 50 mg tablet 50 mg PO DAILY fluticasone propionate [24 Hour Allergy Relief] 50 mcg/actuation spray,suspension 1 spray intranasal DAILY PRN (Reason: nasal congestion) Rx Instructions: administer into each nostril Referrals / Follow Up: Kyra Carson MD [Primary Care Provider] - Disposition Disposition (needs filled in before D/C Order can be placed): Home, Self Care 02/11/25 1015<Electronically signed by Thomas Yuen DO>Thomas Yuen DO CC: Dr. Kyra Carson MD ~ Signed [facility] Work Phone: Evaluation note* Diagnosis Pain- Primary Generalized pain [facility] Diagnosis Umbilical hernia without obstruction and without gangrene- Primary Vitamin D deficiency Unspecified vitamin D deficiency Morbid obesity (HCC) Morbid obesity Screening, lipid Screening for lipoid disorders Breast cancer screening by mammogram Need for vaccination Need for prophylactic vaccination and inoculation against unspecified single disease Asymptomatic postmenopausal status Chronic pain of left knee Pain in joint, lower leg documented in this encounter [facility] note* Diagnosis Pain Generalized pain documented in this encounter [facility] note* Diagnosis Asymptomatic postmenopausal status documented in this encounter [facility] note* Diagnosis Breast cancer screening by mammogram documented in this encounter [facility] note* Diagnosis Hyperkalemia- Primary Hyperpotassemia documented in this encounter [facility] note* Diagnosis Acute left-sided low back pain with sciatica, sciatica laterality unspecified- Primary documented in this encounter [facility] note* Diagnosis Anxiety- Primary Anxiety state, unspecified Vitamin D deficiency Unspecified vitamin D deficiency Class 3 severe obesity due to excess calories with body mass index (BMI) of 45.0 to 49.9 in adult, unspecified whether serious comorbidity present (HCC) Special screening for malignant neoplasms, colon documented in this encounter [facility] note* Diagnosis Anxiety- Primary Anxiety state, unspecified Hypothyroidism, unspecified type Impaired glucose regulation Obesity, Class III, BMI >= 40 Morbid obesity documented in this encounter [facility] note* Diagnosis Anxiety- Primary Anxiety state, unspecified Hypothyroidism, unspecified type documented in this encounter [facility] note* Diagnosis Hypothyroidism, unspecified type documented in this encounter [facility] note* Diagnosis Left knee pain, unspecified chronicity- Primary documented in this encounter [facility] note* Diagnosis Chronic pain of left knee- Primary Pain in joint, lower leg Primary osteoarthritis of left knee Primary localized osteoarthrosis, lower leg [facility]* Diagnosis Hypothyroidism, unspecified type- Primary 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 Vitamin D deficiency Unspecified vitamin D deficiency Vertigo Dizziness and giddiness Impaired glucose regulation Hypercholesteremia Pure hypercholesterolemia Morbid obesity (HCC) Morbid obesity Encounter for long-term current use of medication documented in this encounter [facility] note* Diagnosis Hypothyroidism, unspecified type- Primary documented in this encounter [facility] note* Diagnosis Encounter for screening for malignant neoplasm of colon- Primary Special screening for malignant neoplasms, colon Special screening for malignant neoplasms, colon documented in this encounter [facility] note* Diagnosis Left knee pain, unspecified chronicity documented in this encounter [facility] note* Diagnosis Encounter for screening mammogram for breast cancer documented in this encounter [facility] note* Diagnosis Dizziness- Primary Dizziness and giddiness documented in this encounter [facility] note* Diagnosis Hypothyroidism, unspecified type Anxiety Anxiety state, unspecified documented in this encounter [facility] note* Diagnosis Anxiety Anxiety state, unspecified documented in this encounter [facility] note* Diagnosis Moderate recurrent major depression (HCC)- Primary Major depressive disorder, recurrent episode, moderate Anxiety Anxiety state, unspecified Biceps tendonitis on right Hypothyroidism, unspecified type documented in this encounter [facility] note* Diagnosis Pre-operative examination- Primary Preoperative examination, unspecified Anxiety Anxiety state, unspecified Chronic pain of left knee Pain in joint, lower leg Hypothyroidism, unspecified type Impaired glucose regulation Morbid obesity (HCC) Morbid obesity Hypothyroidism, unspecified type Moderate recurrent major depression (HCC) Major depressive disorder, recurrent episode, moderate Anxiety Anxiety state, unspecified documented in this encounter [facility] note* Diagnosis Pre-operative examination- Primary Preoperative examination, unspecified Anxiety Anxiety state, unspecified Chronic pain of left knee Pain in joint, lower leg Hypothyroidism, unspecified type Impaired glucose regulation Morbid obesity (HCC) Morbid obesity Encounter for screening mammogram for breast cancer documented in this encounter [facility] note* Diagnosis Pre-operative examination- Primary Preoperative examination, unspecified Anxiety Anxiety state, unspecified Chronic pain of left knee Pain in joint, lower leg Hypothyroidism, unspecified type Impaired glucose regulation Morbid obesity (HCC) Morbid obesity Moderate recurrent major depression (HCC) Major depressive disorder, recurrent episode, moderate Anxiety Anxiety state, unspecified documented in this encounter [facility] note* Diagnosis Pre-operative examination- Primary Preoperative examination, unspecified Anxiety Anxiety state, unspecified Chronic pain of left knee Pain in joint, lower leg Hypothyroidism, unspecified type Impaired glucose regulation Morbid obesity (HCC) Morbid obesity Acquired hypothyroidism- Primary Unspecified hypothyroidism Postmenopausal bleeding Hypercholesteremia Pure hypercholesterolemia Morbid obesity (HCC) Morbid obesity Vitamin D deficiency Unspecified vitamin D deficiency Deltoid tendinitis of right shoulder Right arm pain Pain in limb Decreased hearing, right Chest heaviness Other chest pain Encounter for immunization Need for other specified prophylactic vaccination against single bacterial disease Encounter for long-term current use of medication History of uterine fibroid Personal history of other genital system and obstetric disorders [facility]* Diagnosis Pre-operative examination- Primary Preoperative examination, unspecified Anxiety Anxiety state, unspecified Chronic pain of left knee Pain in joint, lower leg Hypothyroidism, unspecified type Impaired glucose regulation Morbid obesity (HCC) Morbid obesity Sinobronchitis- Primary Unspecified sinusitis (chronic) Hypothyroidism, unspecified type Moderate recurrent major depression (HCC) Major depressive disorder, recurrent episode, moderate Anxiety Anxiety state, unspecified documented [facility]* Diagnosis Pre-operative examination- Primary Preoperative examination, unspecified Anxiety Anxiety state, unspecified Chronic pain of left knee Pain in joint, lower leg Hypothyroidism, unspecified type Impaired glucose regulation Morbid obesity (HCC) Morbid obesity Postmenopausal bleeding- Primary History of uterine fibroid Personal history of other genital system and obstetric disorders Encounter for screening mammogram for breast cancer Encounter for screening for malignant neoplasm of cervix Screening for malignant neoplasm of the cervix Pelvic pain in female Unspecified symptom associated with female genital organs documented in this [facility]* Diagnosis Pre-operative examination- Primary Preoperative examination, unspecified Anxiety Anxiety state, unspecified Chronic pain of left knee Pain in joint, lower leg Hypothyroidism, unspecified type Impaired glucose regulation Morbid obesity (HCC) Morbid obesity Postmenopausal bleeding- Primary Morbid obesity (HCC) Morbid obesity Hypercholesteremia Pure hypercholesterolemia Hypothyroidism, unspecified type Impaired glucose regulation Moderate recurrent major depression (HCC) Major depressive disorder, recurrent episode, moderate Anxiety Anxiety state, unspecified Vitamin D deficiency Unspecified vitamin D deficiency Encounter for therapeutic drug monitoring documented in this [facility]* Diagnosis Pre-operative examination- Primary Preoperative examination, unspecified Anxiety Anxiety state, unspecified Chronic pain of left knee Pain in joint, lower leg Hypothyroidism, unspecified type Impaired glucose regulation Morbid obesity (HCC) Morbid obesity PMB (postmenopausal bleeding)- Primary Postmenopausal bleeding documented in this encounter [facility] note* Diagnosis Pre-operative examination- Primary Preoperative examination, unspecified Anxiety Anxiety state, unspecified Chronic pain of left knee Pain in joint, lower leg Hypothyroidism, unspecified type Impaired glucose regulation Morbid obesity (HCC) Morbid obesity PMB (postmenopausal bleeding)- Primary Postmenopausal bleeding [facility]* Diagnosis Pre-operative examination- Primary Preoperative examination, unspecified Anxiety Anxiety state, unspecified Chronic pain of left knee Pain in joint, lower leg Hypothyroidism, unspecified type Impaired glucose regulation Morbid obesity (HCC) Morbid obesity Postmenopausal bleeding- Primary Pre-op evaluation Preoperative examination, unspecified Hypothyroidism, unspecified type Impaired glucose regulation Anxiety Anxiety state, unspecified Moderate recurrent major depression (HCC) Major depressive disorder, recurrent episode, moderate Obesity, Class III, BMI >= 40 Morbid obesity Hypercholesteremia Pure hypercholesterolemia Encounter for therapeutic drug monitoring [facility] Pre-operative examination- Primary Preoperative examination, unspecified Anxiety Anxiety state, unspecified Chronic pain of left knee Pain in joint, lower leg Hypothyroidism, unspecified type Impaired glucose regulation Morbid obesity (HCC) Morbid obesity Endometrial polyp- Primary Polyp of corpus uteri Visit for pre-operative examination Preoperative examination, unspecified PMB (postmenopausal bleeding) Postmenopausal bleeding documented in this encounter [facility] for referral (narrative)* Diagnostic Procedure Only (Routine) - Authorized Specialty Diagnoses / Procedures Referred By Contac t Referred To Contact XR IMAGING Diagnoses Pain Procedures XR KNEE GENERAL 4V AP BOTH/PA BOTH/LAT/MERC LEFT RADIOLOGIC EXAM KNEE COMPLETE 4/MORE VIEWS Mat Vance MD [address] [place] [address] Xr Imaging Referral ID Status Reason Start Date Expiration Date Visits Requested Visits Authorized [id number] Authorized Auto-Generat ed Referral 03/26/2022 04/25/2023 1 1 [facility] for referral (narrative)* Diagnostic Procedure Only (Routine) - Closed Specialty Diagnoses / Procedures Referred By Contac t Referred To Contact XR IMAGING Diagnoses Pain Procedures XR KNEE GENERAL 4V AP BOTH/PA BOTH/LAT/MERC LEFT RADIOLOGIC EXAM KNEE COMPLETE 4/MORE VIEWS Mat Vance MD [address] [place] [address] Xr Imaging Referral ID Status Reason Start Date Expiration Date V isits Requested Visits Authorized [id number] Closed Auto-Generate d Referral 03/26/2022 04/25/2023 1 1 [facility] for referral (narrative)* Outpatient Procedure (Routine) - Pending Review Specialty Diagnoses / Procedures Referred By Bran t Referred To Contact [facility] Diagnoses Special screening for malignant neoplasms, colon Procedures COLONOSCOPY SCREENING COLONOSCOPY FLX DX W/COLLJ SPEC WHEN Kyra Byers MD [address] [place] [address] [facility] [place] [address] [place] [address] Referral ID Status Reason Start Date Expiration Date Visits Requested Visits Authorized [id number] Pending Review Auto-Generat ed Referral 09/10/2022 09/10/[address] [facility] for referral (narrative)* Diagnostic Procedure Only (Routine) - Pending Review Specialty Diagnoses / Procedures Referred By Bran gill Referred To Contact XR IMAGING Diagnoses Left knee pain, unspecified chronicity Procedures XR KNEE GENERAL 4V AP BOTH/PA BOTH/LAT/MERC LEFT RADIOLOGIC EXAM KNEE COMPLETE 4/MORE VIEWS Mat Vance MD [address] [place] [address] [place] [address] Referral ID Status Reason Start Date Expiration Date Visits Requested Visits Authorized [id number] Pending Review Auto-Generat ed Referral 03/27/2023 04/25/2024 1 1 [facility] for referral (narrative)* Outpatient Procedure (Routine) - Closed Specialty Diagnoses / Procedures Referred By Bran gill Referred To Contact ENDOSCOPY Diagnoses Special screening for malignant neoplasms, colon Procedures COLONOSCOPY SCREENING COLONOSCOPY FLX DX W/COLLJ SPEC WHEN Kyra Byers MD [address] [place] [address] Luther Fernando MD [address] [place] [address] Referral ID Status Reason Start Date Expiration Date V isits Requested Visits Authorized [id number] Closed Auto-Generate d Referral 01/27/2023 04/27/2023 1 1 T [facility] for referral (narrative)* Diagnostic Procedure Only (Routine) - Closed Specialty Diagnoses / Procedures Referred By Bran t Referred To Contact XR IMAGING Diagnoses Left knee pain, unspecified chronicity Procedures XR KNEE GENERAL 4V AP BOTH/PA BOTH/LAT/MERC LEFT RADIOLOGIC EXAM KNEE COMPLETE 4/MORE VIEWS Mat Vance MD [address] [place] [id number] [place] [address] Referral ID Status Reason Start Date Expiration Date V isits Requested Visits Authorized [id number] Closed Auto-Generate d Referral 03/27/2023 04/25/2024 1 1 [facility] for referral (narrative)* Diagnostic Procedure Only (Routine) - Pending Review Specialty Diagnoses / Procedures Referred By Bran gill Referred To Contact [facility] Diagnoses Encounter for screening mammogram for breast cancer Procedures MIKEY SCREENING SCREENING MAMMOGRAPHY BI 2-VIEW BREAST INC Kyra Rainey MD [address] [place] [address] [facility] [address] [place] [address] Referral ID Status Reason Start Date Expiration Date Visits Requested Visits Authorized [id number] Pending Review Auto-Generat ed Referral 3 07/17/[address] [facility] for referral (narrative)* Diagnostic Procedure Only (Routine) - Closed Specialty Diagnoses / Procedures Referred By Bran gill Referred To Contact BR IM[facility]ING Diagnoses Encounter for screening mammogram for breast cancer Procedures MIKEY SCREENING SCREENING MAMMOGRAPHY BI 2-VIEW BREAST INC Kyra Rainey MD [address] [place] [address] [facility] [address] [place] [address] Referral ID Status Reason Start Date Expiration Date V isits Requested Visits Authorized [id number] Closed Auto-Generate d Referral 06/18/2023 07/17/2024 1 1 [facility] for referral (narrative)No reason for referral information [facility] N[facility]* Diagnostic Procedure Only (Routine) - Closed Specialty Diagnoses / Procedures Referred By Contac t Referred To Contact XR IMAGING Diagnoses Pain Procedures XR KNEE GENERAL 4V AP BOTH/PA BOTH/LAT/MERC LEFT RADIOLOGIC EXAM KNEE COMPLETE 4/MORE VIEWS Mat Vance MD [address] [place] [address] Xr Imaging Referral ID Status Reason Start Date Expiration Date V isits Requested Visits Authorized [id number] Closed Auto-Generate d Referral 03/26/2022 04/25/2023 1 1 [facility] for visit Narrative* Outpatient Procedure (Routine) - Closed Specialty Diagnoses / Procedures Referred By Contac t Referred To Contact ENDOSCOPY Diagnoses Special screening for malignant neoplasms, colon Procedures COLONOSCOPY SCREENING COLONOSCOPY FLX DX W/COLLJ SPEC WHEN [facility] Kyra Carson MD [address] [place] [address] Luther Fernando MD [address] [place] [address] Referral ID Status Reason Start Date Expiration Date V isits Requested Visits Authorized [id number] Closed Auto-Generate d Referral 01/27/2023 04/27/2023 1 1 [facility] for visit Narrative* Diagnostic Procedure Only (Routine) - Closed Specialty Diagnoses / Procedures Referred By Contac t Referred To Contact XR IMAGING Diagnoses Left knee pain, unspecified chronicity Procedures XR KNEE GENERAL 4V AP BOTH/PA BOTH/LAT/MERC LEFT RADIOLOGIC EXAM KNEE COMPLETE 4/MORE VIEWS Mat Vance MD [address] [place] [address] [place] [address] Referral ID Status Reason Start Date Expiration Date V isits Requested Visits Authorized [id number] Closed Auto-Generate d Referral 03/27/2023 04/25/2024 1 [facility] Diagnostic Procedure Only (Routine) - Closed Specialty Diagnoses / Procedures Referred By Bran t Referred To Contact BR IMAGING Diagnoses Encounter for screening mammogram for breast cancer Procedures MIKEY SCREENING SCREENING MAMMOGRAPHY BI 2-VIEW BREAST INC Kyra Rainey MD [address] [place] [address] [facility] [address] [place] [address] Referral ID Status Reason Start Date Expiration Date V isits Requested Visits Authorized [id number] Closed Auto-Generate d Referral 06/18/2023 07/17/2024 1 1 [facility] Reason for Referral Specialty Diagnoses / Procedures Referred By Bran glil Referred To Contact Orthopedics Diagnoses Chronic pain of left knee Procedures CONSULT TO ORTHOPAEDICS OFFICE/OUTPATIENT [facility] MDM 60-74 MINUTES Kyra Carson MD [facility] [place] [address] Referral ID Status Reason Start Date Expiration Date Visits Requested Visits Authorized [id number] Pending Review PCP Requested Referral 03/26/2022 03/26/2023 1 1 Specialty Diagnoses / Procedures Referred By Bran gill Referred To Contact [facility] IM[facility] Diagnoses Breast cancer screening by mammogram Procedures MIKEY SCREENING SCREENING MAMMOGRAPHY BI 2-VIEW BREAST INC Kyra Rainey MD [address] [place] [address] [facility] [address] [place] [address] Referral ID Status Reason Start Date Expiration Date Visits Requested Visits Authorized [id number] Authorized Auto-Generat ed Referral 03/26/2022 06/24/2022 3 1 Referral ID Status Reason Start Date Expiration Date V isits Requested Visits Authorized [id number] Closed Auto-Generate d Referral 03/26/2022 06/24/2022 3 1 Specialty Diagnoses / Procedures Referred By Bran gill Referred To Contact Diagnoses History of uterine fibroid Postmenopausal bleeding Procedures CONSULT TO [facility] WORKER OFFICE/OUTPATIENT [facility] MDM 60 MINUTES Kyra Carson MD [address] [place] [address] Referral ID Status Reason Start Date Expiration Date Visits Requested Visits Authorized [id number] Authorized PCP Requested Referral Auto-Generate d Referral 05/25/2024 05/25/2025 1 1 Medications Administered Section Inactive Administered Medications - up to 3 most recent administrations Medication Order MAR Action Action Date Dose Rate Site lactated ringers iv infusion 30 mL/hr, INTRAVENOUS, CONTINUOUS, Starting on Fri05/14/23 at 0730, Until Fri05/14/23 at 0815, Preprocedure New Bag/Syringe/Bottle 05/14/2023 7:23 AM EDT 30 mL/hr 30 mL/hr Summary Purpose Family History No Family History Records FoundNo Family History Records FoundNo Family History Records Found Advance Directives No Advanced Directives Records Found Advance Directive Response Recorded Date/ Time Do you have a Healthcare Power of Vice President Marketing & Development? No January 31, 2025 9:27am Chief Complaint and Reason for Visit Chief Complaint Admit Date Hysteroscopy,D&C Symphion, polypectomy J luis antonio 2024 8:23am Reason for Visit Admit Date PMB (postmenopausal bleeding) February 11, 2025 8:23am Additional Source Comments Source Comments (unrecognize d section and content) In the event this informatio n is protected by the Federal Confidentiality of Alcohol and Drug Abuse Patient Records regulations: The Federal rules restrict any use of the information to criminally investigate or prosecute any alcohol or drug abuse patient.[facility] the event this information is protected by the Federal Confidentiality of Alcohol and Drug Abuse Patient Records regulations: The Federal rules restrict any use of the information to criminally investigate or prosecute any alcohol or drug abuse patient.[facility] the event this information is protected by the Federal Confidentiality of Alcohol and Drug Abuse Patient Records regulations: The Federal rules restrict any use of the information to criminally investigate or prosecute any alcohol or drug abuse patient.[facility] the event this information is protected by the Federal Confidentiality of Alcohol and Drug Abuse Patient Records regulations: The Federal rules restrict any use of the information to criminally investigate or prosecute any alcohol or drug abuse patient.[facility] the event this information is protected by the Federal Confidentiality of Alcohol and Drug Abuse Patient Records regulations: The Federal rules restrict any use of the information to criminally investigate or prosecute any alcohol or drug abuse patient.[facility] the event this information is protected by the Federal Confidentiality of Alcohol and Drug Abuse Patient Records regulations: The Federal rules restrict any use of the information to criminally investigate or prosecute any alcohol or drug abuse patient.[facility] the event this information is protected by the Federal Confidentiality of Alcohol and Drug Abuse Patient Records regulations: The Federal rules restrict any use of the information to criminally investigate or prosecute any alcohol or drug abuse patient.[facility] the event this information is protected by the Federal Confidentiality of Alcohol and Drug Abuse Patient Records regulations: The Federal rules restrict any use of the information to criminally investigate or prosecute any alcohol or drug abuse patient.[facility] the event this information is protected by the Federal Confidentiality of Alcohol and Drug Abuse Patient Records regulations: The Federal rules restrict any use of the information to criminally investigate or prosecute any alcohol or drug abuse patient.[facility] the event this information is protected by the Federal Confidentiality of Alcohol and Drug Abuse Patient Records regulations: The Federal rules restrict any use of the information to criminally investigate or prosecute any alcohol or drug abuse patient.[facility] Hospital[facility] the event this information is protected by the Federal Confidentiality of Alcohol and Drug Abuse Patient Records regulations: The Federal rules restrict any use of the information to criminally investigate or prosecute any alcohol or drug abuse patient.[facility] the event this information is protected by the Federal Confidentiality of Alcohol and Drug Abuse Patient Records regulations: The Federal rules restrict any use of the information to criminally investigate or prosecute any alcohol or drug abuse patient.[facility] the event this information is protected by the Federal Confidentiality of Alcohol and Drug Abuse Patient Records regulations: The Federal rules restrict any use of the information to criminally investigate or prosecute any alcohol or drug abuse patient.[facility] Hospital[facility] the event this information is protected by the Federal Confidentiality of Alcohol and Drug Abuse Patient Records regulations: The Federal rules restrict any use of the information to criminally investigate or prosecute any alcohol or drug abuse patient.[facility] the event this information is protected by the Federal Confidentiality of Alcohol and Drug Abuse Patient Records regulations: The Federal rules restrict any use of the information to criminally investigate or prosecute any alcohol or drug abuse patient.[facility] Hospital[facility] the event this information is protected by the Federal Confidentiality of Alcohol and Drug Abuse Patient Records regulations: The Federal rules restrict any use of the information to criminally investigate or prosecute any alcohol or drug abuse patient.[facility] the event this information is protected by the Federal Confidentiality of Alcohol and Drug Abuse Patient Records regulations: The Federal rules restrict any use of the information to criminally investigate or prosecute any alcohol or drug abuse patient.[facility] Hospital[facility] the event this information is protected by the Federal Confidentiality of Alcohol and Drug Abuse Patient Records regulations: The Federal rules restrict any use of the information to criminally investigate or prosecute any alcohol or drug abuse patient.[facility] Hospital[facility] the event this information is protected by the Federal Confidentiality of Alcohol and Drug Abuse Patient Records regulations: The Federal rules restrict any use of the information to criminally investigate or prosecute any alcohol or drug abuse patient.[facility] Hospital[facility] the event this information is protected by the Federal Confidentiality of Alcohol and Drug Abuse Patient Records regulations: The Federal rules restrict any use of the information to criminally investigate or prosecute any alcohol or drug abuse patient.[facility] Hospital[facility] the event this information is protected by the Federal Confidentiality of Alcohol and Drug Abuse Patient Records regulations: The Federal rules restrict any use of the information to criminally investigate or prosecute any alcohol or drug abuse patient.[facility] Hospital[facility] the event this information is protected by the Federal Confidentiality of Alcohol and Drug Abuse Patient Records regulations: The Federal rules restrict any use of the information to criminally investigate or prosecute any alcohol or drug abuse patient.[facility] HospitalIn the event this information is protected by the Federal Confidentiality of Alcohol and Drug Abuse Patient Records regulations: The Federal rules restrict any use of the information to criminally investigate or prosecute any alcohol or drug abuse patient.[facility] Hospital[facility] the event this information is protected by the Federal Confidentiality of Alcohol and Drug Abuse Patient Records regulations: The Federal rules restrict any use of the information to criminally investigate or prosecute any alcohol or drug abuse patient.[facility] Hospital[facility] the event this information is protected by the Federal Confidentiality of Alcohol and Drug Abuse Patient Records regulations: The Federal rules restrict any use of the information to criminally investigate or prosecute any alcohol or drug abuse patient.[facility] the event this information is protected by the Federal Confidentiality of Alcohol and Drug Abuse Patient Records regulations: The Federal rules restrict any use of the information to criminally investigate or prosecute any alcohol or drug abuse patient.[facility] Hospital[facility] the event this information is protected by the Federal Confidentiality of Alcohol and Drug Abuse Patient Records regulations: The Federal rules restrict any use of the information to criminally investigate or prosecute any alcohol or drug abuse patient.[facility] Hospital[facility] the event this information is protected by the Federal Confidentiality of Alcohol and Drug Abuse Patient Records regulations: The Federal rules restrict any use of the information to criminally investigate or prosecute any alcohol or drug abuse patient.[facility] HospitalIn the event this information is protected by the Federal Confidentiality of Alcohol and Drug Abuse Patient Records regulations: The Federal rules restrict any use of the information to criminally investigate or prosecute any alcohol or drug abuse patient.[facility] HospitalIn the event this information is protected by the Federal Confidentiality of Alcohol and Drug Abuse Patient Records regulations: The Federal rules restrict any use of the information to criminally investigate or prosecute any alcohol or drug abuse patient.[facility] HospitalIn the event this information is protected by the Federal Confidentiality of Alcohol and Drug Abuse Patient Records regulations: The Federal rules restrict any use of the information to criminally investigate or prosecute any alcohol or drug abuse patient.[facility] HospitalIn the event this information is protected by the Federal Confidentiality of Alcohol and Drug Abuse Patient Records regulations: The Federal rules restrict any use of the information to criminally investigate or prosecute any alcohol or drug abuse patient.[facility] HospitalIn the event this information is protected by the Federal Confidentiality of Alcohol and Drug Abuse Patient Records regulations: The Federal rules restrict any use of the information to criminally investigate or prosecute any alcohol or drug abuse patient.[facility] HospitalIn the event this information is protected by the Federal Confidentiality of Alcohol and Drug Abuse Patient Records regulations: The Federal rules restrict any use of the information to criminally investigate or prosecute any alcohol or drug abuse patient.[facility] HospitalIn the event this information is protected by the Federal Confidentiality of Alcohol and Drug Abuse Patient Records regulations: The Federal rules restrict any use of the information to criminally investigate or prosecute any alcohol or drug abuse patient.[facility] HospitalIn the event this information is protected by the Federal Confidentiality of Alcohol and Drug Abuse Patient Records regulations: The Federal rules restrict any use of the information to criminally investigate or prosecute any alcohol or drug abuse patient.[facility] HospitalIn the event this information is protected by the Federal Confidentiality of Alcohol and Drug Abuse Patient Records regulations: The Federal rules restrict any use of the information to criminally investigate or prosecute any alcohol or drug abuse patient.[facility] HospitalIn the event this information is protected by the Federal Confidentiality of Alcohol and Drug Abuse Patient Records regulations: The Federal rules restrict any use of the information to criminally investigate or prosecute any alcohol or drug abuse patient.[facility] HospitalIn the event this information is protected by the Federal Confidentiality of Alcohol and Drug Abuse Patient Records regulations: The Federal rules restrict any use of the information to criminally investigate or prosecute any alcohol or drug abuse patient.[facility] HospitalIn the event this information is protected by the Federal Confidentiality of Alcohol and Drug Abuse Patient Records regulations: The Federal rules restrict any use of the information to criminally investigate or prosecute any alcohol or drug abuse patient.[facility] HospitalIn the event this information is protected by the Federal Confidentiality of Alcohol and Drug Abuse Patient Records regulations: The Federal rules restrict any use of the information to criminally investigate or prosecute any alcohol or drug abuse patient.[facility] HospitalIn the event this information is protected by the Federal Confidentiality of Alcohol and Drug Abuse Patient Records regulations: The Federal rules restrict any use of the information to criminally investigate or prosecute any alcohol or drug abuse patient.[facility] HospitalIn the event this information is protected by the Federal Confidentiality of Alcohol and Drug Abuse Patient Records regulations: The Federal rules restrict any use of the information to criminally investigate or prosecute any alcohol or drug abuse patient.[facility] HospitalIn the event this information is protected by the Federal Confidentiality of Alcohol and Drug Abuse Patient Records regulations: The Federal rules restrict any use of the information to criminally investigate or prosecute any alcohol or drug abuse patient.[facility] HospitalIn the event this information is protected by the Federal Confidentiality of Alcohol and Drug Abuse Patient Records regulations: The Federal rules restrict any use of the information to criminally investigate or prosecute any alcohol or drug abuse patient.[facility] HospitalIn the event this information is protected by the Federal Confidentiality of Alcohol and Drug Abuse Patient Records regulations: The Federal rules restrict any use of the information to criminally investigate or prosecute any alcohol or drug abuse patient.[facility] HospitalIn the event this information is protected by the Federal Confidentiality of Alcohol and Drug Abuse Patient Records regulations: The Federal rules restrict any use of the information to criminally investigate or prosecute any alcohol or drug abuse patient.[facility] HospitalIn the event this information is protected by the Federal Confidentiality of Alcohol and Drug Abuse Patient Records regulations: The Federal rules restrict any use of the information to criminally investigate or prosecute any alcohol or drug abuse patient.[facility] HospitalIn the event this information is protected by the Federal Confidentiality of Alcohol and Drug Abuse Patient Records regulations: The Federal rules restrict any use of the information to criminally investigate or prosecute any alcohol or drug abuse patient.[facility] HospitalIn the event this information is protected by the Federal Confidentiality of Alcohol and Drug Abuse Patient Records regulations: The Federal rules restrict any use of the information to criminally investigate or prosecute any alcohol or drug abuse patient.[facility] HospitalIn the event this information is protected by the Federal Confidentiality of Alcohol and Drug Abuse Patient Records regulations: The Federal rules restrict any use of the information to criminally investigate or prosecute any alcohol or drug abuse patient.[facility] HospitalIn the event this information is protected by the Federal Confidentiality of Alcohol and Drug Abuse Patient Records regulations: The Federal rules restrict any use of the information to criminally investigate or prosecute any alcohol or drug abuse patient.[facility] HospitalIn the event this information is protected by the Federal Confidentiality of Alcohol and Drug Abuse Patient Records regulations: The Federal rules restrict any use of the information to criminally investigate or prosecute any alcohol or drug abuse patient.[facility] HospitalIn the event this information is protected by the Federal Confidentiality of Alcohol and Drug Abuse Patient Records regulations: The Federal rules restrict any use of the information to criminally investigate or prosecute any alcohol or drug abuse patient.[facility] HospitalIn the event this information is protected by the Federal Confidentiality of Alcohol and Drug Abuse Patient Records regulations: The Federal rules restrict any use of the information to criminally investigate or prosecute any alcohol or drug abuse patient.[facility] HospitalIn the event this information is protected by the Federal Confidentiality of Alcohol and Drug Abuse Patient Records regulations: The Federal rules restrict any use of the information to criminally investigate or prosecute any alcohol or drug abuse patient.[facility] HospitalIn the event this information is protected by the Federal Confidentiality of Alcohol and Drug Abuse Patient Records regulations: The Federal rules restrict any use of the information to criminally investigate or prosecute any alcohol or drug abuse patient.[facility] HospitalIn the event this information is protected by the Federal Confidentiality of Alcohol and Drug Abuse Patient Records regulations: The Federal rules restrict any use of the information to criminally investigate or prosecute any alcohol or drug abuse patient.[facility] HospitalIn the event this information is protected by the Federal Confidentiality of Alcohol and Drug Abuse Patient Records regulations: The Federal rules restrict any use of the information to criminally investigate or prosecute any alcohol or drug abuse patient.[facility] HospitalIn the event this information is protected by the Federal Confidentiality of Alcohol and Drug Abuse Patient Records regulations: The Federal rules restrict any use of the information to criminally investigate or prosecute any alcohol or drug abuse patient.[facility] HospitalIn the event this information is protected by the Federal Confidentiality of Alcohol and Drug Abuse Patient Records regulations: The Federal rules restrict any use of the information to criminally investigate or prosecute any alcohol or drug abuse patient.[facility] HospitalIn the event this information is protected by the Federal Confidentiality of Alcohol and Drug Abuse Patient Records regulations: The Federal rules restrict any use of the information to criminally investigate or prosecute any alcohol or drug abuse patient.[facility] HospitalIn the event this information is protected by the Federal Confidentiality of Alcohol and Drug Abuse Patient Records regulations: The Federal rules restrict any use of the information to criminally investigate or prosecute any alcohol or drug abuse patient.[facility] HospitalIn the event this information is protected by the Federal Confidentiality of Alcohol and Drug Abuse Patient Records regulations: The Federal rules restrict any use of the information to criminally investigate or prosecute any alcohol or drug abuse patient.[facility] HospitalIn the event this information is protected by the Federal Confidentiality of Alcohol and Drug Abuse Patient Records regulations: The Federal rules restrict any use of the information to criminally investigate or prosecute any alcohol or drug abuse patient.[facility] Care Teams (unrecognized sec tion and content) Parts Back Counter Man Relationship Specialty Start Date End Date Kyra Carson MD [facility] [place] [address] PCP - General Internal Medicine 03/26/22 Parts Back Counter Man Relationship Specialty Start Date End Date Kyra Carson MD [facility] [place] [address] PCP - General Internal Medicine 03/26/22 Parts Back Counter Man Relationship Specialty Start Date End Date Kyra Carson MD [facility] [place] [address] PCP - General Internal Medicine 03/26/22 Parts Back Counter Man Relationship Specialty Start Date End Date Kyra Carson MD [address] [place] [address] PCP - General Internal Medicine 03/26/22 Parts Back Counter Man Relationship Specialty Start Date End Date Kyra Carson MD [address] [place] [address] PCP - General Internal Medicine 03/26/22 Parts Back Counter Man Relationship Specialty Start Date End Date Kyra Carson MD [address] [facility] [place] [address] PCP - General Internal Medicine 03/26/22 Parts Back Counter Man Relationship Specialty Start Date End Date Kyra Carson MD [address] [place] [address], [place] [address] PCP - General Internal Medicine 03/26/22 Parts Back Counter Man Relationship Specialty Start Date End Date Kyra Carson MD [address] [place] [address], [place] [address] PCP - General Internal Medicine 03/26/22 Parts Back Counter Man Relationship Specialty Start Date End Date Kyra Carson MD [address] [place] [address], [place] [address] PCP - General Internal Medicine 03/26/22 Parts Back Counter Man Relationship Specialty Start Date End Date Kyra Carson MD [address] [place] [address], [place] [address] PCP - General Internal Medicine 03/26/22 Parts Back Counter Man Relationship Specialty Start Date End Date Kyra Carson MD [address] [place] [address], [place] [address] PCP - General Internal Medicine 03/26/22 Parts Back Counter Man Relationship Specialty Start Date End Date Kyra Carson MD [address] [place] [address], [place] [address] PCP - General Internal Medicine 03/26/22 Parts Back Counter Man Relationship Specialty Start Date End Date Kyra Carson MD [address] [place] [address], [place] [address] PCP - General Internal Medicine 03/26/22 Parts Back Counter Man Relationship Specialty Start Date End Date Kyra Carson MD [address] [facility] [place] [address] PCP - General Internal Medicine 03/26/22 Parts Back Counter Man Relationship Specialty Start Date End Date Kyra Carson MD [address] [facility] [place] [address] PCP - General Internal Medicine 03/26/22 Parts Back Counter Man Relationship Specialty Start Date End Date Kyra Carson MD [address] [facility] [place] [address] PCP - General Internal Medicine 03/26/22 Parts Back Counter Man Relationship Specialty Start Date End Date Kyra Carson MD [address] [facility] [place] [address] PCP - General Internal Medicine 03/26/22 Parts Back Counter Man Relationship Specialty Start Date End Date Kyra Carson MD [address] [facility] [place] [address] PCP - General Internal Medicine 03/26/22 Parts Back Counter Man Relationship Specialty Start Date End Date Kyra Carson MD [address] [facility] [place] [address] PCP - General Internal Medicine 03/26/22 Parts Back Counter Man Relationship Specialty Start Date End Date Kyra Carson MD [address] [facility] [place] [address] PCP - General Internal Medicine 03/26/22 Parts Back Counter Man Relationship Specialty Start Date End Date Kyra Carson MD [address] [facility] [place] [address] PCP - General Internal Medicine 03/26/22 Parts Back Counter Man Relationship Specialty Start Date End Date Kyra Carson MD [address] [facility] [place] [address] PCP - General Internal Medicine 03/26/22 Parts Back Counter Man Relationship Specialty Start Date End Date Kyra Carson MD [address] [facility] [place] [address] PCP - General Internal Medicine 03/26/22 Parts Back Counter Man Relationship Specialty Start Date End Date Kyra Carson MD [address] [facility] [place] [address] PCP - General Internal Medicine 03/26/22 Parts Back Counter Man Relationship Specialty Start Date End Date Kyra Carson MD [address] [facility] [place] [address] PCP - General Internal Medicine 03/26/22 Parts Back Counter Man Relationship Specialty Start Date End Date Kyra Carson MD [address] [facility] [place] [address] PCP - General Internal Medicine 03/26/22 Parts Back Counter Man Relationship Specialty Start Date End Date Kyra Carson MD [address] [facility] [place] [address] PCP - General Internal Medicine 03/26/22 Parts Back Counter Man Relationship Specialty Start Date End Date Kyra Carson MD [address] [facility] [place] [address] PCP - General Internal Medicine 03/26/22 Parts Back Counter Man Relationship Specialty Start Date End Date Kyra Carson MD [address] [facility] [place] [address] PCP - General Internal Medicine 03/26/22 Parts Back Counter Man Relationship Specialty Start Date End Date Kyra Carson MD [address] [place] [address] PCP - General Internal Medicine 03/26/22 Parts Back Counter Man Relationship Specialty Start Date End Date Kyra Carson MD [address] [place] [address] PCP - General Internal Medicine 03/26/22 Parts Back Counter Man Relationship Specialty Start Date End Date Kyra Carson MD [address] [place] [address] PCP - General Internal Medicine 03/26/22 Parts Back Counter Man Relationship Specialty Start Date End Date Kyra Carson MD [address] [place] [address] PCP - General Internal Medicine 03/26/22 Parts Back Counter Man Relationship Specialty Start Date End Date Kyra Carson MD [address] [place] [address] PCP - General Internal Medicine 03/26/22 Parts Back Counter Man Relationship Specialty Start Date End Date Kyra Carson MD [address] [place] [address] PCP - General Internal Medicine 03/26/22 Parts Back Counter Man Relationship Specialty Start Date End Date Kyra Carson MD [address] [place] [address] PCP - General Internal Medicine 03/26/22 Parts Back Counter Man Relationship Specialty Start Date End Date Kyra Carson MD [address] [facility] [place] [address] PCP - General Internal Medicine 03/26/22 Parts Back Counter Man Relationship Specialty Start Date End Date Kyra Carson MD [address] [place] [address] PCP - General Internal Medicine 03/26/22 Parts Back Counter Man Relationship Specialty Start Date End Date Kyra Carson MD [address] [place] [address] PCP - General Internal Medicine 03/26/22 Dorota Soriano, COMMERCIAL PAINTER.[employer] [address] [place] [address] Inpatient Nursing Aide Internal Medicine 06/28/24 Thanh Barajas APRN.[employer] [address] [place] [address] Inpatient Nursing Aide Internal Medicine 06/28/24 Parts Back Counter Man Relationship Specialty Start Date End Date Kyra Carson MD [address] [place] [address] PCP - General Internal Medicine 03/26/22 Dorota Soriano, COMMERCIAL PAINTER.[employer] [address] [place] [address] Inpatient Nursing Aide Internal Medicine 06/28/24 Thanh Barajas APRN.[employer] [address] [place] [address] Inpatient Nursing Aide Internal Medicine 06/28/24 Parts Back Counter Man Relationship Specialty Start Date End Date Kyra Carson MD [address] [place] [address] PCP - General Internal Medicine 03/26/22 Dorota Soriano, COMMERCIAL PAINTER.[employer] [address] [place] [address] Inpatient Nursing Aide Internal Medicine 06/28/24 Thanh Barajas COMMERCIAL PAINTER.[employer] [address] [place] [address] Inpatient Nursing Aide Internal Medicine 06/28/24 Parts Back Counter Man Relationship Specialty Start Date End Date Kyra Carson MD [address] [place] [address] PCP - General Internal Medicine 03/26/22 Dorota Soriano, COMMERCIAL PAINTER.[employer] [address] [facility] [place] [address] Inpatient Nursing Aide Internal Medicine 06/28/24 Thanh Barajas APRN.[employer] [address] [place] [address] Inpatient Nursing Aide Internal Medicine 10/12/24 Parts Back Counter Man Relationship Specialty Start Date End Date Kyra Carson MD [address] [place] [address] PCP - General Internal Medicine 03/26/22 Dorota Soriano COMMERCIAL PAINTER.[employer] [address] [facility] [place] [address] Inpatient Nursing Aide Internal Medicine 06/28/24 Thanh Barajas COMMERCIAL PAINTER.[employer] [address] [facility] [place] [address] Inpatient Nursing Aide Internal Medicine 10/12/24 Parts Back Counter Man Relationship Specialty Start Date End Date Kyra Carson MD [address] [facility] [place] [address] PCP - General Internal Medicine 03/26/22 Dorota Soriano, COMMERCIAL PAINTER.[employer] [address] [facility] [place] [address] Inpatient Nursing Aide Internal Medicine 06/28/24 Thanh Barajas COMMERCIAL PAINTER.[employer] [address] [facility] [place] [address] [facility] Internal Medicine 10/12/24 Parts Back Counter Man Relationship Specialty Start Date End Date Kyra Carson MD [address] [facility] [place] [address] PCP - General Internal Medicine 03/26/22 Dorota Soriano, COMMERCIAL PAINTER.[employer] [address] [facility] [place] [address] [facility] Internal Medicine 06/28/24 Thanh Barajas COMMERCIAL PAINTER.[employer] [address] [facility] [place] [address] [facility] Internal Medicine 10/12/24 Parts Back Counter Man Relationship Specialty Start Date End Date Kyra Carson MD [address] [facility] [place] [address] PCP - General Internal Medicine 03/26/22 Dorota Soriano, COMMERCIAL PAINTER.[employer] [address] [facility] [place] [address] Inpatient Nursing Aide Internal Medicine 06/28/24 Thanh Barajas COMMERCIAL PAINTER.[employer] [address] [facility] [place] [address] Inpatient Nursing Aide Internal Medicine 10/12/24 Parts Back Counter Man Relationship Specialty Start Date End Date Kyra Carson MD [address] [facility] [place] [address] PCP - General Internal Medicine 03/26/22 Thanh Barajas COMMERCIAL PAINTER.[employer] [address] [facility] [place] [address] Inpatient Nursing Aide Internal Medicine 10/12/24 Dorota Soriano, COMMERCIAL PAINTER.[employer] [address] [facility] [place] [address] Inpatient Nursing Aide Internal Medicine 12/08/24 Parts Back Counter Man Relationship Specialty Start Date End Date Kyra Carson MD [address] [facility] [place] [address] PCP - General Internal Medicine 03/26/22 Thanh Barajas, COMMERCIAL PAINTER.[employer] [address] [facility] [place] [address] Inpatient Nursing Aide Internal Medicine 10/12/24 Dorota Soriano, COMMERCIAL PAINTER.[employer] [address] [facility] [place] [address] Inpatient Nursing Aide Internal Medicine 12/08/24 Parts Back Counter Man Relationship Specialty Start Date End Date Kyra Carson MD [address] [facility] [place] [address] PCP - General Internal Medicine 03/26/22 Dorota Soriano, COMMERCIAL PAINTER.[employer] [address] [facility] [place] [address] Inpatient Nursing Aide Internal Medicine 06/28/24 12/07/24 Thanh Barajas APRN.[employer] [address] [place] [address] Inpatient Nursing Aide Internal Medicine 10/12/24 Dorota Soriano APRN.[employer] [address] [place] [address] Inpatient Nursing Aide Internal Medicine 12/08/24 Parts Back Counter Man Relationship Specialty Start Date End Date Kyra Carson MD [address] [place] [address] PCP - General Internal Medicine 03/26/22 Thanh Barajas APRN.[employer] [address] [place] [address] Inpatient Nursing Aide Internal Medicine 10/12/24 Dorota Soriano APRN.[employer] [address] [place] [address] Inpatient Nursing Aide Internal Medicine 12/08/24 Parts Back Counter Man Relationship Specialty Start Date End Date Kyra Carson MD [address] [place] [address] PCP - General Internal Medicine 03/26/22 Thanh Barajas APRN.[employer] [address] [place] [address] Inpatient Nursing Aide Internal Medicine 10/12/24 Dorota Soriano APRN.[employer] [address] [place] [address] Inpatient Nursing Aide Internal Medicine 12/08/24 Team Status: Active Member Role/Relationship Status Dates Dr. Kyra Carson MD Primary Care Provider Active Team Status: Inactive Member Role/Relationship Status Dates Dr. Thomas Yuen DO Attending Provider Active Start: February 11, 2025 End: February 11, 2025 Dr. Thomas Yuen DO Referring Provider Active Start: February 11, 2025 End: February 11, 2025 Dr. Kyra Carson MD Primary Care Provider Active Start: February 11, 2025 End: February 11, 2025 Reason for Visit (unrecogniz ed section and content) Reason Onset Date Comments Establish Care Breast Problem 03/26/2022 Mammogram at [facility] Reason Comments FYI-No Action Needed Reason Onset Date Comments Refill Request 05/08/2022 Specialty Diagnoses / Procedures Referred By Contac t Referred To Contact [facility] Diagnoses Breast cancer screening by mammogram Procedures MIKEY SCREENING SCREENING MAMMOGRAPHY BI 2-VIEW BREAST INC CAD Kyra Carson MD [address] [place] [address] [facility] [address] [place] [address] Referral ID Status Reason Start Date Expiration Date V isits Requested Visits Authorized [id number] Closed Auto-Generate d Referral 03/26/2022 06/24/2022 3 1 Reason Onset Date Comments Refill Request 07/29/2022 Reason Onset Date Comments Refill Request 08/28/2022 Reason Comments Back Pain low back into left l eg x 3 days, tingling in both leg yesterday Reason Onset Date Comments Refill Request 09/27/2022 Reason Onset Date Comments Refill Request 09/28/2022 Reason Comments Established Patient Discuss allergies, C olonoscopy, shingles vaccine and anxiety Reason Comments Recheck Reason Onset Date Comments Refill Request 10/21/2022 Reason Onset Date Comments Refill Request 11/24/2022 Reason Comments Anxiety Reason Onset Date Comments Refill Request 01/12/2023 Reason Onset Date Comments Refill Request 02/01/2023 Reason Onset Date Comments Refill Request 02/25/2023 Reason Onset Date Comments Refill Request 03/31/2023 Reason Comments Established Patient 1 year post visit OA Let KneeXray done 03/31/2023 Reason Onset Date Comments Refill Request 04/27/2023 Reason Onset Date Comments Refill Request 05/06/2023 Reason Onset Date Comments Refill Request 06/02/2023 Reason Onset Date Comments Refill Request 06/28/2023 Reason Onset Date Comments Refill Request 08/23/2023 Reason Onset Date Comments Refill Request 10/03/2023 Reason Onset Date Comments Refill Request 11/02/2023 Reason Onset Date Comments Refill Request 11/12/2023 Reason Comments Follow Up Reason Onset Date Comments Refill Request 04/06/2024 Reason Onset Date Comments Refill Request 05/03/2024 Reason Comments F/U 6 months Labs prior Reason Onset Date Comments Refill Request 08/02/2024 Reason Onset Date Comments Population Health Navigation Outreach 09/08/2024 [employer] High Risk - Attempt 1 Reason Comments Cough moist to try and pro ductive at time with yellow sputum Symptoms on going for about 2 weekcongestion in chest ear pain off and onno energy Reason Onset Date Comments Population Health Navigation Outreach 10/12/2024 [employer]- HIGH RISK- ATTEMPT 2 Reason Comments [facility] Specialty Diagnoses / Procedures Referred By Contac t Referred To Contact Diagnoses History of uterine fibroid Postmenopausal bleeding Procedures CONSULT TO [facility]/OUTPATIENT [facility] 60 MINUTES Kyra Carson MD [address] [place] [address] Phone: tel: fax: Referral ID Status Reason Start Date Expiration Date V isits Requested Visits Authorized [id number] Closed PCP Requested Referral Auto-Generated Referral 05/25/2024 05/25/2025 1 1 Reason Onset Date Comments Care Coordination 11/16/2024 Reason Comments F/U 6 months Reason Onset Date Comments Population Health Navigation Outreach 12/06/2024 Lenarda Amena Sutton Reason Comments Endometrial Biopsy Specialty Diagnoses / Procedures Referred By Contcarmen t [facility] Diagnoses PMB (postmenopausal bleeding) Procedures ENDOMETRIAL BIOPSY ENDOMETRIAL BX W/WO ENDOCERVIX BX W/O DILAT SPX Lizeth Santana APRN.[employer] [address] [place] [address] Phone: tel: fax: [facility] [address] [place] [address] Referral ID Status Reason Start Date Expiration Date V isits Requested Visits Authorized [id number] Closed Auto-Generate d Referral 11/11/2024 11/11/2025 1 1 Reason Comments Results Reason Onset Date Comments Results 11/11/2024 Reason Comments Pre-Op Exam Dr. Yuen to compl ete a D&C on 02/11/25 Reason Comments Pre-Op Visit INFORMATION SOURCE (unrecogn ized section and content) DATE CREATED AUTHOR 05/15/2023 [facility] DATE CREATED AUTHOR AUTHOR'S ORGANIZ ATION 01/31/2025 [facility] DATE CREATED AUTHOR AUTHOR'S ORGANIZ ATION 02/11/2025 [facility] FOR RECORDS PERTAINING TO PATIENTS WHO ARE OR HAVE BEEN ENROLLED IN A CHEMICAL DEPENDENCY/SUBSTANCEABUSE PROGRAM, SOME INFORMATION MAY BE OMITTED. This clinical summary was aggregated from multiple sources. Caution should be exercised in using it in the provision of clinical care. This summary normalizes information from multiple sources, and as a consequence, information in this document may materially change the coding, format and clinical context of patient data. In addition, data may be omitted in some cases. CLINICAL DECISIONS SHOULD BE BASED ON THE PRIMARY CLINICAL RECORDS. [employer] provides no warranty or guarantee of the accuracy or completeness of information in this document.
--- NOTE | 2025-02-13 13:49 | EX.ED.DYSGE1 ---
HPI History of Present Illness Chief Complaint: Abd Pain Detail of Chief Complaint: Periumbilical pain and nausea Informant: patient Onset/Context/Timing Onset: Today and Hours Context: Sudden Onset Timing: Continuous Quality: Pain umbilicus, unable to reduce hernia Location: Umbilical hernia Current Severity: Mild Maximum Severity: Severe Worsened by: Attempt to reduce by patient and pain me Relieved by: Successful reduction of hernia Associated Symptoms Associated Symptoms: Nausea Narrative Narrative: Patient is a 69-year-old woman. She has a known umbilical hernia. She says every morning she has to push it back in. This morning she was unable to push it back in. She complains of nausea. She did have a bowel movement today and is still passing gas. Is not passing as much. She denies fever, chills night sweats. She denies vomiting. She has no other complaints. She does not have a surgeon in the area. Last time she was operated on was by a physician in [place] where she resided. She does have a history of hypothyroidism and depression. Prior similar symptoms: Yes Recent Illness/Hospitalization: No PFSH [facility] Medical History Wears glasses Post-menopausal Depression Anxiety Alcohol use Thyroid disease Arthritis Back pain Injury of head and neck History of hiatal hernia Non-smoker Asthma Leg cramps History of pain when walking History of edema History of echocardiogram History of ganglion cyst Home Medications ?Medication ?Instructions ?Recorded ?Last Taken ?Type cetirizine 10 mg tablet 10 mg PO DAILY 01/31/25 Unknown History cholecalciferol (vitamin D3) 25 25 mcg PO DAILY 01/31/25 Unknown History mcg (1,000 unit) capsule (Vitamin D3) fluticasone propionate 50 1 spray intranasal DAILY PRN nasal 01/31/25 Unknown History mcg/actuation nasal congestion spray,suspension (24 Hour Allergy Relief) levothyroxine 50 mcg tablet 50 mcg PO DAILY 01/31/25 Unknown History meloxicam 15 mg tablet 15 mg PO DAILY 01/31/25 Unknown History sertraline 50 mg tablet 50 mg PO DAILY 01/31/25 Unknown History Allergy/AdvReac Type Severity Reaction Status Date / Time amoxicillin Allergy Severe Rash Verified 02/13/25 12:46 Surgical History History of cardiac catheterization History of tonsillectomy and adenoidectomy Hx of tubal ligation History of hysteroscopy Hx of section Social History Smoking Status: Never smoker ROS ROS ED Constitutional Constitutional ED: Denies chills, fever(s), subjective, sweats or weight loss Cardiovascular Cardiovascular: Denies chest pain or palpitations Respiratory/Chest Respiratory/Chest: Denies cough, dyspnea or dyspnea on exertion Gastrointestinal Gastrointestinal: Reports abdominal pain and nausea; Denies constipation, diarrhea, melena or vomiting Genitourinary Genitourinary ED: Denies dysuria, hematuria or urinary frequency Musculoskeletal Musculoskeletal: Denies back pain Integumentary Denies rash Neurologic Neurologic: Denies weakness Endocrine Endocrinology: Denies cold intolerance or heat intolerance Hematologic/Lymphatic Hematologic/Lymphatic: Reports systems reviewed and no addt'l complaints, except as documented EXAM Physical Exam Const Vital Signs: 02/13/25 12:44 Temperature 97.9 F Temperature Source Oral Pulse Rate 78 Respiratory Rate 16 Blood Pressure 168/76 H Blood Pressure Mean 106 Pulse Ox 98 Oxygen Delivery Method Room Air Positive well nourished and well developed Constitutional Narrative: Blood pressure is elevated. BMI is 54.8. General Appearance ED: well developed, NAD and pallor HEENT Reports moist mucous membranes HEENT Narrative: Head is atraumatic normocephalic. Ears normal. Eyes PERRL and EOMs intact bilaterally General Eye ED: Negative for scleral icterus Neck no lymphadenopathy, supple and no JVD Resp normal respiratory effort and clear to auscultation bilaterally Cardio regular rate, regular rhythm, S1 normal heart sound, S2 normal heart sound and no murmurs GI non-distended and no masses; Negative for normal to inspection, nondistended, normoactive bowel sounds, non-tender or hepatosplenomegaly GI Narrative: Bowel sounds are present normal. Patient has umbilical hernia. Probably the size of a silver dollar. With minimal effort and pressure for about 15 seconds I was able to successfully reduce the hernia. After the hernia was reduced she was reexamined. She has no guarding or peritoneal findings. Palpation: soft Back/Spine no CVA tenderness Extremity normal to inspection General Extremety ED: Negative for edema or tenderness General Extremity: Negative for edema Neuro oriented x3 and CN's II-XII intact bilaterally Sensorium / Orientation: alert Psych mental status grossly normal Skin no rashes or lesions noted, no wounds and skin turgor normal General Skin Exam: elasticity normal and pallor; Negative for jaundice MDM MDM MDM Narrative Medical decision making narrative: Patient with a umbilical hernia. Patient was unable to reduce it herself which is not normal. This was reduced by me. Since she has no guarding or peritoneal findings this time doubt that there was any ischemia. Will obtain CBC to assess white count differential, electrolyte panel to assess renal function and CO2 anion gap. Abdominal film to determine if there is any evidence of ileus or obstruction. If her workup is negative we will refer to surgeon on-call Dr. Isaac. Lab Data Attestation: I reviewed the patient's lab results. Lab results narrative: CBC is normal. Labs: Laboratory Results - last 24 hr 02/13/25 13:59 WBC 9.1 RBC 4.51 Hgb 13.9 Hct 42.8 MCV 94.9 MCH 30.8 MCHC 32.5 RDW Std Deviation 45.1 H RDW Coeff of William 13.0 Plt Count 261 MPV 10.9 Immature Gran % (Auto) 0.200 Neut % (Auto) 60.7 Lymph % (Auto) 24.9 [place] % (Auto) 10.2 H Eos % (Auto) 3.2 Baso % (Auto) 0.8 Absolute Neuts (auto) 5.5 Absolute Lymphs (auto) 2.27 Nucleated RBC % 0 Sodium 139 Potassium 4.7 Chloride 103 Carbon Dioxide 23.9 Anion Gap 13 BUN 16 Creatinine 0.88 Estim Creat Clear Calc 76.56 Est GFR (MDRD) Non-Af 72 BUN/Creatinine Ratio 17.6 Glucose 93 Lactic Acid 1.1 Calcium 9.5 Radiography Chest X-Ray - ED: Read by ED Physician (Abdominal series which includes 2 views of the abdomen 1 view of the chest was unremarkable. There is no severe gas pattern. There is no evidence of pneumoperitoneum. There is no evidence of any acute abnormality. The heart is normal in size. The silhouette is normal. Lung parenchyma reveals n) Treatment and Re-Evaluation :: Patient was reassessed at 1549. She was informed that her tests were unremarkable and her x-ray did not revealing acutely abnormal. She was discharged to home with follow-up with general surgery. She was told not to wait as long if she is unable to reduce her umbilical hernia. Discharge Plan Triage Chief Complaint: Abd Pain ED Provider: Boone Clemens Dx/Rx/DC Orders Clinical Impression: Recurrent umbilical hernia, Nausea & vomiting, Abdominal pain, Elevated blood-pressure reading without diagnosis of hypertension Instructions: ED Hernia (Adult), ED Hypertension, To Be Confirmed Prescriptions: No Action cholecalciferol (vitamin D3) [Vitamin D3] 25 mcg (1,000 unit) capsule 25 mcg PO DAILY levothyroxine 50 mcg tablet 50 mcg PO DAILY cetirizine 10 mg tablet 10 mg PO DAILY meloxicam 15 mg tablet 15 mg PO DAILY sertraline 50 mg tablet 50 mg PO DAILY fluticasone propionate [24 Hour Allergy Relief] 50 mcg/actuation spray,suspension 1 spray intranasal DAILY PRN (Reason: nasal congestion) Rx Instructions: administer into each nostril Primary Care Provider: Josie Worthy Referrals: Josie Worthy MD [Primary Care Provider] - 1-2 Weeks Ashley Isaac MD [Med Staff - Active Staff] - 3-5 Days Print Language: Setswana Disposition Disposition: Home, Self Care
[2025-02-13 14:02] LABS: Hematocrit 42.8 % (37-47); Hemoglobin 13.9 g/dL (12.0-15.0); Immature Granulocytes Count 0.020 X10^3/uL (0.0-0.0); Mean Corp Hgb Conc 32.5 g/dL (32-36); Mean Corpuscular Volume 94.9 fL (81-99); Mean Platelet Vol. 10.9 fl (6.2-12.0); NRBC Flagged by Analyzer 0 % (0-5); Platelet Count 261 K/mm3 (150-450); RBC Distribution Width CV 13.0 % (11.6-14.6); RBC Distribution Width SD 45.1 fl (35.1-43.9); Red Blood Count 4.51 M/mm3 (4.2-5.4); White Blood Count 9.1 K/mm3 (4.4-11.0)
[2025-02-13 14:33] LABS: Anion Gap 13 (5-15); BUN 16 mg/dL (4-19); BUN/Creat Ratio 17.6 RATIO (10-20); Calcium,Total 9.5 mg/dL (7.6-11.0); Carbon Dioxide 23.9 mmol/L (21.0-32.0); Chloride 103 mmol/L (98-108); Estimated Creatinine Clearance 76.56 ml/min (50-250); Glucose 93 mg/dL (70-99); Potassium 4.7 mmol/L (3.3-5.1)
--- NOTE | 2025-02-13 15:22 | ED.RN ---
called xray to determine where results were for pt xrays. Waiting for department to reach out to company.
[2025-02-13 16:02] VITALS: BP 152/74; PULSE 70; RESP 16; TEMP 36.6; O2SAT 98
== END 2025-02-13 16:03 | disposition home or self-care (01) ==
PROVIDERS: Emergency Provider Emergency Medicine; PCP Internal Medicine; Visit Provider Emergency Medicine
DX: K42.9 Umbilical hernia without obstruction or gangrene (principal); R03.0 Elevated blood-pressure reading, without diagnosis of hypertension; R11.2 Nausea with vomiting, unspecified; R10.9 Unspecified abdominal pain; Z98.51 Tubal ligation status; F41.9 Anxiety disorder, unspecified; F32.A Depression, unspecified
CPT/HCPCS: 74022; 80048; 83605; 85025; 96374; 96375; 99283; A4216; J2405

== ENCOUNTER → 2025-03-08 | Outpatient (CLI) | payer MEDICARE, SELFPAY ==
--- NOTE | 2025-03-08 18:09 | CT_ITS ---
PROCEDURE: ABDOMEN/PELVIS WITHOUT CONT 03/08/2025 REASON FOR EXAM: UMBILICAL HERNIA 10 year history. TECHNIQUE: ABDOMEN/PELVIS WITHOUT CONT Noncontrast technique limits evaluation of the abdominal and pelvic viscera. Coronal and Sagittal reconstruction series were provided. One or more dose reduction techniques were used (e.g., Automated exposure control, adjustment of the mA and/or kV according to patient size, use of iterative reconstruction technique). RADIATION DOSE SUMMARY: CTDlvol: 23.44 mGy DLP: 1429.07 mGycm COMPARISON: None FINDINGS: Lung bases: The lung bases are clear. Coronary artery calcification. Liver: Mild hepatomegaly. No focal lesion is seen. Gallbladder: No calcified gallstones are seen. Spleen: Normal size. Pancreas: Normal size. No surrounding inflammation. Adrenals: Unremarkable Kidneys: Nonobstructive tiny calculus in the lower pole calyx of the left kidney. 1 cm hyperdense cyst in the anterior aspect of the right kidney. There is malrotation of the right kidney. Bladder: Unremarkable Reproductive Organs: Unremarkable Bowel: Colonic diverticulosis without diverticulitis. Appendix: The appendix is not identified. There is no inflammatory process identified in the right lower quadrant to suggest appendicitis. Lymph nodes: Unremarkable. Vasculature: Mild diffuse atherosclerotic calcifications are noted. Peritoneum / Retroperitoneum: There is evidence of an umbilical hernia containing nondilated portion of the transverse colon. The neck of the hernia measures 32.3 mm. Bones: Mild degenerative changes. CT/Abdomen/Pelvis without Cont IMPRESSION: Mild hepatomegaly. Nonobstructive tiny calculus in the lower pole calyx of the left kidney. 1 cm hyperdense cyst in the anterior aspect of the right kidney. Umbilical hernia containing nondilated portion of the transverse colon. In the neck of the hernia measures 32.3 mm. Reading Location: [facility]
== END | disposition home or self-care (01) ==
LOC: CT 18:08
PROVIDERS: PCP Internal Medicine; Referring Provider Surgery; Visit Provider Surgery
DX: K42.9 Umbilical hernia without obstruction or gangrene (principal)
CPT/HCPCS: 74176

== ENCOUNTER 2025-04-28 18:02 | Observation (INO) | payer MEDICARE, SELFPAY ==
[2025-04-28] VITALS (21 sets, daily range): BP systolic 99–139; BP diastolic 63–83; PULSE 76–92; RESP 14–18; TEMP 36.4–37.1; O2SAT 91–100; BMI 54.1
[2025-04-28] MEDS: Lactated Ringers 1,000 ML 15 ML IV ×2 (11:34→16:12)
--- NOTE | 2025-04-28 11:34 | HP.PCM.SX_ITS ---
HPI - General General Date of Service: 04/28/25 HPI Narrative DEEP NICHOLSON, is a 70 F who presents for robotic incisional hernia repair with mesh. Patient denies any changes with the hernia since office visit. Office visit 02/17/2025 HPI HPI: 69-year-old female presents due to umbilical hernia. Patient had previous vertical as well as a tubal which did go through her umbilicus. Patient states she had the hernia for about 10 years. However more recently has been more painful and bothersome patient did have to go to the ER to have it reduced recently. Patient is interested in having it repaired. [facility] Medical History Wears glasses Post-menopausal Depression Anxiety Alcohol use Thyroid disease Arthritis Back pain Injury of head and neck History of hiatal hernia Non-smoker Asthma Leg cramps History of pain when walking History of edema History of echocardiogram History of ganglion cyst Home Medications ?Medication ?Instructions ?Recorded ?Last Taken ?Type cetirizine 10 mg tablet 10 mg PO DAILY 01/31/25 Unkn own History cholecalciferol (vitamin D3) 25 25 mcg PO DAILY Unknown History mcg (1,000 unit) capsule (Vitamin D3) fluticasone propionate 50 1 spray intranasal DAILY PRN nasal 01/31/25 Unknown History mcg/actuation nasal congestion spray,suspension (24 Hour Allergy Relief) levothyroxine 50 mcg tablet 50 mcg PO DAILY 01/31/25 U nknown History meloxicam 15 mg tablet 15 mg PO DAILY 01/31/25 Unkn own History sertraline 50 mg tablet 50 mg PO DAILY 01/31/25 Unkn own History Allergy/AdvReac Type Severity Reaction Status Date / Time amoxicillin Allergy Severe Rash Verified 04/20/25 12:50 Family History Daughter Asthma Diabetes Mother Cancer lung Hypertension Father Colon cancer Cancer leukemia Surgical History History of hysteroscopy S/P excision of ganglion cyst History of cardiac catheterization History of tonsillectomy and adenoidectomy Hx of tubal ligation History of hysteroscopy Hx of section Social History Smoking Status: Never smoker alcohol intake: current Vital Signs Vital Signs Vital Signs: 04/28/25 11:16 04/28/25 11:16 Temperature 97.7 F L Temperature Source Temporal Pulse Rate 77 Respiratory Rate 16 Respiratory Pattern Normal Blood Pressure 139/72 H Blood Pressure Mean 94 Blood Pressure Source Monitor Blood Pressure Position Semi-Fowlers Blood Pressure Location Left Arm Pulse Ox 93 Oxygen Delivery Method Room Air Weight Weight: 277 lb 1.937 oz Body Mass Index (BMI) 54.1 Physical Exam Const alert, oriented x3 and no apparent distress HEENT normocephalic and head/scalp atraumatic Resp normal respiratory effort Cardio regular rate GI soft to palpation and non-tender; Negative for non-distended GI Narrative: Incisional hernia below the umbilicus?did not attempt to reduce -previously mostly did reduce on exam. Palpation: Negative for guarding Extremity no clubbing, cyanosis or edema Skin no rashes or lesions noted Neuro CN's II-XII intact bilaterally Psych mental status grossly normal Assessment & Plan Assessment/Plan (1) Incisional hernia: QUALIFIERS: Obstruction and gangrene presence: without obstruction or gangrene Qualified Code(s): K43.2 - Incisional hernia without obstruction or gangrene PLAN: Plan Plan to do a robotic incisional hernia repair with mesh. Reviewed the procedure with the patient including the risks, including but not limited to infection, bleeding, paresthesia, chronic pain, injury to small bowel, and recurrence. All questions were answered. Ashley Isaac M.D. Pager: [phone] [facility] [address] [place] [address], [address] [place] [address] Office: [phone]
--- NOTE | 2025-04-28 11:36 | PRE.ANES_ITS ---
ASA Classification* ASA Classification ASA Classification: 3 Assessment & Plan Anesthesia* Anesthesia Assessment Anesthesia Assessment: Discussed sedation and/or anesthesia options, risks, benefits, and alternatives with patient/parents/legal guardian/POA. Questions invited. The patient/parents/legal guardian/POA seems to understand and agrees to proceed with anesthesia plan. Reviewed the physical assessment, medical history, allergy history and patient home medications list prior to surgery/procedure/anesthetic and documented any changes. Performed airway and anesthesia risk assessments. Anesthesia Type Anesthesia Type: General Anesthesia Focused Assessment* Temperature: 97.7 F Pulse Rate: 77 Blood Pressure: 139/72 Respiratory Rate: 16 Pulse Ox: 93 Airway Assessment Mouth opens: >3 cm Mallampati Score: II Labs Anesthesia Preop lab: CBC WBC, (4.4-11.0) 9.1 K/mm3 02/13/25, 13:59 RBC, (4.2-5.4) 4.51 M/mm3 02/13/25, 13:59 Hgb, (12.0-15.0) 13.9 g/dL 02/13/25, 13:59 Hct, (37-47) 42.8 % 02/13/25, 13:59 Plt Count, (150-450) 261 K/mm3 02/13/25, 13:59 CHEMISTRY Potassium, (3.3-5.1) 4.7 mmol/L 02/13/25, 13:59 Sodium, (133-145) 139 mmol/L 02/13/25, 13:59 BUN, (4-19) 16 mg/dL 02/13/25, 13:59 Creatinine, (0.70-1.20) 0.88 mg/dL 02/13/25, 13:59 Glucose, (70-99) 93 mg/dL 02/13/25, 13:59 TSH, (0.300-4.200) 2.420 uIU/mL 04/20/25, 13:23 COAG Pre-Assessment Diagnosis/Proposed Procedure Planned Operative Procedure(s): INCISIONAL HERNIA REPAIR WITH MESH PER DR BENTON AND IUD PER DR PETE Anesthesia History 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 When Was Last Pacemaker Check QUESTION #4 FULL TEXT: You/Your Family Experience fever (hyperthermia) with Anesthesia Last Oral Intake Last Oral intake: Last Oral Intake NPO since 23:58 04/28/25 11:16 Meds taken in AM with sips of No 04/28/25 11:16 water? Meds patient instructed to take am of surgery PONV PONV - jewelry store manager: PONV - jewelry store manager Female Yes 04/18/25 08:47 HX of Motion Sickness Yes 04/18/25 08:47 HX of N/V After Surgery No 04/18/25 08:47 Non-Smoker Yes 04/18/25 08:47 Duration of Surgery greater Yes 04/18/25 08:47 than 60 minutes Number of Risk Factors 4 04/18/25 08:47 PONV Score Severe Risk 04/18/25 08:47 Height & Weight Height & Weight: Anesthesia: Height & Weight Height 5 ft 04/28/25 11:16 Weight: 125.7 kg 04/28/25 11:16 Body Mass Index (BMI) 54.1 04/28/25 11:16 Respiratory Assessment Respiratory Assessment - jewelry store manager: Respiratory Tract Infection Hx - jewelry store manager Hx Respiratory Tract Infection No 04/18/25 08:47 STOP Sleep Apnea STOP Sleep Apnea - jewelry store manager: STOP Sleep Apnea - jewelry store manager Hx Hypertension No 04/18/25 08:47 Hx Sleep Apnea No 04/18/25 08:47 CPAP BIPAP Do you snore loudly (louder Yes 04/18/25 08:47 than talking or can be heard Do you often feel tired/ No 04/18/25 08:47 fatigued/ sleepy during daytime? Has anyone observed you stop No 04/18/25 08:47 breathing during sleep? STOP Results Negative 04/18/25 08:47 QUESTION #5 FULL TEXT : Do you snore loudly (louder than talking or can be heard through closed doors)? 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 Specify any problems Hx of Preganancy in last 3 No 04/18/25 08:47 Months Nurse Filling Out Transfusion DSCHRIBER 04/18/25 08:47 & Questions: Date: 04/18/25 04/18/25 08:47 Time: 08:48 04/18/25 08:47 Patient unable to answer at this time (ie. confused, unrespo /Reproduction History /Reproductive History - jewelry store manager: /Reproductive Hx- jewelry store manager Hx Now No 04/18/25 08:47 Gestational Age (in weeks): EDC: Hx Hx Para Hx Section SAB No 04/18/25 08:47 Active Medications Active Medications: Current Medications Generic Name Dose Route Start Last Admin Trade Name Freq PRN Reason Stop Dose Admin Clindamycin Phosphate 900 mg in 50 mls @ 75 mls/hr 04/28/25 12:30 Cleocin IV 04/28/25 13:09 INTRAOP ONE Lactated Ringer's 1,000 mls @ 15 mls/hr 04/28/25 11:00 04/28/25 11:34 IV 15 mls/hr .Q48H NIYAH Administration PFSH Medical History Wears glasses Post-menopausal Depression Anxiety Alcohol use Thyroid disease Arthritis Back pain Injury of head and neck History of hiatal hernia Non-smoker Asthma Leg cramps History of pain when walking History of edema History of echocardiogram History of ganglion cyst Home Medications ?Medication ?Instructions ?Recorded ?Last Taken ?Type cetirizine 10 mg tablet 10 mg PO DAILY 01/31/25 Unkn own History cholecalciferol (vitamin D3) 25 25 mcg PO DAILY Unknown History mcg (1,000 unit) capsule (Vitamin D3) fluticasone propionate 50 1 spray intranasal DAILY PRN nasal 01/31/25 Unknown History mcg/actuation nasal congestion spray,suspension (24 Hour Allergy Relief) levothyroxine 50 mcg tablet 50 mcg PO DAILY 01/31/25 U nknown History meloxicam 15 mg tablet 15 mg PO DAILY 01/31/25 Unkn own History sertraline 50 mg tablet 50 mg PO DAILY 01/31/25 Unkn own History Allergy/AdvReac Type Severity Reaction Status Date / Time amoxicillin Allergy Severe Rash Verified 04/20/25 12:50 Family History Daughter Asthma Diabetes Mother Cancer lung Hypertension Father Colon cancer Cancer leukemia Surgical History History of hysteroscopy S/P excision of ganglion cyst History of cardiac catheterization History of tonsillectomy and adenoidectomy Hx of tubal ligation History of hysteroscopy Hx of section Social History Smoking Status: Never smoker alcohol intake: current Review of Systems (Anesthesia) ROS Narrative System reviewed and no additional complaints, except as documented.
--- NOTE | 2025-04-28 12:30 | HERN_PTH ---
PATIENT: DEEP NICHOLSON LOC: [facility]3 U#:[id number] AGE/SX: 70/F ROOM: MS311 RE04/28/[address]: Dr. Ashley Isaac MD : 1955 BED: 1 DIS: 04/29/2025 SPEC #: [id number] RECD: 04/28/25 14:58 STATUS: BONNIE GINGER #: [id number] BANDAR: 04/28/25 12:[address]: Ashley Isaac DEPT: SURGICAL PATHOLOGY RECD BY: Anderson Rasheed ENTERED: 04/29/25 08:30 SP TYPE: Hernia OTHR DR: Dr. Josie Worthy MD Tissues: A - HERNIA Procedures: Surgery Specimen Level II HEADER OPERATION: Hernia, incisional repair with mesh, robotic PRE-OP DIAGNOSIS: Incisional hernia TISSUE SUBMITTED: A- Hernia sac MICROSCOPIC DIAGNOSIS A. Soft tissue, incisional hernia repair: * Benign fibromembranous and adipose tissue consistent with hernia sac MICROSCOPIC DESCRIPTION Slides are reviewed. GROSS DESCRIPTION A. Received in formalin labeled with the patient's name and date of . Designated as hernia sac is a vaca-pink, focally fibrotic and somewhat wrinkled portion of semimembranous tissue with attached, yellow and lobulated soft tissue, collectively measuring 10.3 x 4.8 x 0.9 cm. Subcontracts Manager sections are submitted in 1 cassette. RI 04/28/2025 CPT:54882
[2025-04-28] MEDS: Midazolam 2 MG/2 ML Syringe IV (12:53)
[2025-04-28] MEDS: Lidocaine 1% (5 ml sdv) 5 ML Vial IV (13:00)
--- NOTE | 2025-04-28 14:22 | OP.PCM_ITS ---
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 Cover Operator: Flaquita Sawant Tasks completed by accounting administrative assistant: Opening Additional mobile unit assistant?: Yes Additional Managing Consultant Clinical Professor #2: Delmis Barnes Tasks completed by mobile unit assistant #2: Closing Type of Anesthesia: General/Supplemental RN Documented Start/Stop Times: Operation Date: 04/28/25 12:30 Case Time Into Pre-Op 04/28/25 10:57 Out of Pre-Op 04/28/25 12:47 Anesthesia Start 04/28/25 12:52 Into Room 04/28/25 12:52 Procedure Start 04/28/25 13:14 Procedure End 04/28/25 14:33 Anesthesia End 04/28/25 14:39 Out of Room 04/28/25 14:39 Into Recovery 04/28/25 14:44 Out of Recovery 04/28/25 17:28 Into Phase II Recovery 04/28/25 17:29 Out of Phase II 04/28/25 18:26 Procedure Start Time: 13:14 Procedure Stop Time: 14:33 Select all DRAINS/GRAFTS/IMPLANTS that apply: Prosthetic device Prosthetic device details: Ventralight ST mesh 10.2 x 15.2 cut to 10.2 x 13.3 oval Lot [id number] ref [id number] Special Medications: Clindamycin 900 mg IV x 1 Estimated Blood Loss: <10 cc Specimen collected: Yes Description of specimen(s) removed: Hernia sac Description of surgery: Indications: this is a 70 year-old female who had a incisional hernia below her umbilicus which was causing her symptoms. Robotic incisional hernia repair with mesh was elected Description procedure: The patient was placed on operating table in supine position. A timeout was completed verifying correct patient, procedure, site, position and special equipment prior to beginning procedure. General Anesthesia was induced. Patient's arms were tucked and padded appropriately. Visiport was used to make the incision at Mejia's point in the left upper quadrant. Entry into the abdomen was confirmed visually. Laparoscope was placed. Verifying no injury during initial trocar placement. Two 8 mm trochars were placed along the left lateral abdomen. Abdomen was insufflated with CO2 to 12 to 15 mmHg. Patient tolerated insufflation well. The initial 5 mm trocar was upsized to an 8 mm well under direct visualization. Umbilical was visual ized with omentum in the hernia. Robot was docked. The omentum and hernia sac were reduced from the hernia with the ProGrasp and scissors with the electrocautery. Endoscopic retrieval bag was used to remove the hernia sac. Fascial defect noted to be about 3 x 4 cm. Fascial defect was closed using running [address] mesh trimmed to 10.2 cm x 13.2 cm was used. Mesh was secured using 2-0 STRATAFIX running suture x 3. After ensuring adequate hemostasis, the trochars were removed and pneumoperitoneum allowed to escape. The skin was closed with 4-0 Monocryl inte rrupted sutures and Steri-Strips. Pressure 4 x 4 was placed over the hernia (below the umbilicus) area to help decrease potential postop seroma. Patient tolerated procedure well was taken to the postanesthesia care unit in stable condition. Surgical Findings: See operative report Complications Complications: No
--- NOTE | 2025-04-28 14:27 | DCINST_ITS ---
Discharge Instructions Diet Discharge Diet: Light diet - advance as tolerated Activity May shower in (days): 5 (Keep umbilical dressing clean dry and intact for 5 days. Okay to tape off with a Ziploc bag to shower. Or lower shower and upper sponge bath.) Lifting Restrictions: no lifting >20 lbs x 2 wks, no strenuous exercise for 4 wks Additional Activity Instructions:: - Dressing / Incision Call your doctor if your incision/area has: Continuous Slow Oozing, Sudden Increased Bleeding, Increased Pain/ Swelling, Increased Redness, Foul Smelling Discharge and Swelling at the incision site Call your doctor if you observe: Fever of 101 or Higher Remove Dressing in: 5 days (After 5 days okay to remove surgical dressing. Place cotton ball or rolled up gauze in bellybutton and retape daily for 2 more days.) Cleanse incision/area with: Do not get Incision Wet (for 5 days) Additional Dressing/Incision Instructions:: Steri-Strips will fall off in 7 to 10 days, if they do not fall off okay to remove after 10 days. Follow Up Care Please Follow Up With: Ashley Isaac MD When: Call the office for a follow-up appointment 2 weeks; after 5 PM and on the weekends call [phone] with any concerns. Test Results: Test results from this visit will be discussed in further detail at your follow- up appointment, if applicable. Discharge Plan Admission Attending Provider: Ashley Isaac Primary Care Provider: Josie Worthy Instructions Additional Instructions / Restrictions: Okay to take ibuprofen 400-600 mg PO q6hr PRN and Tylenol 650 to 1000 mg p.o. every 6 hours as needed along with the oxycodone. Take all pain meds with food. Oxycodone can cause constipation recommend taking daily stool softener (i.e. Colace/docusate) while taking the pain meds. Recommend starting some MiraLAX in 1 to 2 days if no bowel movement. If still no bowel movement the following day recommend taking additional MiraLAX versus magnesium citrate half the bottle and waiting 4-6 hours if still no results take the other half the bottle. Print Language: Moroccan Discharge Orders/Prescriptions Prescriptions: New oxycodone 5 mg capsule 5 mg PO Q6H PRN (Reason: pain) 3 Days Qty: 10 0RF Continued cholecalciferol (vitamin D3) [Vitamin D3] 25 mcg (1,000 unit) capsule 25 mcg PO DAILY levothyroxine 50 mcg tablet 50 mcg PO DAILY cetirizine 10 mg tablet 10 mg PO DAILY meloxicam 15 mg tablet 15 mg PO DAILY sertraline 50 mg tablet 50 mg PO DAILY fluticasone propionate [24 Hour Allergy Relief] 50 mcg/actuation spray,suspension 1 spray intranasal DAILY PRN (Reason: nasal congestion) Rx Instructions: administer into each nostril Referrals / Follow Up: Josie Worthy MD [Primary Care Provider, Internal Medicine] Disposition Disposition (needs filled in before D/C Order can be placed): Home, Self Care
[2025-04-28] MEDS: fentaNYL 100 MCG/2 ML Ampul 150 MCG IV (14:40)
[2025-04-28] MEDS: Ketorolac 30 MG/ML Syringe IV (14:40)
--- NOTE | 2025-04-28 14:50 | PCM.POST.ANE ---
Anesthesia: Postop Eval I Current Vital Signs Temperature: 97.6 F Pulse Rate: 76 Blood Pressure: 133/83 Respiratory Rate: 16 Pulse Ox: 100 Oxygen Delivery Method: Nasal Cannula Oxygen Flow Rate (L/min): 3 Assessment Airway patent: Yes Spontaneous unlabored respirations: Yes Mental status: Awake and Calm nausea: No Vomiting: No Anesthesia Complication: No Fluid Hydration Crystalloid volume administer (ml): 700 Total IV fluid infused: 700 Progress Note Anesthesia document: Postop Eval 1 completed: Yes
--- NOTE | 2025-04-28 15:23 | POSTOPAN2_ITS ---
Anesthesia Postop Eval I Sum Postop Eval Completion status Anesthesia document: Postop Eval 1 completed: Yes Anesthesia Postop Eval I Summary Anesthesia Postop Eval I Summary: Anesthesia Postop Eval I: Assessment Summary Airway patent Yes 04/28/25 14:50 WIRE FRAME [email or web address] Spontaneous unlabored Yes 04/28/25 14:50 WIRE FRAME [email or web address] respirations Mental status Awake,Calm 04/28/25 14:50 WIRE FRAME [email or web address] nausea No 04/28/25 14:50 WIRE FRAME [email or web address] Vomiting No 04/28/25 14:50 WIRE FRAME [email or web address] Anesthesia Postop Eval I: Fluid Summary Crystalloid volume administer 700 04/28/25 14:50 WIRE FRAME [email or web address] (ml) Colloids volume administered ( ml) Blood Product volume administered (ml) Total IV fluid infused 700 04/28/25 14:50 WIRE FRAME [email or web address] Anesthesia Postop Eval I: Summary Notes Anesthesia Complication No 04/28/25 14:50 WIRE FRAME [email or web address] Anesthesia Complication Comment: Post-operative progress note Anesthesia: Postop Eval II Evaluation Mental status: Awake Pain Level: 0 nausea: No Vomiting: No
--- NOTE | 2025-04-28 15:23 | PCM.POSTANE2 ---
Anesthesia Postop Eval I Sum Postop Eval Completion status Anesthesia document: Postop Eval 1 completed: Yes Anesthesia Postop Eval I Summary Anesthesia Postop Eval I Summary: Anesthesia Postop Eval I: Assessment Summary Airway patent Yes 04/28/25 14:50 DEWATERER [email or web address] Spontaneous unlabored Yes 04/28/25 14:50 DEWATERER OPERATOR.SHOF respirations Mental status Awake,Calm 04/28/25 14:50 DEWATERER [email or web address] nausea No 04/28/25 14:50 DEWATERER [email or web address] Vomiting No 04/28/25 14:50 DEWATERER [email or web address] Anesthesia Postop Eval I: Fluid Summary Crystalloid volume administer 700 04/28/25 14:50 DEWATERER [email or web address].SHOF (ml) Colloids volume administered ( ml) Blood Product volume administered (ml) Total IV fluid infused 700 04/28/25 14:50 DEWATERER [email or web address].SHOF Anesthesia Postop Eval I: Summary Notes Anesthesia Complication No 04/28/25 14:50 DEWATERER OPERATOR.SHOF Anesthesia Complication Comment: Post-operative progress note Anesthesia: Postop Eval II Evaluation Mental status: Awake Pain Level: 0 nausea: No Vomiting: No
[2025-04-29 02:21] VITALS: BP 97/61; PULSE 86; RESP 16; TEMP 36.7; O2SAT 94
[2025-04-29 06:41] VITALS: BP 117/65; PULSE 77; RESP 16; TEMP 36.6; O2SAT 95
[2025-04-29 07:57] VITALS: O2SAT 97
[2025-04-29 08:00] VITALS: BP 119/70; PULSE 64; RESP 17; TEMP 36.2; O2SAT 95
[2025-04-29 08:37] VITALS: O2SAT 95
--- NOTE | 2025-04-29 09:31 | PCM.PN.SRG ---
Subjective Subjective Patient is on room air. Pain is controlled. Patient tolerating diet. Objective Data Objective Data Vital Signs: Vital Signs Temp Pulse Resp BP Pulse Ox O2 Del Method O2 Flow Rate 97.1 F L 64 17 119/70 95 Room Air 2 04/29/25 08:00 04/29/25 08:00 04/29/25 08:00 04/29/25 08:00 04/29/25 08:37 04/29/25 08:37 04/29/25 07:57 Oxygen Flow Rate (L/min) 2 Oxygen Delivery Method Room Air Weight: 277 lb 1.937 oz Body Mass Index (BMI) 54.1 Intake & Output: Intake and Output for Last 24 Hours 04/27/25 04/28/25 04/29/25 23:59 23:59 23:59 Intake Total 1046 / 1746 1400 / 1400 Output Total 15 / 15 Balance 1031 / 1731 1400 / 1400 Physical Exam Const oriented x3 and no apparent distress GI GI Narrative: Abdominal binder in place. Patient appropriately tender near incision. Assessment & Plan Assessment/Plan (1) History of incisional hernia repair: PLAN: Plan Patient's pain is controlled. Patient is on room air. Patient tolerating diet. Okay to DC home. Patient no further question this time. Ashley Isaac M.D. Pager: [phone] [facility] [address] [place] [address], [address] [place], [place] [id number] Office: [phone]
== END 2025-04-29 11:21 | disposition home or self-care (01) ==
LOC: SDC 18:15 → MS3 18:15
PROVIDERS: Anesthesiology; Admitting Provider Surgery; PCP Internal Medicine; Referring Provider Surgery; Visit Provider Surgery
PROC: (CPT 49593; principal; 2025-04-28 12:10)
DX: K43.2 Incisional hernia without obstruction or gangrene (principal); E03.9 Hypothyroidism, unspecified; Z79.890 Hormone replacement therapy; J45.909 Unspecified asthma, uncomplicated; F41.9 Anxiety disorder, unspecified; F32.A Depression, unspecified; Z79.899 Other long term (current) drug therapy
CPT/HCPCS: 49593; S2900; 00752; 36415; 84443; 88302; 99221; C1781; G0378; J2405